=== PATIENT | female | born 1965 | race Caucasian/White ===

== ENCOUNTER 2018-04-21 18:50 | Emergency (ER) | payer MEDICAID ==
[~2018-04-21] VITALS: Ht 152.4 cm; Wt 70.8 kg
[~2018-04-21 18:50] MED LIST: ACHD5005 PO; ALBU8.5H4 IH; AMIT10TA6 PO; ATEN25TA PO; CYCL10TA45 PO; HYDR1TAB PO; LISI40TA PO; OMEG-12 PO; PITA1TAB2 PO
--- OUTSIDE RECORDS SUMMARY | 2018-04-21 19:01 | XMS REPORT | Clinical Summary ---
Author Author Admin, WESTLEYE Organization [facility] Address Unknown Phone Unavailable Allergies, Adverse Reactions, Alerts Allergy Name Reaction Description Start Date Severity Status Provider SULFA Critical Active Daniela Elder MORPHINE Critical Active Daniela Elder DARVOCET Critical Active Daniela Elder CYMBALTA Critical Active Daniela Elder CELEBREX Critical Active Daniela Elder ADHESIVE TAPE Critical Active Daniela Elder PREDNISONE Critical Active Daniela Elder Conditions or Problems Problem Name Problem Code Onset Date Status Entry Date Provider Comment Standard Description Annotate Incontinence, mixed, urge/stress 788.33 Active Jovana Cr MD Mixed incontinence (female) (male) HERNIA, VENTRAL 553.20 Active Jovana Cr MD Unspecified ventral hernia without mention of obstruction or gangrene Medication List Medication Instructions Start Date Stop Date Generic Name NDC Status Provider Patient Instruction IPRATROPIUM-ALBUTEROL 0.5-2.5 (3) MG/3ML INHALATION SOLUTION 1 neb daily 2016 IPRATROPIUM-ALBUTEROL 08904755691 Active Daniela Elder Active CLONIDINE HCL 0.1 MG ORAL TABLET 1 tab by mouth prn CLONIDINE HCL 57313628085 Active Daniela Elder Active OMEPRAZOLE 20 MG ORAL CAPSULE DELAYED RELEASE 1 tablet by mouth daily OMEPRAZOLE 30909118683 Active Daniela Elder Active FISH OIL 1000 MG ORAL CAPSULE DELAYED RELEASE 1 pill by mouth twice daily for cholesterol OMEGA-3 FATTY ACIDS 95784242443 Active Daniela Elder Active BISACODYL EC 5 MG ORAL TABLET DELAYED RELEASE 1 tab by mouth daily BISACODYL 16203166836 Active Daniela Elder Active NYSTATIN 298797 UNIT/GM EXTERNAL CREAM apply to rash TID PRN NYSTATIN 97305387480 Active Daniela Elder Active NDREVPSQ-GTJYCKQLI-AS 3.5-29996-9 OPHTHALMIC SUSPENSION 1-2 drops to affected eye every 3 hours while awake x 7 days [id number]-[id number]-BZ 31835335447 Active Daniela Elder Active PROAIR HFA 108 (90 Base) MCG/ACT INHALATION AEROSOL SOLUTION 2 puffs four times a day as needed ALBUTEROL SULFATE 17687898518 Active Daniela Elder Active ATENOLOL 25 MG ORAL TABLET 1 tablet by mouth daily ATENOLOL 88716005555 Active Daniela Elder Active HYDROCORTISONE 2.5 % EXTERNAL CREAM Apply three times a day to affected area HYDROCORTISONE 23172049351 Active Daniela Elder Active ZOLPIDEM TARTRATE 10 MG ORAL TABLET 1 tablet by mouth at bedtime as needed for sleep ZOLPIDEM TARTRATE 54052313801 Active Daniela Elder Active DIAZEPAM 5 MG ORAL TABLET 1 tablet by mouth three times daily as needed 11/03 DIAZEPAM 57009027588 Active Daniela Elder Active LISINOPRIL 40 MG ORAL TABLET 1 po qd LISINOPRIL 50679592555 Active Daniela Elder Active LIVALO 4 MG ORAL TABLET 1 tab by mouth daily PITAVASTATIN CALCIUM 00498322812 Active Daniela Elder Active HYDROCODONE-ACETAMINOPHEN 10-325 MG ORAL TABLET 1 tablet by mouth every 6 hours as needed HYDROCODONE-ACETAMINOPHEN 81164786614 Active Daniela Elder Active AMLODIPINE BESYLATE 5 MG ORAL TABLET 1 tablet by mouth daily AMLODIPINE BESYLATE 04190051128 Active Daniela Elder Active Advance Directives Directive Description Start Date PERMISSION TO SHARE Vital Signs Date Name Value Unit Range Description blood pressure, diastolic 82 mm[Hg] BP garcía blood pressure, systolic 124 mm[Hg] BP sys pulse rate E&M 78 /min Heart rate temperature E&M 98.1 [degF] Body temperature weight E&M 160 [lb_av] Weight Measured blood pressure, diastolic 76 mm[Hg] BP garcía blood pressure, systolic 132 mm[Hg] BP sys height E&M 60 [in_us] Bdy height pulse rate E&M 70 /min Heart rate temperature E&M 98.1 [degF] Body temperature weight E&M 160 [lb_av] Weight Measured Diagnostic Results Date Name Value Unit Range Description Office Visit: Incontinence per [facility] - Chemistry RBC, urine, dipstick negative Office Visit: Incontinence per [facility] - Urinalysis ketones, urine, by test strip negative bilirubin, urine negative glucose, urine, semiquantitative negative pH, urine, semiquantitative 6 specific gravity, urine 1.010 urinalysis, routine Clean Catch urine color yellow appearance, urine clear leukocyte esterase, urine, by dipstick negative nitrite, urine, semiquantitative negative urobilinogen, urine, semiquantitative (dipstick) negative protein, urine, semiquantitative (dipstick) negative Encounters Code Encounter Date Provider Facility CPT-27569 Level 3 Est. 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
--- OUTSIDE RECORDS SUMMARY | 2018-04-21 19:01 | XMS REPORT | Clinical Summary ---
Author Author Admin, QIE Organization [facility] Address Unknown Phone Unavailable Allergies, Adverse [...] Generic Name NDC Status Provider Patient Instruction KEFLEX 500 MG ORAL CAPSULE 1 tab twice daily CEPHALEXIN 93845450265 No Longer Active Roula Lassiter Active [id number]-ETDRIIGGK-GM 3.5-07822-4 OPHTHALMIC SUSPENSION 1-2 drops to affected ears every 3 hours while awake x 7 days [id number]-[id number]-ED 67034931397 Active Yvan Mendiola MD Active BISACODYL EC 5 MG ORAL TABLET DELAYED RELEASE 1 tab by mouth daily BISACODYL 51971991597 No Longer Active Yvan Mendiola MD Active IPRATROPIUM-ALBUTEROL 0.5-2.5 (3) MG/3ML INHALATION SOLUTION 1 neb daily 2016 IPRATROPIUM-ALBUTEROL 66458937122 Active Daniela Richardson Active CLONIDINE HCL 0.1 MG ORAL TABLET 1 tab by mouth prn CLONIDINE HCL 41263836846 Active Daniela Elder Active OMEPRAZOLE 20 MG ORAL CAPSULE DELAYED RELEASE 1 tablet by mouth daily OMEPRAZOLE 89223742415 Active Daniela Elder Active FISH OIL 1000 MG ORAL CAPSULE DELAYED RELEASE 1 pill by mouth twice daily for cholesterol OMEGA-3 FATTY ACIDS 96248137677 Active Daniela Elder Active NYSTATIN 735162 UNIT/GM EXTERNAL CREAM apply to rash TID PRN NYSTATIN 51019820053 Active Daniela Elder Active PROAIR HFA 108 (90 Base) MCG/ACT INHALATION AEROSOL SOLUTION 2 puffs four times a day as needed ALBUTEROL SULFATE 46157319496 Active Daniela Elder Active ATENOLOL 25 MG ORAL TABLET 1 tablet by mouth daily ATENOLOL 66889709057 Active Daniela Elder Active HYDROCORTISONE 2.5 % EXTERNAL CREAM Apply three times a day to affected area HYDROCORTISONE 95865934279 Active Daniela Elder Active ZOLPIDEM TARTRATE 10 MG ORAL TABLET 1 tablet by mouth at bedtime as needed for sleep ZOLPIDEM TARTRATE 54911102955 Active Daniela Elder Active DIAZEPAM 5 MG ORAL TABLET 1 tablet by mouth three times daily as needed 11/03 DIAZEPAM 24787523130 Active Daniela Elder Active LISINOPRIL 40 MG ORAL TABLET 1 po qd LISINOPRIL 28297494518 Active Daniela Elder Active LIVALO 4 MG ORAL TABLET 1 tab by mouth daily PITAVASTATIN CALCIUM 23982359053 Active Daniela Elder Active HYDROCODONE-ACETAMINOPHEN 10-325 MG ORAL TABLET 1 tablet by mouth every 6 hours as needed HYDROCODONE-ACETAMINOPHEN 87194857689 Active Daniela Elder Active AMLODIPINE BESYLATE 5 MG ORAL TABLET 1 tablet by mouth daily AMLODIPINE BESYLATE 65287845908 Active Daniela Elder Active BISACODYL EC 5 MG ORAL TABLET DELAYED RELEASE 1 tab by mouth daily BISACODYL EC 5 MG ORAL TABLET DELAYED RELEASE BISACODYL Inactive KEFLEX 500 MG ORAL CAPSULE 1 tab twice daily KEFLEX 500 MG ORAL CAPSULE 214016 CEPHALEXIN Inactive Advance Directives Directive Description Start Date PERMISSION TO SHARE Vital Signs Date Name Value Unit Range Description blood pressure, diastolic 64 mm[Hg] BP gacría blood pressure, systolic 132 mm[Hg] BP sys pulse rate E&M 65 /min Heart rate temperature E&M 98 [degF] Body temperature weight E&M 165 [lb_av] Weight Measured blood pressure, diastolic 58 mm[Hg] BP garcía blood pressure, systolic 133 mm[Hg] BP sys pulse rate E&M 61 /min Heart rate temperature E&M 97. [degF] Body temperature weight E&M 163 [lb_av] Weight Measured blood pressure, diastolic 82 mm[Hg] BP garcía [...] (dipstick) negative protein, urine, semiquantitative (dipstick) negative Office Visit: Post-op sling/cystocele - Chemistry RBC, urine, dipstick 1+ protein, total urine random negative mg/dL Office Visit: Post-op sling/cystocele - Urinalysis pH, urine, semiquantitative 5 specific gravity, urine 1.005 urinalysis, routine Clean Catch ketones, urine, by test strip negative bilirubin, urine negative glucose, urine, semiquantitative negative urine color yellow appearance, urine cloudy leukocyte esterase, urine, by dipstick 1+ nitrite, urine, semiquantitative negative urobilinogen, urine, semiquantitative (dipstick) negative protein, urine, semiquantitative (dipstick) negative Encounters Code Encounter Date Provider Facility CPT-02175 Level 3 New Patient 16:37:52 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 Patient 13:08:22 COUNSELING SERVICES MANAGER Jovana Cr MD [facility] CPT-06855 Level 4 New Patient 15:01:20 CDT Jovana Cr MD [facility] Procedures Code Procedure Name Date Entry Date Standard Description CPT-31170 Postop F/U Visit 13:15:27 COUNSELING SERVICES MANAGER
--- OUTSIDE RECORDS SUMMARY | 2018-04-21 19:01 | XMS REPORT | Clinical Summary ---
Author Author Admin, ZEYAD Organization [facility] Address Unknown Phone Unavailable Allergies, Adverse Reactions, [...] Jovana Cr MD Mixed incontinence (female) (male) Medication List Medication Instructions Start Date Stop Date Generic Name NDC Status Provider Patient Instruction IPRATROPIUM-ALBUTEROL 0.5-2.5 (3) MG/3ML SOLN 1 neb daily IPRATROPIUM-ALBUTEROL 88156221116 Active Daniela Elder Active CLONIDINE HCL 0.1 MG TAB 1 tab by mouth prn CLONIDINE HCL 03194680835 Active Daniela Elder Active OMEPRAZOLE 20 MG CPDR 1 tablet by mouth daily OMEPRAZOLE 18310729424 Active Daniela Elder Active FISH OIL 1000 MG CPDR 1 pill by mouth twice daily for cholesterol OMEGA-3 FATTY ACIDS 46607645114 Active Daniela Elder Active BISACODYL EC 5 MG ORAL TBEC 1 tab by mouth daily BISACODYL 53257175324 Active Daniela Elder Active NYSTATIN 042327 UNIT/GM CREA apply to rash TID PRN NYSTATIN 44884053222 Active Daniela Elder Active BUKUXZRL-EMIUCMBQQ-YF 3.5-97411-0 OPHTH SUSP 1-2 drops to affected eye every 3 hours while awake x 7 days DBRSHHNP-HBSGYIUEP-SH 91798846872 Active Daniela Elder Active PROAIR HFA 108 (90 BASE) MCG/ACT AERS 2 puffs four times a day as needed 2016 ALBUTEROL SULFATE 93434291433 Active Daniela Elder Active ATENOLOL 25 MG TABS 1 tablet by mouth daily ATENOLOL 09460366114 Active Daniela Elder Active HYDROCORTISONE 2.5 % EXT CREA Apply three times a day to affected area 11/03 HYDROCORTISONE 63349289706 Active Daniela Elder Active ZOLPIDEM TARTRATE 10 MG TABS 1 tablet by mouth at bedtime as needed for sleep ZOLPIDEM TARTRATE 65981684645 Active Daniela Elder Active DIAZEPAM 5 MG TAB 1 tablet by mouth three times daily as needed DIAZEPAM 09493679599 Active Daniela Elder Active LISINOPRIL 40 MG TABS 1 po qd LISINOPRIL 30131915968 Active Daniela [facility] Active LIVALO 4 MG ORAL TABS 1 tab by mouth daily PITAVASTATIN CALCIUM 40864559770 Active Daniela [facility] Active HYDROCODONE-ACETAMINOPHEN 10-325 MG TABS 1 tablet by mouth every 6 hours as needed HYDROCODONE-ACETAMINOPHEN 22086558180 Active Daniela [facility] Active AMLODIPINE BESYLATE 5 MG TABS 1 tablet by mouth daily AMLODIPINE BESYLATE 53380465224 Active Daniela Richardson Active Vital Signs Date Name Value Unit Range Description blood pressure, diastolic 76 mm[Hg] BP garcía blood pressure, systolic 132 mm[Hg] BP sys height E&M 60 [in_us] Bdy height pulse rate E&M 70 /min Heart rate temperature E&M 98.1 [degF] Body temperature weight E&M 160 [lb_av] Weight Measured Diagnostic Results Date Name Value Unit Range Description Office Visit: Incontinence per [facility] - Chemistry RBC, urine, dipstick negative Office Visit: [facility] - Urinalysis ketones, urine, by test strip negative bilirubin, urine negative glucose, urine, semiquantitative negative pH, urine, semiquantitative 6 specific gravity, urine 1.010 urinalysis, routine Clean Catch urine color yellow appearance, urine clear leukocyte esterase, urine, by dipstick negative nitrite, urine, semiquantitative negative urobilinogen, urine, semiquantitative (dipstick) negative protein, urine, semiquantitative (dipstick) negative Encounters Code Encounter Date Provider Facility CPT-07109 Level 4 New Patient 15:01:20 CDT Jovana Cr MD [facility]
--- OUTSIDE RECORDS SUMMARY | 2018-04-21 19:01 | XMS REPORT | Clinical Summary ---
Author Author Admin, ZEYAD Organization [facility] Address Unknown Phone Unavailable Allergies, Adverse Reactions, Alerts Allergy Name Reaction Description Start Date Severity Status Provider SULFA Critical Active Danilea Elder MORPHINE Critical Active Daniela Elder DARVOCET [...] (3) MG/3ML SOLN 1 neb daily IPRATROPIUM-ALBUTEROL 49905228739 Active Daniela Elder Active CLONIDINE HCL 0.1 MG TAB 1 tab by mouth prn CLONIDINE HCL 10442179921 Active Daniela Elder Active OMEPRAZOLE 20 MG CPDR 1 tablet by mouth daily OMEPRAZOLE 15350339625 Active Daniela Elder Active FISH OIL 1000 MG CPDR 1 pill by mouth twice daily for cholesterol OMEGA-3 FATTY ACIDS 87999764062 Active Daniela Elder Active BISACODYL EC 5 MG ORAL TBEC 1 tab by mouth daily BISACODYL 18051809737 Active Daniela Elder Active NYSTATIN 582079 UNIT/GM CREA apply to rash TID PRN NYSTATIN 10635579321 Active Daniela Elder Active TVZUOPPX-SQESEIXRR-QU 3.5-92294-8 OPHTH SUSP 1-2 drops to affected eye every 3 hours while awake x 7 days PVYLEBON-QZPFQXQDT-ZO 30930715099 Active Daniela Elder Active PROAIR HFA 108 (90 BASE) MCG/ACT AERS 2 puffs four times a day as needed 2016 ALBUTEROL SULFATE 07342364607 Active Daniela Elder Active ATENOLOL 25 MG TABS 1 tablet by mouth daily ATENOLOL 93043668570 Active Daniela Elder Active HYDROCORTISONE 2.5 % EXT CREA Apply three times a day to affected area 11/03 HYDROCORTISONE 26700771030 Active Daniela Elder Active ZOLPIDEM TARTRATE 10 MG TABS 1 tablet by mouth at bedtime as needed for sleep ZOLPIDEM TARTRATE 25973522010 Active Daniela Elder Active DIAZEPAM 5 MG TAB 1 tablet by mouth three times daily as needed DIAZEPAM 30285384346 Active Daniela Elder Active LISINOPRIL 40 MG TABS 1 po qd LISINOPRIL 18287244957 Active Daniela Elder Active LIVALO 4 MG ORAL TABS 1 tab by mouth daily PITAVASTATIN CALCIUM 83621418979 Active Daniela Elder Active HYDROCODONE-ACETAMINOPHEN 10-325 MG TABS 1 tablet by mouth every 6 hours as needed HYDROCODONE-ACETAMINOPHEN 79509838795 Active Daniela Elder Active AMLODIPINE BESYLATE 5 MG TABS 1 tablet by mouth daily AMLODIPINE BESYLATE 14554350890 Active Daniela Elder Active Advance Directives Directive [...] negative Encounters Code Encounter Date Provider Facility CPT-79947 Level 4 New Patient 15:01:20 CDT Jovana Cr MD [facility]
--- OUTSIDE RECORDS SUMMARY | 2018-04-21 19:01 | XMS REPORT | Clinical Summary ---
Author Author Admin, ZEYAD Organization [facility] Address Unknown Phone Unavailable Allergies, Adverse Reactions, [...] (3) MG/3ML SOLN 1 neb daily IPRATROPIUM-ALBUTEROL 53452453698 Active Daniela Elder Active CLONIDINE HCL 0.1 MG TAB 1 tab by mouth prn CLONIDINE HCL 81639807129 Active Daniela Elder Active OMEPRAZOLE 20 MG CPDR 1 tablet by mouth daily OMEPRAZOLE 72730553921 Active Daniela Elder Active FISH OIL 1000 MG CPDR 1 pill by mouth twice daily for cholesterol OMEGA-3 FATTY ACIDS 68222250518 Active Daniela Elder Active BISACODYL EC 5 MG ORAL TBEC 1 tab by mouth daily BISACODYL 53540341989 Active Daniela Elder Active NYSTATIN 371846 UNIT/GM CREA apply to rash TID PRN NYSTATIN 03556074268 Active Daniela Elder Active NQPPTYTB-ICWMFVYCH-GP 3.5-87176-3 OPHTH SUSP 1-2 drops to affected eye every 3 hours while awake x 7 days ZMCZLCDX-RCRTFXGDN-BQ 96544110728 Active Daniela Elder Active PROAIR HFA 108 (90 BASE) MCG/ACT AERS 2 puffs four times a day as needed 2016 ALBUTEROL SULFATE 34953295624 Active Daniela Elder Active ATENOLOL 25 MG TABS 1 tablet by mouth daily ATENOLOL 38798868364 Active Daniela Elder Active HYDROCORTISONE 2.5 % EXT CREA Apply three times a day to affected area 11/03 HYDROCORTISONE 18983720377 Active Daniela Elder Active ZOLPIDEM TARTRATE 10 MG TABS 1 tablet by mouth at bedtime as needed for sleep ZOLPIDEM TARTRATE 99892908848 Active Daniela Elder Active DIAZEPAM 5 MG TAB 1 tablet by mouth three times daily as needed DIAZEPAM 11736072564 Active Daniela Elder Active LISINOPRIL 40 MG TABS 1 po qd LISINOPRIL 35863117989 Active Daniela [facility] Active LIVALO 4 MG ORAL TABS 1 tab by mouth daily PITAVASTATIN CALCIUM 24801149986 Active Daniela [facility] Active HYDROCODONE-ACETAMINOPHEN 10-325 MG TABS 1 tablet by mouth every 6 hours as needed HYDROCODONE-ACETAMINOPHEN 54372538153 Active Daniela [facility] Active AMLODIPINE BESYLATE 5 MG TABS 1 tablet by mouth daily AMLODIPINE BESYLATE 18842968124 Active Daniela Richardson Active Vital Signs Date Name Value Unit Range Description blood pressure, diastolic 76 mm[Hg] BP garcía blood pressure, systolic 132 mm[Hg] BP sys height E&M 60 [in_us] Bdy height pulse rate E&M 70 /min Heart rate temperature E&M 98.1 [degF] Body temperature weight E&M 160 [lb_av] Weight Measured Diagnostic Results Date Name Value Unit Range Description Office Visit: [facility] - Chemistry RBC, urine, dipstick negative [facility] ketones, urine, by test strip negative bilirubin, urine negative glucose, urine, semiquantitative negative pH, urine, semiquantitative 6 specific gravity, urine 1.010 urinalysis, routine Clean Catch urine color yellow appearance, urine clear leukocyte esterase, urine, by dipstick negative nitrite, urine, semiquantitative negative urobilinogen, urine, semiquantitative (dipstick) negative protein, urine, semiquantitative (dipstick) negative Encounters Code Encounter Date Provider Facility CPT-20222 Level 4 New Patient 15:01:20 CDT Jovana Cr MD [facility]
--- OUTSIDE RECORDS SUMMARY | 2018-04-21 19:02 | XMS REPORT | Clinical Summary ---
Author Author Admin, QIE Organization [facility] Address Unknown Phone Unavailable Allergies, Adverse Reactions, [...] Generic Name NDC Status Provider Patient Instruction LRTZOLUM-UMWAXMLZF-ZO 3.5-90016-2 OPHTHALMIC SUSPENSION 1-2 drops to affected ears every 3 hours while awake x 7 days BMGDEVMJ-JGXJJPBUV-IZ 14308430500 Active Yvan Mendiola MD Active BISACODYL EC 5 MG ORAL TABLET DELAYED RELEASE 1 tab by mouth daily BISACODYL 34764456548 No Longer Active Yvan Mendiola MD Active IPRATROPIUM-ALBUTEROL 0.5-2.5 (3) MG/3ML INHALATION SOLUTION 1 neb daily 2016 IPRATROPIUM-ALBUTEROL 17853940798 [facility] CLONIDINE HCL 0.1 MG ORAL TABLET 1 tab by mouth prn CLONIDINE HCL 34030466409 [facility] OMEPRAZOLE 20 MG ORAL CAPSULE DELAYED RELEASE 1 tablet by mouth daily OMEPRAZOLE 23868165270 Active Daniela Elder Active FISH OIL 1000 MG ORAL CAPSULE DELAYED RELEASE 1 pill by mouth twice daily for cholesterol OMEGA-3 FATTY ACIDS 88819100136 Active Daniela Elder Active NYSTATIN 091859 UNIT/GM EXTERNAL CREAM apply to rash TID PRN NYSTATIN 85731800954 Active Daniela Elder Active PROAIR HFA 108 (90 Base) MCG/ACT INHALATION AEROSOL SOLUTION 2 puffs four times a day as needed ALBUTEROL SULFATE 01506289257 Active Daniela Elder Active ATENOLOL 25 MG ORAL TABLET 1 tablet by mouth daily ATENOLOL 69911776947 Active Daniela Elder Active HYDROCORTISONE 2.5 % EXTERNAL CREAM Apply three times a day to affected area HYDROCORTISONE 75368850803 Active Daniela Elder Active ZOLPIDEM TARTRATE 10 MG ORAL TABLET 1 tablet by mouth at bedtime as needed for sleep ZOLPIDEM TARTRATE 87959186655 Active Daniela Elder Active DIAZEPAM 5 MG ORAL TABLET 1 tablet by mouth three times daily as needed 11/03 DIAZEPAM 26860465731 Active Daniela Elder Active LISINOPRIL 40 MG ORAL TABLET 1 po qd LISINOPRIL 32331478412 Active Daniela Elder Active LIVALO 4 MG ORAL TABLET 1 tab by mouth daily PITAVASTATIN CALCIUM 66740585181 Active Daniela Elder Active HYDROCODONE-ACETAMINOPHEN 10-325 MG ORAL TABLET 1 tablet by mouth every 6 hours as needed HYDROCODONE-ACETAMINOPHEN 89745834343 Active Daniela Elder Active AMLODIPINE BESYLATE 5 MG ORAL TABLET 1 tablet by mouth daily AMLODIPINE BESYLATE 23511188286 Active Daniela Elder Active BISACODYL EC 5 MG ORAL TABLET DELAYED RELEASE 1 tab by mouth daily BISACODYL EC 5 MG ORAL TABLET DELAYED RELEASE BISACODYL Inactive Advance Directives Directive Description Start Date PERMISSION TO SHARE Vital Signs Date Name Value Unit Range Description blood pressure, diastolic 58 mm[Hg] BP garcía [...] negative Encounters Code Encounter Date Provider Facility CPT-56915 Level 3 New Patient 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
--- OUTSIDE RECORDS SUMMARY | 2018-04-21 19:02 | XMS REPORT | Clinical Summary ---
Author Author Admin, QIE Organization [facility] Address Unknown Phone Unavailable [...] Generic Name NDC Status Provider Patient Instruction LZZQNGGS-KEUTGBZVT-IJ 3.5-82775-2 OPHTHALMIC SUSPENSION 1-2 drops to affected ears every 3 hours while awake x 7 days INRPVVJR-LUAOHBLAT-BI 11384618498 Active Yvan Mendiola MD Active BISACODYL EC 5 MG ORAL TABLET DELAYED RELEASE 1 tab by mouth daily BISACODYL 74868387271 No Longer Active Yvan Mendiola MD Active IPRATROPIUM-ALBUTEROL 0.5-2.5 (3) MG/3ML INHALATION SOLUTION 1 neb daily 2016 IPRATROPIUM-ALBUTEROL 42789560800 [facility] CLONIDINE HCL 0.1 MG ORAL TABLET 1 tab by mouth prn CLONIDINE HCL 82179717901 [facility] OMEPRAZOLE 20 MG ORAL CAPSULE DELAYED RELEASE 1 tablet by mouth daily OMEPRAZOLE 36310798994 Active Daniela Elder Active FISH OIL 1000 MG ORAL CAPSULE DELAYED RELEASE 1 pill by mouth twice daily for cholesterol OMEGA-3 FATTY ACIDS 63019631830 Active Daniela Elder Active NYSTATIN 047825 UNIT/GM EXTERNAL CREAM apply to rash TID PRN NYSTATIN 00121423195 Active Daniela Elder Active PROAIR HFA 108 (90 Base) MCG/ACT INHALATION AEROSOL SOLUTION 2 puffs four times a day as needed ALBUTEROL SULFATE 35410603777 Active Daniela Elder Active ATENOLOL 25 MG ORAL TABLET 1 tablet by mouth daily ATENOLOL 61173939205 Active Daniela Elder Active HYDROCORTISONE 2.5 % EXTERNAL CREAM Apply three times a day to affected area HYDROCORTISONE 68947931718 Active Daniela Elder Active ZOLPIDEM TARTRATE 10 MG ORAL TABLET 1 tablet by mouth at bedtime as needed for sleep ZOLPIDEM TARTRATE 65784123868 Active Daniela Elder Active DIAZEPAM 5 MG ORAL TABLET 1 tablet by mouth three times daily as needed 11/03 DIAZEPAM 01675177187 Active Daniela Elder Active LISINOPRIL 40 MG ORAL TABLET 1 po qd LISINOPRIL 53909167234 Active Daniela Elder Active LIVALO 4 MG ORAL TABLET 1 tab by mouth daily PITAVASTATIN CALCIUM 51997360193 Active Daniela Elder Active HYDROCODONE-ACETAMINOPHEN 10-325 MG ORAL TABLET 1 tablet by mouth every 6 hours as needed HYDROCODONE-ACETAMINOPHEN 39196189608 Active Daniela Elder Active AMLODIPINE BESYLATE 5 MG ORAL TABLET 1 tablet by mouth daily AMLODIPINE BESYLATE 54638023083 Active Daniela Elder Active BISACODYL EC 5 [...] negative Encounters Code Encounter Date Provider Facility CPT-65474 Level 3 New Patient 16:37:52 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
--- OUTSIDE RECORDS SUMMARY | 2018-04-21 19:02 | XMS REPORT | Clinical Summary ---
Author Author Admin, QIE Organization [facility] Address Unknown Phone Unavailable Allergies, Adverse [...] ORAL CAPSULE 1 tab twice daily CEPHALEXIN 03320266899 No Longer Active Roula Lassiter Active SQQHIBJK-AVELOPLTL-SR 3.5-86720-5 OPHTHALMIC SUSPENSION 1-2 drops to affected ears every 3 hours while awake x 7 days ONPGZLMZ-MDBTPTCZZ-EH 02970625620 Active Yvan Mendiola MD Active BISACODYL EC 5 MG ORAL TABLET DELAYED RELEASE 1 tab by mouth daily BISACODYL 12613083674 No Longer Active Yvan Mendiola MD Active IPRATROPIUM-ALBUTEROL 0.5-2.5 (3) MG/3ML INHALATION SOLUTION 1 neb daily 2016 IPRATROPIUM-ALBUTEROL 13696560806 Active Daniela Richardson Active CLONIDINE HCL 0.1 MG ORAL TABLET 1 tab by mouth prn CLONIDINE HCL 92261573794 Active Daniela Elder Active OMEPRAZOLE 20 MG ORAL CAPSULE DELAYED RELEASE 1 tablet by mouth daily OMEPRAZOLE 28867247269 Active Daniela Elder Active FISH OIL 1000 MG ORAL CAPSULE DELAYED RELEASE 1 pill by mouth twice daily for cholesterol OMEGA-3 FATTY ACIDS 28223030962 Active Daniela Elder Active NYSTATIN 329619 UNIT/GM EXTERNAL CREAM apply to rash TID PRN NYSTATIN 73755793339 Active Daniela Elder Active PROAIR HFA 108 (90 Base) MCG/ACT INHALATION AEROSOL SOLUTION 2 puffs four times a day as needed ALBUTEROL SULFATE 09990995645 Active Daniela Elder Active ATENOLOL 25 MG ORAL TABLET 1 tablet by mouth daily ATENOLOL 97765774306 Active Daniela Elder Active HYDROCORTISONE 2.5 % EXTERNAL CREAM Apply three times a day to affected area HYDROCORTISONE 05479605611 Active Daniela Elder Active ZOLPIDEM TARTRATE 10 MG ORAL TABLET 1 tablet by mouth at bedtime as needed for sleep ZOLPIDEM TARTRATE 31663994617 Active Daniela Elder Active DIAZEPAM 5 MG ORAL TABLET 1 tablet by mouth three times daily as needed 11/03 DIAZEPAM 24869456974 Active Daniela Elder Active LISINOPRIL 40 MG ORAL TABLET 1 po qd LISINOPRIL 28414362394 Active Daniela Elder Active LIVALO 4 MG ORAL TABLET 1 tab by mouth daily PITAVASTATIN CALCIUM 63964826657 Active Daniela Elder Active HYDROCODONE-ACETAMINOPHEN 10-325 MG ORAL TABLET 1 tablet by mouth every 6 hours as needed HYDROCODONE-ACETAMINOPHEN 84797294659 Active Daniela Elder Active AMLODIPINE BESYLATE 5 MG ORAL TABLET 1 tablet by mouth daily AMLODIPINE BESYLATE 32984501958 Active Daniela Elder Active BISACODYL EC 5 MG ORAL TABLET DELAYED RELEASE 1 tab by mouth daily BISACODYL EC 5 MG ORAL TABLET DELAYED RELEASE BISACODYL Inactive KEFLEX 500 MG ORAL CAPSULE 1 tab twice daily KEFLEX 500 MG ORAL CAPSULE 364933 CEPHALEXIN Inactive Advance Directives Directive Description Start [...] negative Encounters Code Encounter Date Provider Facility CPT-48484 Level 3 New Patient 16:37:52 STUDENT SUPPORT COUNSELOR Yvan Mendiola MD [facility] CPT-33771 Level 3 Est. Patient 13:08:22 STUDENT SUPPORT COUNSELOR Jovana Cr MD [facility] CPT-60126 Level 4 New Patient 15:01:20 CDT Jovana Cr MD [facility] Procedures Code Procedure Name Date Entry Date Standard Description CPT-68165 Postop F/U Visit 13:15:27 STUDENT SUPPORT COUNSELOR
--- OUTSIDE RECORDS SUMMARY | 2018-04-21 19:02 | XMS REPORT | Clinical Summary ---
Author Author Admin, WESTLEYE Organization [facility] Address Unknown Phone Unavailable Allergies, Adverse [...] INHALATION SOLUTION 1 neb daily 2016 IPRATROPIUM-ALBUTEROL 48652986503 Active Daniela Elder Active CLONIDINE HCL 0.1 MG ORAL TABLET 1 tab by mouth prn CLONIDINE HCL 04082399784 Active Daniela Elder Active OMEPRAZOLE 20 MG ORAL CAPSULE DELAYED RELEASE 1 tablet by mouth daily OMEPRAZOLE 96301403431 Active Daniela Elder Active FISH OIL 1000 MG ORAL CAPSULE DELAYED RELEASE 1 pill by mouth twice daily for cholesterol OMEGA-3 FATTY ACIDS 28880987008 Active Daniela Elder Active BISACODYL EC 5 MG ORAL TABLET DELAYED RELEASE 1 tab by mouth daily BISACODYL 28989555892 Active Daniela Elder Active NYSTATIN 378417 UNIT/GM EXTERNAL CREAM apply to rash TID PRN NYSTATIN 11869571681 Active Daniela Elder Active RBHLCGGX-DJKBDHKAU-DQ 3.5-45918-7 OPHTHALMIC SUSPENSION 1-2 drops to affected eye every 3 hours while awake x 7 days OGVZLZKZ-PXJAPPRPR-BC 04090268549 Active Daniela Elder Active PROAIR HFA 108 (90 Base) MCG/ACT INHALATION AEROSOL SOLUTION 2 puffs four times a day as needed ALBUTEROL SULFATE 23670063472 Active Daniela Elder Active ATENOLOL 25 MG ORAL TABLET 1 tablet by mouth daily ATENOLOL 78863317183 Active Daniela Elder Active HYDROCORTISONE 2.5 % EXTERNAL CREAM Apply three times a day to affected area HYDROCORTISONE 45408646837 Active Daniela Elder Active ZOLPIDEM TARTRATE 10 MG ORAL TABLET 1 tablet by mouth at bedtime as needed for sleep ZOLPIDEM TARTRATE 19720841064 Active Daniela Elder Active DIAZEPAM 5 MG ORAL TABLET 1 tablet by mouth three times daily as needed 11/03 DIAZEPAM 48662001652 Active Daniela Elder Active LISINOPRIL 40 MG ORAL TABLET 1 po qd LISINOPRIL 94079088748 Active Daniela Elder Active LIVALO 4 MG ORAL TABLET 1 tab by mouth daily PITAVASTATIN CALCIUM 26766969763 Active Daniela Elder Active HYDROCODONE-ACETAMINOPHEN 10-325 MG ORAL TABLET 1 tablet by mouth every 6 hours as needed HYDROCODONE-ACETAMINOPHEN 65081573632 Active Daniela Elder Active AMLODIPINE BESYLATE 5 MG ORAL TABLET 1 tablet by mouth daily AMLODIPINE BESYLATE 77993798439 Active Daniela Elder Active Advance Directives Directive [...] negative Encounters Code Encounter Date Provider Facility CPT-61559 Level 3 Est. Patient 13:08:22 PARK AIDE Jovana Cr MD [facility] CPT-38675 Level 4 New Patient 15:01:20 CDT Jovana Cr MD [facility]
--- OUTSIDE RECORDS SUMMARY | 2018-04-21 19:03 | XMS REPORT | Clinical Summary ---
Author Author Admin, ZEYAD Organization [facility] Address Unknown Phone Unavailable Allergies, [...] (3) MG/3ML SOLN 1 neb daily IPRATROPIUM-ALBUTEROL 21652042776 Active Daniela Elder Active CLONIDINE HCL 0.1 MG TAB 1 tab by mouth prn CLONIDINE HCL 55185761204 Active Daniela Elder Active OMEPRAZOLE 20 MG CPDR 1 tablet by mouth daily OMEPRAZOLE 60266972781 Active Daniela Elder Active FISH OIL 1000 MG CPDR 1 pill by mouth twice daily for cholesterol OMEGA-3 FATTY ACIDS 61812638409 Active Daniela Elder Active BISACODYL EC 5 MG ORAL TBEC 1 tab by mouth daily BISACODYL 96640687926 Active Daniela Elder Active NYSTATIN 751585 UNIT/GM CREA apply to rash TID PRN NYSTATIN 01643508464 Active Daniela Elder Active VUSDZBNJ-DALOUZEJM-DD 3.5-11016-3 OPHTH SUSP 1-2 drops to affected eye every 3 hours while awake x 7 days NCCWFTUJ-ILESFEAHQ-NO 99777019770 Active Daniela Elder Active PROAIR HFA 108 (90 BASE) MCG/ACT AERS 2 puffs four times a day as needed 2016 ALBUTEROL SULFATE 95444210179 Active Daniela Elder Active ATENOLOL 25 MG TABS 1 tablet by mouth daily ATENOLOL 15354501389 Active Daniela Elder Active HYDROCORTISONE 2.5 % EXT CREA Apply three times a day to affected area 11/03 HYDROCORTISONE 63158252977 Active Daniela Elder Active ZOLPIDEM TARTRATE 10 MG TABS 1 tablet by mouth at bedtime as needed for sleep ZOLPIDEM TARTRATE 61225083696 Active Daniela Elder Active DIAZEPAM 5 MG TAB 1 tablet by mouth three times daily as needed DIAZEPAM 69040351263 Active Daniela Elder Active LISINOPRIL 40 MG TABS 1 po qd LISINOPRIL 92882110815 Active Daniela Elder Active LIVALO 4 MG ORAL TABS 1 tab by mouth daily PITAVASTATIN CALCIUM 20747929643 Active Daniela Elder Active HYDROCODONE-ACETAMINOPHEN 10-325 MG TABS 1 tablet by mouth every 6 hours as needed HYDROCODONE-ACETAMINOPHEN 23674397443 Active Daniela Elder Active AMLODIPINE BESYLATE 5 MG TABS 1 tablet by mouth daily AMLODIPINE BESYLATE 58831261796 Active Daniela Elder Active Advance Directives Directive [...] negative Encounters Code Encounter Date Provider Facility CPT-99172 Level 4 New Patient 15:01:20 CDT Jovana Cr MD [facility]
--- OUTSIDE RECORDS SUMMARY | 2018-04-21 19:03 | XMS REPORT | Clinical Summary ---
Author Author Admin, QIE Organization [facility] Address Unknown Phone Unavailable Allergies, Adverse [...] Generic Name NDC Status Provider Patient Instruction [id number]-NELCPQCIJ-WK 3.5-54756-8 OPHTHALMIC SUSPENSION 1-2 drops to affected ears every 3 hours while awake x 7 days ONNYHFML-NMKLAPBJK-ZZ 46276345632 Active Yvan Mendiola MD Active BISACODYL EC 5 MG ORAL TABLET DELAYED RELEASE 1 tab by mouth daily BISACODYL 11271998152 No Longer Active Yvan Mendiola MD Active IPRATROPIUM-ALBUTEROL 0.5-2.5 (3) MG/3ML INHALATION SOLUTION 1 neb daily 2016 IPRATROPIUM-ALBUTEROL 83026749345 [facility] CLONIDINE HCL 0.1 MG ORAL TABLET 1 tab by mouth prn CLONIDINE HCL 65854000889 [facility] Active OMEPRAZOLE 20 MG ORAL CAPSULE DELAYED RELEASE 1 tablet by mouth daily OMEPRAZOLE 29689008620 Active Daniela Elder Active FISH OIL 1000 MG ORAL CAPSULE DELAYED RELEASE 1 pill by mouth twice daily for cholesterol OMEGA-3 FATTY ACIDS 34825299345 Active Daniela Elder Active NYSTATIN 283090 UNIT/GM EXTERNAL CREAM apply to rash TID PRN NYSTATIN 83925967878 Active Daniela Elder Active PROAIR HFA 108 (90 Base) MCG/ACT INHALATION AEROSOL SOLUTION 2 puffs four times a day as needed ALBUTEROL SULFATE 78953185524 Active Daniela Elder Active ATENOLOL 25 MG ORAL TABLET 1 tablet by mouth daily ATENOLOL 60539355306 Active Daniela Elder Active HYDROCORTISONE 2.5 % EXTERNAL CREAM Apply three times a day to affected area HYDROCORTISONE 43242417744 Active Daniela Elder Active ZOLPIDEM TARTRATE 10 MG ORAL TABLET 1 tablet by mouth at bedtime as needed for sleep ZOLPIDEM TARTRATE 66362829931 Active Daniela Elder Active DIAZEPAM 5 MG ORAL TABLET 1 tablet by mouth three times daily as needed 11/03 DIAZEPAM 96232534164 Active Daniela Elder Active LISINOPRIL 40 MG ORAL TABLET 1 po qd LISINOPRIL 47649858748 Active Daniela Elder Active LIVALO 4 MG ORAL TABLET 1 tab by mouth daily PITAVASTATIN CALCIUM 40717606671 Active Daniela Elder Active HYDROCODONE-ACETAMINOPHEN 10-325 MG ORAL TABLET 1 tablet by mouth every 6 hours as needed HYDROCODONE-ACETAMINOPHEN 59341677679 Active Daniela Elder Active AMLODIPINE BESYLATE 5 MG ORAL TABLET 1 tablet by mouth daily AMLODIPINE BESYLATE 40911477164 Active Daniela Elder Active BISACODYL EC 5 [...] negative Encounters Code Encounter Date Provider Facility CPT-78221 Level 3 New Patient 16:37:52 CHARGE ACCOUNT IDENTIFICATION CLERK Yvan Mendiola MD [facility] CPT-28755 Level 3 Est. Patient 13:08:22 CHARGE ACCOUNT IDENTIFICATION CLERK Jovana Cr MD [facility] CPT-40125 Level 4 New Patient 15:01:20 MAGGIE Cr MD [facility]
--- OUTSIDE RECORDS SUMMARY | 2018-04-21 19:03 | XMS REPORT | Clinical Summary ---
Author Author Admin, ZEYAD Organization [facility] Address Unknown Phone Unavailable Allergies, Adverse Reactions, Alerts Allergy Name Reaction Description Start Date Severity Status Provider SULFA Critical Active Daniela Elder MORPHINE Critical Active Daniela Elder DARVOCET Critical Active Daniela Elder CYMBALTA Critical Active Daniela Elder CELEBREX Critical Active Daniela Elder ADHESIVE TAPE Critical Active Daniela Elder PREDNISONE Critical Active Danilea Elder Conditions or Problems Problem Name Problem Code Onset Date Status Entry Date Provider Comment Standard Description Annotate Problems Unknown Active Medication List Medication Instructions Start Date Stop Date Generic Name NDC Status Provider Patient Instruction IPRATROPIUM-ALBUTEROL 0.5-2.5 (3) MG/3ML SOLN 1 neb daily IPRATROPIUM-ALBUTEROL 33218599964 Active Daniela Elder Active CLONIDINE HCL 0.1 MG TAB 1 tab by mouth prn CLONIDINE HCL 96057059182 Active Daniela Elder Active OMEPRAZOLE 20 MG CPDR 1 tablet by mouth daily OMEPRAZOLE 79157632983 Active Daniela Elder Active FISH OIL 1000 MG CPDR 1 pill by mouth twice daily for cholesterol OMEGA-3 FATTY ACIDS 87790030367 Active Daniela Elder Active BISACODYL EC 5 MG ORAL TBEC 1 tab by mouth daily BISACODYL 13315890383 Active Daniela Elder Active NYSTATIN 718277 UNIT/GM CREA apply to rash TID PRN NYSTATIN 04670575954 Active Daniela Elder Active IXEGUAEC-CCVALJEGL-VL 3.5-28872-6 OPHTH SUSP 1-2 drops to affected eye every 3 hours while awake x 7 days SOJQPMXX-GLLFCBJAX-NR 98576214423 Active Daniela Elder Active PROAIR HFA 108 (90 BASE) MCG/ACT AERS 2 puffs four times a day as needed 2016 ALBUTEROL SULFATE 62736158926 Active Daniela Elder Active ATENOLOL 25 MG TABS 1 tablet by mouth daily ATENOLOL 12018099012 Active Daniela Elder Active HYDROCORTISONE 2.5 % EXT CREA Apply three times a day to affected area 11/03 HYDROCORTISONE 36868294180 Active Daniela [facility] Active ZOLPIDEM TARTRATE 10 MG TABS 1 tablet by mouth at bedtime as needed for sleep ZOLPIDEM TARTRATE 10462525148 Active Daniela [facility] Active DIAZEPAM 5 MG TAB 1 tablet by mouth three times daily as needed DIAZEPAM 86930850774 Active Daniela [facility] Active LISINOPRIL 40 MG TABS 1 po qd LISINOPRIL 19395291076 Active Daniela [facility] Active LIVALO 4 MG ORAL TABS 1 tab by mouth daily PITAVASTATIN CALCIUM 92072953858 Active Daniela [facility] Active HYDROCODONE-ACETAMINOPHEN 10-325 MG TABS 1 tablet by mouth every 6 hours as needed HYDROCODONE-ACETAMINOPHEN 17071085900 Active Daniela [facility] Active AMLODIPINE BESYLATE 5 MG TABS 1 tablet by mouth daily AMLODIPINE BESYLATE 86500985744 Active Daniela [facility] Active
--- OUTSIDE RECORDS SUMMARY | 2018-04-21 19:03 | XMS REPORT | Clinical Summary ---
Author Author Admin, WESTLEYE Organization [facility] Address Unknown Phone Unavailable Allergies, Adverse [...] INHALATION SOLUTION 1 neb daily 2016 IPRATROPIUM-ALBUTEROL 41118568161 Active Daniela Elder Active CLONIDINE HCL 0.1 MG ORAL TABLET 1 tab by mouth prn CLONIDINE HCL 35714961487 Active Daniela Elder Active OMEPRAZOLE 20 MG ORAL CAPSULE DELAYED RELEASE 1 tablet by mouth daily OMEPRAZOLE 52327104997 Active Daniela Elder Active FISH OIL 1000 MG ORAL CAPSULE DELAYED RELEASE 1 pill by mouth twice daily for cholesterol OMEGA-3 FATTY ACIDS 68932531673 Active Daniela Elder Active BISACODYL EC 5 MG ORAL TABLET DELAYED RELEASE 1 tab by mouth daily BISACODYL 24721236563 Active Daniela Elder Active NYSTATIN 490689 UNIT/GM EXTERNAL CREAM apply to rash TID PRN NYSTATIN 95370024871 Active Daniela Elder Active LTQHRUAH-ATIBAHWPM-YD 3.5-12664-5 OPHTHALMIC SUSPENSION 1-2 drops to affected eye every 3 hours while awake x 7 days KRQZACYD-SDFPVDXNE-ZP 08577966394 Active Daniela Elder Active PROAIR HFA 108 (90 Base) MCG/ACT INHALATION AEROSOL SOLUTION 2 puffs four times a day as needed ALBUTEROL SULFATE 73655609293 Active Daniela Elder Active ATENOLOL 25 MG ORAL TABLET 1 tablet by mouth daily ATENOLOL 23829341819 Active Daniela Elder Active HYDROCORTISONE 2.5 % EXTERNAL CREAM Apply three times a day to affected area HYDROCORTISONE 65519938605 Active Daniela Elder Active ZOLPIDEM TARTRATE 10 MG ORAL TABLET 1 tablet by mouth at bedtime as needed for sleep ZOLPIDEM TARTRATE 94099503999 Active Daniela Elder Active DIAZEPAM 5 MG ORAL TABLET 1 tablet by mouth three times daily as needed 11/03 DIAZEPAM 45268783882 Active Daniela Elder Active LISINOPRIL 40 MG ORAL TABLET 1 po qd LISINOPRIL 92248092707 Active Daniela Elder Active LIVALO 4 MG ORAL TABLET 1 tab by mouth daily PITAVASTATIN CALCIUM 04664917305 Active Daniela Elder Active HYDROCODONE-ACETAMINOPHEN 10-325 MG ORAL TABLET 1 tablet by mouth every 6 hours as needed HYDROCODONE-ACETAMINOPHEN 57878789443 Active Daniela Elder Active AMLODIPINE BESYLATE 5 MG ORAL TABLET 1 tablet by mouth daily AMLODIPINE BESYLATE 57541544370 Active Daniela Elder Active Advance Directives Directive [...] negative Encounters Code Encounter Date Provider Facility CPT-99961 Level 3 Est. Patient 13:08:22 MANAGER CLINICAL APPLICATIONS Jovana Cr MD [facility] CPT-38753 Level 4 New Patient 15:01:20 CDT Jovana Cr MD [facility]
--- OUTSIDE RECORDS SUMMARY | 2018-04-21 19:04 | XMS REPORT ---
Author Author SERGIO CUEVA Organization [employer] Address Unknown Phone Unavailable Care Team Providers Care Chef Head Name Role Phone SERGIO CUEVA CP Unavailable Allergies, Adverse Reactions, Alerts Substance Reaction Event Type Sulfamethoxazole Info Not Available Drug Allergy Problems Problem Type Condition Code Onset Dates Condition Status Assessment Dental caries K02.9 Active Assessment Dental examination Z01.20 Active Medications Medication Code System Code Instructions Start Date End Date Status Dosage Fish Oil [facility] [address]-32 not defined Trazodone HCl [facility] [address]-70 not defined Ambien [facility] [address]-40 not defined Hydrocodone-Acetaminophen [facility] [address]-42 not defined Procedures Procedure Coding System Code Date INTRAORL-PERIAPICAL 1 FILM 90364 CPT-4 D0220 Jan 17, 2015 INTRAORL-PERIAPICAL EA ADD FILM CPT-4 D0230 Jan 17, 2015 LTD ORAL EVALUATION - PROBLEM FOCUS CPT-4 D0140 Jan 17, 2015 EXTRAC ERUPTED TOOTH/EXPOSED ROOT CPT-4 D7140 Jan 17, 2015 BITEWING - SINGLE FILM CPT-4 D0270 Jan 17, 2015 EXTRAC ERUPTED TOOTH/EXPOSED ROOT CPT-4 D7140 Jan 17, 2015 Vital Signs Date/Time: Jan 17, 2015 Blood Pressure Diastolic 92 mmHg Blood Pressure Systolic 124 mmHg Results No Known Results Summary Purpose [employer] Submission
--- OUTSIDE RECORDS SUMMARY | 2018-04-21 19:04 | XMS REPORT ---
Author Author BLANE MUÑOZ [facility] Address Unknown Care Team Providers Care Return To Vendor Name Role Phone BLANE MUÑOZ Unavailable PROBLEMS Unknown Problems ALLERGIES Substance Reaction Event Type Date Status Sulfamethoxazole Unknown Drug Allergy Dec, Active SOCIAL HISTORY No smoking Hx information available PLAN OF CARE Activity Details Follow Up prn Reason:hygiene VITAL SIGNS Blood pressure systolic 117 mmHg 2016-01-29 Blood pressure diastolic 80 mmHg 2016-01-29 MEDICATIONS Medication Instructions Dosage Frequency Start Date End Date Duration Status Fish Oil Active Ambien Active Lisinopril Active Livalo Active Trazodone HCl Active Hydrocodone-Acetaminophen Active RESULTS No Results PROCEDURES Procedure Date Ordered Related Diagnosis Body Site EXTRAC ERUPTED TOOTH/EXPOSED ROOT Jan 29, 2016 EXTRAC ERUPTED TOOTH/EXPOSED ROOT Jan 29, 2016 IMMUNIZATIONS No Known Immunizations
--- OUTSIDE RECORDS SUMMARY | 2018-04-21 19:04 | XMS REPORT | Clinical Summary ---
Author Author Admin, ZEYAD Organization [facility] Address Unknown Phone Unavailable Allergies, [...] (3) MG/3ML SOLN 1 neb daily IPRATROPIUM-ALBUTEROL 04216076730 Active Daniela Elder Active CLONIDINE HCL 0.1 MG TAB 1 tab by mouth prn CLONIDINE HCL 84672338411 Active Daniela Elder Active OMEPRAZOLE 20 MG CPDR 1 tablet by mouth daily OMEPRAZOLE 92185218320 Active Daniela Elder Active FISH OIL 1000 MG CPDR 1 pill by mouth twice daily for cholesterol OMEGA-3 FATTY ACIDS 72230816685 Active Daniela Elder Active BISACODYL EC 5 MG ORAL TBEC 1 tab by mouth daily BISACODYL 72250381545 Active Daniela Elder Active NYSTATIN 880285 UNIT/GM CREA apply to rash TID PRN NYSTATIN 07213945627 Active Daniela Elder Active TTKZQDUV-YMVAVYLVE-FR 3.5-48513-6 OPHTH SUSP 1-2 drops to affected eye every 3 hours while awake x 7 days TVHXIESK-RJSKDDBSV-RC 27054184897 Active Daniela Elder Active PROAIR HFA 108 (90 BASE) MCG/ACT AERS 2 puffs four times a day as needed 2016 ALBUTEROL SULFATE 82297763883 Active Daniela Elder Active ATENOLOL 25 MG TABS 1 tablet by mouth daily ATENOLOL 11173730490 Active Daniela Elder Active HYDROCORTISONE 2.5 % EXT CREA Apply three times a day to affected area 11/03 HYDROCORTISONE 66070238175 Active Daniela Elder Active ZOLPIDEM TARTRATE 10 MG TABS 1 tablet by mouth at bedtime as needed for sleep ZOLPIDEM TARTRATE 13975231526 Active Daniela Elder Active DIAZEPAM 5 MG TAB 1 tablet by mouth three times daily as needed DIAZEPAM 38266231292 Active Daniela Elder Active LISINOPRIL 40 MG TABS 1 po qd LISINOPRIL 55542356516 Active Daniela Elder Active LIVALO 4 MG ORAL TABS 1 tab by mouth daily PITAVASTATIN CALCIUM 13045205336 Active Daniela Elder Active HYDROCODONE-ACETAMINOPHEN 10-325 MG TABS 1 tablet by mouth every 6 hours as needed HYDROCODONE-ACETAMINOPHEN 57654679821 Active Daniela Elder Active AMLODIPINE BESYLATE 5 MG TABS 1 tablet by mouth daily AMLODIPINE BESYLATE 91682754180 Active Daniela Elder Active Advance Directives Directive [...] negative Encounters Code Encounter Date Provider Facility CPT-33010 Level 4 New Patient 15:01:20 CDT Jovana Cr MD [facility]
--- OUTSIDE RECORDS SUMMARY | 2018-04-21 19:04 | XMS REPORT ---
Author Author BLANE MUÑOZ [facility] Address Unknown Care Team Providers Care Motor Vehicles Inspector Name Role Phone WANDA BLANE Unavailable PROBLEMS Type Condition ICD9-CM Code GVA09-VM Code Onset Dates Condition Status SNOMED Code Assessment Dental examination Z01.20 Oct, Active 696298528 ALLERGIES Substance Reaction Event Type Date Status Sulfamethoxazole Unknown Drug Allergy Oct, Active SOCIAL HISTORY No smoking Hx information available PLAN OF CARE VITAL SIGNS Blood pressure systolic 140 mmHg 2015-11-07 Blood pressure diastolic 103 mmHg 2015-11-07 MEDICATIONS Medication Instructions Dosage Frequency Start Date End Date Duration Status Trazodone HCl Active Ambien Active Fish Oil Active Livalo Active Amoxicillin 500 MG Orally 3 times a day 1 capsule 8h Oct, Oct, 7 days Active Hydrocodone-Acetaminophen Active Lisinopril Active RESULTS No Results PROCEDURES Procedure Date Ordered Related Diagnosis Body Site LTD ORAL EVALUATION - PROBLEM FOCUS Nov 07, 2015 INTRAORL-PERIAPICAL 1 FILM 70641 Nov 07, 2015 INTRAORL-PERIAPICAL EA ADD FILM Nov 07, 2015 IMMUNIZATIONS No Known Immunizations
--- OUTSIDE RECORDS SUMMARY | 2018-04-21 19:04 | XMS REPORT | Continuity of Care Document ---
Author Author [facility] Organization [facility] Address Unknown Phone Unavailable Allergies Active Description Code Type Severity Reaction Onset Reported/Identified Relationship to Patient Clinical Status Yes estrogen 119 Drug Severe 588333756 Yes morphine Drug Moderate 5349457064~[id number] Yes morphine Drug Severe 7700114129~[id number] Yes NSAIDs 385 Drug Moderate 41701638 Yes steroids Drug Moderate Cause Tumors to Grow Yes sulfa drugs 16 Drug Severe 119961774 Medications There is no data. Problems Date Dx Coded Attending Type Code Diagnosis Diagnosed By 02/05/2017 Jovana Dallas MD K43.9 HERNIA, VENTRAL 04/07/2017 ANASTASIA DALLAS MD N39.46 Mixed incontinence Procedures Code [place] [address] CULTURE AEROBIC IDENTIFY ANASTASIA DALLAS MD 04/07/2017 67258 URINE CULTURE/COLONY COUNT ANASTASIA DALLAS MD 04/07/2017 28762 MICROBE SUSCEPTIBLE WINNIE ANASTASIA DALLAS MD 04/07/2017 Results There is no data. Encounters ACCT No. Visit Date/Time Discharge Status Pt. Type Provider Facility Loc./Unit Complaint [id number] 04/07/2017 17:28:00 04/07/2017 17:28:00 DIS Outpatient ANASTASIA DALLAS MD [facility] LAB [id number] 04/19/2018 08:00:00 ACT Outpatient AVINASH PÉREZ [facility] [id number] 11/21/2012 10:18:00 11/21/2012 23:59:59 CLS Outpatient [id number] 05/13/2017 02:20:42 ACT Document Registration [id number] 03/26/2017 15:05:11 03/31/2017 11:05:00 DIS Inpatient CHANTEL MELCHOR [facility] JIMMY MS RAL, ventral hernia, TOT, cystocele [id number] 03/24/2017 06:36:23 03/26/2017 15:04:00 DIS V CHANTEL MELCHOR [facility] JIMMY MS RAL ventral hernia ; TOT; cystocele [id number] 04/28/2017 15:17:01 ACT Unknown Jovana Dallas MD
--- NOTE | 2018-04-21 19:30 | ED Abdominal Pain ---
General Stated Complaint: CONSTIPATED,RECTAL BLEEDING Source of Information: Patient Exam Limitations: No Limitations History of Present Illness Date Seen by Provider: Apr 21, 2018 Time Seen by Provider: 19:29 Initial Comments To ER with a three-day history of constipation. She's never had troubles with constipation before. She does have a history of diverticulosis. She's had some rectal bleeding earlier this evening after she inserted a Dulcolax suppository which did not provide her any relief. She also took a fleets enema which did not result in a bowel movement. She's had nausea. No fevers or chills. She has suprapubic abdominal pain and rectal pain. Timing/Duration: 2-3 Days Severity/Quality: Moderate Location: Suprapubic Radiation: No Radiation Activities at Onset: None Associated Symptoms: No Fever/Chills; Nausea/Vomiting (nausea without vomiting) Allergies and Home Medications Allergies Coded Allergies: Ciprofloxacin (Unverified Allergy, Mild, throat swells, 06/03/08) Uncoded Allergies: [id number] (DARVOCET-N 100) (Allergy, Mild, 06/03/08) Home Medications Albuterol Sulfate 8.5 Gm Hfa.aer.ad, 8.5 GM IH PRN, (Reported) Amitriptyline Hcl 10 Mg Tablet, 1 EACH PO DAILY, (Reported) Atenolol 25 Mg Tablet, 1 EACH PO DAILY, (Reported) Hydrocodone Bit/Acetaminophen 1 Each Tablet, 1 EACH PO Q6H PRN, (Reported) Lisinopril 40 Mg Tablet, 40 MG PO DAILY, (Reported) [place]-3/Dha/Epa/Fish Oil 1 Each Capsule.dr, 1 EACH PO QID, (Reported) Pitavastatin Calcium 1 Mg Tablet, 1 MG PO 4 PILLS QID, (Reported) Patient Home Medication List Home Medication List Reviewed: Yes Review of Systems Review of Systems Constitutional: see HPI EENTM: No Symptoms Reported Respiratory: No Symptoms Reported Cardiovascular: No Symptoms Reported Gastrointestinal: See HPI, Abdominal Pain, Constipated Genitourinary: No Symptoms Reported Musculoskeletal: no symptoms reported Skin: no symptoms reported Psychiatric/Neurological: No Symptoms Reported Endocrine: No Symptoms Reported Hematologic/Lymphatic: No Symptoms Reported Past Xgotcjz-Qondxo-Ecqtyq Hx Patient Social History Recent Foreign Travel: No Contact w/Someone Who Travel: No Immunizations Up To Date Date of Pneumonia Vaccine: Nov 29, 2010 Date of Influenza Vaccine: Nov 30, 2011 Physical Exam Vital Signs Vital Signs - First Documented 04/21/18 19:15 Temp 97.0 Pulse 81 Resp 20 B/P (MAP) 141/84 (103) Pulse Ox 98 Capillary Refill : Height/Weight/BMI Height: '" Weight: lbs. oz. 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 There are perianal skin tags but no thrombosed hemorrhoids. No obvious blood.) Extremities: normal range of motion, non-tender Neurologic/Psychiatric: alert, normal mood/affect, oriented x 3 Skin: normal color, warm/dry Progress/Results/Core Measures Results/Orders Lab Results Laboratory Tests Test 04/21/18 19:30 04/21/18 21:10 Range/Units White Blood Count 10.8 4.3-11.0 10^3/uL Red Blood Count 4.89 4.35-5.85 10^6/uL Hemoglobin 16.1 H 11.5-16.0 G/DL Hematocrit 46 35-52 % Mean Corpuscular Volume 94 80-99 FL Mean Corpuscular Hemoglobin 33 25-34 PG Mean Corpuscular Hemoglobin Concent 35 32-36 G/DL Red Cell Distribution Width 12.5 10.0-14.5 % Platelet Count 282 130-400 10^3/uL Mean Platelet Volume 8.9 7.4-10.4 FL Neutrophils (%) (Auto) 73 42-75 % Lymphocytes (%) (Auto) 20 12-44 % Monocytes (%) (Auto) 6 0-12 % Eosinophils (%) (Auto) 1 0-10 % Basophils (%) (Auto) 0 0-10 % Neutrophils # (Auto) 7.9 H 1.8-7.8 X 10^3 Lymphocytes # (Auto) 2.2 1.0-4.0 X 10^3 Monocytes # (Auto) 0.6 0.0-1.0 X 10^3 Eosinophils # (Auto) 0.1 0.0-0.3 10^3/uL Basophils # (Auto) 0.0 0.0-0.1 10^3/uL Sodium Level 139 135-145 MMOL/L Potassium Level 4.0 3.6-5.0 MMOL/L Chloride Level 103 98-107 MMOL/L Carbon Dioxide Level 25 21-32 MMOL/L Anion Gap 11 5-14 MMOL/L Blood Urea Nitrogen 9 7-18 MG/DL Creatinine 0.78 0.60-1.30 MG/DL Estimat Glomerular Filtration Rate > 60 BUN/Creatinine Ratio 12 Glucose Level 98 70-105 MG/DL Calcium Level 10.0 8.5-10.1 MG/DL Corrected Calcium 8.5-10.1 MG/DL Total Bilirubin 0.5 0.1-1.0 MG/DL Aspartate Amino Transf (AST/SGOT) 19 5-34 U/L Alanine Aminotransferase (ALT/SGPT) 16 0-55 U/L Alkaline Phosphatase 84 40-136 U/L Total Protein 7.2 6.4-8.2 GM/DL Albumin 4.7 H 3.2-4.5 GM/DL Urine Color YELLOW Urine Clarity CLEAR Urine pH 7 5-9 Urine Specific [place] 1.005 L 1.016-1.022 Urine Protein NEGATIVE NEGATIVE Urine Glucose (UA) NEGATIVE NEGATIVE Urine Ketones NEGATIVE NEGATIVE Urine Nitrite NEGATIVE NEGATIVE Urine Bilirubin NEGATIVE NEGATIVE Urine Urobilinogen NORMAL NORMAL MG/DL Urine Leukocyte Esterase NEGATIVE NEGATIVE Urine RBC (Auto) NEGATIVE NEGATIVE Urine RBC NONE /HPF Urine WBC NONE /HPF Urine Squamous Epithelial Cells RARE /HPF Urine Crystals NONE /LPF Urine Bacteria NEGATIVE /HPF Urine Casts NONE /LPF Urine Mucus NEGATIVE /LPF Urine Culture Indicated NO My Orders Orders - VIVIANE CAICEDO APRN Cbc With Automated Diff (04/21/18 19:28) Comprehensive Metabolic Panel (04/21/18 19:28) Ua Culture If Indicated (04/21/18 19:28) Iv [place]-Insert (Order) (04/21/18 19:28) Ct Abdomen/Pelvis W (04/21/18 19:28) Iohexol Injection (Omnipaque 350 Mg/Ml 1 (04/21/18 20:00) Contrast Received (Contrast Received) (04/21/18 20:00) Sodium Chloride Flush (Catheter Flush Sy (04/21/18 20:00) Ns (Ivpb) (Sodium Chloride 0.9% Ivpb Bag (04/21/18 20:00) Ketorolac Injection (Toradol Injection) (04/21/18 21:15) Ondansetron Injection (Zofran Injectio (04/21/18 21:15) Medications Given in ED Current Medications Medications Dose Ordered Sig/Latha Route Start Time Stop Time Status Last Admin Dose Admin Iohexol 100 ml ONCE ONCE IV 04/21/18 20:00 04/21/18 20:01 DC 04/21/18 20:12 100 ML Ketorolac Tromethamine 30 mg ONCE ONCE IVP 04/21/18 21:15 04/21/18 21:16 DC 04/21/18 21:17 30 MG Ondansetron HCl 8 mg ONCE ONCE IVP 04/21/18 21:15 04/21/18 21:16 DC 04/21/18 21:17 8 MG Sodium Chloride 10 ml NEEDED PRN IV 04/21/18 20:00 04/21/18 20:12 10 ML Sodium Chloride 100 ml ONCE ONCE IV 04/21/18 20:00 04/21/18 20:01 DC 04/21/18 20:12 80 ML Vital Signs/I&O 04/21/18 19:15 Temp 97.0 Pulse 81 Resp 20 B/P (MAP) 141/84 (103) Pulse Ox 98 Diagnostic Imaging Diagonstic Imaging: CT Comments NAME: CECILIA METZGER [facility] REC#: [id number] PT STATUS: REG ER : 1965 PHYSICIAN: VIVIANE CAICEDO PHARMACEUTICAL OPERATOR ADMIT DATE: 04/21/18/ER Draft Date of Exam:04/21/18 CT ABDOMEN/PELVIS W PROCEDURE: CT abdomen and pelvis with contrast. TECHNIQUE: Multiple contiguous axial images were obtained through the abdomen and pelvis after administration of intravenous contrast. INDICATION: Constipation and history of basal cell carcinoma. COMPARISON: Prior examination from 11/21/2012. FINDINGS: The heart size is normal. The lung bases are clear. The liver is normal in size and without focal lesions. Gallbladder is surgically absent. There is no biliary ductal dilatation. Spleen is normal. The pancreas and adrenal glands are unremarkable. Kidneys are normal in appearance. There is mild after calcification of the aorta which is nonaneurysmal. There are postsurgical changes of an anterior abdominal wall hernia repair. There is some induration within the intra-abdominal fat, presumably postsurgical. There is however no abnormal fluid collection appreciated to suggest abscess. Bowel gas pattern is otherwise nonspecific. There is no free air. There is no ascites. There is a small Watts's hernia on the right containing only omental fat. The osseous structures are unremarkable. IMPRESSION: 1. Presumably interval postsurgical changes of an anterior abdominal wall hernia repair with some induration within the anterior peritoneal fat presumably postsurgical. Additionally there's been interval development of a small Watts's hernia on the right containing omental fat. There is also persistent umbilical hernia containing a small amount of fat. 2. No other acute abnormality in the abdomen or pelvis. Dictated on workstation # [id number] Dict: 04/21/182035 Trans: 04/21/182109 [facility] [id number] Interpreted by: CRISTA DAY MD Electronically signed by: Departure Impression Primary Impression: Constipation Qualified Codes: K59.00 - Constipation, unspecified Disposition: HOME, SELF-CARE Condition: Stable Departure-Patient Inst. Decision time for Depature: 21:26 Referrals: AVINASH PÉREZ MD (PCP/Family) Primary Care Physician Patient Instructions: Constipation in Adults Add. Discharge Instructions: 1. Purchase a bottle or packet of MiraLAX at [facility]. Dissolve 1 packet or lid full of MiraLAX powder in 8 ounce glass of water. Drink one of these every 10- 15 minutes until you have a bowel movement to a maximum of 10 glasses. VIVIANE CAICEDO APRN Apr 21, 2018 19:30
[2018-04-21 19:38] LABS: BASOPHILS % (AUTO) 0 % (0-10); EOSINOPHILS # (AUTO) 0.1 10^3/uL (0.0-0.3); EOSINOPHILS % (AUTO) 1 % (0-10); HEMATOCRIT 46 % (35-52); HEMOGLOBIN 16.1 G/DL (11.5-16.0); LYMPHOCYTES # (AUTO) 2.2 X 10^3 (1.0-4.0); LYMPHOCYTES % (AUTO) 20 % (12-44); MEAN CORPUSCULAR HEMOGLOBIN 33 PG (25-34); MEAN CORPUSCULAR HGB CONC 35 G/DL (32-36); MEAN CORPUSCULAR VOLUME 94 FL (80-99); MEAN PLATELET VOLUME 8.9 FL (7.4-10.4); MONOCYTES # (AUTO) 0.6 X 10^3 (0.0-1.0); MONOCYTES % (AUTO) 6 % (0-12); NEUTROPHILS # (AUTO) 7.9 X 10^3 (1.8-7.8); NEUTROPHILS % (AUTO) 73 % (42-75); PLATELET COUNT 282 10^3/uL (130-400); RED CELL DISTRIBUTION WIDTH 12.5 % (10.0-14.5); WHITE BLOOD COUNT 10.8 10^3/uL (4.3-11.0)
[2018-04-21 19:55] LABS: ALANINE AMINOTRANSFERASE 16 U/L (0-55); ALBUMIN 4.7 GM/DL (3.2-4.5); ALKALINE PHOSPHATASE 84 U/L (40-136); BILIRUBIN,TOTAL 0.5 MG/DL (0.1-1.0); BUN/CREATININE RATIO 12; CARBON DIOXIDE 25 MMOL/L (21-32); CHLORIDE 103 MMOL/L (98-107); CREATININE SERUM 0.78 MG/DL (0.60-1.30); GFR ESTIMATED > 60; GLUCOSE 98 MG/DL (70-105); SODIUM 139 MMOL/L (135-145); TOTAL PROTEIN 7.2 GM/DL (6.4-8.2)
[2018-04-21] MEDS ORDERED: NS 100 ML (IVPB) BAG IV ONE (20:00)
[2018-04-21] MEDS ORDERED: IOHEXOL 350 MG/ML 100 ML (OMNIPAQUE 350) VIAL IV ONE (20:00)
[2018-04-21] MEDS ORDERED: RECEIVED CONTRAST (Hold Metformin) IV SCH (20:00)
[2018-04-21] MEDS ORDERED: CATHETER FLUSH 10 ML SYR IV PRN (20:00)
--- NOTE | 2018-04-21 21:10 | Diagnostic Imaging Report ---
PROCEDURE: CT abdomen and pelvis with contrast. TECHNIQUE: Multiple contiguous axial images were obtained through the abdomen and pelvis after administration of intravenous contrast. INDICATION: Constipation and history of basal cell carcinoma. COMPARISON: Prior examination from 11/21/2012. FINDINGS: The heart size is normal. The lung bases are clear. The liver is normal in size and without focal lesions. Gallbladder is surgically absent. There is no biliary ductal dilatation. Spleen is normal. The pancreas and adrenal glands are unremarkable. Kidneys are normal in appearance. There is mild after calcification of the aorta which is nonaneurysmal. There are postsurgical changes of an anterior abdominal wall hernia repair. There is some induration within the intra-abdominal fat, presumably postsurgical. There is however no abnormal fluid collection appreciated to suggest abscess. Bowel gas pattern is otherwise nonspecific. There is no free air. There is no ascites. There is a small Watts's hernia on the right containing only omental fat. The osseous structures are unremarkable. IMPRESSION: 1. Presumably interval postsurgical changes of an anterior abdominal wall hernia repair with some induration within the anterior peritoneal fat presumably postsurgical. Additionally there's been interval development of a small Watts's hernia on the right containing omental fat. There is also persistent umbilical hernia containing a small amount of fat. 2. No other acute abnormality in the abdomen or pelvis. Dictated by: Dictated on workstation # [id number]
[2018-04-21] MEDS ORDERED: KETOROLAC 30 MG/ML VIAL IVP ONE (21:15)
[2018-04-21] MEDS ORDERED: ONDANSETRON 4 MG/2 ML (SDV) Z0FRAN IVP ONE (21:15)
[2018-04-21 21:16] LABS: BILIRUBIN,URINE NEGATIVE (NEGATIVE); CLARITY,URINE CLEAR; COLOR,URINE YELLOW; GLUCOSE, URINE (UA) NEGATIVE (NEGATIVE); KETONES,URINE NEGATIVE (NEGATIVE); LEUKOCYTE ESTERASE ,URINE NEGATIVE (NEGATIVE); NITRITE,URINE NEGATIVE (NEGATIVE); PH,URINE 7 (5-9); PROTEIN,URINE NEGATIVE (NEGATIVE); UROBILINOGEN,URINE NORMAL (NORMAL)
[2018-04-21 21:22] LABS: BACTERIA,URINE NEGATIVE /HPF; SQUAMOUS EPITHELIAL CELL,UR RARE /HPF
[2018-04-21 22:09] VITALS: BP 136/78
== END 2018-04-21 22:09 | disposition home or self-care (01) ==
LOC: EDUNIT# 18:50 → ER 18:51
DX: K59.00 Constipation, unspecified (principal); Z88.1 Allergy status to other antibiotic agents; Z87.19 Personal history of other diseases of the digestive system; Z79.51 Long term (current) use of inhaled steroids
CPT/HCPCS: 36415; 74177; 80053; 81000; 85025; 96374; 96375

== ENCOUNTER → 2019-08-17 | Outpatient (CLI) | payer MEDICAID ==
--- NOTE | 2019-08-17 16:59 | Diagnostic Imaging Report ---
INDICATION: Left rib pain. EXAMINATION: PA chest and four views of the left ribs are obtained. FINDINGS: Lungs are clear. There are no effusions or pneumothoraces. There are no displaced rib fractures. IMPRESSION: Negative chest and left ribs. Dictated by: Dictated on workstation # [id number]
== END ==
LOC: RAD FS 15:30
PROVIDERS: ATTEND Family Medicine
DX: R07.81 Pleurodynia (principal)
CPT/HCPCS: 71100

== ENCOUNTER → 2019-11-29 | Outpatient (CLI) | payer MEDICAID ==
--- NOTE | 2019-11-29 09:51 | Diagnostic Imaging Report ---
EXAMINATION: CT Abdomen Pelvis without contrast. TECHNIQUE: Multiple contiguous axial images were obtained through the abdomen and pelvis without the use of intravenous contrast. All CT scans use one or more of the following dose optimizing techniques: automated exposure control, MA and/or KvP adjustment based on a patient size and exam type, or iterative reconstruction. HISTORY: Chronic kidney disease, right-sided back pain COMPARISON: 04/21/2018 FINDINGS: Limited views of the lower thorax show coronary artery calcifications. The liver is normal without focal lesion. There is no biliary ductal dilation. Gallbladder is surgically absent. Pancreas is normal. Spleen is normal. Adrenal glands are normal. The kidneys are normal. There is no hydronephrosis. Urinary bladder is normal. There is a right lower quadrant spigelian hernia containing fat. Scarring and calcifications deep to the anterior abdominal wall may be related to prior hernia repair. Visualized bowel is normal in caliber without obstruction or inflammation. No free fluid or air. No abdominal or pelvic lymphadenopathy. Aorta is normal in caliber without aneurysm. There are vague areas of lucency throughout the lumbar and sacral spine. IMPRESSION: 1. Vague lucency throughout the lumbar and sacral spine as well as the pelvis. Findings concerning for marrow replacing lesions. Lumbar and pelvic MRI with and without contrast is recommended for further evaluation. 2. Right lower quadrant spigelian hernia containing fat. Dictated by: Dictated on workstation # [id number]
== END ==
LOC: RAD 08:54
PROVIDERS: ATTEND Family Medicine
DX: K43.9 Ventral hernia without obstruction or gangrene (principal); N18.4 Chronic kidney disease, stage 4 (severe)
CPT/HCPCS: 74176

== ENCOUNTER → 2019-12-06 | Outpatient (CLI) | payer MEDICAID ==
[~2019-12-06] MED LIST changes: +ALBU18HF2 INH; +AMLO5TAB9 PO; +DIAZ5TAB49 PO; +HYDR-3820 PO; +IPRA3AMP31 NEB; +OMEG-105 PO; +PITA2TAB2 PO; +ZOLP10TA PO
[2019-12-06 14:13] LABS: ALBUMIN 3.8 GM/DL (3.2-4.5); POTASSIUM 3.6 MMOL/L (3.6-5.0)
[2019-12-06 14:15] LABS: TOTAL PROTEIN 6.7 GM/DL (6.4-8.2)
[2019-12-06 14:17] LABS: BILIRUBIN,TOTAL 0.3 MG/DL (0.1-1.0)
[2019-12-06 14:19] LABS: CREATININE SERUM 2.94 MG/DL (0.60-1.30)
[2019-12-06 14:39] LABS: CALCIUM 13.4 MG/DL (8.5-10.1)
--- NOTE | 2019-12-06 15:17 | Diagnostic Imaging Report ---
INDICATION: Multiple osseous lytic foci were present on a previous CT. EXAMINATION: Contrast MRI of the thoracic spine was obtained. FINDINGS: The thoracic spinal marrow signal intensity is heterogeneous but diffusely hypointense on all pulse sequences, suggestive of marrow infiltration. A process such as metastatic disease or myeloma could not be excluded. No pathological fracture is found. The spinal cord, itself, has an unremarkable volume morphology and signal intensity. There is no paravertebral mass, hemorrhage or fluid collection. No acute intrathecal or epidural abnormality. No high-grade thoracic canal stenosis. No cord compression. IMPRESSION: 1. Abnormal heterogeneous hypointense marrow suggestive of its diffuse infiltration as well as heterogeneity corresponding to lytic foci present on previous CT. Metastatic disease or myeloma could not be excluded. 2. No pathological fracture. No cord compression. No high-grade canal stenosis. Dictated by: Dictated on workstation # [id number]
--- NOTE | 2019-12-06 15:44 | Diagnostic Imaging Report ---
PROCEDURE: MRI lumbar spine. TECHNIQUE: Multiplanar, multisequence MRI of the lumbar spine was performed without contrast. INDICATION: Abnormal lytic lesions in the axial and appendicular skeleton were seen on recent CT abdomen and pelvis reflecting a new finding when compared with CT of April 2018. FINDINGS: The marrow signal intensity is diffusely heterogeneous and largely hypointense suggestive of marrow infiltration and replacement with innumerable discrete geographic lesions. The findings are suspicious for metastatic disease or process such as myeloma, correlate clinically. There is however no pathological fracture. The vertebral statures are normal. No paraspinal mass or fluid collection. No intrathecal abnormality. There is normal dispersal of the nerves of the cauda equina. No acute epidural lesion. The lumbar spinal canal, the neural foramina, and the lateral recesses are widely patent throughout. The ligamentous structures are unremarkable. Very slight degenerative changes to the [id number]-zb-pibon lumbar discs present without focal herniation. IMPRESSION: 1. Diffusely heterogeneous infiltrate of the lumbosacral marrow without pathological fracture. Metastatic disease or process such as myeloma cannot be excluded. 2. No significant stenosis. Mild degenerative changes noted. Dictated by: Dictated on workstation # [id number]
== END ==
LOC: RAD 14:00
PROVIDERS: ATTEND Family Medicine
DX: M47.816 Spondylosis without myelopathy or radiculopathy, lumbar region (principal); N18.4 Chronic kidney disease, stage 4 (severe); R68.89 Other general symptoms and signs
CPT/HCPCS: 36415; 72146; 72148; 80053

== ENCOUNTER 2019-12-07 10:53 | Inpatient (IN) | payer MEDICAID ==
[~2019-12-07] VITALS: Ht 149.9 cm; Wt 81.0 kg
[~2019-12-07 10:53] MED LIST changes: -ALBU18HF2 INH; -AMLO5TAB9 PO; -DIAZ5TAB49 PO; -HYDR-3820 PO; -IPRA3AMP31 NEB; -OMEG-105 PO; -PITA2TAB2 PO; -ZOLP10TA PO
--- NOTE | 2019-12-07 11:18 | ED General ---
General Stated Complaint: ABNORMAL LABS Source of Information: Patient Exam Limitations: No Limitations History of Present Illness Date Seen by Provider: Dec 07, 2019 Time Seen by Provider: 11:14 Initial Comments to ER by private vehicle from home after being advised by [facility] to come to ER for abnormal labs. She had an MRI of the thoracolumbar spine yesterday. Precontrast kidney function labs were obtained BUN of 30 creatinine of 2.9 with calcium corrected at 13.6. No history of this. Thoracolumbar spine MRI shows abnormal heterogenous hypointense marrow suggestive of metastatic disease or myeloma. She has no appetite and hasn't had any appetite for many years she states. She drinks a lot of water however. She has had back pain her whole life but for the past 1-2 weeks has been very painful. Pain does not radiate down either leg, no loss of sensation of genitals. She has not had any weight loss. Timing/Duration: 1-2 Days Severity: Moderate Associated Systoms: Weakness Allergies and Home Medications Allergies Coded Allergies: Ciprofloxacin (Unverified Allergy, Mild, throat swells, 06/03/08) Uncoded Allergies: [id number] (DARVOCET-N 100) (Allergy, Mild, 06/03/08) Home Medications Albuterol Sulfate 8.5 Gm Hfa.aer.ad, 8.5 GM IH PRN, (Reported) Amitriptyline Hcl 10 Mg Tablet, 1 EACH PO DAILY, (Reported) Atenolol 25 Mg Tablet, 1 EACH PO DAILY, (Reported) Hydrocodone Bit/Acetaminophen 1 Each Tablet, 1 EACH PO Q6H PRN, (Reported) Lisinopril 40 Mg Tablet, 40 MG PO DAILY, (Reported) [place]-3/Dha/Epa/Fish Oil 1 Each Capsule.dr, 1 EACH PO QID, (Reported) Pitavastatin Calcium 1 Mg Tablet, 1 MG PO 4 PILLS QID, (Reported) Patient Home Medication List Home Medication List Reviewed: Yes Review of Systems Review of Systems Constitutional: see HPI; No chills, No fever EENTM: see HPI Respiratory: no symptoms reported Cardiovascular: no symptoms reported Genitourinary: no symptoms reported Musculoskeletal: see HPI, back pain Skin: no symptoms reported Psychiatric/Neurological: No Symptoms Reported Hematologic/Lymphatic: No Symptoms Reported Immunological/Allergic: no symptoms reported Past Wbyuafe-Jszdbj-Eysbxw Hx Patient Social History Type Used: Cigarettes 2nd Hand Smoke Exposure: Yes Recent Hopitalizations: No Immunizations Up To Date Date of Pneumonia Vaccine: Nov 29, 2010 Date of Influenza Vaccine: Nov 30, 2011 Seasonal Allergies Seasonal Allergies: No Past Medical History Surgeries: Yes Respiratory: Yes Asthma, COPD Cardiac: Yes Angina, Hypertension Neurological: No Gastroesophageal Reflux, Diverticulosis, Polyps, Hiatal Hernia Musculoskeletal: Yes Chronic Back Pain Endocrine: No HEENT: No Cancer: No Psychosocial: Yes Anxiety, Depression Integumentary: No Blood Disorders: No Physical Exam Vital Signs Capillary Refill : Height, Weight, BMI Height: 5'0" Weight: 156lbs. 0oz. 70.550611pg; BMI Method:Stated General Appearance: No Apparent Distress, WD/WN, Other (appears older than stated age) Eyes: Bilateral Eye Normal Inspection, Bilateral Eye PERRL, Bilateral Eye EOMI Neck: Full Range of Motion, Normal Inspection Respiratory: Lungs Clear, Normal Breath Sounds, No Accessory Muscle Use, No Respiratory Distress Gastrointestinal: Normal Bowel Sounds, Non Tender, Soft Back: Normal Inspection, Vertebral Tenderness Extremity: Normal Capillary Refill, Normal Inspection Neurologic/Psychiatric: Alert, Oriented x3 Skin: Normal Color, Warm/Dry Progress/Results/Core Measures Suspected Sepsis SIRS Temperature: Pulse: Respiratory Rate: Blood Pressure / Mean: Results/Orders My Orders Orders - VIVIANE CAICEDO APRN Cbc With Automated Diff (12/07/19 10:59) Comprehensive Metabolic Panel (12/07/19 10:59) Ua Culture If Indicated (12/07/19 10:59) Para Thryoid Hormone Intact (12/07/19 10:59) Ed Iv/Invasive Line Start (12/07/19 11:18) Ns Iv 1000 Ml (Sodium Chloride 0.9%) (12/07/19 11:30) Vital Signs/I&O Capillary Refill : Departure Communication (Admissions) Time/Spoke to Admitting Phy: 11:[address] Alicea, will admit and consult Dr. House. I then spoke with Dr. House, he recommends a 2 L normal saline bolus, after that goes in we can do a one-time dose of pamidronate, continue 0.9% ns at 250/hr, serum protein electrophoresis should be obtained as well as light chain ratio quantitative immunoglobulins, skeletal survey plain films and then he'll arrange for a marrow biopsy Impression Primary Impression: Acute kidney injury Additional Impression: Hypercalcemia of malignancy Disposition: ADMITTED INPATIENT Condition: Stable Admissions Decision to Admit Reason: Admit from ER (General) Decision to Admit/Date: Dec 07, 2019 Time/Decision to Admit Time: 11:18 Departure-Patient Inst. Referrals: AVINASH PÉREZ MD (PCP/Family) Primary Care Physician VIVIANE CAICEDO APRN Dec 07, 2019 11:18
[2019-12-07] MEDS: NS IV 1000 ML 1,000 ML IV SCH ×5 (11:52→20:28)
[2019-12-07 12:06] LABS: BASOPHILS % (AUTO) 0 % (0-10); EOSINOPHILS # (AUTO) 0.2 10^3/uL (0.0-0.3); EOSINOPHILS % (AUTO) 2 % (0-10); HEMATOCRIT 30 % (35-52); HEMOGLOBIN 9.5 g/dL (11.5-16.0); LYMPHOCYTES # (AUTO) 2.6 10^3/uL (1.0-4.0); LYMPHOCYTES % (AUTO) 28 % (12-44); MEAN CORPUSCULAR HEMOGLOBIN 30 pg (25-34); MEAN CORPUSCULAR HGB CONC 31 g/dL (32-36); MEAN CORPUSCULAR VOLUME 95 fL (80-99); MEAN PLATELET VOLUME 9.2 fL (9.0-12.2); MONOCYTES # (AUTO) 0.7 10^3/uL (0.0-1.0); MONOCYTES % (AUTO) 8 % (0-12); NEUTROPHILS # (AUTO) 5.4 10^3/uL (1.8-7.8); NEUTROPHILS % (AUTO) 60 % (42-75); PLATELET COUNT 356 10^3/uL (130-400); WHITE BLOOD COUNT 9.1 10^3/uL (4.3-11.0)
[2019-12-07 12:19] LABS: ALBUMIN 4.1 GM/DL (3.2-4.5); POTASSIUM 3.4 MMOL/L (3.6-5.0)
[2019-12-07 12:21] LABS: TOTAL PROTEIN 7.3 GM/DL (6.4-8.2)
[2019-12-07 12:23] LABS: BILIRUBIN,TOTAL 0.2 MG/DL (0.1-1.0)
[2019-12-07 12:25] LABS: CREATININE SERUM 3.04 MG/DL (0.60-1.30)
[2019-12-07 13:22] VITALS: BP 148/81
--- NOTE | 2019-12-07 13:30 | NUR ---
Cecile Lemus admitted to room 410-1, with an admitting diagnosis of acute kidney injury, hypercalcemia , on 12/07/19 from [place] via ED, accompanied by staff.CECILE LEMUS introduced to surroundings, call light, bed controls, phone, TV, temperature control, lights, meal times, smoking policy, visitor policy, side rail policy, bathrooms and showers.
[2019-12-07] MEDS ORDERED: CATHETER FLUSH 10 ML SYR IV PRN (13:45)
[2019-12-07] MEDS: oxyCODONE/APAP 5/325MG (PERCOCET 5) TABLET PO PRN ×3 (13:48→21:33)
--- NOTE | 2019-12-07 13:50 | Diagnostic Imaging Report ---
INDICATION: Myeloma. TIME OF EXAM: 12:52 p.m. FINDINGS: Skeletal survey was performed. Lateral view of the skull demonstrates innumerable rounded lucencies throughout the calvarium. There are degenerative changes in the cervical, thoracic, and lumbar spine but no definite osteolytic lesions are seen. There appear to be multiple lucencies in the proximal left humerus. Similar findings are identified in the proximal and mid shaft of the right humerus. Radius and ulna are intact. Evaluation of the bony pelvis demonstrates multiple lucent lesions involving the femora bilaterally. Many of these produce endosteal scalloping at the level of the mid shafts. There are multiple small lucencies involving the ischia bilaterally. Tibia and fibula are unremarkable bilaterally. No pathologic fractures are seen. IMPRESSION: Numerous lytic lesions are identified, described above, consistent with multiple myeloma or metastatic disease. Dictated by: Dictated on workstation # [id number]
[2019-12-07] MEDS ORDERED: PAMIDRONATE IV ONE ×2 (14:00)
[2019-12-07] MEDS ORDERED: NS IV ONE ×2 (14:00)
--- NOTE | 2019-12-07 14:14 | History & Physical-Hospitalist ---
KING SOLANO,MED STUDENT 12/07/19 1413: History of Present Illness HPI/Chief Complaint Patient is a 54[address] Kam presenting to [facility] ED by private vehicle after being told by [facility] to go to ED for abnormal labs. She has had arthritis and chronic back pain for many years, but states that 4 months ago she was lifting a heavy object and felt a "severe pain in her tailbone". She used a heating pad which helped some, but the pain progressed until 2 weeks ago when it became too painful for her to walk. She denies radiation of pain, and denies focal weakness or loss of sensation. She had an MRI of the thoracolumbar spine yesterday, which showed heterogenous, hypointense marrow suggestive of metastatic disease. Labs showed a BUN of 30, creatinine of 2.9, and corrected calcium of 13.6. Source: patient Exam Limitations: no limitations Date Seen 12/07/19 Time Seen by a Provider: 12:15 Attending Physician Ivelisse Lea Pankaj K MD Referring Physician Date of Admission Dec 07, 2019 at 11:57 Home Medications & Allergies Home Medications Reviewed patient Home Medication Reconciliation performed by pharmacy medication reconciliations test engineering technician and/or nursing. Patients Allergies have been reviewed. Allergies Allergies Coded Allergies ciprofloxacin (Unverified Allergy, Mild, throat swells, 06/03/08) Sulfa (Sulfonamide Antibiotics) (Verified Allergy, Unknown, 12/07/19) morphine (Verified Allergy, Unknown, 12/07/19) Uncoded Allergies [id number] (DARVOCET-N 100) ( Allergy, Mild, 06/03/08) Past Iyqhyca-Aknwyr-Twgxmt Hx Patient Social History Marrital Status: Alcohol Use: Denies Use Recreational Drug Use: No Smoking Status: Current Everyday Smoker (1/2 PPD) Type Used: Cigarettes 2nd Hand Smoke Exposure: Yes Recent Foreign Travel: No Contact w/other who traveled: No Recent Hopitalizations: No Recent Infectious Disease Expo: No Immunizations Up To Date Date of Pneumonia Vaccine: Nov 29, 2010 Date of Influenza Vaccine: Nov 30, 2011 Seasonal Allergies Seasonal Allergies: No Past Medical History Surgeries: Gallbladder, Hysterectomy Respiratory: COPD Cardiac: Angina, Hypertension Gastrointestinal: Gastroesophageal Reflux, Diverticulosis, Polyps, Hiatal Hernia Musculoskeletal: Arthritis, Chronic Back Pain Cancer: Cervical Psychosocial: Anxiety, Depression History of Blood Disorders: No Review of Systems Constitutional: No chills, No dizziness, No fever, No weight loss EENTM: dental problems (Missing teeth); No hearing loss, No vision loss, No throat pain Respiratory: cough, short of breath Cardiovascular: No chest pain; palpitations Gastrointestinal: No abdominal pain; constipation; No diarrhea, No hematemesis, No melena, No nausea, No vomiting Genitourinary: No dysuria, No frequency Musculoskeletal: see HPI, back pain, joint pain Skin: No lesions, No lumps Psychiatric/Neurological: Anxiety; Denies Headache, Denies Numbness, Denies Tingling Physical Exam Physical Exam Vital Signs Vital Signs - First Documented 12/07/19 11:05 Temp 37.1 Pulse 80 Resp 22 B/P (MAP) 136/52 (80) Pulse Ox 96 O2 Delivery Room Air Capillary Refill : Less Than 3 Seconds Height, Weight, BMI Height: 5'0" Weight: 156lbs. 0oz. 70.443835lk; 30.84 BMI Method:Stated General Appearance: No Apparent Distress, WD/WN Eyes: Bilateral Eye PERRL, Bilateral Eye EOMI HEENT: PERRL/EOMI, Pharynx Normal; No Pharyngeal Erythema, No Tonsillar Exudate Neck: Non Tender, Supple Respiratory: Lungs Clear, Normal Breath Sounds, No Accessory Muscle Use, No Respiratory Distress Cardiovascular: Regular Rate, Rhythm, No Edema, No Murmur, Normal Peripheral Pulses Gastrointestinal: Normal Bowel Sounds, Non Tender, Soft Extremity: Non Tender, No Calf Tenderness, No Pedal Edema Neurologic/Psychiatric: Alert, Oriented x3, Depressed Affect Skin: Normal Color, Warm/Dry Results Results/Procedures Labs Laboratory Tests 12/07/19 11:45 Patient resulted labs reviewed. 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 Packer, 2L NS bolus given in ED and 1 dose of pamidronate Serum protein electrophoresis pending Serum light chain ratio and quantitative Ig's pending Plain film skeletal survey completed Dr. Packer scheduling bone marrow biopsy Admit as inpatient Clinical Quality Measures DVT/VTE Risk/Contraindication: Risk Factor Score Per Nursin RFS Level Per Nursing on Admit: 4+=Very High IVELISSE LEA DO 12/07/19 2303: Past Hhgfvav-Zxtvta-Bupwve Hx Past Med/Social Hx: Reviewed Nursing Past Med/Soc Hx, Reviewed and Corrections made Patient Social History Marrital Status: Employed/Student: unemployed Smoking Status: Current Everyday Smoker (1/2 PPD) Review of Systems Constitutional: see HPI Respiratory: cough, short of breath Musculoskeletal: back pain, joint pain Physical Exam Physical Exam General Appearance: No Apparent Distress, WD/WN, Chronically ill Respiratory: Lungs Clear Assessment/Plan Admission Diagnosis Assessment: Hypercalcemia Back pain Abnormal MRI Smoker Plan: Dr Packer consultation Pain control Admission Status: Inpatient Order (span 2 midnights) Reason for Inpatient Admission: severe hypercalcemia Diagnosis/Problems Diagnosis/Problems (1) Acute kidney injury Status: Acute (2) Hypercalcemia of malignancy Status: Acute Supervisory-Addendum Brief Verification & Attestation Participated in pt care: history, MDM, physical Personally performed: exam, history, MDM, supervision of care Care discussed with: Medical Student Procedures: n/a Results interpretation: Verified all documentation Verification and Attestation of Medical Student E/M Service A medical student performed and documented this service in my presence. I reviewed and verified all information documented by the medical student and made modifications to such information, when appropriate. I personally performed the physical exam and medical decision making. Ivelisse Lea, Dec 07, 2019,23:02 KING SOLANO,MED STUDENT Dec 07, 2019 14:13 IVELISSE LEA DO Dec 07, 2019 23:03
[2019-12-07 16:00] VITALS: BP 113/70
[2019-12-07] MEDS: polyethylene glycoL POWDER 17 GM (MIRALAX) PACK PO SCH (20:28)
[2019-12-07] MEDS: DOCUSATE SODIUM 100 MG (COLACE) CAP PO SCH (20:28)
[2019-12-07 20:42] VITALS: BP 151/62
[2019-12-07 23:50] VITALS: BP 153/81
--- NOTE | 2019-12-07 23:55 | CONSULTATION REPORT ---
DATE OF SERVICE: 12/07/2019 The patient is admitted to room 410. PRIMARY PHYSICIAN: Juan José Kam MD PHYSICIAN REQUESTING CONSULTATION: Ivelisse Alicea D.O. IMPRESSION: 1. A 54-year-old female admitted to the hospital with worsening back pain of several months' duration. 2. Admission lab work showing hypercalcemia, renal failure and anemia. 3. MRI of the thoracolumbar spine showing numerous infiltrative lesions suggestive of myeloma versus other metastatic disease. RECOMMENDATIONS: 1. Obtain a skeletal survey today. 2. Obtain a serum protein electrophoresis, quantitative immunoglobulins and serum light chain ratio. 3. We will review a peripheral smear when available. 4. Consider bone marrow aspiration and biopsy. 5. Consider chest x-ray or CT chest to rule out pulmonary lesions. 6. Treat hypercalcemia with aggressive hydration as well as pamidronate. 7. Monitor lab work serially. 8. I will follow the patient with you. BRIEF HISTORY: The patient is a 54-year-old female with worsening back pain since the last few months. She denied any new lumps or masses. No fevers or night sweats. No significant weight loss. She came to the emergency room as she was not feeling well with worsening low back pain and on evaluation, was found to have hypercalcemia. Further workup including MRI of the thoracolumbar spine showed diffuse lesions in the bone, raising the possibility of myeloma versus metastatic disease. Hence, an oncology consultation was requested for further evaluation and management. PAST MEDICAL HISTORY: Significant for osteoarthritis. No other major medical problems. She gives history of COPD, hypertension, hiatal hernia with gastroesophageal reflux disease, anxiety and depression. PAST SURGICAL HISTORY: JENIFER-BSO, cholecystectomy, hernia repair with mesh placement and bladder sling placement. SOCIAL HISTORY: The patient is and lives in [place], [place]. She has four children, three sons and a daughter. A daughter and a son live in [place] and the other two sons live in [place]. She has extensive history of tobacco use and is currently smoking less than half pack a day. She started smoking when she was 10 or 11 years old and over the last 40+ years, has a 59-ypui-lmsn history. She denied any significant alcohol or other recreational drug use. 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 FAMILY HISTORY: Only significant for her father with an unknown malignancy. No other family history of malignancies. PHYSICAL EXAMINATION: GENERAL: Today showed an elderly female, looking older than stated age, awake and answering questions appropriately, in mild discomfort due to the back pain. VITAL SIGNS: Temperature was 36.2 degrees centigrade, pulse rate of 76, respirations 18, blood pressure 148/81, pulse oximetry showing 98% saturation on room air. HEENT: Normocephalic, extraocular muscles intact, conjunctivae slightly pale. Oral mucosa dry with few [place] teeth and dental caries. NECK: Supple, with no JVD. No cervical, supraclavicular or axillary lymphadenopathy palpable. CHEST: Symmetrical. LUNGS: With diminished breath sounds bilaterally with scattered rhonchi. No wheezes or rales heard. CARDIOVASCULAR: Regular in rate and rhythm with a grade II early systolic murmur. ABDOMEN: Soft, nontender with no hepatosplenomegaly or other masses palpable. EXTREMITIES: Showed no edema. NEUROLOGIC: Grossly intact with no focal motor deficits noted. LABORATORY DATA: CBC done today showed WBC 9.1, hemoglobin 9.5, MCV 95, platelet count 356,000 with neutrophil count 5.4 and lymphocyte count 2.6. Chemistry panel showed normal electrolytes except potassium level of 3.4. BUN was 31 and creatinine 3.04 with GFR 16 mL per minute. Measured calcium was 14.0 with an albumin level of 4.1 and corrected calcium of 13.9. Liver function studies were within normal limits. Bone survey done today showed numerous lytic lesions are identified throughout the calvarium as well as proximal left humerus, mid shaft of right humerus, bony pelvis and bilateral femurs. Many of these produce endosteal scalloping. No pathologic fractures are seen. Thank you for allowing me to participate in this patient's care. I will follow the patient with you and make appropriate recommendations. Job ID: [id number] DocumentID: [id number] Dictated Date: 12/07/2019 17:34:44 Picking Tech Date: 12/07/2019 23:55:14 Dictated By: LAISHA LOTT MD
[2019-12-08] VITALS (14 sets, daily range): BP systolic 91–167; BP diastolic 61–88
--- NOTE | 2019-12-08 00:14 | NUR ---
PT REQUESTING BREATHING TREATMENTS BE STARTED, PT STATES THAT SHE TAKES ALBUTEROL NEBULIZED TREATMENTS QID PRN. PT HAS BILATERAL WHEEZING & SLIGHTLY COARSE THROUGHOUT. THIS RN CONTACTED DR. LEA-ORDERS RECEIVED THIS NOTIFIED RT LEAD OF NEW ORDERS & PT REQUEST TO START THESE TREATMENTS
[2019-12-08] MEDS: NS IV 1000 ML 1,000 ML IV SCH ×6 (00:37→21:25)
[2019-12-08] MEDS: RT-ALBUTEROL SULF 2.5 MG/3 ML PRE-MIX VIAL INH PRN (00:44)
[2019-12-08] MEDS: oxyCODONE/APAP 5/325MG (PERCOCET 5) TABLET PO PRN ×3 (02:05→17:15)
[2019-12-08 06:30] LABS: ABSOLUTE RETIC # 44 10e9/uL (24-90); BASOPHILS % (AUTO) 0 % (0-10); EOSINOPHILS # (AUTO) 0.1 10^3/uL (0.0-0.3); EOSINOPHILS % (AUTO) 2 % (0-10); HEMATOCRIT 23 % (35-52); HEMOGLOBIN 7.1 g/dL (11.5-16.0); LYMPHOCYTES % (AUTO) 22 % (12-44); MEAN CORPUSCULAR HGB CONC 31 g/dL (32-36); MEAN CORPUSCULAR VOLUME 97 fL (80-99); MEAN PLATELET VOLUME 9.6 fL (9.0-12.2); MONOCYTES # (AUTO) 0.3 10^3/uL (0.0-1.0); MONOCYTES % (AUTO) 8 % (0-12); NEUTROPHILS # (AUTO) 2.8 10^3/uL (1.8-7.8); NEUTROPHILS % (AUTO) 66 % (42-75); PLATELET COUNT 230 10^3/uL (130-400); RETICULOCYTE % 1.89 % (0.50-2.40); WHITE BLOOD COUNT 4.3 10^3/uL (4.3-11.0)
[2019-12-08 06:43] LABS: INR 1.1 (0.8-1.4); MEAN CORPUSCULAR HEMOGLOBIN 30 pg (25-34); PROTHROMBIN TIME PATIENT 14.5 SEC (12.2-14.7)
[2019-12-08 06:46] LABS: CALCIUM 10.4 MG/DL (8.5-10.1)
[2019-12-08 06:47] LABS: TOTAL PROTEIN 5.1 GM/DL (6.4-8.2)
[2019-12-08 06:49] LABS: BILIRUBIN,TOTAL 0.2 MG/DL (0.1-1.0)
[2019-12-08 06:51] LABS: CREATININE SERUM 2.36 MG/DL (0.60-1.30)
[2019-12-08 07:22] LABS: BAND NEUTROPHILS 0 %; BASOPHILS % (MANUAL) 1 %; EOSINOPHILS % (MANUAL) 3 %; LYMPHOCYTES % (MANUAL) 25 %; MONOCYTES % (MANUAL) 9 %; NEUTROPHILS % (MANUAL) 62 %; RBC MORPH NORMAL
[2019-12-08] MEDS ORDERED: NS IV 1000 ML 1,000 ML IV STA (08:21)
[2019-12-08] MEDS ORDERED: fentaNYL INJECTION 100 MCG/2 ML AMP IVP ONE (08:30)
[2019-12-08] MEDS ORDERED: MIDAZOLAM 2 MG/2 ML (VERSED) VIAL IVP ONE (08:30)
[2019-12-08] MEDS ORDERED: LIDOCAINE 1% INJ 20 ML 20 ML VIAL INJ ONE (08:30)
[2019-12-08] MEDS: DOCUSATE SODIUM 100 MG (COLACE) CAP PO SCH ×2 (09:00→20:54)
[2019-12-08] MEDS ORDERED: DIAZ5TAB49 PO (09:49)
[2019-12-08] MEDS ORDERED: LISI40TA PO (09:49)
[2019-12-08] MEDS ORDERED: AMLO5TAB9 PO (09:49)
[2019-12-08] MEDS ORDERED: PITA2TAB2 PO (09:49)
[2019-12-08] MEDS ORDERED: IPRA3AMP31 NEB (09:49)
[2019-12-08] MEDS ORDERED: ALBU18HF2 INH (09:49)
[2019-12-08] MEDS ORDERED: OMEG-105 PO (09:49)
[2019-12-08] MEDS ORDERED: HYDR-3820 PO (09:49)
[2019-12-08] MEDS ORDERED: ATEN25TA PO (09:49)
[2019-12-08] MEDS ORDERED: ZOLP10TA PO (09:49)
--- NOTE | 2019-12-08 09:51 | NUR ---
SPOKE WITH THE PT (I CALLED HER ROOM PHONE) AND WENT THRU THE EXT MED HISTORY TO COMPLETE THE MED REC PT GAVE ME INFORMATION ABOUT HER MEDICATIONS TO THE BEST OF HER ABILITY -SHE COULD NOT REMEMBER ALL THE MED NAMES BUT I USED THE EXT MED HISTORY TO PROMPT HER. OTC MEDS: NONE
--- NOTE | 2019-12-08 10:41 | NUR ---
Pt anxious about bone marrow biopsy. Nursing staff providing supportive contacts. will follow
--- NOTE | 2019-12-08 11:22 | Progress Note ---
Standard Progress Note Progress Notes/Assess & Plan Date Seen by a Provider: Dec 08, 2019 Time Seen by a Provider: 11:18 Progress/Assessment & Plan 54-year-old female admitted with worsening back pain and hypercalcemia with acute renal failure. Currently being treated with aggressive hydration as well as pamidronate with improvement in calcium level. Skeletal survey and MRI off lumbar spine showing multiple lytic lesions. Serum protein electrophoresis pending. Lambda light chain markedly elevated indicating possible plasma cell neoplasm. We'll obtain urine immunoelectrophoresis. Patient completed a bone marrow aspiration and biopsy and will await results. Continue hydration and monitor urine output accurately. Continue to monitor labs serially. Hemoglobin decreased to 7.1 most likely due to hemodilution. If it drops further or patient becomes symptomatic, transfuse with 1 unit irradiated packed red blood cells. Dr. Garcia covering for me. LAISHA LOTT Dec 08, 2019 11:22
[2019-12-08] MEDS ORDERED: LIDOCAINE 1% INJ 20 ML 20 ML VIAL ONE (11:51)
[2019-12-08] MEDS ORDERED: fentaNYL INJECTION 100 MCG/2 ML AMP ONE (11:51)
[2019-12-08] MEDS ORDERED: MIDAZOLAM 2 MG/2 ML (VERSED) VIAL ONE (11:51)
--- NOTE | 2019-12-08 12:09 | NUR ---
Pt is listed as [employer] and states she is affiliated. We did not have time to pursue what that might mean. She was leaving for a test.
--- NOTE | 2019-12-08 12:09 | Progress Note - Hospitalist ---
KING SOLANO,MED STUDENT 12/08/19 1209: Subjective HPI/CC On Admission Date Seen by Provider: Dec 08, 2019 Time Seen by Provider: 08:30 Subjective/Events-last exam Lower back pain worse today No BM today, says its been 5 days since last bm Creatinine improved to 2.36 IV NS running at 250/hr Calcium 10.4 Lambda LC significantly elevated Bone marrow biopsy done today Objective Exam Vital Signs Vital Signs Date Time Temp Pulse Resp B/P (MAP) Pulse Ox O2 Delivery O2 Flow Rate FiO2 12/08/19 08:00 37.5 73 18 153/81 (105) 97 Room Air Capillary Refill : Less Than 3 Seconds General Appearance: Chronically ill HEENT: PERRL/EOMI, Pharynx Normal Neck: Non Tender, Supple Respiratory: Lungs Clear, No Accessory Muscle Use, No Respiratory Distress Cardiovascular: Regular Rate, Rhythm, No Edema, No Murmur, Normal Peripheral Pulses Gastrointestinal: Normal Bowel Sounds, Non Tender, Soft Extremity: Non Tender, No Calf Tenderness, No Pedal Edema Neurologic/Psychiatric: Alert, Oriented x3 Skin: Normal Color, Warm/Dry Results/Procedures Lab Laboratory Tests 12/08/19 05:32 Patient resulted labs reviewed. Assessment/Plan Assessment and Plan Assess & Plan/Chief Complaint Assessment: Hypercalcemia of malignancy Lytic bone lesions consistent with MM or metastatic disease KALEY Anemia HTN Arthritis HLD Plan: Oncology consulted Per Dr. Packer, 2L NS bolus given in ED and 1 dose of pamidronate Serum protein electrophoresis pending Serum light chain ratio and quantitative Ig's pending Plain film skeletal survey completed Dr. Packer scheduling bone marrow biopsy Admit as inpatient 12/07: Continue IV fluids Add Senna and lactulose Add oxycodone 15mg Q12HR Per Dr. Packer, will obtain urine immunoelectrophoresis Continue to monitor Hgb Clinical Quality Measures DVT/VTE Risk/Contraindication: Risk Factor Score Per Nursin RFS Level Per Nursing on Admit: 4+=Very High IVELISSE LEA DO 12/08/192107: Subjective Review of Systems General: Fatigue, Malaise Musculoskeletal: back pain Objective Exam General Appearance: No Apparent Distress, WD/WN, Chronically ill Respiratory: Chest Non Tender, Lungs Clear, Normal Breath Sounds, No Accessory Muscle Use, No Respiratory Distress Cardiovascular: Regular Rate, Rhythm, No Edema, No Gallop, No JVD, No Murmur, Normal Peripheral Pulses Assessment/Plan Assessment and Plan Assess & Plan/Chief Complaint Bone marrow biopsy Pain control Diagnosis/Problems Diagnosis/Problems (1) Hypercalcemia of malignancy Status: Acute (2) Acute kidney injury Status: Acute Supervisory-Addendum Brief Verification & Attestation Participated in pt care: history, MDM, physical Personally performed: exam, history, MDM, supervision of care Care discussed with: Medical Student Procedures: n/a Results interpretation: Verified all documentation Verification and Attestation of Medical Student E/M Service A medical student performed and documented this service in my presence. I reviewed and verified all information documented by the medical student and made modifications to such information, when appropriate. I personally performed the physical exam and medical decision making. Ivelisse Lea, Dec 08, 2019,21:08 KING SOLANO,MED STUDENT Dec 08, 2019 12:09 IVELISSE LEA DO Dec 08, 2019 21:08
--- NOTE | 2019-12-08 12:43 | Pre-Op Note & Conscious Sedat ---
Pre-Operative Progress Note H&P Reviewed The H&P was reviewed, patient examined and no changes noted. Date H&P Reviewed: Dec 08, 2019 Time H&P Reviewed: 12:00 Pre-Op Diagnosis: Hypercalcemia Conscious Sedation Pre-Proced Time 12:00 ASA Score 2 For ASA 3 and 4: Consider anesthesia and medical clearance. Also, for patients with a history of failed moderate sedation consider anesthesia. Airway Lungs Heart ASA score ASA 1: a normal healthy patient ASA 2: a patient with a mild systemic disease (mid diabetes, controlled hypertension, obesity ASA 3: a patient with a severe systemic disease that limits activity (angina, COPD, prior Myocardial infarction) ASA 4: a patient with an incapacitating disease that is a constant threat to life (CHF, renal failure) ASA 5: a moribund patient not expected to survive 24 hrs. (ruptured aneurysm) ASA 6: a declared brain- patient whose organs are being harvested. For emergent operations, add the letter E after the classification Mallampati Classification Grade 2 Sedation Plan Analgesia, Amnesia, Plan communicated to team members, Discussed options with patient/fam, Discussed risks with patient/fam The patient is an appropriate candidate to undergo the planned procedure, sedation, and anesthesia. The patient immediately re-assessed prior to indication. ELVIE POSADAS MD Dec 08, 2019 12:43
--- NOTE | 2019-12-08 12:50 | Diagnostic Imaging Report ---
INDICATION: Hypercalcemia and lytic bone lesions. Patient presents for CT-guided bone marrow biopsy. DETAILS OF PROCEDURE: Patient was brought to the CT suite, placed on table in prone position. Axial imaging through the pelvis was performed to evaluate appropriate entry site. Low back was prepped and draped in usual sterile fashion. A small amount of 1% lidocaine was utilized for local anesthesia. The procedure was performed utilizing conscious sedation with radiology nursing in constant patient monitoring. Patient was given a total of 100 mcg of fentanyl intravenously and 1.5 mg of Versed intravenously. Total procedure time is 9 minutes. Bone marrow biopsy needle was advanced and placed with its tip along the posterior cortex of the right iliac bone. The needle was advanced through the cortex utilizing a bone marrow drill. Two bone marrow aspirates were then obtained. Next, the drill was reapplied to the needle and a core biopsy of the marrow was obtained. Needle was withdrawn and hemostasis was obtained using manual compression. Patient tolerated the procedure well and left department in stable condition. IMPRESSION: Successful CT-guided bone marrow aspiration and core biopsy, utilizing conscious sedation. Dictated by: Dictated on workstation # [id number]
--- NOTE | 2019-12-08 12:56 | NUR ---
PT BACK TO ROOM FROM RADIOLOGY, REPORTS PAIN IS OKAY BUT WOULD LIKE SOMETHING TO DRINK. PT TO BE ON BED REST WITH PRESSURE TO SIGHT FOR TWO HOURS. PT AND AIDE EDUCATED ON THIS. BONE MARROW BIOPSY SIGHT, DRY AND INTACT. NEEDS MET AT THIS TIME
[2019-12-08] MEDS: oxyCODONE ER 15 MG (oxyCONTIN CR) TAB PO SCH ×2 (13:31→20:53)
--- NOTE | 2019-12-08 14:31 | NUR ---
pt was in no respiratory distress. pt denied short of breath. no needs at this time Addendum: 12/08/19 at 1432 by GARRY FLOWER RT Amended: Links added.
--- NOTE | 2019-12-08 15:06 | NUR ---
Pt appeared to be resting comfortably so didn't awaken but will follow for continued care needs.
[2019-12-08] MEDS: SENNA W/DOCUSATE (SENOKOT S) TABLET PO SCH ×2 (15:28→20:53)
[2019-12-08] MEDS: LACTULOSE SYRUP 10GM/15ML (ENULOSE) 30ML UDC PO SCH ×2 (15:28→20:54)
[2019-12-08 16:50] LABS: BILIRUBIN,URINE NEGATIVE (NEGATIVE); CLARITY,URINE CLEAR; COLOR,URINE YELLOW; GLUCOSE, URINE (UA) NEGATIVE (NEGATIVE); KETONES,URINE NEGATIVE (NEGATIVE); LEUKOCYTE ESTERASE ,URINE NEGATIVE (NEGATIVE); NITRITE,URINE NEGATIVE (NEGATIVE); PROTEIN,URINE 1+ (NEGATIVE)
[2019-12-08 16:56] LABS: BACTERIA,URINE NEGATIVE /HPF; RBC,URINE RARE /HPF; SQUAMOUS EPITHELIAL CELL,UR RARE /HPF
[2019-12-08] MEDS: polyethylene glycoL POWDER 17 GM (MIRALAX) PACK PO SCH (20:56)
[2019-12-09] VITALS (7 sets, daily range): BP systolic 127–148; BP diastolic 59–81
[2019-12-09] MEDS: NS IV 1000 ML 1,000 ML IV SCH ×5 (01:30→22:25)
--- NOTE | 2019-12-09 02:15 | NUR ---
PT CALLED THIS RN INTO ROOM AND STATED THAT SHE WAS HAVING CHEST PAIN. PT ASSESSED. HR REGULAR. B/P- 143/65, P- 72, 02- 97%. THIS RN NOTIFIED DR. LEA OF PT'S COMPLAINTS. DR. LEA STATED TO "MONITOR ONLY".
[2019-12-09] MEDS: oxyCODONE/APAP 5/325MG (PERCOCET 5) TABLET PO PRN ×4 (02:17→22:25)
[2019-12-09 06:10] LABS: BASOPHILS % (AUTO) 1 % (0-10); EOSINOPHILS # (AUTO) 0.1 10^3/uL (0.0-0.3); EOSINOPHILS % (AUTO) 2 % (0-10); HEMATOCRIT 24 % (35-52); HEMOGLOBIN 7.1 g/dL (11.5-16.0); LYMPHOCYTES # (AUTO) 1.3 10^3/uL (1.0-4.0); LYMPHOCYTES % (AUTO) 29 % (12-44); MEAN CORPUSCULAR HEMOGLOBIN 30 pg (25-34); MEAN CORPUSCULAR HGB CONC 30 g/dL (32-36); MEAN CORPUSCULAR VOLUME 99 fL (80-99); MEAN PLATELET VOLUME 9.4 fL (9.0-12.2); MONOCYTES # (AUTO) 0.5 10^3/uL (0.0-1.0); MONOCYTES % (AUTO) 10 % (0-12); NEUTROPHILS # (AUTO) 2.5 10^3/uL (1.8-7.8); NEUTROPHILS % (AUTO) 56 % (42-75); PLATELET COUNT 223 10^3/uL (130-400); WHITE BLOOD COUNT 4.4 10^3/uL (4.3-11.0)
[2019-12-09 06:22] LABS: CALCIUM 9.3 MG/DL (8.5-10.1)
[2019-12-09 06:23] LABS: TOTAL PROTEIN 5.2 GM/DL (6.4-8.2)
[2019-12-09 06:25] LABS: BILIRUBIN,TOTAL 0.2 MG/DL (0.1-1.0)
[2019-12-09 06:27] LABS: CREATININE SERUM 1.97 MG/DL (0.60-1.30)
[2019-12-09] MEDS: SENNA W/DOCUSATE (SENOKOT S) TABLET PO SCH ×2 (08:18→20:29)
[2019-12-09] MEDS: oxyCODONE ER 15 MG (oxyCONTIN CR) TAB PO SCH ×2 (08:18→20:32)
[2019-12-09] MEDS: DOCUSATE SODIUM 100 MG (COLACE) CAP PO SCH ×2 (08:19→20:30)
[2019-12-09] MEDS: LACTULOSE SYRUP 10GM/15ML (ENULOSE) 30ML UDC PO SCH ×2 (08:19→20:29)
[2019-12-09] MEDS: RT-ALBUTEROL SULF 2.5 MG/3 ML PRE-MIX VIAL INH PRN (08:24)
--- NOTE | 2019-12-09 11:41 | Progress Note - Hospitalist ---
Subjective HPI/CC On Admission Date Seen by Provider: Dec 09, 2019 Time Seen by Provider: 12:00 Subjective/Events-last exam Patient still having difficulty with pain Long acting Oxycontin started Wednesday No BM so will add suppository and fleets and SSE Dyspnea reported so will see if we can slow the IVF up since calcium is improved but will check with Dr Garcia Lasix 20mg IV given also Creat 1.97 noted Potassium 3.0 so will give 1 dose of 40meq IV dose over 4 hours Checking magnesium and giving 1 gram Review of Systems Musculoskeletal: back pain Objective Exam Vital Signs Vital Signs Date Time Temp Pulse Resp B/P (MAP) Pulse Ox O2 Delivery O2 Flow Rate FiO2 12/10/19 04:26 36.8 70 20 140/74 (96) 95 Room Air 12/08/19 12:30 2.00 Capillary Refill : Less Than 3 Seconds General Appearance: No Apparent Distress, WD/WN, Chronically ill Respiratory: Chest Non Tender, Lungs Clear, Normal Breath Sounds, No Accessory Muscle Use, No Respiratory Distress, Decreased Breath Sounds Cardiovascular: Regular Rate, Rhythm, No Edema, No Gallop, No JVD, No Murmur, Normal Peripheral Pulses Neurologic/Psychiatric: Alert, Oriented x3, No Motor/Sensory Deficits, Normal Mood/Affect Results/Procedures Lab Laboratory Tests 12/09/19 05:52 Patient resulted labs reviewed. Assessment/Plan Assessment and Plan Assess & Plan/Chief Complaint Assessment: Hypercalcemia ARF Hypokalemia MM? s/p bone marrow COPD Constipation Plan: Decrease IVF Lasix once Monitor creat Appreciate oncology assistance Diagnosis/Problems Diagnosis/Problems (1) Hypercalcemia of malignancy Status: Acute (2) Acute kidney injury Status: Acute Clinical Quality Measures DVT/VTE Risk/Contraindication: Risk Factor Score Per Nursin RFS Level Per Nursing on Admit: 4+=Very High NATI LEA DO Dec 09, 2019 11:40
[2019-12-09] MEDS ORDERED: MAGNESIUM 1 GM/100 ML IVPB 100 ML IV ONE (11:45)
[2019-12-09] MEDS ORDERED: BISACODYL 10 MG SUPP (DULCOLAX) PR NR (12:00)
[2019-12-09] MEDS ORDERED: FUROSEMIDE 40 MG/4 ML INJ (LASIX) IVP NR (12:00)
--- NOTE | 2019-12-09 12:19 | NUR ---
Dr Garcia orders to decrease fluids to 150mls/hr Dr Alicea orders for 20IV lasix now suppository now, Miralax BID, and change breathing treatment to TID ([facility] rt notified at this time of need to change order)
--- NOTE | 2019-12-09 13:00 | Progress Note ---
Progress Note Assessment/Plan Time Seen by Provider: 12:54 Events since last exam 54-year-old female admitted with worsening back pain and hypercalcemia with acute renal failure. Currently being treated with aggressive hydration as well as pamidronate with improvement in calcium level. Skeletal survey and MRI off l umbar spine showing multiple lytic lesions. Serum protein electrophoresis pending. Lambda light chain markedly elevated indicating possible plasma cell neoplasm. Urine immunoelectrophoresis pending. Patient completed a bone marrow aspiration and biopsy and will await results. Pt complaining SOB today and pain all over like "I was hit by a truck." She has IVF at 250ml/hr since admission. Labs are improved significantly. Assessment/Plan A/P: 1. One dose Lasix today 2. Reduce the IVF to 150ml/hr 3. I told the nurse to give her PRN hydrocodone every 4-6 hrs and then we will figure out the dose she used over 24 hrs then convert to long acting Oxycotin. She is now only on Oxycontin 15mg bid. 4. Daily CBC with auto diff and CMP. 5. Monitor I/O daily. Vitals Last set of Vitals Signs Vital Signs Date Time Temp Pulse Resp B/P (MAP) Pulse Ox O2 Delivery O2 Flow Rate FiO2 12/09/19 08:24 94 Room Air 12/09/19 08:00 36.8 75 18 145/81 (102) 12/08/19 12:30 2.00 I&O I&O Intake and Output 12/09/19 00:00 Intake Total 4300 ml Output Total 2000 ml Balance 2300 ml Intake Oral 1300 ml IV Total 3000 ml Output Urine Total 2000 ml # Voids 3 Labs Laboratory Tests 12/08/19 15:17: 12/09/19 05:50: Magnesium Level 1.6 12/09/19 05:52: White Blood Count 4.4, Red Blood Count 2.39L, Hemoglobin 7.1L, Hematocrit 24L, Mean Corpuscular Volume 99, Mean Corpuscular Hemoglobin 30, Mean Corpuscular Hemoglobin Concent 30L, Red Cell Distribution Width 12.3, Platelet Count 223, Mean Platelet Volume 9.4, Immature Granulocyte % (Auto) 2, Neutrophils (%) (Auto) 56, Lymphocytes (%) (Auto) 29, Monocytes (%) (Auto) 10, Eosinophils (%) (Auto) 2, Basophils (%) (Auto) 1, Neutrophils # (Auto) 2.5, Lymphocytes # (Auto) 1.3, Monocytes # (Auto) 0.5, Eosinophils # (Auto) 0.1, Basophils # (Auto) 0.0, Immature Granulocyte # (Auto) 0.1, Sodium Level 146H, Potassium Level 3.0L, Chloride Level 120H, Carbon Dioxide Level 15L, Anion Gap 11, Blood Urea Nitrogen 17, Creatinine 1.97H, Estimat Glomerular Filtration Rate 27, BUN/Creatinine Rati o 9, Glucose Level 71, Calcium Level 9.3, Corrected Calcium 10.1, Total Bilirubin 0.2, Aspartate Amino Transf (AST/SGOT) 21, Alanine Aminotransferase (ALT/SGPT) 16, Alkaline Phosphatase 96, Total Protein 5.2L, Albumin 3.0L Clinical Quality Measures DVT/VTE Risk/Contraindication: Risk Factor Score Per Nursin RFS Level Per Nursing on Admit: 4+=Very High LUIS NELSON MD Dec 09, 2019 13:00
[2019-12-09] MEDS: POTASSIUM CL 10MEQ/50ML IVPB 50 ML IV SCH ×4 (13:15→16:42)
[2019-12-09] MEDS: RT-ALBUTEROL SULF 2.5 MG/3 ML PRE-MIX VIAL INH SCH ×2 (14:28→19:16)
--- NOTE | 2019-12-09 16:28 | NUR ---
spoke to patient's brother Brent regarding medical plan for today. Brent thanked this RN for lab and medication information and stated he would like a doctor to call him tomorrow regarding biopsy results if available and future hospital stay plan of care.
[2019-12-09] MEDS: polyethylene glycoL POWDER 17 GM (MIRALAX) PACK PO SCH (20:29)
[2019-12-10] MEDS: oxyCODONE/APAP 5/325MG (PERCOCET 5) TABLET PO PRN ×4 (02:39→16:53)
[2019-12-10 04:26] VITALS: BP 140/74
[2019-12-10] MEDS: NS IV 1000 ML 1,000 ML IV SCH ×2 (05:08→10:54)
[2019-12-10 06:42] LABS: BASOPHILS % (AUTO) 0 % (0-10); EOSINOPHILS # (AUTO) 0.1 10^3/uL (0.0-0.3); EOSINOPHILS % (AUTO) 1 % (0-10); HEMATOCRIT 23 % (35-52); HEMOGLOBIN 7.2 g/dL (11.5-16.0); LYMPHOCYTES # (AUTO) 1.2 10^3/uL (1.0-4.0); LYMPHOCYTES % (AUTO) 23 % (12-44); MEAN CORPUSCULAR HEMOGLOBIN 30 pg (25-34); MEAN CORPUSCULAR HGB CONC 32 g/dL (32-36); MEAN CORPUSCULAR VOLUME 94 fL (80-99); MEAN PLATELET VOLUME 9.3 fL (9.0-12.2); MONOCYTES # (AUTO) 0.5 10^3/uL (0.0-1.0); MONOCYTES % (AUTO) 10 % (0-12); NEUTROPHILS # (AUTO) 3.2 10^3/uL (1.8-7.8); NEUTROPHILS % (AUTO) 64 % (42-75); PLATELET COUNT 217 10^3/uL (130-400)
--- NOTE | 2019-12-10 06:51 | Progress Note - Hospitalist ---
Subjective HPI/CC On Admission Date Seen by Provider: Dec 10, 2019 Time Seen by Provider: 11:30 Subjective/Events-last exam Decreasing NS to 60cc/hr Patient is less dyspneic Creat 1.85 BM++ after laxatives Potassium 3.2 so giving 40meq IV Calcium 9.0 Review of Systems General: Fatigue, Malaise Musculoskeletal: back pain Objective Exam Vital Signs Vital Signs Date Time Temp Pulse Resp B/P (MAP) Pulse Ox O2 Delivery O2 Flow Rate FiO2 12/10/19 19:42 97 Room Air 12/10/19 16:29 37.2 86 20 145/76 (99) 12/08/19 12:30 2.00 Capillary Refill : Less Than 3 Seconds General Appearance: No Apparent Distress, WD/WN, Chronically ill Respiratory: Chest Non Tender, Lungs Clear, Normal Breath Sounds, No Accessory Muscle Use, No Respiratory Distress Cardiovascular: Regular Rate, Rhythm, No Edema, No Gallop, No JVD, No Murmur, Normal Peripheral Pulses Back: Decreased Range of Motion Neurologic/Psychiatric: Alert, Oriented x3, No Motor/Sensory Deficits, Normal Mood/Affect Results/Procedures Lab Laboratory Tests 12/10/19 06:30 Patient resulted labs reviewed. Assessment/Plan Assessment and Plan Assess & Plan/Chief Complaint Assessment: Hypercalcemia ARF Hypokalemia MM? s/p bone marrow COPD Constipation Plan: Decrease IVF Lasix once Monitor creat Appreciate oncology assistance 12/10/19: Supportive care Decrease IVF Pain control BM regimen Diagnosis/Problems Diagnosis/Problems (1) Hypercalcemia of malignancy Status: Acute (2) Acute kidney injury Status: Acute Clinical Quality Measures DVT/VTE Risk/Contraindication: Risk Factor Score Per Nursin RFS Level Per Nursing on Admit: 4+=Very High NATI LEA DO Dec 10, 2019 06:51
[2019-12-10 06:54] LABS: POTASSIUM 3.2 MMOL/L (3.6-5.0)
[2019-12-10 06:55] LABS: CALCIUM 8.2 MG/DL (8.5-10.1)
[2019-12-10 06:56] LABS: TOTAL PROTEIN 5.2 GM/DL (6.4-8.2)
[2019-12-10 06:58] LABS: BILIRUBIN,TOTAL 0.2 MG/DL (0.1-1.0)
[2019-12-10 07:00] LABS: CREATININE SERUM 1.85 MG/DL (0.60-1.30)
[2019-12-10 08:00] VITALS: BP 146/67
[2019-12-10] MEDS: oxyCODONE ER 15 MG (oxyCONTIN CR) TAB PO SCH ×2 (08:36→20:08)
[2019-12-10] MEDS: SENNA W/DOCUSATE (SENOKOT S) TABLET PO SCH ×2 (08:37→19:39)
[2019-12-10] MEDS: DOCUSATE SODIUM 100 MG (COLACE) CAP PO SCH ×2 (08:37→19:38)
[2019-12-10] MEDS: LACTULOSE SYRUP 10GM/15ML (ENULOSE) 30ML UDC PO SCH ×2 (08:37→19:38)
[2019-12-10] MEDS: polyethylene glycoL POWDER 17 GM (MIRALAX) PACK PO SCH ×2 (08:37→19:39)
[2019-12-10] MEDS: RT-ALBUTEROL SULF 2.5 MG/3 ML PRE-MIX VIAL INH SCH ×3 (10:03→19:42)
[2019-12-10] MEDS: POTASSIUM CL 10MEQ/50ML IVPB 50 ML IV SCH ×3 (12:25→14:37)
--- NOTE | 2019-12-10 13:41 | Progress Note ---
Progress Note Assessment/Plan Time Seen by Provider: 13:39 Events since last exam Feeling better and sitting up in the chair eating lunch. Pain is better. Pt wants to go home. IVF reduced to 150ml/hr Labs are improving continually. Assessment/Plan A/P: 54-year-old female admitted with worsening back pain and hypercalcemia with acute renal failure. Currently being treated with aggressive hydration as well as pamidronate with improvement in calcium level. Skeletal survey and MRI off lumbar spine showing multiple lytic lesions. Serum protein electrophoresis pending. Lambda light chain markedly elevated indicating possible plasma cell neoplasm. Urine immunoelectrophoresis pending. Patient completed a bone marrow aspiration and biopsy and will await results. Plan: 1. Encourage patient to have a shower and then walk in the room today. 2. IVF to 150ml/hr 3. Daily CBC with auto diff and CMP. 4. Monitor I/O daily. Vitals Last set of Vitals Signs Vital Signs Date Time Temp Pulse Resp B/P (MAP) Pulse Ox O2 Delivery O2 Flow Rate FiO2 12/10/19 08:30 Room Air 12/10/19 08:00 37.0 77 20 146/67 (93) 97 12/08/19 12:30 2.00 I&O I&O Intake and Output 12/10/19 00:00 Intake Total 6670 ml Output Total 4225 ml Balance 2445 ml Intake Oral 2370 ml IV Total 4300 ml Output Urine Total 4225 ml # Voids 1 # Bowel Movements 3 Labs Laboratory Tests 12/10/19 06:30: White Blood Count 5.0, Red Blood Count 2.40L, Hemoglobin 7.2L, Hematocrit 23L, Mean Corpuscular Volume 94, Mean Corpuscular Hemoglobin 30, Mean Corpuscular Hemoglobin Concent 32, Red Cell Distribution Width 12.5, Platelet Count 217, Mean Platelet Volume 9.3, Immature Granulocyte % (Auto) 1, Neutrophils (%) (Auto) 64, Lymphocytes (%) (Auto) 23, Monocytes (%) (Auto) 10, Eosinophils (%) (Auto) 1, Basophils (%) (Auto) 0, Neutrophils # (Auto) 3.2, Lymphocytes # (Auto) 1.2, Monocytes # (Auto) 0.5, Eosinophils # (Auto) 0.1, Basophils # (Auto) 0.0, Immature Granulocyte # (Auto) 0.1, Sodium Level 142, Potassium Level 3.2L, Chloride Level 118H, Carbon Dioxide Level 15L, Anion Gap 9, Blood Urea Nitrogen 15, Creatinine 1.85H, Estimat Glomerular Filtration Rate 29, BUN/Creatinine Ratio 8, Glucose Level 77, Calcium Level 8.2L, Corrected Calcium 9.0, Total Bilirubin 0.2, Aspartate Amino Transf (AST/SGOT) 21, Alanine Aminotransferase (ALT/SGPT) 17, Alkaline Phosphatase 101, Total Protein 5.2L, Albumin 3.0L Clinical Quality Measures DVT/VTE Risk/Contraindication: Risk Factor Score Per Nursin RFS Level Per Nursing on Admit: 4+=Very High LUIS NELSON MD Dec 10, 2019 13:41
[2019-12-10 16:29] VITALS: BP 145/76
[2019-12-10 20:06] VITALS: BP 144/64
[2019-12-11 00:15] VITALS: BP 163/82
--- NOTE | 2019-12-11 00:15 | NUR ---
Patient stated she felt a "pop" in her right lung when walking back to bed from the bathroom which she said felt similar to when she had pleurisy. All vitals were within normal limits and patient denied pain. This RN contacted Dr Alicea, no new orders at this time.
[2019-12-11] MEDS: oxyCODONE/APAP 5/325MG (PERCOCET 5) TABLET PO PRN ×3 (03:07→20:08)
[2019-12-11] MEDS: NS IV 1000 ML 1,000 ML IV SCH ×2 (04:27→17:12)
[2019-12-11 05:24] LABS: BASOPHILS % (AUTO) 1 % (0-10); EOSINOPHILS # (AUTO) 0.1 10^3/uL (0.0-0.3); EOSINOPHILS % (AUTO) 1 % (0-10); HEMATOCRIT 22 % (35-52); LYMPHOCYTES # (AUTO) 1.3 10^3/uL (1.0-4.0); LYMPHOCYTES % (AUTO) 20 % (12-44); MEAN CORPUSCULAR HEMOGLOBIN 30 pg (25-34); MEAN CORPUSCULAR HGB CONC 33 g/dL (32-36); MEAN CORPUSCULAR VOLUME 93 fL (80-99); MEAN PLATELET VOLUME 9.4 fL (9.0-12.2); MONOCYTES # (AUTO) 0.6 10^3/uL (0.0-1.0); MONOCYTES % (AUTO) 10 % (0-12); NEUTROPHILS # (AUTO) 4.3 10^3/uL (1.8-7.8); NEUTROPHILS % (AUTO) 67 % (42-75); PLATELET COUNT 243 10^3/uL (130-400); WHITE BLOOD COUNT 6.5 10^3/uL (4.3-11.0)
[2019-12-11 05:46] LABS: POTASSIUM 3.4 MMOL/L (3.6-5.0)
[2019-12-11 05:48] LABS: TOTAL PROTEIN 5.3 GM/DL (6.4-8.2)
[2019-12-11 05:50] LABS: BILIRUBIN,TOTAL 0.4 MG/DL (0.1-1.0)
[2019-12-11 05:52] LABS: CREATININE SERUM 1.82 MG/DL (0.60-1.30)
[2019-12-11 08:00] VITALS: BP 144/85
[2019-12-11] MEDS ORDERED: KCL 20 MEQ TAB (K-DUR) PO NR (08:00)
[2019-12-11] MEDS: DOCUSATE SODIUM 100 MG (COLACE) CAP PO SCH ×2 (08:00→20:08)
[2019-12-11] MEDS: LACTULOSE SYRUP 10GM/15ML (ENULOSE) 30ML UDC PO SCH ×3 (08:00→20:10)
[2019-12-11] MEDS: SENNA W/DOCUSATE (SENOKOT S) TABLET PO SCH ×2 (08:00→20:10)
[2019-12-11] MEDS: polyethylene glycoL POWDER 17 GM (MIRALAX) PACK PO SCH ×2 (08:01→20:10)
[2019-12-11] MEDS: oxyCODONE ER 15 MG (oxyCONTIN CR) TAB PO SCH ×2 (08:10→20:08)
[2019-12-11] MEDS: RT-ALBUTEROL SULF 2.5 MG/3 ML PRE-MIX VIAL INH SCH ×2 (09:51→14:43)
--- NOTE | 2019-12-11 11:33 | Progress Note ---
Standard Progress Note Progress Notes/Assess & Plan Date Seen by a Provider: Dec 11, 2019 Time Seen by a Provider: 11:28 Progress/Assessment & Plan 54-year-old female admitted with worsening back pain and hypercalcemia with acute renal failure. S/P treatment with aggressive hydration as well as pamidronate with normalization of calcium level. Skeletal survey and MRI off lumbar spine showing multiple lytic lesions. Serum protein electrophoresis and bone marrow results pending. Lambda light chain markedly elevated indicating possible plasma cell neoplasm. Urine immunoelectrophoresis pending. Continue hydration and monitor urine output accurately. Continue to monitor labs serially. Hemoglobin decreased to 7.0 with significant fatigue and feeling cold. Activity limited because of pain and fatigue. May transfuse 1 unit PRBC for symptomatic anemia. Discussed her status with Dr. Escobar and patients brother. LAISHA LOTT Dec 11, 2019 11:33
--- NOTE | 2019-12-11 12:57 | Progress Note ---
JESSIEBRAULIORM, 12/11/19 1257: Subjective Subjective/Events-last exam Pt is still having significant back pain. Is unable to appropriately state why she is here, but does admit she had lab abnormalities at [facility] and was sent to [facility] for those. Has asked if her brother can be on the phone during most interactions with physicians. Bone marrow biopsy on 12/07, awaiting results. Objective Exam Last Set of Vital Signs Vital Signs Date Time Temp Pulse Resp B/P (MAP) Pulse Ox O2 Delivery O2 Flow Rate FiO2 12/11/19 09:52 95 Room Air 12/11/19 08:00 37.4 82 20 144/85 (104) 12/08/19 12:30 2.00 Capillary Refill : Less Than 3 Seconds I&O Intake and Output 12/11/19 00:00 Intake Total 3230 ml Output Total 1750 ml Balance 1480 ml Intake Oral 2030 ml IV Total 1200 ml Output Urine Total 1750 ml # Bowel Movements 3 General: Alert, Oriented X3 HEENT: PERRLA, EOMI Neck: No JVD Lungs: Clear to Auscultation, Normal Air Movement Heart: Regular Rate, No Murmurs Abdomen: Normal Bowel Sounds, No Tenderness Extremities: No Cyanosis, No Edema Skin: No Rashes Neuro: Normal Speech, Sensation Intact Psych/Mental Status: Mental Status NL, Mood NL Results/Procedures Lab Laboratory Tests 12/11/19 04:45: White Blood Count 6.5, Red Blood Count 2.31L, Hemoglobin 7.0L, Hematocrit 22L, Mean Corpuscular Volume 93, Mean Corpuscular Hemoglobin 30, Mean Corpuscular Hemoglobin Concent 33, Red Cell Distribution Width 12.3, Platelet Count 243, Mean Platelet Volume 9.4, Immature Granulocyte % (Auto) 1, Neutrophils (%) (Auto) 67, Lymphocytes (%) (Auto) 20, Monocytes (%) (Auto) 10, Eosinophils (%) (Auto) 1, Basophils (%) (Auto) 1, Neutrophils # (Auto) 4.3, Lymphocytes # (Auto) 1.3, Monocytes # (Auto) 0.6, Eosinophils # (Auto) 0.1, Basophils # (Auto) 0.0, Immature Granulocyte # (Auto) 0.1, Sodium Level 142, Potassium Level 3.4L, Chloride Level 118H, Carbon Dioxide Level 15L, Anion Gap 9, Blood Urea Nitrogen 15, Creatinine 1.82H, Estimat Glomerular Filtration Rate 29, BUN/Creatinine Ratio 8, Glucose Level 90, Calcium Level 8.0L, Corrected Calcium 8.8, Total Bilirubin 0.4, Aspartate Amino Transf (AST/SGOT) 21, Alanine Aminotransferase (ALT/SGPT) 14, Alkaline Phosphatase 101, Total Protein 5.3L, Albumin 3.0L Assessment/Plan Assessment/Plan Assessment & Plan 1. Hypercalcemia, likely secondary to malignancy * Ca 14 at [facility], down to 9 today * Bone marrow biopsy performed 12/07 * Elevated lambda chain with kappa/lambda ratio 0 * Likely myeloma, awaiting pathology confirmation * Increase fluid rate to 125cc/hr * Lasix to prevent further hypercalcemia 2. Back pain * Likely secondary to myeloma * Plan as above * Oxycodone q4h for pain 3. Anemia * Hg down to 7 this am * Likely due to myeloma * Will transfuse 1 unit pRBC 4. Acute kidney injury * Cr 2.36 on admission * Down to 1.82 * Likely prerenal * Continue gentle fluid resuscitation * Avoid nephrotoxic agents * Renally dose medications Clinical Quality Measures DVT/VTE Risk/Contraindication: Risk Factor Score Per Nursin RFS Level Per Nursing on Admit: 4+=Very High INEZ MOTT MD 12/11/19 1630: Supervisory-Addendum Brief Verification & Attestation Participated in pt care: history, MDM, physical Personally performed: exam, history, MDM, supervision of care Care discussed with: Medical Student Procedures: n/a I personally saw and examined this patient today and repeated the history and physical exam and directed plan of care. I agree with student documentation. Discussed her status with her brother via televideo during her visit today. RM COLE, Dec 11, 2019 12:57 INEZ MOTT MD Dec 11, 2019 16:30
--- NOTE | 2019-12-11 14:20 | NUR ---
"RD ASSESSMENT PMHx: COPD; HTN; GERD; diverticulosis; hiatal hernia; CA(cervical) PT INTERACTION: Pt was awake and pleasant during nutrition assessment. Pt states current appetite is okay. Note avg PO intake 33% x2d, per chart review. Pt states following a regular diet at home, and has no issues with chewing/swallowing food. Note pt has poor dentition, per visual assessment. Pt states no recent issues with nausea, vomiting, or diarrhea. Pt states some recent issues with constipation. Note last BM was 12/10, and pt currently on bowel regimen of colace BID; senna BID; and miralax BID, per chart review. Pt states no recent wt changes. Note unable to determine recent wt hx, per chart review. ABNORMAL NUTRITION-RELATED LAB VALUES LOW: K 3.4; Ca 8.0; Pro 5.3; alb 3.0 HIGH: Cl 118; cr 1.82 Est. kcal needs: 1225 kcal | 15 kcal/kg Est. Pro needs: 82 g Pro | 1.0 g Pro/kg PES STATEMENT: Inadequate oral intake (NI-2.1) related to loss of appetite | constipation as evidenced by pt interview | avg PO intake 33% x2d INTERVENTION: Continue with current diet order of Regular diet. Add Ensure Enlive (vary) to meals TID, for increased kcal intake. Provides 350 kcal and 13 g Pro per serving. Will continue to follow and reassess as pt needs, intake, and status change. Yudy Rodriguez, MS RD LD"
[2019-12-11 16:00] VITALS: BP 142/78
--- NOTE | 2019-12-11 16:29 | NUR ---
Pt lives with her brother and [id number] in their home in [place], [place] They are willing to continue to be her caregivers and pt states since she is "low functioning" due to multiple head injuries.As a result, she depends on her brother for all decisions. She plans to return to their home and they will assist her in continued treatment plans. Pt 's brother states he assumes the role of her Guardian" but never formalized through the court system. Pt states she will sign Advance Directives giving her brother DPOA for Health care decisions. Will follow and assist with continued care plans.
[2019-12-11] MEDS ORDERED: NS IV 500 ML 500 ML IV SCH ×2 (16:30)
[2019-12-11] MEDS: FUROSEMIDE 40 MG (LASIX) TAB PO SCH (17:12)
[2019-12-11 21:22] VITALS: BP 150/84
[2019-12-11 21:37] VITALS: BP 144/80
[2019-12-12] VITALS: BP 149/79
[2019-12-12] MEDS: RT-ALBUTEROL SULF 2.5 MG/3 ML PRE-MIX VIAL INH SCH ×4 (00:06→18:50)
[2019-12-12] MEDS ORDERED: ONDANSETRON 4 MG/2 ML (SDV) Z0FRAN ONE (00:06)
[2019-12-12 00:21] VITALS: BP 149/79
[2019-12-12] MEDS: ONDANSETRON 4 MG/2 ML (SDV) Z0FRAN IVP PRN (00:28)
[2019-12-12] MEDS: oxyCODONE/APAP 5/325MG (PERCOCET 5) TABLET PO PRN ×2 (01:52→06:09)
[2019-12-12] MEDS: NS IV 1000 ML 1,000 ML IV SCH ×2 (01:53→06:09)
[2019-12-12 06:05] LABS: BASOPHILS % (AUTO) 0 % (0-10); EOSINOPHILS # (AUTO) 0.1 10^3/uL (0.0-0.3); EOSINOPHILS % (AUTO) 2 % (0-10); HEMATOCRIT 24 % (35-52); HEMOGLOBIN 7.9 g/dL (11.5-16.0); LYMPHOCYTES # (AUTO) 1.4 10^3/uL (1.0-4.0); LYMPHOCYTES % (AUTO) 23 % (12-44); MEAN CORPUSCULAR HEMOGLOBIN 30 pg (25-34); MEAN CORPUSCULAR HGB CONC 32 g/dL (32-36); MEAN CORPUSCULAR VOLUME 92 fL (80-99); MEAN PLATELET VOLUME 9.2 fL (9.0-12.2); MONOCYTES # (AUTO) 0.6 10^3/uL (0.0-1.0); MONOCYTES % (AUTO) 9 % (0-12); NEUTROPHILS # (AUTO) 3.8 10^3/uL (1.8-7.8); NEUTROPHILS % (AUTO) 62 % (42-75); PLATELET COUNT 251 10^3/uL (130-400); WHITE BLOOD COUNT 6.2 10^3/uL (4.3-11.0)
[2019-12-12 06:17] LABS: POTASSIUM 3.5 MMOL/L (3.6-5.0)
[2019-12-12 06:18] LABS: CALCIUM 7.7 MG/DL (8.5-10.1)
[2019-12-12 06:22] LABS: CREATININE SERUM 1.61 MG/DL (0.60-1.30)
[2019-12-12] MEDS ORDERED: KCL 20 MEQ TAB (K-DUR) PO NR (07:00)
--- NOTE | 2019-12-12 07:49 | Progress Note ---
HERBERTVillaRM RAMSEY, 12/12/19 0749: Subjective Subjective/Events-last exam Pt is having severe back pain that she rates 8/10. It is keeping her up at night and she is unable to sleep. She also admits to anxiety that is keeping her awake as well. She asked about results from pathology, told patient they had not returned yet. Objective Exam Last Set of Vital Signs Vital Signs Date Time Temp Pulse Resp B/P (MAP) Pulse Ox O2 Delivery O2 Flow Rate FiO2 12/12/19 07:21 98 Room Air 12/12/19 00:21 37.0 79 24 149/79 12/08/19 12:30 2.00 Capillary Refill : Less Than 3 Seconds I&O Intake and Output 12/12/19 00:00 Intake Total 2110 ml Output Total 2300 ml Balance -190 ml Intake Oral 2110 ml Output Urine Total 2300 ml # Bowel Movements 3 General: Alert, Cooperative HEENT: PERRLA, EOMI Neck: No JVD Lungs: Normal Air Movement, Other (scattered crackles throughout) Heart: Regular Rate, No Murmurs Abdomen: Normal Bowel Sounds, Soft Extremities: No Cyanosis, No Edema Skin: No Rashes Neuro: Normal Speech, Normal Tone Psych/Mental Status: Mood NL, Other (hx of brain injury) Results/Procedures Lab Laboratory Tests 12/12/19 05:45: White Blood Count 6.2, Red Blood Count 2.65L, Hemoglobin 7.9L, Hematocrit 24L, Mean Corpuscular Volume 92, Mean Corpuscular Hemoglobin 30, Mean Corpuscular Hemoglobin Concent 32, Red Cell Distribution Width 12.9, Platelet Count 251, Mean Platelet Volume 9.2, Immature Granulocyte % (Auto) 3, Neutrophils (%) (Auto) 62, Lymphocytes (%) (Auto) 23, Monocytes (%) (Auto) 9, Eosinophils (%) (Auto) 2, Basophils (%) (Auto) 0, Neutrophils # (Auto) 3.8, Lymphocytes # (Auto) 1.4, Monocytes # (Auto) 0.6, Eosinophils # (Auto) 0.1, Basophils # (Auto) 0.0, Immature Granulocyte # (Auto) 0.2H, Sodium Level 143, Potassium Level 3.5L, Chloride Level 118H, Carbon Dioxide Level 17L, Anion Gap 8, Blood Urea Nitrogen 14, Creatinine 1.61H, Estimat Glomerular Filtration Rate 33, BUN/Creatinine Ratio 9, Glucose Level 78, Calcium Level 7.7L Assessment/Plan Assessment/Plan Assessment & Plan 1. Hypercalcemia, likely secondary to malignancy * Ca 14 at O[facility], down to 7.7 today 12/11 * Bone marrow biopsy performed 12/07 * Elevated lambda chain with kappa/lambda ratio 0 * Likely myeloma, awaiting pathology confirmation * IgG, IgA, IgM all decreased, immunofixation pending * Monitor calcium closely * Stop lasix and IV fluids, repeat BMP 12/12 * Add Ensure TID for calorie supplementation 2. Back pain * Likely secondary to myeloma * Plan as above * Increased oxycodone to 7.5/325 q4h for pain * Continue oxycodone 15mg BID 3. Anemia * Hg up to 7.9 this am * Likely due to myeloma * 1 unit transfused last night, pt experienced nausea but resolved with zofran 4. Acute kidney injury * Cr 2.36 on admission * Down to 1.61 12/11 * Likely due to lasix * Continue gentle fluid resuscitation * Avoid nephrotoxic agents * Renally dose medications 5. Anxiety * Pt reports anxiety at home * Having difficulties sleeping * Started melatonin for sleep * Added vistaril TID for anxiety Clinical Quality Measures DVT/VTE Risk/Contraindication: Risk Factor Score Per Nursin RFS Level Per Nursing on Admit: 4+=Very High INEZ MOTT MD 12/12/19 1239: Supervisory-Addendum Brief Verification & Attestation Participated in pt care: history, MDM, physical Personally performed: exam, history, MDM, supervision of care Care discussed with: Medical Student Procedures: n/a I personally saw and examined this patient today and repeated the history and physical exam and my findings are the same as those documented by the medical student. I directed the plan of care and agree with the plan as documented by medical student. RM COLE, Dec 12, 2019 07:49 INEZ MOTT MD Dec 12, 2019 12:39
[2019-12-12] MEDS: FUROSEMIDE 40 MG (LASIX) TAB PO SCH (08:34)
[2019-12-12] MEDS: DOCUSATE SODIUM 100 MG (COLACE) CAP PO SCH ×2 (08:36→21:58)
[2019-12-12] MEDS: polyethylene glycoL POWDER 17 GM (MIRALAX) PACK PO SCH ×2 (08:36→21:58)
[2019-12-12] MEDS: LACTULOSE SYRUP 10GM/15ML (ENULOSE) 30ML UDC PO SCH ×2 (08:36→21:58)
[2019-12-12] MEDS: SENNA W/DOCUSATE (SENOKOT S) TABLET PO SCH ×2 (08:36→22:05)
[2019-12-12] MEDS: oxyCODONE ER 15 MG (oxyCONTIN CR) TAB PO SCH ×2 (08:42→21:59)
[2019-12-12 08:43] VITALS: BP 154/80
--- NOTE | 2019-12-12 09:27 | Physical Therapy Evaluation ---
PT Evaluation-General Medical Diagnosis Admission Date Dec 07, 2019 at 11:57 Medical Diagnosis: KALEY/hyperglycemia Onset Date: Dec 07, 2019 Therapy Diagnosis Therapy Diagnosis: debility Height/Weight Height (Feet): 5 Height (Inches): 0 Weight (Pounds): 156 Weight (Ounces): 0 Precautions Precautions/Isolations: Fall Prevention, Standard Precautions Referral Physician: Shawn Reason for Referral: Evaluation/Treatment Medical History Pertinent Medical History: COPD, HTN, Smoking Additional Medical History cervical cancer Current History ER secondary to abnormal labs and MRI Reviewed History: Yes Social History Home: Single Level Current Living Status: Other Family Entry Into Home: Stairs With Railing PT Steps Into Home: 5 (but building a ramp) Prior Prior Level of Function SCALE: Activities may be completed with or without assistive devices. 6-Djiiegatdo-ajzaxie completes the activity by him/herself with no assistance from a helper. 5-Set-up or Clean-up Assistance-helper sets up or cleans up; patient completes activity. [place] assists only prior to or following the activity. 4-Supervision or Touching Assistance-helper provides verbal cues and/or touching/steadying and/or contact guard assistance as patient completes a ctivity. Assistance may be provided throughout the activity or intermittently. 3-Partial/Moderate Assistance-helper does LESS THAN HALF the effort. [place] lifts, holds or supports trunk or limbs, but provides less than half the effort. 2-Substantial/Maximal Assistance-helper does MORE THAN HALF the effort. [place] lifts or holds trunk or limbs and provides more than half the effort. 4-Ogqhlrweu-oygjib does ALL the effort. Patient does none of the effort to complete the activity. Or, the assistance of 2 or more helpers is required for the patient to complete the activity. If activity was not attempted, code reason: 7-Patient Refused. 9-Not Applicable-not attempted and the patient did not perform the activity before the current illness, exacerbation or injury. 10-Not Attempted due to Environmental Limitations-(lack of equipment, weather restraints, etc.). 88-Not Attempted due to Medical Conditions or Safety Concerns. Bed Mobility: 6 Transfers (B,C,W/C): 6 Gait: 6 Stairs: 5 Indoor Mobility (Ambulation): Independent Stairs: Needed Some Help Prior Devices Use: Walker PT Evaluation-Current Subjective Patient agrees to PT. She reports she just wants to go home. Pain Numeric Pain Scale: 5-Moderate Pain Location: Lower Location Body Site: Back Pain Description: Ache, Pressure Objective Patient Orientation: Normal For Age Attachments: Simental Catheter, IV ROM/Strength ROM Lower Extremities bilateral LE WFL Strength Lower Extremities 4-/5 grossly bilateral LE Integumentary/Posture Integumentary refer to nursing notes Bowel Incontinence: No Bladder Incontinence: Simental Cath Posture WFL Neuromuscular (Tone, Coordination, Reflexes) grossly intact Sensory Vision: Wears Glasses Hearing: Functional Transfers Roll Left to Right (QC): 6 Lying to Sitting/Side of Bed(Q: 6 Sit to Stand (QC): 5 Chair/Eja-lo-Wwvte Xfer(QC): 5 Toilet Transfer (QC): 5 toileted self (BM) and washed hands after Gait Does the Patient Walk?: Yes Mode of Locomotion: Walk Anticipated Mode of Locomotion: Walk Walk 10 feet (QC): 5 Walk 50 ft with 2 Turns(QC): 5 Walk 150 ft (QC): 5 Distance: 30' x 2/150' x 1 Gait Assistive Device: FWW Comments/Gait Description slow, steady gait sequence Stairs declined to attempt Balance Sitting Static: Normal Sitting Dynamic: Normal Standing Static: Good Standing Dynamic: Good Assessment/Needs 54 y.o. female, will be seen short term by skilled PT to address functional strength and mobility to ensure safe return to home with family. Rehab Potential: Fair PT Penitentiary Goals Mechanical Supervisor Goals PT Penitentiary Goals Time Frame: Dec 23, 2019 Roll Left & Right (QC): 6 Sit to Lying (QC): 6 Lying-Sitting on Side/Bed(QC): 6 Sit to Stand (QC): 6 Chair/Smz-mn-Uoqsp Xfer(QC): 6 Toilet Transfer (QC): 6 Does the Patient Walk: Yes Walk 10 feet (QC): 6 Walk 50ft with 2 Turns (QC): 6 Walk 150 ft (QC): 6 PT Plan Problem List Problem List: Activity Tolerance Treatment/Plan Treatment Plan: Continue Plan of Care Treatment Plan: Education, Functional Activity Alanna, Functional Strength, Gait, Safety, Therapeutic Exercise, Transfers Treatment Duration: Dec 23, 2019 Frequency: 6 times per week Estimated Hrs Per Day: .25 hour per day Patient and/or Family Agrees t: Yes Discharge Recommendations Therapy Discharge Recommendati: Home & Family Time/GCodes Time In: 820 Time Out: 849 Total Billed Treatment Time: 29 Total Billed Treatment 1 visit EVModC 14 min FA 15 min RUI FRANCO PT Dec 12, 2019 09:27
[2019-12-12] MEDS ORDERED: hydrOXYzine (ATARAX) 10 MG TAB PO PRN (10:15)
[2019-12-12 11:54] LABS: IMMUNOFIX PATH REPORT NUMBER Complete (Complete)
--- NOTE | 2019-12-12 12:19 | Progress Note ---
Standard Progress Note Progress Notes/Assess & Plan Date Seen by a Provider: Dec 12, 2019 Time Seen by a Provider: 12:12 Progress/Assessment & Plan 54-year-old female admitted with worsening back pain and hypercalcemia with acute renal failure. S/P treatment with aggressive hydration as well as pamidronate with normalization of calcium level. Skeletal survey and MRI off lumbar spine showing multiple lytic lesions. Serum protein electrophoresis showing monoclonal gammopathy with lambda light chain and bone marrow aspiration and biopsy preliminary report showing sheets of plasma cells consistent with myeloma. Lambda light chain markedly elevated with a ratio of 0.00. Urine immunoelectrophoresis pending. Discussed findings with the patient and her brother Alfonso and answered their questions. She has lambda light chain multiple myeloma. Standard treatment would be induction chemotherapy followed by autologous stem cell transplant and maintenance therapy. They indicated that they would prefer to go to for the transplant part. I will contact the BMT services and discuss the case and decide on the induction regimen. Continue hydration and monitor urine output accurately. Renal function is still continuing to improve. Continue to monitor labs serially. Hemoglobin 7.9 after transfusion with 1 unit of packed red blood cells. Increase activity with physical therapy and occupational therapy as tolerated. Continue pain control as you're doing. Okay to discharge home if stable from medical standpoint. If patient is being discharged, schedule a follow-up appointment with me for next week at the cancer center. I'm on vacation until Wednesday and Dr. Garcia is covering. LAISHA LOTT Dec 12, 2019 12:19
[2019-12-12] MEDS: oxyCODONE/APAP 7.5-325 MG (PERCOCET 7.5) TABLET PO PRN ×3 (13:06→22:02)
--- NOTE | 2019-12-12 14:13 | NUR ---
PATIENT LEFT FOR LEXISCAN WITH SHEILA SPARKS AT 1145 AND RETURNED AT 1400 VIA NOY.
--- NOTE | 2019-12-12 14:31 | NUR ---
Pt shared aspects of her spiritual journey and recent diagnosis. Correspondence Section Supervisor offered payer.
[2019-12-12 16:00] VITALS: BP 137/79
--- NOTE | 2019-12-12 16:19 | NUR ---
Pt completed DPOA for Health Care decisions naming her brother Alfonso. Her afuzfc-wy-xha Paty and her sister Bárbara who lives in [facility] she named as alternates.
[2019-12-12] MEDS: FAMOTIDINE 20 MG (PEPCID) TABLET PO PRN ×2 (17:03→22:02)
[2019-12-12] MEDS ORDERED: MELATONIN 3 MG TABLET PO SCH (21:00)
[2019-12-13] VITALS: BP 126/69
[2019-12-13] MEDS: ONDANSETRON 4 MG/2 ML (SDV) Z0FRAN IVP PRN (01:34)
[2019-12-13] MEDS: oxyCODONE/APAP 7.5-325 MG (PERCOCET 7.5) TABLET PO PRN ×2 (06:20→11:51)
[2019-12-13 06:53] LABS: POTASSIUM 3.4 MMOL/L (3.6-5.0)
[2019-12-13 06:54] LABS: CALCIUM 7.5 MG/DL (8.5-10.1)
[2019-12-13 06:59] LABS: CREATININE SERUM 1.48 MG/DL (0.60-1.30)
[2019-12-13 07:05] LABS: HEMOGLOBIN 8.6 g/dL (11.5-16.0); MEAN PLATELET VOLUME 9.3 fL (9.0-12.2); WHITE BLOOD COUNT 5.4 10^3/uL (4.3-11.0)
[2019-12-13] MEDS ORDERED: KCL 20 MEQ TAB (K-DUR) PO NR (07:30)
[2019-12-13] MEDS: RT-ALBUTEROL SULF 2.5 MG/3 ML PRE-MIX VIAL INH SCH ×2 (07:52→14:47)
[2019-12-13 08:04] VITALS: BP 141/64
[2019-12-13] MEDS: oxyCODONE ER 15 MG (oxyCONTIN CR) TAB PO SCH (08:50)
[2019-12-13] MEDS: DOCUSATE SODIUM 100 MG (COLACE) CAP PO SCH (08:51)
[2019-12-13] MEDS: SENNA W/DOCUSATE (SENOKOT S) TABLET PO SCH (09:00)
[2019-12-13] MEDS: LACTULOSE SYRUP 10GM/15ML (ENULOSE) 30ML UDC PO SCH (09:00)
[2019-12-13] MEDS: polyethylene glycoL POWDER 17 GM (MIRALAX) PACK PO SCH (09:00)
--- NOTE | 2019-12-13 09:54 | Physical Therapy Daily Note ---
PT Daily Note-Current Subjective Pt sitting up in bed upon arrival. Pt agrees to PT. Pain Location: Upper Location Body Site: Back Pain Description: Ache Comment: Pt reported but not rated. Mental Status Patient Orientation: Person, Place, Situation Transfers SCALE: Activities may be completed with or without assistive devices. 7-Gxbdtapyef-ypcrdcx completes the activity by him/herself with no assistance from a helper. 5-Set-up or Clean-up Assistance-helper sets up or cleans up; patient completes activity. Rector assists only prior to or following the activity. 4-Supervision or Touching Assistance-helper provides verbal cues and/or touching/steadying and/or contact guard assistance as patient completes activity. Assistance may be provided throughout the activity or intermittently. 3-Partial/Moderate Assistance-helper does LESS THAN HALF the effort. Rector lifts, holds or supports trunk or limbs, but provides less than half the effort. 2-Substantial/Maximal Assistance-helper does MORE THAN HALF the effort. Rector lifts or holds trunk or limbs and provides more than half the effort. 9-Axoehyoay-gcpbam does ALL the effort. Patient does none of the effort to complete the activity. Or, the assistance of 2 or more helpers is required for the patient to complete the activity. If activity was not attempted, code reason: 7-Patient Refused. 9-Not Applicable-not attempted and the patient did not perform the activity before the current illness, exacerbation or injury. 10-Not Attempted due to Environmental Limitations-(lack of equipment, weather restraints, etc.). 88-Not Attempted due to Medical Conditions or Safety Concerns. Exercises Supine Ex: Ankle pumps, Quad Set, Glut sets, Heel Slides, Straight leg raise, Hip abd/add Supine Reps: 15 Treatments Pt runs through Supine Ex with family watching on phone. Pt given written HEP for Supine & Seated Ex. Pt resting at end of tx. All needs met, call light in hand. Assessment Current Status: Fair Progress Pt fatigues and needs occasional RB. Pt excited to reportly have DC today. PT [facility] Goals Inlayer Goals PT Inlayer Goals Time Frame: Dec 23, 2019 Roll Left & Right (QC): 6 Sit to Lying (QC): 6 Lying-Sitting on Side/Bed(QC): 6 Sit to Stand (QC): 6 Chair/Aoj-hr-Lbwmu Xfer(QC): 6 Toilet Transfer (QC): 6 Car Transfer (QC): 6 Does the Patient Walk: Yes Walk 10 feet (QC): 6 Walk 50ft with 2 Turns (QC): 6 Walk 150 ft (QC): 6 Walking 10ft on Uneven Surface: 6 1 Step (curb) (QC): 6 4 Steps (QC): 6 12 Steps (QC): 6 Picking up an Object (QC): 6 Wheel 50 feet with 2 turns (QC: 6 Wheel 150 feet: 6 PT Plan Problem List Problem List: Activity Tolerance, Functional Strength Treatment/Plan Treatment Plan: Continue Plan of Care Treatment Plan: Education, Functional Activity Alanna, Functional Strength, Gait, Safety, Therapeutic Exercise, Transfers Treatment Duration: Dec 23, 2019 Frequency: 6 times per week Estimated Hrs Per Day: .25 hour per day Patient and/or Family Agrees t: Yes Safety Risks/Education Patient Education: Issued Written HEP, Correct Positioning, Safety Issues Teaching Recipient: Patient Teaching Methods: Discussion Response to Teaching: Verbalize Understanding Time/GCodes Time In: 847 Time Out: 912 Total Billed Treatment Time: 25 Total Billed Treatment 1, EX x2 (25m) RICHI FRANK PERSONAL LINES AGENT Dec 13, 2019 09:54
[2019-12-13] MEDS ORDERED: HYDR-3584 PO (10:05)
[2019-12-13] MEDS ORDERED: OXYC1TAB16 PO ×2 (10:05→10:45)
[2019-12-13] MEDS ORDERED: OXYC15TA73 PO ×2 (10:05→10:45)
[2019-12-13] MEDS ORDERED: MELA3TAB39 PO (10:05)
--- NOTE | 2019-12-13 10:07 | Discharge Summary ---
Discharge [facility] Discharge Medications New, Converted or Re-Newed RX: RX on Chart New Medications: Hydroxyzine HCl (Hydroxyzine HCl) 10 Mg Tablet 10 MG PO TID PRN for anxiety, insomnia, #30 TAB 0 Refills Melatonin (Melatonin) 3 Mg Tablet 3 MG PO HS, #30 TAB 0 Refills Oxycodone HCl (Oxycontin) 15 Mg Tab.er.12h 15 MG PO Q12HR for 14 Days, #28 TAB 0 Refills Oxycodone HCl/Acetaminophen (Percocet 7.5-325 mg Tablet) 1 Each Tablet 1 EACH PO Q4H PRN for PAIN-MODERATE (5-7), #20 TAB 0 Refills Continued Medications: Albuterol Sulfate (Ventolin Hfa) 18 Gm Hfa.aer.ad 2 PUFF INH Q6H PRN for SHORTNESS OF BREATH, EA Amlodipine Besylate (Amlodipine Besylate) 5 Mg Tablet 5 MG PO DAILY, TAB Atenolol (Atenolol) 25 Mg Tablet 25 MG PO BID, TAB Diazepam (Diazepam) 5 Mg Tablet 5 MG PO QID PRN for ANXIETY, TAB Ipratropium/Albuterol Sulfate (Iprat-Albut 0.5-3(2.5) mg/3 ml) 3 Ml Ampul.neb 3 ML NEB Q6H PRN for SHORTNESS OF BREATH, EA Lisinopril (Lisinopril) 40 Mg Tablet 40 MG PO HS, TAB [place]-3 Acid Ethyl Esters ([place]-3 Acid Ethyl Esters) 1 Gm Capsule 4 GM PO DAILY, CAP TAKES 4 (1GM) CAPS Pitavastatin Calcium (Livalo) 2 Mg Tablet 2 MG PO 1200, TAB Discontinued Medications: Hydrocodone/Acetaminophen (Hydrocodone-Acetamin 10-325 mg) 1 Each Tablet 1-2 EACH PO Q4 -6H PRN for PAIN-MODERATE (5-7), TAB Zolpidem Tartrate (Ambien) 10 Mg Tablet 10 MG PO HS, TAB Patient Instructions Goal/Follow Up Appt: Follow up with Dr. Kam on 12/13 at 215 pm. Follow up with Dr. Packer as directed. [facility] to [facility] For: Difficulty breathing, inability to keep down medications Activity & Diet Discharge Diet: Regular Diet Activity as Tolerated: Yes INEZ MOTT MD Dec 13, 2019 10:06
[2019-12-13] MEDS ORDERED: OXYC-464 PO (10:52)
--- NOTE | 2019-12-13 11:35 | Discharge Summary ---
RM COLE, 12/13/19 1135: Discharge Summary Hospital Course Hospital Course Date of Admission: Dec 07, 2019 at 11:57 Admission Diagnosis : Hypercalcemia of malignancy Back pain KALEY Anemia Anxiety HTN Arthritis HLD Family Physician/Provider: Avinash Pérez MD Date of Discharge: 12/13/19 Discharge Diagnosis: Hypercalcemia of malignancy- Hypercalcemia noted at OLF of 14. Back xray revealed lytic lesions. Elevated lambda protein on labs with kappa/lambda ratio of 0. Bone marrow biopsy performed while inpatient and revealed multiple myeloma. Dr. Packer was consulted and plans to follow during treatment. Back pain- Lytic lesions found on back xray. These are related to her multiple myeloma diagnosis. Started on oral pain medications and discharged with prescriptions to cover until follow-up appointment with Dr. Pérez. KALEY- Cr 2.36 on admission, trending down to 1.48 on discharge. Likely due to lasix. Resuscitated with fluids. Anemia- Secondary to myeloma diagnosis likely. Rebounded with 1 unit trans fusion. Anxiety- Having increased anxiety during stay. Added vistaril TID for anxiety and melatonin to help with sleep. Sent home prescriptions with patient. Stop zolpidem. Hospital Course: Labs and Pending Lab Test: Laboratory Tests 12/13/19 06:30: White Blood Count 5.4, Red Blood Count 2.85L, Hemoglobin 8.6L, Hematocrit 27L, Mean Corpuscular Volume 93, Mean Corpuscular Hemoglobin 30, Mean Corpuscular Hemoglobin Concent 32, Red Cell Distribution Width 13.4, Platelet Count 253, Mean Platelet Volume 9.3, Sodium Level 143, Potassium Level 3.4L, Chloride Level 117H, Carbon Dioxide Level 16L, Anion Gap 10, Blood Urea Nitrogen 13, Creatinine 1.48H, Estimat Glomerular Filtration Rate 37, BUN/Creatinine Ratio 9, Glucose Level 74, Calcium Level 7.5L Home Meds Active Oxycodon-Acetaminophen 7.5-325 (Oxycodone HCl/Acetaminophen) 1 Each Tablet 1 Each PO Q6H PRN MDD 4 7 Days Oxycontin (Oxycodone HCl) 15 Mg Tab.er.12h 15 Mg PO BID 7 Days Melatonin 3 Mg Tablet 3 Mg PO HS Hydroxyzine HCl 10 Mg Tablet 10 Mg PO TID PRN Reported Iprat-Albut 0.5-3(2.5) mg/3 ml (Ipratropium/Albuterol Sulfate) 3 Ml Ampul.neb 3 Ml NEB Q6H PRN Ventolin Hfa (Albuterol Sulfate) 18 Gm Hfa.aer.ad 2 Puff INH Q6H PRN Livalo (Pitavastatin Calcium) 2 Mg Tablet 2 Mg PO 1200 [place]-3 Acid Ethyl Esters 1 Gm Capsule 4 Gm PO DAILY TAKES 4 (1GM) CAPS Amlodipine Besylate 5 Mg Tablet 5 Mg PO DAILY Atenolol 25 Mg Tablet 25 Mg PO BID Diazepam 5 Mg Tablet 5 Mg PO QID PRN Lisinopril 40 Mg Tablet 40 Mg PO HS Discharge Diet: Regular Diet Activity as Tolerated: Yes Consulations Consultations Dr. Packer, oncology Discharge Physical Examination Allergies: Coded Allergies: ciprofloxacin (Unverified Allergy, Mild, throat swells, 06/03/08) Sulfa (Sulfonamide Antibiotics) (Verified Allergy, Unknown, 12/07/19) morphine (Verified Allergy, Unknown, 12/07/19) Uncoded Allergies: [id number] (DARVOCET-N 100) (Allergy, Mild, 06/03/08) General Appearance: No Apparent Distress, Mild Distress HEENT: PERRL/EOMI; No Pale Conjunctivae (L), No Pale Conjunctivae (R) Respiratory: Lungs Clear, Normal Breath Sounds, No Accessory Muscle Use, No Respiratory Distress Cardiovascular: Regular Rate, Rhythm, No Murmur Gastrointestinal: Normal Bowel Sounds, Non Tender, Soft Extremity: Normal Capillary Refill, No Pedal Edema Skin: Normal Color, Warm/Dry Neurologic/Psychiatric: Alert, Oriented x3 Copy Copies To 1: AVINASH PÉREZ MD Discharge Summary Date of Admission Dec 07, 2019 at 11:57 Date of Discharge Discharge Date: Dec 13, 2019 Admission Diagnosis Assessment: Hypercalcemia Back pain Abnormal MRI Smoker Plan: Dr Packer consultation Pain control Discharge Diagnosis (1) Hypercalcemia of malignancy Status: Acute (2) Acute kidney injury Status: Acute Clinical Quality Measures DVT/VTE Risk/Contraindication: Risk Factor Score Per Nursin RFS Level Per Nursing on Admit: 4+=Very High INEZ MOTT MD 12/13/19 1643: Discharge Summary Hospital Course Assessment/Pt DC Instructions Follow up with Dr. Pérez tomorrow. Discharge Physical Examination Allergies: Coded Allergies: ciprofloxacin (Unverified Allergy, Mild, throat swells, 06/03/08) Sulfa (Sulfonamide Antibiotics) (Verified Allergy, Unknown, 12/07/19) morphine (Verified Allergy, Unknown, 12/07/19) Uncoded Allergies: [id number] (DARVOCET-N 100) (Allergy, Mild, 06/03/08) Copy Copies To 1: AVINASH PÉREZ MD Supervisory-Addendum Brief Verification & Attestation Participated in pt care: history, MDM, physical Personally performed: exam, history, MDM Care discussed with: Medical Student Procedures: n/a I personally saw and examined this patient today and repeated my own history and exam which match that documented by the medical student, I directed the plan of care and agree with documentation. RM COLE, Dec 13, 2019 11:35 INEZ MOTT MD Dec 13, 2019 16:43
--- NOTE | 2019-12-13 12:41 | NUR ---
Pt given information fo her [facility] at the [facility] on WednesdayDec 18 at 3:15.
--- NOTE | 2019-12-13 13:38 | NUR ---
"RD ASSESSMENT PMHx: COPD; HTN; GERD; diverticulosis; hiatal hernia; CA(cervical) PT INTERACTION: Pt was awake and pleasant during nutrition follow-up. Pt states she has been eating okay since last assessment. Note avg PO intake 36% x4d, per chart review. Pt states some issues with nausea since last assessment. Note last BM was 12/11, and pt currently on bowel regimen of colace BID; senna BID; and miralax BID, per chart review. ABNORMAL NUTRITION-RELATED LAB VALUES LOW: K 3.4; Ca 7.5 HIGH: Cl 117; cr 1.48 Est. kcal needs: 1225 kcal | 15 kcal/kg Est. Pro needs: 81 g Pro | 1.0 g Pro/kg PES STATEMENT: Inadequate oral intake (NI-2.1) related to loss of appetite | nausea as evidenced by pt interview | avg PO intake 36% x4d INTERVENTION: Continue with current diet order of Regular diet. Continue with current supplementation order of Ensure Enlive with meals TID, for increased kcal intake. Provides 350 kcal and 13 g Pro per serving. Will continue to follow and reassess as pt needs, intake, and status change. Yudy Rodriguez, MS RD LD"
[2019-12-13 15:35] VITALS: BP 141/64
== END 2019-12-13 15:35 | disposition home or self-care (01) | DRG 641 ==
LOC: EDUNIT# 10:53 → ER 10:54 → 4TH 11:57
PROVIDERS: ADMIT Internal Medicine; ATTEND Family Medicine
PROC: 07DR3ZX Extraction of Iliac Bone Marrow, Percutaneous Approach, Diagnostic (ICD-10-PCS; principal; 2019-12-08)
DX: E83.52 Hypercalcemia (principal); N17.9 Acute kidney failure, unspecified; C90.00 Multiple myeloma not having achieved remission; C79.51 Secondary malignant neoplasm of bone; J44.9 Chronic obstructive pulmonary disease, unspecified; D64.9 Anemia, unspecified; I10 Essential (primary) hypertension; I20.9 Angina pectoris, unspecified; M19.91 Primary osteoarthritis, unspecified site; F17.210 Nicotine dependence, cigarettes, uncomplicated; E78.5 Hyperlipidemia, unspecified; E87.6 Hypokalemia; K21.9 Gastro-esophageal reflux disease without esophagitis; K44.9 Diaphragmatic hernia without obstruction or gangrene; K59.00 Constipation, unspecified; F41.9 Anxiety disorder, unspecified; F32.9 Major depressive disorder, single episode, unspecified; K57.90 Diverticulosis of intestine, part unspecified, without perforation or abscess without bleeding; R63.0 Anorexia; Z85.41 Personal history of malignant neoplasm of cervix uteri
CPT/HCPCS: 36415; 38222; 72146; 72148; 76937; 77012; 77075; 80048; 80053; 81000; 82784; 83735; 83883; 83970; 84155; 84165; 85007; 85025; 85027; 85045; 85610; 86334; 86335; 86850; 86900; 86901; 86920; 88184; 88185; 88237; 88264; 88305; 88311; 88313; 88377; 94640; 94760; 96360; 99156

== ENCOUNTER 2020-02-26 10:56 | Outpatient (RCR) | payer MEDICAID ==
[2019-12-19 15:48] LABS: BASOPHILS % (AUTO) 1 % (0-10); EOSINOPHILS # (AUTO) 0.2 10^3/uL (0.0-0.3); EOSINOPHILS % (AUTO) 3 % (0-10); HEMATOCRIT 25 % (35-52); HEMOGLOBIN 8.2 g/dL (11.5-16.0); LYMPHOCYTES # (AUTO) 2.1 10^3/uL (1.0-4.0); LYMPHOCYTES % (AUTO) 26 % (12-44); MEAN CORPUSCULAR HEMOGLOBIN 30 pg (25-34); MEAN CORPUSCULAR HGB CONC 33 g/dL (32-36); MEAN CORPUSCULAR VOLUME 92 fL (80-99); MEAN PLATELET VOLUME 9.4 fL (9.0-12.2); MONOCYTES # (AUTO) 0.7 10^3/uL (0.0-1.0); MONOCYTES % (AUTO) 9 % (0-12); NEUTROPHILS # (AUTO) 4.3 10^3/uL (1.8-7.8); NEUTROPHILS % (AUTO) 56 % (42-75); PLATELET COUNT 326 10^3/uL (130-400); WHITE BLOOD COUNT 7.8 10^3/uL (4.3-11.0)
[2019-12-19 15:57] LABS: ALBUMIN 3.3 GM/DL (3.2-4.5); BILIRUBIN,TOTAL 0.3 MG/DL (0.1-1.0); CALCIUM 7.3 MG/DL (8.5-10.1); CREATININE SERUM 1.37 MG/DL (0.60-1.30); POTASSIUM 3.2 MMOL/L (3.6-5.0); TOTAL PROTEIN 5.8 GM/DL (6.4-8.2)
[2020-01-02 13:40] LABS: BASOPHILS % (AUTO) 0 % (0-10); EOSINOPHILS # (AUTO) 0.1 10^3/uL (0.0-0.3); EOSINOPHILS % (AUTO) 2 % (0-10); HEMATOCRIT 28 % (35-52); HEMOGLOBIN 8.9 g/dL (11.5-16.0); LYMPHOCYTES # (AUTO) 1.4 10^3/uL (1.0-4.0); LYMPHOCYTES % (AUTO) 17 % (12-44); MEAN CORPUSCULAR HEMOGLOBIN 30 pg (25-34); MEAN CORPUSCULAR HGB CONC 31 g/dL (32-36); MEAN CORPUSCULAR VOLUME 94 fL (80-99); MEAN PLATELET VOLUME 9.5 fL (9.0-12.2); MONOCYTES # (AUTO) 0.3 10^3/uL (0.0-1.0); MONOCYTES % (AUTO) 3 % (0-12); NEUTROPHILS # (AUTO) 6.3 10^3/uL (1.8-7.8); NEUTROPHILS % (AUTO) 74 % (42-75); PLATELET COUNT 369 10^3/uL (130-400); WHITE BLOOD COUNT 8.5 10^3/uL (4.3-11.0)
[2020-01-02 14:06] LABS: ALBUMIN 3.9 GM/DL (3.2-4.5); BILIRUBIN,TOTAL 0.2 MG/DL (0.1-1.0); CALCIUM 8.9 MG/DL (8.5-10.1); CREATININE SERUM 1.95 MG/DL (0.60-1.30); POTASSIUM 4.5 MMOL/L (3.6-5.0); TOTAL PROTEIN 6.9 GM/DL (6.4-8.2)
[2020-01-09 13:24] LABS: BASOPHILS % (AUTO) 0 % (0-10); EOSINOPHILS # (AUTO) 0.1 10^3/uL (0.0-0.3); EOSINOPHILS % (AUTO) 2 % (0-10); HEMATOCRIT 28 % (35-52); HEMOGLOBIN 8.5 g/dL (11.5-16.0); LYMPHOCYTES # (AUTO) 0.7 10^3/uL (1.0-4.0); LYMPHOCYTES % (AUTO) 13 % (12-44); MEAN CORPUSCULAR HEMOGLOBIN 30 pg (25-34); MEAN CORPUSCULAR HGB CONC 31 g/dL (32-36); MEAN CORPUSCULAR VOLUME 97 fL (80-99); MEAN PLATELET VOLUME 11.2 fL (9.0-12.2); MONOCYTES # (AUTO) 0.3 10^3/uL (0.0-1.0); MONOCYTES % (AUTO) 5 % (0-12); NEUTROPHILS # (AUTO) 4.4 10^3/uL (1.8-7.8); NEUTROPHILS % (AUTO) 79 % (42-75); PLATELET COUNT 268 10^3/uL (130-400); WHITE BLOOD COUNT 5.6 10^3/uL (4.3-11.0)
[2020-01-09 13:42] LABS: CALCIUM 8.1 MG/DL (8.5-10.1); CREATININE SERUM 1.83 MG/DL (0.60-1.30); POTASSIUM 4.6 MMOL/L (3.6-5.0)
[2020-01-16 12:07] LABS: BASOPHILS % (AUTO) 1 % (0-10); EOSINOPHILS # (AUTO) 0.7 10^3/uL (0.0-0.3); EOSINOPHILS % (AUTO) 9 % (0-10); HEMATOCRIT 30 % (35-52); LYMPHOCYTES # (AUTO) 1.3 10^3/uL (1.0-4.0); LYMPHOCYTES % (AUTO) 17 % (12-44); MEAN CORPUSCULAR HEMOGLOBIN 30 pg (25-34); MEAN CORPUSCULAR HGB CONC 30 g/dL (32-36); MEAN CORPUSCULAR VOLUME 99 fL (80-99); MEAN PLATELET VOLUME 13.2 fL (9.0-12.2); MONOCYTES # (AUTO) 0.8 10^3/uL (0.0-1.0); MONOCYTES % (AUTO) 10 % (0-12); NEUTROPHILS # (AUTO) 4.7 10^3/uL (1.8-7.8); NEUTROPHILS % (AUTO) 61 % (42-75); PLATELET COUNT 175 10^3/uL (130-400); WHITE BLOOD COUNT 7.8 10^3/uL (4.3-11.0)
[2020-01-16 13:18] LABS: CALCIUM 7.9 MG/DL (8.5-10.1); CREATININE SERUM 1.84 MG/DL (0.60-1.30); POTASSIUM 5.2 MMOL/L (3.6-5.0)
[2020-01-23 15:50] LABS: POTASSIUM 4.1 MMOL/L (3.6-5.0)
[2020-01-23 15:51] LABS: CALCIUM 7.4 MG/DL (8.5-10.1)
[2020-01-23 15:53] LABS: BASOPHILS # (AUTO) 0.1 10^3/uL (0.0-0.1); BASOPHILS % (AUTO) 2 % (0-10); EOSINOPHILS # (AUTO) 0.2 10^3/uL (0.0-0.3); EOSINOPHILS % (AUTO) 4 % (0-10); HEMATOCRIT 25 % (35-52); HEMOGLOBIN 7.6 g/dL (11.5-16.0); LYMPHOCYTES # (AUTO) 1.2 10^3/uL (1.0-4.0); LYMPHOCYTES % (AUTO) 30 % (12-44); MEAN CORPUSCULAR HEMOGLOBIN 30 pg (25-34); MEAN CORPUSCULAR HGB CONC 30 g/dL (32-36); MEAN CORPUSCULAR VOLUME 98 fL (80-99); MEAN PLATELET VOLUME 10.2 fL (9.0-12.2); MONOCYTES # (AUTO) 0.6 10^3/uL (0.0-1.0); MONOCYTES % (AUTO) 15 % (0-12); NEUTROPHILS % (AUTO) 49 % (42-75); PLATELET COUNT 376 10^3/uL (130-400); WHITE BLOOD COUNT 4.1 10^3/uL (4.3-11.0)
[2020-01-23 15:55] LABS: CREATININE SERUM 2.54 MG/DL (0.60-1.30)
[2020-01-29 11:27] LABS: BASOPHILS # (AUTO) 0.2 10^3/uL (0.0-0.1); BASOPHILS % (AUTO) 5 % (0-10); EOSINOPHILS # (AUTO) 0.1 10^3/uL (0.0-0.3); EOSINOPHILS % (AUTO) 2 % (0-10); HEMATOCRIT 30 % (35-52); LYMPHOCYTES # (AUTO) 1.4 10^3/uL (1.0-4.0); LYMPHOCYTES % (AUTO) 28 % (12-44); MEAN CORPUSCULAR HEMOGLOBIN 30 pg (25-34); MEAN CORPUSCULAR HGB CONC 30 g/dL (32-36); MEAN CORPUSCULAR VOLUME 100 fL (80-99); MEAN PLATELET VOLUME 9.4 fL (9.0-12.2); MONOCYTES # (AUTO) 0.5 10^3/uL (0.0-1.0); MONOCYTES % (AUTO) 10 % (0-12); NEUTROPHILS # (AUTO) 2.8 10^3/uL (1.8-7.8); NEUTROPHILS % (AUTO) 55 % (42-75); PLATELET COUNT 440 10^3/uL (130-400)
[2020-01-29 11:51] LABS: ALBUMIN 3.9 GM/DL (3.2-4.5); BILIRUBIN,TOTAL 0.2 MG/DL (0.1-1.0); CALCIUM 8.6 MG/DL (8.5-10.1); CREATININE SERUM 1.84 MG/DL (0.60-1.30); POTASSIUM 6.1 MMOL/L (3.6-5.0); TOTAL PROTEIN 7.4 GM/DL (6.4-8.2)
[2020-02-05 13:18] LABS: BASOPHILS # (AUTO) 0.1 10^3/uL (0.0-0.1); BASOPHILS % (AUTO) 2 % (0-10); EOSINOPHILS # (AUTO) 0.2 10^3/uL (0.0-0.3); EOSINOPHILS % (AUTO) 4 % (0-10); HEMATOCRIT 26 % (35-52); LYMPHOCYTES # (AUTO) 0.8 10^3/uL (1.0-4.0); LYMPHOCYTES % (AUTO) 13 % (12-44); MEAN CORPUSCULAR HEMOGLOBIN 30 pg (25-34); MEAN CORPUSCULAR HGB CONC 30 g/dL (32-36); MEAN CORPUSCULAR VOLUME 100 fL (80-99); MEAN PLATELET VOLUME 11.7 fL (9.0-12.2); MONOCYTES # (AUTO) 0.2 10^3/uL (0.0-1.0); MONOCYTES % (AUTO) 3 % (0-12); NEUTROPHILS # (AUTO) 4.5 10^3/uL (1.8-7.8); NEUTROPHILS % (AUTO) 73 % (42-75); PLATELET COUNT 156 10^3/uL (130-400); WHITE BLOOD COUNT 6.1 10^3/uL (4.3-11.0)
[2020-02-05 13:37] LABS: CALCIUM 8.2 MG/DL (8.5-10.1); CREATININE SERUM 2.05 MG/DL (0.60-1.30); POTASSIUM 4.3 MMOL/L (3.6-5.0)
[2020-02-12 14:04] LABS: MEAN CORPUSCULAR VOLUME 102 fL (80-99); PLATELET COUNT 54 10^3/uL (130-400)
[2020-02-12 14:06] LABS: BASOPHILS % (AUTO) 1 % (0-10); EOSINOPHILS # (AUTO) 0.3 10^3/uL (0.0-0.3); EOSINOPHILS % (AUTO) 7 % (0-10); HEMATOCRIT 26 % (35-52); HEMOGLOBIN 7.8 g/dL (11.5-16.0); LYMPHOCYTES # (AUTO) 0.9 10^3/uL (1.0-4.0); LYMPHOCYTES % (AUTO) 20 % (12-44); MEAN CORPUSCULAR HEMOGLOBIN 30 pg (25-34); MEAN CORPUSCULAR HGB CONC 30 g/dL (32-36); MONOCYTES # (AUTO) 0.3 10^3/uL (0.0-1.0); MONOCYTES % (AUTO) 8 % (0-12); NEUTROPHILS # (AUTO) 2.8 10^3/uL (1.8-7.8); NEUTROPHILS % (AUTO) 63 % (42-75); WHITE BLOOD COUNT 4.4 10^3/uL (4.3-11.0)
[2020-02-12 14:17] LABS: CALCIUM 6.8 MG/DL (8.5-10.1); CREATININE SERUM 2.26 MG/DL (0.60-1.30); POTASSIUM 4.6 MMOL/L (3.6-5.0)
[2020-02-19 10:47] LABS: BASOPHILS % (AUTO) 1 % (0-10); EOSINOPHILS # (AUTO) 0.7 10^3/uL (0.0-0.3); EOSINOPHILS % (AUTO) 20 % (0-10); HEMATOCRIT 26 % (35-52); HEMOGLOBIN 7.6 g/dL (11.5-16.0); LYMPHOCYTES % (AUTO) 28 % (12-44); MEAN CORPUSCULAR HEMOGLOBIN 31 pg (25-34); MEAN CORPUSCULAR HGB CONC 30 g/dL (32-36); MEAN CORPUSCULAR VOLUME 104 fL (80-99); MEAN PLATELET VOLUME 10.8 fL (9.0-12.2); MONOCYTES # (AUTO) 0.4 10^3/uL (0.0-1.0); MONOCYTES % (AUTO) 10 % (0-12); NEUTROPHILS # (AUTO) 1.4 10^3/uL (1.8-7.8); NEUTROPHILS % (AUTO) 41 % (42-75); PLATELET COUNT 157 10^3/uL (130-400); WHITE BLOOD COUNT 3.4 10^3/uL (4.3-11.0)
[2020-02-19 11:05] LABS: ALBUMIN 3.5 GM/DL (3.2-4.5); BILIRUBIN,TOTAL 0.3 MG/DL (0.1-1.0); CALCIUM 6.8 MG/DL (8.5-10.1); CREATININE SERUM 3.87 MG/DL (0.60-1.30); POTASSIUM 4.7 MMOL/L (3.6-5.0); TOTAL PROTEIN 5.7 GM/DL (6.4-8.2)
--- NOTE | 2020-02-20 10:48 | Anesthesia-Procedure Note ---
Procedures/Interventions Procedure Start/Stop/Diagnosis Date of Procedure: Feb 20, 2020 Start Time: 10:10 Stop Time: 10:20 Central Line/IV Access IV : Location: Right Site: Wrist (INNER) IV Catheter Type: Peripheral IV IV Catheter Gauge: 22 Progress Attempts x 2. Success right inner Forearm MICHAELA YANG CRNA Feb 20, 2020 10:48
[2020-02-20 12:36] LABS: BASOPHILS % (AUTO) 0 % (0-10); EOSINOPHILS # (AUTO) 0.1 10^3/uL (0.0-0.3); EOSINOPHILS % (AUTO) 2 % (0-10); HEMATOCRIT 21 % (35-52); LYMPHOCYTES # (AUTO) 0.7 10^3/uL (1.0-4.0); LYMPHOCYTES % (AUTO) 29 % (12-44); MEAN CORPUSCULAR HEMOGLOBIN 30 pg (25-34); MEAN CORPUSCULAR HGB CONC 31 g/dL (32-36); MEAN CORPUSCULAR VOLUME 100 fL (80-99); MEAN PLATELET VOLUME 9.9 fL (9.0-12.2); MONOCYTES # (AUTO) 0.3 10^3/uL (0.0-1.0); MONOCYTES % (AUTO) 12 % (0-12); NEUTROPHILS # (AUTO) 1.4 10^3/uL (1.8-7.8); NEUTROPHILS % (AUTO) 57 % (42-75); PLATELET COUNT 169 10^3/uL (130-400); WHITE BLOOD COUNT 2.5 10^3/uL (4.3-11.0)
[2020-02-20 12:40] LABS: HEMOGLOBIN 6.5 g/dL (11.5-16.0)
[2020-02-20 12:52] LABS: ALBUMIN 3.3 GM/DL (3.2-4.5); BILIRUBIN,TOTAL 0.2 MG/DL (0.1-1.0); CALCIUM 6.1 MG/DL (8.5-10.1); CREATININE SERUM 2.68 MG/DL (0.60-1.30); TOTAL PROTEIN 5.4 GM/DL (6.4-8.2)
[2020-02-21 12:03] LABS: CREATININE SERUM 2.12 MG/DL (0.60-1.30); POTASSIUM 3.7 MMOL/L (3.6-5.0)
[~2020-02-26] VITALS: Ht 149.9 cm; Wt 68.0 kg
[~2020-02-26 10:56] MED LIST changes: +ALBU18HF2 INH; +ALPRAZolam 0.5 MG (XANAX) TAB PO ONE; +AMLO-250 PO; +BORTEZOMIB 3.5 MG VELCADE SC SCH; +DIAZ5TAB49 PO; +HYDR-3584 PO; +HYDR-3820 PO; +IPRA3AMP31 NEB; +MELA3TAB39 PO; +NS IV 1000 ML (CANCER CTR) 1,000 ML ONE; +NS IV 500 ML (CANCER CENTER) 500 ML IV SCH; +OMEG-105 PO; +ONDANSETRON 8 MG, DEXAMETHASONE 4 MG/NS 50 ML IVPB (Cancer Ctr) IV ONE; +OXYC-464 PO; +OXYC15TA73 PO; +OXYC1TAB16 PO; +PITA2TAB2 PO; +ZOLEDRONIC ACID (CANCER CTR) 3 MG in NS (IVPB) CANCER CENTER 100 ML IV SCH; +ZOLP10TA PO
[2020-02-26 11:57] LABS: BASOPHILS % (AUTO) 2 % (0-10); EOSINOPHILS # (AUTO) 0.1 10^3/uL (0.0-0.3); EOSINOPHILS % (AUTO) 3 % (0-10); HEMATOCRIT 28 % (35-52); HEMOGLOBIN 8.5 g/dL (11.5-16.0); LYMPHOCYTES # (AUTO) 1.1 10^3/uL (1.0-4.0); LYMPHOCYTES % (AUTO) 43 % (12-44); MEAN CORPUSCULAR HEMOGLOBIN 31 pg (25-34); MEAN CORPUSCULAR HGB CONC 31 g/dL (32-36); MEAN CORPUSCULAR VOLUME 100 fL (80-99); MEAN PLATELET VOLUME 9.6 fL (9.0-12.2); MONOCYTES # (AUTO) 0.4 10^3/uL (0.0-1.0); MONOCYTES % (AUTO) 15 % (0-12); NEUTROPHILS % (AUTO) 38 % (42-75); PLATELET COUNT 200 10^3/uL (130-400); WHITE BLOOD COUNT 2.6 10^3/uL (4.3-11.0)
[2020-02-26 12:18] LABS: CALCIUM 8.5 MG/DL (8.5-10.1); CREATININE SERUM 1.64 MG/DL (0.60-1.30); POTASSIUM 4.4 MMOL/L (3.6-5.0)
== END 2020-03-04 09:25 | disposition home or self-care (01) ==
LOC: ONC 10:56
PROVIDERS: ATTEND Internal Medicine Hematology & Oncology
DX: C90.00 Multiple myeloma not having achieved remission (principal)
CPT/HCPCS: 36415; 36430; 80048; 80053; 82232; 83883; 84155; 84165; 85025; 86850; 86900; 86901; 86920; 96360; 96361; 96365; 96374; 96375; 96401; 99213

== ENCOUNTER 2020-03-14 05:30 | Outpatient (RCR) | payer MEDICAID ==
[~2020-03-14] VITALS: Ht 152.4 cm; Wt 65.0 kg
[~2020-03-14 05:30] MED LIST changes: -ALPRAZolam 0.5 MG (XANAX) TAB PO ONE; -BORTEZOMIB 3.5 MG VELCADE SC SCH; +LENA15CA PO; +LISI40TA9 PO; +MV-M1TAB57 PO; -NS IV 1000 ML (CANCER CTR) 1,000 ML ONE; -NS IV 500 ML (CANCER CENTER) 500 ML IV SCH; -OMEG-105 PO; +OMEG-218 PO; -ONDANSETRON 8 MG, DEXAMETHASONE 4 MG/NS 50 ML IVPB (Cancer Ctr) IV ONE; +ONDN4T PO; -ZOLEDRONIC ACID (CANCER CTR) 3 MG in NS (IVPB) CANCER CENTER 100 ML IV SCH
[2020-04-19] MEDS ORDERED: ESOM40CA52 PO (13:00)
[2020-04-19] MEDS ORDERED: HYDR-700 PO (13:00)
[2020-04-19] MEDS ORDERED: OXYC-556 PO (13:00)
[2020-04-19] MEDS ORDERED: ONDA8TAB15 PO (13:00)
[2020-04-19] MEDS ORDERED: DEXA4TAB PO (13:00)
[2020-05-01] MEDS ORDERED: SENN-109 PO (10:27)
[2020-05-13] MEDS ORDERED: MULT-1136 PO (08:14)
== END 2020-06-11 | disposition home or self-care (01) ==
LOC: PREOP 05:30
PROVIDERS: ATTEND Surgery
DX: Z01.812 Encounter for preprocedural laboratory examination (principal); I87.2 Venous insufficiency (chronic) (peripheral); Z20.822 Contact with and (suspected) exposure to COVID-19; Z01.818 Encounter for other preprocedural examination
CPT/HCPCS: 87635

== ENCOUNTER 2020-03-15 07:11 | Day surgery (SDC) | payer MEDICAID ==
[2020-03-15] VITALS (8 sets, daily range): BP systolic 82–121; BP diastolic 39–71
[~2020-03-15] VITALS: Ht 152 cm; Wt 65.0 kg
[~2020-03-15 07:11] MED LIST changes: -LISI40TA9 PO; +OMEG-105 PO; -OMEG-218 PO
[2020-03-15] MEDS ORDERED: HEParin (CENTRAL IV FLUSH) 500 UNIT/5 ML SYR ONE (07:14)
[2020-03-15] MEDS ORDERED: LIDOCAINE/EPI 1%-1:100,000 (XYLOCAINE) 50 ML ONE (07:14)
[2020-03-15] MEDS ORDERED: 0.9% SODIUM CHLORIDE PF INJ 20 ML VIAL ONE (07:14)
[2020-03-15] MEDS ORDERED: ceFAZolin 2 GM IV Premixed 50 ML IV ONE (07:30)
[2020-03-15] MEDS ORDERED: LACTATED RINGERS 1,000 ML IV PRN (07:45)
[2020-03-15] MEDS ORDERED: MIDAZOLAM 2 MG/2 ML (VERSED) VIAL ONE (07:46)
[2020-03-15] MEDS ORDERED: PROPOFOL INJECTION 50 ML IV ONE (07:46)
[2020-03-15] MEDS ORDERED: fentaNYL INJECTION 100 MCG/2 ML AMP ONE (07:46)
--- NOTE | 2020-03-15 09:11 | Progress Note-Pre Operative ---
Pre-Operative Progress Note H&P Reviewed The H&P was reviewed, patient examined and no changes noted. Time Seen by Provider: 09:04 Date H&P Reviewed: Mar 15, 2020 Time H&P Reviewed: 09:05 Pre-Operative Diagnosis: Venous Insufficiency, Multiple Myeloma BRIDGER KEE DO Mar 15, 2020 09:11
--- NOTE | 2020-03-15 09:49 | Progress Note-Post Operative ---
Post-Operative Progess Note Surgeon (s)/Machine Coil Assembler (s) Surgeon BRIDGER KEE DO Machine Coil Assembler: ANABELLE Nance Pre-Operative Diagnosis Venous Insufficiency, Multiple Myeloma Post-Operative Diagnosis same Procedure & Operative Findings Date of Procedure 03/15/20 Procedure Performed/Findings PROCEDURE: [Right] subclavian vein port placement using ultrasound guidance. COMPLICATIONS: None. INDICATIONS: The patient is a 54 year old female [with Venous insufficiency and multiple myeloma]. Patient understands the risks and benefits of port placement and wished to proceed with the procedure. Consent was signed on the chart. PROCEDURE: The patient was taken to the operating suite, was prepped and draped in the sterile fashion. A surgical pause was performed. Local anesthetic was infiltrated on right anterior chest wall towards the clavicle and on chest wall for pocket creation. Using negative inspiration an 18 gauge finder needle was advanced and the right subclavian vein was accessed. Dark nonpulsatile blood was withdrawn. The wire was inserted and then secured. Fluoroscopy assured proper placement. The needle was removed. A [#11] blade scalpel was used to make a stab incision along the guidewire and then over the [right] chest. Cautery was used to dissect down to the pectoral fascia. A pocket was created with blunt dissection. Then catheter was then tunneled from the stab incision to the pocket created. The dilator sheath was then advanced over the wire under fluoroscopy and the dilator and wire were removed. The [place] catheter was inserted through the sheath and the sheath was then removed. The [place] wire was removed. Fluoroscopy was used to cut to length and this was then attached to the port which was then placed within the pocket. The port was then accessed without difficulty. It was then flushed with saline and then heparin. The subcutaneous tissues were then reapproximated using 3-0 Vicryl. Next the skin was closed with 4-0 undyed monocryl, 3 interrupted sutures. The areas were then washed and dried. Skin Affix was placed over incision. The patient tolerated the procedure well without complication and was \ taken to recovery room in stable condition. Anesthesia Type IV sedation by TRAIN CONTROL ELECTRONIC TECHNICIAN Estimated Blood Loss Estimated blood loss (mL): scant Specimens/Packing Specimens Removed none BRIDGER KEE DO Mar 15, 2020 09:49
--- NOTE | 2020-03-15 09:51 | Discharge Inst-Surgical ---
Discharge Inst-Surgical Depart Medication/Instructions New, Converted or Re-Newed RX: Other (use home meds) Patient Instructions Follow up Appt: Make appointment for 1 week. [phone] Instructions: No strenuous activity. May shower in 24 hours, no tub bath or soaking. Use incentive spirometer at home as directed. No Smoking Skin/Wound Care: May remove bandages in am. You need to leave the Dermabond on incision it will fall off on it's own. Symptoms to Report: Appetite Changes, Extremity Discoloration, Numbness/Tingling, Swelling Increased, Bleeding Excessive, Eyesight Changes, Pain Increased, Urine Color Lesa nge, Constipation(Persistent), Fever over 101 degree F, Pain/Pressure in chest, Urinating Difficulty, Cough Up/Vomit Blood, Heart Beat Irreg/Pounding, Pain/Pressure in jaw, Cramps in feet or legs, Lightheadedness, Pain/Pressure in shoulder, Diarrhea(Persistent), Memory Changes Suddenly, Questions/Concerns, Weight gain consecutive days, Dizziness/Fainting, Nausea/Vomiting, Shortness of Breath, Weight gain over 2 pounds If questions or concerns contact your physician Or seek help at emergency department. Activity Activity as Tolerated: Yes Activity Instructions: Avoid Stress to Incision Driving Instructions: No Driving/Refer to Dr. Moreno Discharge Diet: No Restrictions Diet After 24 Hours: Clear Liquid if Nauseous If Any Problems/Questions/Issu: Contact Your Physician, Go to Emergency Room Skin/Wound Care Infection Signs and Symptoms: Increased Redness, Foul Odor of Wound, Increased Drainage, Skin Itchy or Has a Rash, Increased Swelling, Temperature Above 101 F Bathing Instructions: Shower Stitches/Chase/Dermabond Dis: Dermabond Ice Pack: Ice On and Off Site BRIDGER KEE DO Mar 15, 2020 09:51
--- NOTE | 2020-03-15 09:53 | Anesthesia-General Post-Op ---
MAC Patient Condition Mental Status/LOC: Same as Preop Cardiovascular: Satisfactory Nausea/Vomiting: Absent Respiratory: Satisfactory Pain: Controlled Complications: Absent Post Op Complications Complications None Follow Up Care/Instructions Patient Instructions None needed. Anesthesiology Discharge Order Discharge Order Patient is doing well, no complaints, stable vital signs, no apparent adverse anesthesia problems. No complications reported per nursing. PEDRO GREY CRNA Mar 15, 2020 09:53
--- NOTE | 2020-03-15 10:14 | Diagnostic Imaging Report ---
Fluoroscopy up to 1 hour. Indication: Port-A-Cath insertion Fluoroscopic assistance was provided for Dr. Rajan during his Port-A-Cath insertion. 4.4 seconds of fluoroscopy time was utilized. Single spot film of the thorax reveals that there is a Port-A-Cath in place with the tip of the catheter overlying the midportion of the superior cava. Impression: Fluoroscopic assistance was provided for Dr. Rajan. Dictated by: Dictated on workstation # [id number]
== END 2020-03-15 11:15 ==
LOC: SDC 07:11
PROVIDERS: ATTEND Surgery
DX: C90.00 Multiple myeloma not having achieved remission (principal); I87.2 Venous insufficiency (chronic) (peripheral); F32.9 Major depressive disorder, single episode, unspecified; F41.9 Anxiety disorder, unspecified; J43.9 Emphysema, unspecified; K21.9 Gastro-esophageal reflux disease without esophagitis; M19.90 Unspecified osteoarthritis, unspecified site; I12.9 Hypertensive chronic kidney disease with stage 1 through stage 4 chronic kidney disease, or unspecified chronic kidney disease; N18.4 Chronic kidney disease, stage 4 (severe); E78.00 Pure hypercholesterolemia, unspecified; Z79.899 Other long term (current) drug therapy; Z79.51 Long term (current) use of inhaled steroids; Z88.2 Allergy status to sulfonamides; Z88.1 Allergy status to other antibiotic agents; Z88.5 Allergy status to narcotic agent; Z88.8 Allergy status to other drugs, medicaments and biological substances; Z92.21 Personal history of antineoplastic chemotherapy; Z90.711 Acquired absence of uterus with remaining cervical stump
CPT/HCPCS: 76000; 87081

== ENCOUNTER 2020-04-18 11:44 | Inpatient (IN) | payer MEDICAID ==
[~2020-04-18] VITALS: Ht 157.4 cm; Wt 68.4 kg
[~2020-04-18 11:44] MED LIST changes: +LISI40TA9 PO; -OMEG-105 PO; +OMEG-218 PO
--- NOTE | 2020-04-18 12:29 | ED Abdominal Pain ---
General Stated Complaint: ABD PAIN, RECTAL BLEEDING,HX MULTIPLE MYELOMA Source of Information: Patient Exam Limitations: No Limitations History of Present Illness Date Seen by Provider: Apr 18, 2020 Time Seen by Provider: 12:45 Initial Comments To ER with abdominal pain rectal bleeding nausea vomiting since yesterday. History of multiple myeloma for which she is undergoing treatment with Dr. House with VRD regimen Timing/Duration: 1-2 Days Severity/Quality: Moderate Location: Generalized Abdomen Radiation: No Radiation Activities at Onset: None Associated Symptoms: Nausea/Vomiting Allergies and Home Medications Allergies Coded Allergies: ciprofloxacin (Verified Allergy, Mild, throat swells, 03/15/20) Sulfa (Sulfonamide Antibiotics) (Verified Allergy, Unknown, 03/15/20) acetaminophen (Verified Allergy, Unknown, 03/15/20) morphine (Verified Allergy, Unknown, 03/15/20) propoxyphene (Verified Allergy, Unknown, 03/15/20) Home Medications Albuterol Sulfate 18 Gm Hfa.aer.ad, 2 PUFF INH Q6H PRN for SHORTNESS OF BREATH, (Reported) Amlodipine Besylate 5 Mg Tablet, 5 MG PO DAILY, (Reported) Atenolol 25 Mg Tablet, 50 MG PO HS, (Reported) Diazepam 5 Mg Tablet, 5 MG PO QID PRN for ANXIETY, (Reported) Ipratropium/Albuterol Sulfate 3 Ml Ampul.neb, 3 ML NEB Q6H PRN for SHORTNESS OF BREATH, (Reported) Lenalidomide 15 Mg Capsule, 15 MG PO DAILY, (Reported) Lisinopril 40 Mg Tablet, 40 MG PO HS, (Reported) Mv-Mn/Folic Acid/Calcium/Vit K 1 Each Tablet, 1 EACH PO DAILY, (Reported) Pace-3 Acid Ethyl Esters 1 Gm Capsule, 4 GM PO DAILY, (Reported) TAKES 4 (1GM) CAPS Ondansetron HCl 4 Mg Tab, 4 MG PO Q4H PRN for NAUSEA/VOMITING, (Reported) Oxycodone HCl/Acetaminophen 1 Each Tablet, 1 TAB PO Q6H PRN for PAIN-MODERATE, (Reported) Pitavastatin Calcium 2 Mg Tablet, 2 MG PO 1200, (Reported) Patient Home Medication List Home Medication List Reviewed: Yes Review of Systems Review of Systems Constitutional: see HPI EENTM: No Symptoms Reported Respiratory: No Symptoms Reported Cardiovascular: No Symptoms Reported Gastrointestinal: See HPI, Abdominal Pain, Nausea, Vomiting Genitourinary: No Symptoms Reported Musculoskeletal: no symptoms reported Skin: no symptoms reported Psychiatric/Neurological: No Symptoms Reported Endocrine: No Symptoms Reported Hematologic/Lymphatic: No Symptoms Reported Past Sqooccy-Xmvqtn-Vzphrp Hx Patient Social History Type Used: Cigarettes Former Smoker, Quit: Nov 30, 2019 2nd Hand Smoke Exposure: Yes Recent Hopitalizations: No Immunizations Up To Date Date of Pneumonia Vaccine: Nov 29, 2010 Date of Influenza Vaccine: Nov 30, 2011 Seasonal Allergies Seasonal Allergies: No Past Medical History Surgeries: Yes (bladder mesh/sling, tumor removed from inner ears, ) Gallbladder, Hysterectomy Respiratory: Yes Asthma, COPD, Emphysema Currently Using CPAP: No Currently Using BIPAP: No Cardiac: Yes Angina, Hypertension Neurological: No Genitourinary: No Gastrointestinal: Yes Gastroesophageal Reflux, Diverticulosis, Polyps, Hiatal Hernia Musculoskeletal: Yes Arthritis, Chronic Back Pain Endocrine: No HEENT: No Cancer: Yes (multiple myeloma) Cervical What Type of Treatment Did You: Surgical Intervention Psychosocial: Yes Anxiety, Depression Integumentary: No Blood Disorders: No Physical Exam Vital Signs Vital Signs - First Documented 04/18/20 12:07 Temp 36.3 Pulse 44 Resp 18 B/P (MAP) 112/22 (52) Pulse Ox 94 O2 Delivery Room Air Capillary Refill : Height/Weight/BMI Height: 5'0" Weight: 156lbs. 0oz. 70.441362as; 28.13 BMI Method:Stated General Appearance: WD/WN, no apparent distress Neck: non-tender, full range of motion Respiratory: no respiratory distress, no accessory muscle use Cardiovascular: bradycardia Gastrointestinal: normal bowel sounds, soft, abnormal bowel sounds (Hypoactive), tenderness Extremities: normal range of motion, non-tender Neurologic/Psychiatric: alert, normal mood/affect, oriented x 3 Skin: normal color, warm/dry Focused Exam Lactate Level 04/18/20 13:30: Lactic Acid Level 0.64 Lactic Acid Level Laboratory Tests Test 04/18/20 13:30 Lactic Acid Level 0.64 MMOL/L (0.50-2.00) Progress/Results/Core Measures Results/Orders Lab Results Laboratory Tests Test 04/18/20 12:55 04/18/20 13:30 Range/Units White Blood Count 12.5 H 4.3-11.0 10^3/uL Red Blood Count 3.30 L 3.80-5.11 10^6/uL Hemoglobin 10.8 L 11.5-16.0 g/dL Hematocrit 34 L 35-52 % Mean Corpuscular Volume 103 H 80-99 fL Mean Corpuscular Hemoglobin 33 25-34 pg Mean Corpuscular Hemoglobin Concent 32 32-36 g/dL Red Cell Distribution Width 13.5 10.0-14.5 % Platelet Count 127 L 130-400 10^3/uL Mean Platelet Volume 12.5 H 9.0-12.2 fL Immature Granulocyte % (Auto) 1 % Neutrophils (%) (Auto) 85 H 42-75 % Lymphocytes (%) (Auto) 9 L 12-44 % Monocytes (%) (Auto) 3 0-12 % Eosinophils (%) (Auto) 1 0-10 % Basophils (%) (Auto) 0 0-10 % Neutrophils # (Auto) 10.7 H 1.8-7.8 10^3/uL Lymphocytes # (Auto) 1.2 1.0-4.0 10^3/uL Monocytes # (Auto) 0.4 0.0-1.0 10^3/uL Eosinophils # (Auto) 0.2 0.0-0.3 10^3/uL Basophils # (Auto) 0.0 0.0-0.1 10^3/uL Immature Granulocyte # (Auto) 0.1 0.0-0.1 10^3/uL Prothrombin Time 15.3 H 12.2-14.7 SEC INR Comment 1.2 0.8-1.4 Activated Partial Thromboplast Time 32 24-35 SEC Sodium Level 137 135-145 MMOL/L Potassium Level 4.5 3.6-5.0 MMOL/L Chloride Level 112 H 98-107 MMOL/L Carbon Dioxide Level 13 L 21-32 MMOL/L Anion Gap 12 5-14 MMOL/L Blood Urea Nitrogen 35 H 7-18 MG/DL Creatinine 2.16 H 0.60-1.30 MG/DL Estimat Glomerular Filtration Rate 24 BUN/Creatinine Ratio 16 Glucose Level 138 H 70-105 MG/DL Uric Acid 4.2 2.6-7.2 MG/DL Calcium Level 7.8 L 8.5-10.1 MG/DL Corrected Calcium 8.2 L 8.5-10.1 MG/DL Phosphorus Level 3.8 2.3-4.7 MG/DL Magnesium Level 3.4 H 1.6-2.4 MG/DL Total Bilirubin 0.7 0.1-1.0 MG/DL Aspartate Amino Transf (AST/SGOT) 33 5-34 U/L Alanine Aminotransferase (ALT/SGPT) 35 0-55 U/L Alkaline Phosphatase 320 H 40-136 U/L Myoglobin 101.3 H 10.0-92.0 NG/ML Troponin I < 0.028 <0.028 NG/ML Total Protein 6.1 L 6.4-8.2 GM/DL Albumin 3.5 3.2-4.5 GM/DL Lactic Acid Level 0.64 0.50-2.00 MMOL/L My Orders Orders - VIVIANE CAICEDO APRN Cbc With Automated Diff (04/18/20 12:17) Comprehensive Metabolic Panel (04/18/20 12:17) Lactic Acid Analyzer (04/18/20 12:17) Ns Iv 1000 Ml (Sodium Chloride 0.9%) (04/18/20 12:30) Ondansetron Injection (Zofran Injectio (04/18/20 12:30) Continuous Ekg Monitoring (04/18/20 12:17) Ekg Tracing (04/18/20 12:17) Troponin I (04/18/20 12:17) Magnesium (04/18/20 12:17) Chest 1 View, Ap/Pa Only (04/18/20 12:17) Myoglobin Serum (04/18/20 12:17) Protime With Inr (04/18/20 12:17) Partial Thromboplastin Time (04/18/20 12:17) O2 (04/18/20 12:17) Lipid Panel (04/19/20 06:00) Ed Iv/Invasive Line Start (04/18/20 12:17) Ct Abdomen/Pelvis Wo (04/18/20 12:28) Phosphorus (04/18/20 12:29) Uric Acid (04/18/20 12:29) Fentanyl Injection (Sublimaze Injection (04/18/20 12:45) Ua Culture If Indicated (04/18/20 12:34) Promethazine Injection (Phenergan Injec (04/18/20 12:50) Lactated Ringers (Lr 1000 Ml Iv Solution (04/18/20 13:45) Medications Given in ED Current Medications Medications Dose Ordered Sig/Latha Route Start Time Stop Time Status Last Admin Dose Admin Fentanyl Citrate 50 mcg ONCE ONCE IVP 04/18/20 12:45 04/18/20 12:46 DC 04/18/20 12:58 50 MCG Ondansetron HCl 4 mg ONCE ONCE IVP 04/18/20 12:30 04/18/20 12:31 DC 04/18/20 12:36 4 MG Promethazine HCl 25 mg STK-MED ONCE .ROUTE 04/18/20 12:50 04/18/20 12:56 DC 04/18/20 12:59 12.5 MG Vital Signs/I&O 04/18/20 12:07 Temp 36.3 Pulse 44 Resp 18 B/P (MAP) 112/22 (52) Pulse Ox 94 O2 Delivery Room Air Diagnostic Imaging Diagonstic Imaging: CT Comments NAME: CECILIA METZGER [facility] REC#: [id number] PT STATUS: REG ER : 1965 PHYSICIAN: VIVIANE CAICEDO APRN ADMIT DATE: 04/18/20/ER Draft Date of Exam:04/18/20 CT ABDOMEN/PELVIS WO PROCEDURE: CT abdomen and pelvis without contrast. TECHNIQUE: Multiple contiguous axial images were obtained through the abdomen and pelvis without the use of intravenous contrast. Auto Exposure Controls were utilized during the CT exam to meet ALARA standards for radiation dose reduction. INDICATION: Bloody stools and abdominal pain. Correlation is made with prior CT from 11/29/2019. The lung bases are clear. No discrete liver mass is detected. Gallbladder is surgically absent. There is no biliary ductal dilatation. Pancreas and spleen are unremarkable. No adrenal mass is detected. Kidneys are unremarkable. Aorta and iliac vessels are heavily calcified but nonaneurysmal. There is a large amount of stool throughout the colon suggestive of constipation. Small bowel loops are of normal caliber. There is no obstruction. No free fluid or fluid collection is seen. Bladder is decompressed. Uterus appears to be surgically absent. Areas of lucency throughout the osseous structures appear similar to prior CT. IMPRESSION: 1. Constipation. 2. No acute feature in the abdomen or pelvis is identified. 3. Osteolytic lesions throughout the lower thoracic spine and lumbar spine as well as bony pelvis. Dictated on workstation # [id number] Dict: 04/18/20 1334 Trans: 04/18/20 1340 [facility] [id number] Interpreted by: ELVIE POSADAS MD Electronically signed by: Departure Communication (Admissions) 6855-heart rate is up to 57 blood pressure up to 122 systolic. This was after administration of 1 L of IV fluids. Suspect that her abdominal pain is secondary to an ileus from the hypermagnesemia and that the initial bradycardia that she had was also secondary to the hypomagnesemia. We will give her a second liter IV fluid bolus here in the emergency room and continue normal saline at 150 mL/h upstairs, consult surgery for the abdominal pain and history of bloody stools. Will obtain a fecal occult blood. Consult to Dr. House. Mid to Dr. Retana. Impression Primary Impression: Acute kidney injury Additional Impressions: Hypermagnesemia Abdominal pain Disposition: ADMITTED INPATIENT Condition: Stable Admissions Decision to Admit Reason: Admit from ER (General) Decision to Admit/Date: Apr 18, 2020 Time/Decision to Admit Time: 13:59 Departure-Patient Inst. Referrals: AVINASH PÉREZ MD (PCP/Family) Primary Care Physician VIVIANE CAICEDO APRN Apr 18, 2020 12:29
[2020-04-18] MEDS ORDERED: ONDANSETRON 4 MG/2 ML (SDV) Z0FRAN IVP ONE (12:30)
[2020-04-18] MEDS ORDERED: NS IV 1000 ML 1,000 ML IV SCH ×2 (12:30→14:15)
[2020-04-18] MEDS ORDERED: fentaNYL INJECTION 100 MCG/2 ML AMP IVP ONE (12:45)
[2020-04-18] MEDS ORDERED: PROMETHAZINE INJ 25 MG/ML (PHENERGAN) AMP ONE (12:50)
[2020-04-18 13:02] LABS: BASOPHILS % (AUTO) 0 % (0-10); EOSINOPHILS # (AUTO) 0.2 10^3/uL (0.0-0.3); EOSINOPHILS % (AUTO) 1 % (0-10); HEMATOCRIT 34 % (35-52); HEMOGLOBIN 10.8 g/dL (11.5-16.0); LYMPHOCYTES # (AUTO) 1.2 10^3/uL (1.0-4.0); LYMPHOCYTES % (AUTO) 9 % (12-44); MEAN CORPUSCULAR HEMOGLOBIN 33 pg (25-34); MEAN CORPUSCULAR HGB CONC 32 g/dL (32-36); MEAN CORPUSCULAR VOLUME 103 fL (80-99); MEAN PLATELET VOLUME 12.5 fL (9.0-12.2); MONOCYTES # (AUTO) 0.4 10^3/uL (0.0-1.0); MONOCYTES % (AUTO) 3 % (0-12); NEUTROPHILS # (AUTO) 10.7 10^3/uL (1.8-7.8); NEUTROPHILS % (AUTO) 85 % (42-75); PLATELET COUNT 127 10^3/uL (130-400); WHITE BLOOD COUNT 12.5 10^3/uL (4.3-11.0)
[2020-04-18 13:13] LABS: ALBUMIN 3.5 GM/DL (3.2-4.5); CHLORIDE 112 MMOL/L (98-107); INR 1.2 (0.8-1.4); POTASSIUM 4.5 MMOL/L (3.6-5.0); PROTHROMBIN TIME PATIENT 15.3 SEC (12.2-14.7); SODIUM 137 MMOL/L (135-145)
[2020-04-18 13:14] LABS: CALCIUM 7.8 MG/DL (8.5-10.1)
[2020-04-18 13:16] LABS: GLUCOSE 138 MG/DL (70-105); TOTAL PROTEIN 6.1 GM/DL (6.4-8.2)
[2020-04-18 13:17] LABS: BILIRUBIN,TOTAL 0.7 MG/DL (0.1-1.0); CARBON DIOXIDE 13 MMOL/L (21-32)
[2020-04-18 13:19] LABS: ALKALINE PHOSPHATASE 320 U/L (40-136); CREATININE SERUM 2.16 MG/DL (0.60-1.30); GFR ESTIMATED 24; PHOSPHORUS 3.8 MG/DL (2.3-4.7)
[2020-04-18 13:20] LABS: BUN/CREATININE RATIO 16; MAGNESIUM 3.4 MG/DL (1.6-2.4)
--- NOTE | 2020-04-18 13:20 | Diagnostic Imaging Report ---
INDICATION: Chest pain Single AP view of the chest is obtained. Heart size and pulmonary vascularity are at the upper limits of normal. This may in part be due to suboptimal inspiration. No pneumothorax is seen. Monitoring leads overlie the chest. There is right anterior chest wall port with catheter tip reaching the upper superior vena cava. There is questionable faint density lateral to the left hilum. This could be artifactual related to overlapping osseous structures and monitoring leads. There is no pneumothorax or significant pleural fluid. IMPRESSION: No definite acute abnormalities identified. Followup PA and lateral views of the chest with improved inspiration would be useful. Dictated by: Dictated on workstation # [id number]
[2020-04-18 13:22] LABS: ALANINE AMINOTRANSFERASE 35 U/L (0-55); URIC ACID 4.2 MG/DL (2.6-7.2)
--- NOTE | 2020-04-18 13:40 | Diagnostic Imaging Report ---
PROCEDURE: CT abdomen and pelvis without contrast. TECHNIQUE: Multiple contiguous axial images were obtained through the abdomen and pelvis without the use of intravenous contrast. Auto Exposure Controls were utilized during the CT exam to meet ALARA standards for radiation dose reduction. INDICATION: Bloody stools and abdominal pain. Correlation is made with prior CT from 11/29/2019. The lung bases are clear. No discrete liver mass is detected. Gallbladder is surgically absent. There is no biliary ductal dilatation. Pancreas and spleen are unremarkable. No adrenal mass is detected. Kidneys are unremarkable. Aorta and iliac vessels are heavily calcified but nonaneurysmal. There is a large amount of stool throughout the colon suggestive of constipation. Small bowel loops are of normal caliber. There is no obstruction. No free fluid or fluid collection is seen. Bladder is decompressed. Uterus appears to be surgically absent. Areas of lucency throughout the osseous structures appear similar to prior CT. IMPRESSION: 1. Constipation. 2. No acute feature in the abdomen or pelvis is identified. 3. Osteolytic lesions throughout the lower thoracic spine and lumbar spine as well as bony pelvis. Dictated by: Dictated on workstation # [id number]
[2020-04-18] MEDS ORDERED: LACTATED RINGERS 1,000 ML IV SCH (13:45)
[2020-04-18] MEDS: NS IV 1000 ML 1,000 ML IV SCH ×2 (15:52→22:23)
[2020-04-18 15:59] VITALS: BP 129/61
[2020-04-18] MEDS: fentaNYL INJECTION 100 MCG/2 ML AMP IVP PRN ×3 (15:59→20:50)
--- NOTE | 2020-04-18 17:36 | CONSULTATION REPORT ---
DATE OF SERVICE: 04/18/2020 ATTENDING PRIMARY CARE PHYSICIAN: Juan José Kam MD ADMITTING PHYSICIAN: Dr. Retana. HISTORY OF PRESENT ILLNESS: The patient is a 54-year-old male who presented to the Emergency Department with crampy abdominal pain as well as an episode of nausea and vomiting yesterday. He does have a history of multiple myeloma and has been treated by oncology with a VRD regimen. Laboratory work was done, which showed only a mild leukocytosis of 12.5 and low magnesium at 3.4. A CT scan was performed, which did not show any abnormalities. PAST MEDICAL HISTORY: Multiple myeloma, COPD, gastroesophageal reflux disease, history of diverticulosis, anxiety, depression, hypertension. PAST SURGICAL HISTORY: Hysterectomy, bladder sling placement, cholecystectomy. ALLERGIES: CIPROFLOXACIN, SULFA, ACETAMINOPHEN, MORPHINE, PROPOXYPHENE. MEDICATIONS: Albuterol 2 puffs q.6 hours p.r.n., amlodipine 5 mg daily, atenolol 25 mg daily, diazepam 5 mg q.i.d. p.r.n., ipratropium/albuterol nebulizer q.6 hours p.r.n., lenalidomide 15 mg daily, lisinopril 40 mg daily, oxycodone p.r.n., pitavastatin calcium 2 grams daily, Zofran p.r.n. SOCIAL HISTORY: Previous smoker, quit November 2019, 40-pack years. Negative alcohol. FAMILY HISTORY: Noncontributory. VITAL SIGNS: Temperature 37.3, blood pressure 129/61, pulse 58, respirations 18, pulse ox 94% on room air. REVIEW OF SYSTEMS: Well-nourished female, currently in no acute distress. She is not experiencing any shortness of breath or difficulty breathing. No chest pain, palpitations, diaphoresis. Intermittent episodes of nausea and vomiting with the episode of vomiting yesterday. No hematemesis, no coffee ground emesis. She states that she did notice rectal bleeding in the past. No fever, chills, no recent inadvertent weight loss. All other review of systems negative. PHYSICAL EXAMINATION: CHEST: Distant breath sounds and wheezes bilaterally. HEART: Regular, no murmurs. EXTREMITIES: No lower extremity edema, negative Homans sign. HEENT: No scleral icterus. NECK: No cervical lymphadenopathy. ABDOMEN: Soft, nondistended. There is mild discomfort, which is diffuse. There are no peritoneal signs. No hernias. SKIN: Warm and dry. LABORATORY DATA: WBC 12.5, hemoglobin 10.8, hematocrit 34, platelets 127. BUN 35, creatinine 2.16. ASSESSMENT AND PLAN: A 54-year-old female with abdominal pain and history of rectal bleeding. She also does report episodes of nausea and vomiting. She has been treated for multiple myeloma, was found to be hypomagnesemia. Due to her electrolyte abnormalities, she will recommend correction of this for she most has some level of ileus and once that she feels better and does have a resolution of nausea and vomiting, we will start a clear liquid diet and advance as tolerated. We will also ascertain our previous record. Ascertaining previous records, it looks like she did have a colonoscopy performed in 2007 where a mild sigmoid inflammation was identified as well as a rectal polyp, which was benign. She also had an EGD performed, which showed gastritis as well as a reflux esophagitis. If she does have further issues with rectal bleeding or becomes symptomatic, we will then proceed with a colonoscopy as well as possible EGD. Job ID: [id number] DocumentID: [id number] Dictated Date: 04/18/2020 17:09:27 Client Delivery Specialist Date: 04/18/2020 17:36:14 Dictated By: FLASH MOORE MD
[2020-04-18] MEDS ORDERED: ONDANSETRON 4 MG/2 ML (SDV) Z0FRAN ONE (18:21)
[2020-04-18] MEDS: ONDANSETRON 4 MG/2 ML (SDV) Z0FRAN IVP PRN (18:31)
[2020-04-18 19:23] VITALS: BP 121/58
[2020-04-18] MEDS: polyethylene glycoL POWDER 17 GM (MIRALAX) PACK PO SCH (20:36)
[2020-04-18] MEDS: PROMETHAZINE INJ 25 MG/ML (PHENERGAN) AMP IVP PRN (20:50)
[2020-04-19] VITALS (7 sets, daily range): BP systolic 122–137; BP diastolic 56–70
[2020-04-19] MEDS: ONDANSETRON 4 MG/2 ML (SDV) Z0FRAN IVP PRN ×4 (00:14→23:33)
[2020-04-19] MEDS: fentaNYL INJECTION 100 MCG/2 ML AMP IVP PRN ×8 (00:14→23:33)
[2020-04-19] MEDS: NS IV 1000 ML 1,000 ML IV SCH ×3 (05:02→17:30)
[2020-04-19] MEDS: PROMETHAZINE INJ 25 MG/ML (PHENERGAN) AMP IVP PRN ×3 (05:02→20:55)
[2020-04-19 05:19] LABS: BASOPHILS % (AUTO) 0 % (0-10); MONOCYTES # (AUTO) 0.6 10^3/uL (0.0-1.0); PLATELET COUNT 102 10^3/uL (130-400)
[2020-04-19 05:21] LABS: EOSINOPHILS % (AUTO) 1 % (0-10); HEMATOCRIT 28 % (35-52); HEMOGLOBIN 9.3 g/dL (11.5-16.0); LYMPHOCYTES # (AUTO) 0.5 10^3/uL (1.0-4.0); LYMPHOCYTES % (AUTO) 10 % (12-44); MEAN CORPUSCULAR HEMOGLOBIN 33 pg (25-34); MEAN CORPUSCULAR HGB CONC 33 g/dL (32-36); MEAN CORPUSCULAR VOLUME 100 fL (80-99); MEAN PLATELET VOLUME 12.2 fL (9.0-12.2); MONOCYTES % (AUTO) 10 % (0-12); NEUTROPHILS # (AUTO) 4.4 10^3/uL (1.8-7.8); NEUTROPHILS % (AUTO) 78 % (42-75); WHITE BLOOD COUNT 5.7 10^3/uL (4.3-11.0)
[2020-04-19 05:30] LABS: POTASSIUM 3.9 MMOL/L (3.6-5.0)
[2020-04-19 05:31] LABS: ALBUMIN 3.2 GM/DL (3.2-4.5)
[2020-04-19 05:32] LABS: CALCIUM 6.7 MG/DL (8.5-10.1)
[2020-04-19 05:33] LABS: TOTAL PROTEIN 5.6 GM/DL (6.4-8.2)
[2020-04-19 05:35] LABS: BILIRUBIN,TOTAL 0.4 MG/DL (0.1-1.0)
[2020-04-19 05:37] LABS: CREATININE SERUM 1.49 MG/DL (0.60-1.30)
[2020-04-19] MEDS: polyethylene glycoL POWDER 17 GM (MIRALAX) PACK PO SCH ×2 (08:50→22:09)
--- NOTE | 2020-04-19 11:52 | Progress Note ---
Subjective Date Seen by a Provider: Apr 19, 2020 Time Seen by a Provider: 10:00 Subjective/Events-last exam doing better today. tolerating diet and having loose stools. labs stable. Focused Exam Lactate Level 04/18/20 13:30: Lactic Acid Level 0.64 Objective Exam Vital Signs Date Time Temp Pulse Resp B/P (MAP) Pulse Ox O2 Delivery O2 Flow Rate FiO2 04/19/20 08:00 37.1 65 18 133/61 (85) 95 Room Air 04/19/20 08:00 Room Air 04/19/20 07:00 59 04/19/20 04:13 38.0 64 20 122/57 (78) 97 Room Air 04/19/20 01:00 62 04/19/20 00:06 38.0 55 22 126/56 (79) 97 Room Air 04/18/20 20:50 Room Air 04/18/20 19:23 36.8 56 18 121/58 (79) 95 Room Air 04/18/20 17:48 Room Air 04/18/20 15:59 37.3 58 18 129/61 (83) 94 Room Air 04/18/20 14:53 36.3 60 18 142/69 (52) 98 Room Air 04/18/20 12:07 36.3 44 18 112/22 (52) 94 Room Air I & O 04/19/20 07:00 Intake Total 4070 ml Output Total 925 ml Balance 3145 ml Capillary Refill : Less Than 3 Seconds General Appearance: No Apparent Distress HEENT: PERRL/EOMI Neck: Full Range of Motion Respiratory: Chest Non Tender, Decreased Breath Sounds Cardiovascular: Regular Rate, Rhythm Gastrointestinal: normal bowel sounds, non tender, soft Extremity: Normal Capillary Refill Neurologic/Psychiatric: Alert, Oriented x3 Skin: Normal Color Lymphatic: No Adenopathy Results Lab Laboratory Tests 04/18/20 12:55: White Blood Count 12.5H, Red Blood Count 3.30L, Hemoglobin 10.8L, Hematocrit 34L , Mean Corpuscular Volume 103H, Mean Corpuscular Hemoglobin 33, Mean Corpuscular Hemoglobin Concent 32, Red Cell Distribution Width 13.5, Platelet Count 127L, Mean Platelet Volume 12.5H, Immature Granulocyte % (Auto) 1, Neutrophils (%) (Auto) 85H, Lymphocytes (%) (Auto) 9L, Monocytes (%) (Auto) 3, Eosinophils (%) (Auto) 1, Basophils (%) (Auto) 0, Neutrophils # (Auto) 10.7H, Lymphocytes # (Auto) 1.2, Monocytes # (Auto) 0.4, Eosinophils # (Auto) 0.2, Basophils # (Auto) 0.0, Immature Granulocyte # (Auto) 0.1, Prothrombin Time 15.3H, INR Comment 1.2, Activated Partial Thromboplast Time 32, Sodium Level 137, Potassium Level 4.5, Chloride Level 112H, Carbon Dioxide Level 13L, Anion Gap 12, Blood Urea Nitrogen 35H, Creatinine 2.16H, Estimat Glomerular Filtration Rate 24, BUN/Creatinine Ratio 16, Glucose Level 138H, Uric Acid 4.2, Calcium Level 7.8L, Corrected Calcium 8.2L, Phosphorus Level 3.8, Magnesium Level 3.4H, Total Bilirubin 0.7, Aspartate Amino Transf (AST/SGOT) 33, Alanine Aminotransferase (ALT/SGPT) 35, Alkaline Phosphatase 320H, Myoglobin 101.3H, Troponin I < 0.028, Total Protein 6.1L, Albumin 3.5 04/18/20 13:30: Lactic Acid Level 0.64 04/18/20 16:01: Stool Occult Blood Immunoassay POSITIVEH 04/19/20 05:05: White Blood Count 5.7, Red Blood Count 2.84L, Hemoglobin 9.3L, Hematocrit 28L, Mean Corpuscular Volume 100H, Mean Corpuscular Hemoglobin 33, Mean Corpuscular Hemoglobin Concent 33, Red Cell Distribution Width 13.6, Platelet Count 102L, Mean Platelet Volume 12.2, Immature Granulocyte % (Auto) 1, Neutrophils (%) (Auto) 78H, Lymphocytes (%) (Auto) 10L, Monocytes (%) (Auto) 10, Eosinophils (%) (Auto) 1, Basophils (%) (Auto) 0, Neutrophils # (Auto) 4.4, Lymphocytes # (Auto) 0.5L, Monocytes # (Auto) 0.6, Eosinophils # (Auto) 0.0, Basophils # (Auto) 0.0, Immature Granulocyte # (Auto) 0.1, Sodium Level 136, Potassium Level 3.9, Chloride Level 111H, Carbon Dioxide Level 14L, Anion Gap 11, Blood Urea Nitrogen 31H, Creatinine 1.49H, Estimat Glomerular Filtration Rate 37, BUN/Creatinine Ratio 21, Glucose Level 126H, Calcium Level 6.7L, Corrected Calcium 7.3L, Magnesium Level 3.0H, Total Bilirubin 0.4, Aspartate Amino Transf (AST/SGOT) 20, Alanine Aminotransferase (ALT/SGPT) 27, Alkaline Phosphatase 227H, Total Protein 5.6L, Albumin 3.2, Triglycerides Level 82, Cholesterol Level 114, LDL Cholesterol Direct 56, VLDL Cholesterol 16, HDL Cholesterol 29L Microbiology 04/18/20 C. difficile GDH Antigen & Toxins - Final, Complete Assessment/Plan Assessment/Plan Assess & Plan/Chief Complaint previous ileus with KALEY and hypomag. diet as tolerated. ambulate. FLASH MOORE MD Apr 19, 2020 11:52
--- NOTE | 2020-04-19 12:25 | History & Physical ---
HPI History of Present Illness: 54 yo F with Multiple Myeloma that presents to ER with worsening abdominal pain and rectal bleeding. Patient states that the pain started yesterday prior to arrival. She just had chemotherapy earlier this week. States that the dosing was changed but she is not sure what to. It is the same chemo she has had previously and she has had 3-4 doses previously and did not have any serious adverse effects previously. She has only had a couple episodes or rectal bleeding. Denies any fever or chills. Source: patient Exam Limitations: no limitations Date seen by provider: Apr 19, 2020 Time Seen by Provider: 10:45 Attending Physician Nora Berry MD PCP Juan José Kam MD Consult Date of Admission Apr 18, 2020 at 13:53 Home Medications Home Medications Reviewed patient Home Medication Reconciliation performed by pharmacy medication reconciliations surveillance camera technician and/or nursing. Patients Allergies have been reviewed. Allergies Coded Allergies: ciprofloxacin (Verified Allergy, Mild, throat swells, 03/15/20) Sulfa (Sulfonamide Antibiotics) (Verified Allergy, Unknown, 03/15/20) acetaminophen (Verified Allergy, Unknown, 03/15/20) morphine (Verified Allergy, Unknown, 03/15/20) propoxyphene (Verified Allergy, Unknown, 03/15/20) MGV-Mmqgjc-Cyrwpy Hx Patient Social History 2nd Hand Smoke Exposure: Yes Recent Hopitalizations: No Alcohol Use?: No Have you traveled recently?: No Immunizations Up To Date Date of Pneumonia Vaccine: Nov 29, 2010 Date of Influenza Vaccine: Nov 30, 2011 Past Medical History Multiple Myeloma CKD Family Medical History Significant Family History: No Pertinent Family Hx Review of Systems ([facility]) Constitutional: No chills, No fever; malaise, weakness EENTM: no symptoms reported; No mouth pain, No nose congestion, No nose pain Respiratory: no symptoms reported; No cough, No dyspnea on exertion, No short of breath Cardiovascular: no symptoms reported; No chest pain, No edema, No palpitations Gastrointestinal: abdominal pain, loss of appetite, melena, nausea Genitourinary: no symptoms reported; No dysuria, No frequency, No hematuria : No Musculoskeletal: back pain, joint pain Skin: no symptoms reported; No lesions, No rash Psychiatric/Neurological: Anxiety, Weakness Reviewed Test Results Reviewed Test Results Lab Laboratory Tests Test 04/18/20 12:55 04/18/20 13:30 04/18/20 16:01 04/19/20 05:05 Range/Units White Blood Count 12.5 H 5.7 4.3-11.0 10^3/uL Red Blood Count 3.30 L 2.84 L 3.80-5.11 10^6/uL Hemoglobin 10.8 L 9.3 L 11.5-16.0 g/dL Hematocrit 34 L 28 L 35-52 % Mean Corpuscular Volume 103 H 100 H 80-99 fL Mean Corpuscular Hemoglobin 33 33 25-34 pg Mean Corpuscular Hemoglobin Concent 32 33 32-36 g/dL Red Cell Distribution Width 13.5 13.6 10.0-14.5 % Platelet Count 127 L 102 L 130-400 10^3/uL Mean Platelet Volume 12.5 H 12.2 9.0-12.2 fL Immature Granulocyte % (Auto) 1 1 % Neutrophils (%) (Auto) 85 H 78 H 42-75 % Lymphocytes (%) (Auto) 9 L 10 L 12-44 % Monocytes (%) (Auto) 3 10 0-12 % Eosinophils (%) (Auto) 1 1 0-10 % Basophils (%) (Auto) 0 0 0-10 % Neutrophils # (Auto) 10.7 H 4.4 1.8-7.8 10^3/uL Lymphocytes # (Auto) 1.2 0.5 L 1.0-4.0 10^3/uL Monocytes # (Auto) 0.4 0.6 0.0-1.0 10^3/uL Eosinophils # (Auto) 0.2 0.0 0.0-0.3 10^3/uL Basophils # (Auto) 0.0 0.0 0.0-0.1 10^3/uL Immature Granulocyte # (Auto) 0.1 0.1 0.0-0.1 10^3/uL Prothrombin Time 15.3 H 12.2-14.7 SEC INR Comment 1.2 0.8-1.4 Activated Partial Thromboplast Time 32 24-35 SEC Sodium Level 137 136 135-145 MMOL/L Potassium Level 4.5 3.9 3.6-5.0 MMOL/L Chloride Level 112 H 111 H 98-107 MMOL/L Carbon Dioxide Level 13 L 14 L 21-32 MMOL/L Anion Gap 12 11 5-14 MMOL/L Blood Urea Nitrogen 35 H 31 H 7-18 MG/DL Creatinine 2.16 H 1.49 H 0.60-1.30 MG/DL Estimat Glomerular Filtration Rate 24 37 BUN/Creatinine Ratio 16 21 Glucose Level 138 H 126 H 70-105 MG/DL Uric Acid 4.2 2.6-7.2 MG/DL Calcium Level 7.8 L 6.7 L 8.5-10.1 MG/DL Corrected Calcium 8.2 L 7.3 L 8.5-10.1 MG/DL Phosphorus Level 3.8 2.3-4.7 MG/DL Magnesium Level 3.4 H 3.0 H 1.6-2.4 MG/DL Total Bilirubin 0.7 0.4 0.1-1.0 MG/DL Aspartate Amino Transf (AST/SGOT) 33 20 5-34 U/L Alanine Aminotransferase (ALT/SGPT) 35 27 0-55 U/L Alkaline Phosphatase 320 H 227 H 40-136 U/L Myoglobin 101.3 H 10.0-92.0 NG/ML Troponin I < 0.028 <0.028 NG/ML Total Protein 6.1 L 5.6 L 6.4-8.2 GM/DL Albumin 3.5 3.2 3.2-4.5 GM/DL Lactic Acid Level 0.64 0.50-2.00 MMOL/L Stool Occult Blood Immunoassay POSITIVE H NEGATIVE Triglycerides Level 82 <150 MG/DL Cholesterol Level 114 < 200 MG/DL LDL Cholesterol Direct 56 1-129 MG/DL VLDL Cholesterol 16 5-40 MG/DL HDL Cholesterol 29 L 40-60 MG/DL Physical Exam-([facility]) Physical Exam Vital Signs VS - Last 72 Hours, by Label 04/18/20 04/18/20 04/18/20 04/18/20 12:07 14:53 15:59 17:48 Temp 36.3 36.3 37.3 Pulse 44 60 58 Resp 18 18 18 B/P (MAP) 112/22 (52) 142/69 (52) 129/61 (83) Pulse Ox 94 98 94 O2 Delivery Room Air Room Air Room Air Room Air 04/18/20 04/18/20 04/19/20 04/19/20 19:23 20:50 00:06 01:00 Temp 36.8 38.0 Pulse 56 55 62 Resp 18 22 B/P (MAP) 121/58 (79) 126/56 (79) Pulse Ox 95 97 O2 Delivery Room Air Room Air Room Air 04/19/20 04/19/20 04/19/20 04/19/20 04:13 07:00 08:00 08:00 Temp 38.0 37.1 Pulse 64 59 65 Resp 20 18 B/P (MAP) 122/57 (78) 133/61 (85) Pulse Ox 97 95 O2 Delivery Room Air Room Air Room Air 04/19/20 04/19/20 12:00 12:43 Temp 37.8 Pulse 63 72 Resp 18 B/P (MAP) 137/63 (87) Pulse Ox 96 O2 Delivery Room Air Capillary Refill : Less Than 3 Seconds General Appearance: WD/WN HEENT: PERRL/EOMI Neck: non-tender, full range of motion, supple Respiratory: chest non-tender, lungs clear, normal breath sounds, no respiratory distress, no accessory muscle use Cardiovascular: normal peripheral pulses, regular rate, rhythm, no edema, no murmur Gastrointestinal: soft, tenderness (LLQ, no rebound or gaurding) Back: no CVA tenderness, no vertebral tenderness Extremities: normal range of motion, non-tender, normal inspection, no pedal edema, no calf tenderness, normal capillary refill Neurologic/Psychiatric: gasket maker II-XII nml as tested, no motor/sensory deficits, alert, normal mood/affect, oriented x 3 Skin: normal color, warm/dry Lymphatic: no adenopathy Assessment/Plan Assessment/Plan Admission Status: Inpatient Order (span 2 midnights) Reason for Inpatient Admission: Patient requiring IV pain medications and referral (1) Abdominal pain Status: Acute Assessment & Plan: - Dr Bai consulted, appreciate recommendations Qualifiers: Qualified Codes: R10.84 - Generalized abdominal pain (2) Acute kidney injury Status: Acute Assessment & Plan: - Improving with IVFs, continue to monitor (3) Rectal bleeding Status: Acute (4) Hypermagnesemia Status: Acute (5) Multiple myeloma Assessment & Plan: - Following with Dr Packer, received chemo this week (6) Macrocytic anemia (7) DVT prophylaxis Assessment & Plan: - SCDs given rectal bleeding NORA BERRY MD Apr 19, 2020 12:25
[2020-04-19] MEDS ORDERED: ONDA8TAB15 PO (13:00)
[2020-04-19] MEDS ORDERED: ESOM40CA52 PO (13:00)
[2020-04-19] MEDS ORDERED: DEXA4TAB PO (13:00)
[2020-04-19] MEDS ORDERED: OXYC-556 PO (13:00)
[2020-04-19] MEDS ORDERED: HYDR-700 PO (13:00)
--- NOTE | 2020-04-19 13:35 | CONSULTATION REPORT ---
DATE OF SERVICE: 04/19/2020 The patient is admitted to room 406. IMPRESSION: 1. A 54-year-old female admitted with abdominal pain and hematochezia. 2. Multiple myeloma, lambda light chain type, diagnosed in 11/2019. 3. Status post chemotherapy with VRD regimen x2 cycles and VRD Lite regimen x1. She has just started the 4th course of chemotherapy with VRD Lite regimen. 4. Chronic kidney disease, stage III to IV. 5. Previous history of hypercalcemia at the time of presentation. RECOMMENDATIONS: 1. Agree with surgical evaluation regarding the abdominal pain and hematochezia. 2. We will hold chemotherapy during her hospitalization. 3. Once she is stable from medical standpoint and has recovered from her presenting symptoms, may discharge home. 4. After the current cycle of chemotherapy, she is scheduled for an evaluation at [facility] for possible autologous bone marrow transplantation. She was felt a borderline candidate initially on presentation, but has had a good response to treatment so far with normalization of her protein studies. 5. We will follow the patient with you. BRIEF HISTORY: The patient is a 54-year-old female who was diagnosed with lambda light chain multiple myeloma in 11/2019 when she was admitted to the hospital with back pain and found to have hypercalcemia and renal dysfunction. She was treated for the hypercalcemia and workup initiated, which confirmed the diagnosis of multiple myeloma. She was started on chemotherapy with VRD regimen and completed 2 cycles, but developed thrombocytopenia and the side effects and the treatment was changed to VRD Lite for cycle 3. She is currently on cycle 4 using the same regimen. The patient presented to the emergency room with complaints of abdominal pain and blood in stools and was admitted to the hospital for further evaluation. She indicated that she was having constipation at home prior to coming to the emergency room. Stools are working now, but still not normal. Medical oncology consultation was obtained for concurrent care. PAST MEDICAL HISTORY: Significant for lambda light chain multiple myeloma diagnosed in 11/2019 as mentioned above. She has history of COPD, hypertension, hiatal hernia with gastroesophageal reflux, anxiety and depression. Also has osteoarthritis involving major joints. PAST SURGICAL HISTORY: Include JENIFER-BSO, cholecystectomy, hernia repair with mesh placement and bladder sling surgery. SOCIAL HISTORY: The patient is and lives in [place], [place]. She has four children, three sons and a daughter. A son and a daughter lives in [place], [place] and the other two sons live in [place]. She has approximately 50-[id number]-[id number] history of tobacco use and was smoking less than half a pack recently. No significant alcohol or recreational drug use. 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 FAMILY HISTORY: Only significant for her father who had an unknown malignancy. No other malignancies or major medical problems in the family that the patient knows of. PHYSICAL EXAMINATION: GENERAL: Today showed middle-aged female, looking older than stated age, awake and oriented, mild discomfort due to abdominal pain. VITAL SIGNS: Temperature was 37.1 degrees centigrade, pulse rate of 65, respirations 18, blood pressure 133/61 with oxygen saturation of 95% on room air. HEENT: Normocephalic, extraocular muscles intact, conjunctivae pink, oral mucosa moist with poor dental hygiene. NECK: Supple, with no JVD. No cervical, supraclavicular or axillary lymphadenopathy palpable. CHEST: Symmetrical. LUNGS: Fairly clear with diminished breath sounds bilaterally. No wheezes or rales heard. CARDIOVASCULAR: Regular in rate and rhythm. No murmurs or gallops heard. ABDOMEN: Slightly obese, soft with mild diffuse tenderness without guarding or rebound. No hepatosplenomegaly or other masses palpable. EXTREMITIES: Showed no edema. NEUROLOGIC: Grossly intact without focal motor deficits. LABORATORY DATA: CBC done today showed WBC 5.7, hemoglobin 9.3, platelet count 102,000 with neutrophil count 4.4 and lymphocyte count 0.5. Chemistry panel showed relatively normal electrolytes except CO2 level of 14. BUN was 31 and creatinine 1.49 with GFR of 37 mL per minute. Nonfasting glucose was 126. Corrected calcium was 7.3. Magnesium was 3.0. Liver function studies were normal except alkaline phosphatase level of 227. Stool occult blood done yesterday was positive. Last protein studies had shown normalization of lambda light chain at 12.42 when compared to baseline of 8704.66 from 01/02/2020. Stools for C. difficile toxin was negative. Stool cultures are pending. Thank you for allowing me to participate in this patient's care. I will follow the patient with you and make appropriate recommendations. Job ID: [id number] DocumentID: [id number] Dictated Date: 04/19/2020 10:31:03 Berry Grower Date: 04/19/2020 13:34:27 Dictated By: LAISHA LOTT MD MTDD
[2020-04-20] MEDS: fentaNYL INJECTION 100 MCG/2 ML AMP IVP PRN ×8 (02:19→21:56)
[2020-04-20 04:32] VITALS: BP 127/65
[2020-04-20] MEDS: PROMETHAZINE INJ 25 MG/ML (PHENERGAN) AMP IVP PRN ×2 (04:57→14:03)
[2020-04-20 06:37] LABS: BASOPHILS % (AUTO) 0 % (0-10); EOSINOPHILS # (AUTO) 0.1 10^3/uL (0.0-0.3); EOSINOPHILS % (AUTO) 3 % (0-10); HEMATOCRIT 25 % (35-52); HEMOGLOBIN 8.3 g/dL (11.5-16.0); LYMPHOCYTES # (AUTO) 0.4 10^3/uL (1.0-4.0); LYMPHOCYTES % (AUTO) 13 % (12-44); MEAN CORPUSCULAR HEMOGLOBIN 32 pg (25-34); MEAN CORPUSCULAR HGB CONC 33 g/dL (32-36); MEAN CORPUSCULAR VOLUME 98 fL (80-99); MEAN PLATELET VOLUME 11.4 fL (9.0-12.2); MONOCYTES # (AUTO) 0.5 10^3/uL (0.0-1.0); MONOCYTES % (AUTO) 16 % (0-12); NEUTROPHILS % (AUTO) 63 % (42-75); PLATELET COUNT 96 10^3/uL (130-400); WHITE BLOOD COUNT 3.2 10^3/uL (4.3-11.0)
[2020-04-20] MEDS: NS IV 1000 ML 1,000 ML IV SCH (06:41)
[2020-04-20 06:49] LABS: CALCIUM 6.4 MG/DL (8.5-10.1)
[2020-04-20 06:53] LABS: CREATININE SERUM 1.08 MG/DL (0.60-1.30)
[2020-04-20] MEDS: polyethylene glycoL POWDER 17 GM (MIRALAX) PACK PO SCH ×2 (08:52→21:55)
[2020-04-20] MEDS: ONDANSETRON 4 MG/2 ML (SDV) Z0FRAN IVP PRN ×2 (08:53→16:17)
[2020-04-20] MEDS ORDERED: POTASSIUM CHLORIDE INJ 20 MEQ in NS IV 1000 ML 1,000 ML IV SCH (11:45)
[2020-04-20 12:00] VITALS: BP 126/60
[2020-04-20] MEDS ORDERED: PIPERACILLIN/TAZOBACTAM (BULK) 4.5 GM in NS (IVPB) 100 ML IV NR (12:00)
[2020-04-20] MEDS: oxyCODONE/APAP 10/325MG (PERCOCET 10) TABLET PO SCH ×3 (12:19→23:26)
[2020-04-20] MEDS: NS W/KCL 20 MEQ/L 1,000 ML IV SCH ×2 (12:26→23:27)
--- NOTE | 2020-04-20 13:44 | Progress Note - Hospitalist ---
Subjective HPI/CC On Admission Date Seen by Provider: Apr 20, 2020 Time Seen by Provider: 08:30 Subjective/Events-last exam Patient reports she still having significant bilateral lower quadrant crampy abdominal pain. She had a small loose stool today without blood. She has felt feverish but no fevers or hypothermia have been recorded per the nurse. She denies rigors.She is used to scheduled narcotic therapy 10 mg of oxycodone every 6 and is currently only getting as needed medication here. Focused Exam Lactate Level 04/18/20 13:30: Lactic Acid Level 0.64 Objective Exam Vital Signs Vital Signs Date Time Temp Pulse Resp B/P (MAP) Pulse Ox O2 Delivery O2 Flow Rate FiO2 04/20/20 13:00 62 04/20/20 12:00 37.6 16 126/60 (82) 95 Room Air Capillary Refill : Less Than 3 Seconds General Appearance: Moderate Distress Respiratory: Chest Non Tender, Lungs Clear, Normal Breath Sounds, No Accessory Muscle Use, No Respiratory Distress Cardiovascular: Regular Rate, Rhythm, No Edema, No Gallop, No JVD, No Murmur, Normal Peripheral Pulses Gastrointestinal: Other (Bowel sounds positive abdomen soft bilateral lower quadrant abdominal pain with some guarding no rebound no mass or organomegaly noted.) Results/Procedures Lab Laboratory Tests 04/20/20 06:24 Patient resulted labs reviewed. Assessment/Plan Assessment and Plan Assess & Plan/Chief Complaint (1) Abdominal pain In an individual who is immune compromised secondary to wides pread myeloma requiring ongoing chemotherapy. Considering this she may not have all the usual infectious symptoms and is at increased risk for infection including enteric infection. As there is a history of reported Cipro allergy will initiate Zosyn after discussion with Dr. BAI and continue to monitor. Patient reports no blood in the 1 small liquid stool that she had this morning. Her hemoglobin is decreasing down to 8 but she is hemodynamically stable continue to monitor defer at this point transfusion to Dr. Gannon did discuss that if her counts continue to go down that she may require blood transfusion for which she is not adverse to.As the patient is used his scheduled narcotic t herapy will resume at her usual home dose oxycodone 10 mg every 6 and monitor. Status: Acute Assessment & Plan: - Dr Bai consulted, appreciate recommendations Qualifiers: Qualified Codes: R10.84 - Generalized abdominal pain (2) Acute kidney injury Status: Acute Assessment & Plan: - Improving with IVFs, continue to monitor (3) Rectal bleeding Status: Acute (4) Hypermagnesemia Status: Acute (5) Multiple myeloma Assessment & Plan: - Following with Dr Packer, received chemo this week (6) Macrocytic anemia (7) DVT prophylaxis Assessment & Plan: - SCDs given rectal bleeding WESLTEY WONG MD Apr 20, 2020 13:44
[2020-04-20 15:56] VITALS: BP 118/56
[2020-04-20] MEDS: PIPERACILLIN/TAZOBACTAM (BULK) 4.5 GM in NS (IVPB) 100 ML IV SCH (18:21)
[2020-04-20 19:29] VITALS: BP 121/64
[2020-04-21] VITALS: BP 123/59
[2020-04-21] MEDS: PIPERACILLIN/TAZOBACTAM (BULK) 4.5 GM in NS (IVPB) 100 ML IV SCH ×3 (02:14→17:05)
[2020-04-21] MEDS: fentaNYL INJECTION 100 MCG/2 ML AMP IVP PRN ×3 (02:14→20:05)
[2020-04-21 03:48] VITALS: BP 110/54
[2020-04-21] MEDS: oxyCODONE/APAP 10/325MG (PERCOCET 10) TABLET PO SCH ×4 (05:13→23:16)
[2020-04-21 07:55] VITALS: BP 124/58
[2020-04-21] MEDS: polyethylene glycoL POWDER 17 GM (MIRALAX) PACK PO SCH ×2 (07:59→20:05)
[2020-04-21] MEDS: NS W/KCL 20 MEQ/L 1,000 ML IV SCH ×2 (07:59→17:03)
[2020-04-21 09:02] LABS: BASOPHILS % (AUTO) 0 % (0-10); EOSINOPHILS # (AUTO) 0.3 10^3/uL (0.0-0.3); EOSINOPHILS % (AUTO) 7 % (0-10); HEMATOCRIT 27 % (35-52); LYMPHOCYTES # (AUTO) 0.8 10^3/uL (1.0-4.0); LYMPHOCYTES % (AUTO) 17 % (12-44); MEAN CORPUSCULAR HEMOGLOBIN 33 pg (25-34); MEAN CORPUSCULAR HGB CONC 33 g/dL (32-36); MEAN CORPUSCULAR VOLUME 99 fL (80-99); MONOCYTES # (AUTO) 0.6 10^3/uL (0.0-1.0); MONOCYTES % (AUTO) 13 % (0-12); NEUTROPHILS # (AUTO) 2.8 10^3/uL (1.8-7.8); NEUTROPHILS % (AUTO) 62 % (42-75); PLATELET COUNT 131 10^3/uL (130-400); WHITE BLOOD COUNT 4.6 10^3/uL (4.3-11.0)
[2020-04-21 09:13] LABS: ANISOCYTOSIS SLIGHT; BAND NEUTROPHILS 7 %; BASOPHILS % (MANUAL) 2 %; EOSINOPHILS % (MANUAL) 4 %; LYMPHOCYTES % (MANUAL) 18 %; MONOCYTES % (MANUAL) 9 %; NEUTROPHILS % (MANUAL) 60 %; POIKILOCYTOSIS SLIGHT; POTASSIUM 3.4 MMOL/L (3.6-5.0)
[2020-04-21 09:14] LABS: CALCIUM 6.7 MG/DL (8.5-10.1)
[2020-04-21 09:18] LABS: CREATININE SERUM 1.04 MG/DL (0.60-1.30)
[2020-04-21] MEDS: ONDANSETRON 4 MG/2 ML (SDV) Z0FRAN IVP PRN ×2 (09:56→17:08)
[2020-04-21 11:40] VITALS: BP 133/60
[2020-04-21] MEDS: PROMETHAZINE INJ 25 MG/ML (PHENERGAN) AMP IVP PRN (12:00)
--- NOTE | 2020-04-21 12:22 | Progress Note - Hospitalist ---
Subjective HPI/CC On Admission Date Seen by Provider: Apr 21, 2020 Time Seen by Provider: 10:30 Subjective/Events-last exam Patient denies night sweats chills or fever but is still having bilateral lower crampy abdominal pain. She only had one small nonbloody stool that was not hard. She reports that she had some small-volume emesis after oatmeal with nausea but the nurse reports she could find no evidence for emesis. Patient appears to be significantly depressed. Focused Exam Lactate Level 04/18/20 13:30: Lactic Acid Level 0.64 Objective Exam Vital Signs Vital Signs Date Time Temp Pulse Resp B/P (MAP) Pulse Ox O2 Delivery O2 Flow Rate FiO2 04/21/20 11:40 37.0 78 22 133/60 (84) 97 Room Air Capillary Refill : Less Than 3 Seconds General Appearance: Mild Distress Respiratory: Chest Non Tender, Lungs Clear, Normal Breath Sounds, No Accessory Muscle Use, No Respiratory Distress Cardiovascular: Regular Rate, Rhythm, No Edema, No Gallop, No JVD, No Murmur, Normal Peripheral Pulses Gastrointestinal: Soft, Other (Mild distention in the abdomen however is soft there is abdominal pain in both lower quadrants with guarding bowel sounds are present but hypoactive.) Results/Procedures Lab Laboratory Tests 04/21/20 08:50 Patient resulted labs reviewed. Assessment/Plan Assessment and Plan Assess & Plan/Chief Complaint (1) Abdominal pain In an individual who is immune compromised secondary to widespread myeloma requiring ongoing chemotherapy. She is starting day 2 of Zosyn for the possibility of an infectious enteritis is the root of her abdominal pain. She does not feel that her pain is any better today but her vital signs are stable she is not tachycardic with heart rate in the 60 range is not febrile and all parameters of her pancytopenia are improving with no further rectal bleeding or significant diarrhea discussed that this was reassuring and hopefully antibiotics will start to help lessening her abdominal pain in the meantime continue scheduled oxycodone and defer other GI assessment to Dr. MOORE. Status: Acute Assessment & Plan: - Dr Moore consulted, appreciate recommendations Qualifiers: Qualified Codes: R10.84 - Generalized abdominal pain (2) Acute kidney injury Status: Acute Assessment & Plan: - Improving with IVFs, continue to monitor (3) Rectal bleeding Status: Acute (4) Hypermagnesemia Status: Acute (5) Multiple myeloma Assessment & Plan: - Following with Dr Packer, received chemo this week (6) Macrocytic anemia (7) DVT prophylaxis Assessment & Plan: - SCDs given rectal bleeding WESTLEY WONG MD Apr 21, 2020 12:22
[2020-04-21 16:00] VITALS: BP 128/60
[2020-04-21 19:57] VITALS: BP 130/61
[2020-04-21] MEDS: METOCLOPRAMIDE INJ 10 MG/2 ML (REGLAN) IVP SCH (20:05)
--- NOTE | 2020-04-21 20:07 | Diagnostic Imaging Report ---
INDICATION: Abdominal pain. COMPARISON: None. EXAMINATION: KUB and upright views of the abdomen. FINDINGS: There is some mildly distended small bowel loops in the central abdomen. There is no free air. Cholecystectomy clips are present. IMPRESSION: Suspect small bowel obstruction without free air. Dictated by: Dictated on workstation # [id number]
[2020-04-22] VITALS: BP 135/63
[2020-04-22] MEDS: ONDANSETRON 4 MG/2 ML (SDV) Z0FRAN IVP PRN ×4 (00:16→21:20)
[2020-04-22] MEDS: NS W/KCL 20 MEQ/L 1,000 ML IV SCH ×3 (00:42→23:16)
[2020-04-22] MEDS: PIPERACILLIN/TAZOBACTAM (BULK) 4.5 GM in NS (IVPB) 100 ML IV SCH ×3 (02:49→18:46)
[2020-04-22 03:49] VITALS: BP 141/65
[2020-04-22] MEDS: oxyCODONE/APAP 10/325MG (PERCOCET 10) TABLET PO SCH ×4 (05:46→23:16)
[2020-04-22] MEDS: fentaNYL INJECTION 100 MCG/2 ML AMP IVP PRN ×2 (06:42→23:16)
[2020-04-22 08:08] VITALS: BP 166/78
[2020-04-22] MEDS: polyethylene glycoL POWDER 17 GM (MIRALAX) PACK PO SCH ×2 (09:03→20:01)
[2020-04-22] MEDS: METOCLOPRAMIDE INJ 10 MG/2 ML (REGLAN) IVP SCH ×4 (09:04→20:01)
[2020-04-22] MEDS: PROMETHAZINE INJ 25 MG/ML (PHENERGAN) AMP IVP PRN ×2 (09:10→16:54)
[2020-04-22 10:59] LABS: HEMOGLOBIN 7.4 g/dL (11.5-16.0); MEAN PLATELET VOLUME 10.6 fL (9.0-12.2); WHITE BLOOD COUNT 2.3 10^3/uL (4.3-11.0)
[2020-04-22 11:17] LABS: ALANINE AMINOTRANSFERASE 9 U/L (0-55); ALBUMIN 2.7 GM/DL (3.2-4.5); ALKALINE PHOSPHATASE 88 U/L (40-136); BILIRUBIN,TOTAL 0.3 MG/DL (0.1-1.0); BUN/CREATININE RATIO 11; CALCIUM 6.7 MG/DL (8.5-10.1); CARBON DIOXIDE 17 MMOL/L (21-32); CHLORIDE 115 MMOL/L (98-107); CREATININE SERUM 0.88 MG/DL (0.60-1.30); GFR ESTIMATED > 60; GLUCOSE 88 MG/DL (70-105); MAGNESIUM 1.5 MG/DL (1.6-2.4); POTASSIUM 2.7 MMOL/L (3.6-5.0); SODIUM 140 MMOL/L (135-145); TOTAL PROTEIN 4.7 GM/DL (6.4-8.2)
--- NOTE | 2020-04-22 11:30 | Progress Note - Hospitalist ---
ALYSSA MOORE,[facility] 04/22/20 1130: Subjective HPI/CC On Admission Date Seen by Provider: Apr 22, 2020 Time Seen by Provider: 09:45 Subjective/Events-last exam Ms. Lemus continues to have significant nausea despite reglan, phenergan, & zofran. She is drinking water but vomits up whatever she eats. She has had a few non-solid BMs & continues to pass gas. She has significant abdominal pain that "feels like gas." Objective Exam Vital Signs Vital Signs Date Time Temp Pulse Resp B/P (MAP) Pulse Ox O2 Delivery O2 Flow Rate FiO2 04/22/20 08:08 37.3 67 20 166/78 (107) 98 Room Air Capillary Refill : Less Than 3 Seconds General Appearance: Mild Distress Respiratory: Chest Non Tender, Lungs Clear, Normal Breath Sounds Cardiovascular: Regular Rate, Rhythm, No Edema Gastrointestinal: Normal Bowel Sounds, Tenderness Extremity: Normal Capillary Refill, Normal Inspection, No Pedal Edema Results/Procedures Lab Laboratory Tests 04/22/20 10:51 Patient resulted labs reviewed. Imaging: Reviewed Imaging Report Radiology NAME: CECILIA LEMUS [facility] REC#: [id number] PT STATUS: ADM IN : 1965 PHYSICIAN: FLASH BAI MD ADMIT DATE: 04/18/20 Signed Date of Exam:04/21/20 ABDOMEN, FLAT & UPRIGHT/DECUB INDICATION: Abdominal pain. COMPARISON: None. EXAMINATION: KUB and upright views of the abdomen. FINDINGS: There is some mildly distended small bowel loops in the central abdomen. There is no free air. Cholecystectomy clips are present. IMPRESSION: Suspect small bowel obstruction without free air. Dictated by: Dictated on workstation # [id number] Dict: 04/21/202002 Trans: 04/21/202025 [facility] [id number] Interpreted by: JOSE ELIAS BRITO Electronically signed by: JOSE ELIAS BRITO 04/21/202025 Assessment/Plan Assessment and Plan Assess & Plan/Chief Complaint 1. Rectal Bleed + abdominal pain -General surgery consulted -Radiology suspects SBO w/o free air -Given zosyn d/t immunosuppressive therapy for MM 2. Nausea -Zofran, phenergan, reglan -Will place NG tube 3. KALEY -IVF, resolved 4. Multiple Myeloma -undergoing chemotherapy IVELISSE LEA DO 04/23/20 0535: Subjective Subjective/Events-last exam Pt still with nausea and vomiting IV medication antimetics are given May need and NG tube Dr. Bai has been consulted Had some blood BM before Gets chemotherapy on a regular basis for multiple myeloma Zosyn maintained Pt may have a partial bowel obstruction will await surgery evaluation Review of Systems Gastrointestinal: Nausea, Abdominal Pain Objective Exam General Appearance: No Apparent Distress, WD/WN, Chronically ill Respiratory: Chest Non Tender, Lungs Clear, Normal Breath Sounds, No Accessory Muscle Use, No Respiratory Distress Cardiovascular: Regular Rate, Rhythm, No Edema, No Gallop, No JVD, No Murmur, Normal Peripheral Pulses Neurologic/Psychiatric: Alert, Oriented x3, No Motor/Sensory Deficits, Normal Mood/Affect Assessment/Plan Assessment and Plan Assess & Plan/Chief Complaint Assessment: Partial SBO versus ileus MM KALEY Plan: Supportive care Supervisory-Addendum Brief Verification & Attestation Participated in pt care: history, MDM, physical Personally performed: exam, history, MDM, supervision of care Care discussed with: Medical Student Procedures: n/a Results interpretation: Verified all documentation Verification and Attestation of Medical Student E/M Service A medical student performed and documented this service in my presence. I reviewed and verified all information documented by the medical student and made modifications to such information, when appropriate. I personally performed the physical exam and medical decision making. Ivelisse Lea, Apr 23, 2020,05:33 ALYSSA MOORE,MED STUDEN Apr 22, 2020 11:30 IVELISSE LEA DO Apr 23, 2020 05:35
[2020-04-22 12:00] VITALS: BP 161/77
[2020-04-22] MEDS ORDERED: MAGNESIUM 1 GM/100 ML IVPB 100 ML IV ONE (13:45)
[2020-04-22] MEDS: POTASSIUM CL 10MEQ/50ML IVPB 50 ML IV SCH ×7 (13:54→22:56)
[2020-04-22 16:00] VITALS: BP 142/71
--- NOTE | 2020-04-22 17:44 | Progress Note ---
Subjective Date Seen by a Provider: Apr 22, 2020 Time Seen by a Provider: 17:30 Subjective/Events-last exam less nausea this afternoon and having loose BM's. possible narcotic bowel and slow transit time. Objective Exam Vital Signs Date Time Temp Pulse Resp B/P (MAP) Pulse Ox O2 Delivery O2 Flow Rate FiO2 04/22/20 16:00 37.2 63 18 142/71 (94) 96 Room Air 04/22/20 12:23 77 04/22/20 12:00 37.0 68 18 161/77 (105) 96 Room Air 04/22/20 08:08 37.3 67 20 166/78 (107) 98 Room Air 04/22/20 08:00 Room Air 04/22/20 06:33 77 04/22/20 03:49 37.2 57 18 141/65 (90) 95 Room Air 04/22/20 01:00 63 04/22/20 00:44 37.3 04/22/20 00:00 38.1 70 16 135/63 (87) 97 Room Air 04/21/20 20:05 Room Air 04/21/20 19:57 37.4 66 18 130/61 (84) 96 Room Air 04/21/20 19:00 66 I & O 04/22/20 07:00 Intake Total 1320 ml Output Total 1975 ml Balance -655 ml Capillary Refill : Less Than 3 Seconds General Appearance: No Apparent Distress HEENT: PERRL/EOMI Neck: Full Range of Motion Respiratory: Decreased Breath Sounds Cardiovascular: Regular Rate, Rhythm Gastrointestinal: soft, distended Extremity: Normal Capillary Refill Neurologic/Psychiatric: Alert Skin: Normal Color Lymphatic: No Adenopathy Results Lab Laboratory Tests 04/22/20 10:51: White Blood Count 2.3L, Red Blood Count 2.27L, Hemoglobin 7.4L, Hematocrit 22L, Mean Corpuscular Volume 97, Mean Corpuscular Hemoglobin 33, Mean Corpuscular Hemoglobin Concent 34, Red Cell Distribution Width 13.6, Platelet Count 108L, Mean Platelet Volume 10.6, Sodium Level 140, Potassium Level 2.7L, Chloride Level 115H, Carbon Dioxide Level 17L, Anion Gap 8, Blood Urea Nitrogen 10, Creatinine 0.88, Estimat Glomerular Filtration Rate > 60, BUN/Creatinine Ratio 11, Glucose Level 88, Calcium Level 6.7L, Corrected Calcium 7.7L, Magnesium Level 1.5L, Total Bilirubin 0.3, Aspartate Amino Transf (AST/SGOT) 10, Alanine Aminotransferase (ALT/SGPT) 9, Alkaline Phosphatase 88, Total Protein 4.7L, Albumin 2.7L Microbiology 04/18/20 C. difficile GDH Antigen & Toxins - Final, Complete Assessment/Plan Assessment/Plan Assess & Plan/Chief Complaint previous ileus with KALEY and hypomag. 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 stay on clear liquids for now. no NGT at this time but would place if worse. ambulate. FLASH MOORE MD Apr 22, 2020 17:44
[2020-04-22 19:50] VITALS: BP 122/74
[2020-04-23] VITALS (7 sets, daily range): BP systolic 125–145; BP diastolic 58–91
[2020-04-23] MEDS ORDERED: LOPERAMIDE 2 MG (IMODIUM) TABLET ONE (00:14)
[2020-04-23] MEDS ORDERED: LOPERAMIDE 2 MG (IMODIUM) TABLET PO PRN (00:15)
[2020-04-23] MEDS: POTASSIUM CL 10MEQ/50ML IVPB 50 ML IV SCH (00:48)
[2020-04-23] MEDS: PIPERACILLIN/TAZOBACTAM (BULK) 4.5 GM in NS (IVPB) 100 ML IV SCH ×3 (02:10→17:00)
[2020-04-23] MEDS: oxyCODONE/APAP 10/325MG (PERCOCET 10) TABLET PO SCH ×4 (05:58→23:07)
[2020-04-23] MEDS: ONDANSETRON 4 MG/2 ML (SDV) Z0FRAN IVP PRN ×3 (05:58→20:21)
[2020-04-23] MEDS: polyethylene glycoL POWDER 17 GM (MIRALAX) PACK PO SCH ×2 (08:04→20:03)
[2020-04-23] MEDS: PROMETHAZINE INJ 25 MG/ML (PHENERGAN) AMP IVP PRN ×2 (08:17→16:26)
[2020-04-23] MEDS: METOCLOPRAMIDE INJ 10 MG/2 ML (REGLAN) IVP SCH ×4 (08:17→20:23)
[2020-04-23] MEDS ORDERED: CYANOCOBALAMIN INJ 1000 MCG/ML IM ONE (10:15)
[2020-04-23] MEDS: IRON SUCROSE 200 MG/10 ML (VENOFER) VIAL IV SCH (10:23)
[2020-04-23 11:05] LABS: BASOPHILS % (AUTO) 1 % (0-10); EOSINOPHILS # (AUTO) 0.1 10^3/uL (0.0-0.3); EOSINOPHILS % (AUTO) 5 % (0-10); HEMATOCRIT 27 % (35-52); HEMOGLOBIN 9.2 g/dL (11.5-16.0); LYMPHOCYTES # (AUTO) 0.7 10^3/uL (1.0-4.0); LYMPHOCYTES % (AUTO) 28 % (12-44); MEAN CORPUSCULAR HEMOGLOBIN 33 pg (25-34); MEAN CORPUSCULAR HGB CONC 34 g/dL (32-36); MEAN CORPUSCULAR VOLUME 96 fL (80-99); MONOCYTES # (AUTO) 0.4 10^3/uL (0.0-1.0); MONOCYTES % (AUTO) 18 % (0-12); NEUTROPHILS # (AUTO) 1.1 10^3/uL (1.8-7.8); NEUTROPHILS % (AUTO) 45 % (42-75); PLATELET COUNT 147 10^3/uL (130-400); WHITE BLOOD COUNT 2.3 10^3/uL (4.3-11.0)
[2020-04-23 11:25] LABS: ALANINE AMINOTRANSFERASE 11 U/L (0-55); ALKALINE PHOSPHATASE 88 U/L (40-136); BILIRUBIN,TOTAL 0.3 MG/DL (0.1-1.0); BUN/CREATININE RATIO 11; CALCIUM 7.1 MG/DL (8.5-10.1); CARBON DIOXIDE 13 MMOL/L (21-32); CHLORIDE 115 MMOL/L (98-107); CREATININE SERUM 0.85 MG/DL (0.60-1.30); GFR ESTIMATED > 60; GLUCOSE 85 MG/DL (70-105); POTASSIUM 3.4 MMOL/L (3.6-5.0); SODIUM 140 MMOL/L (135-145); TOTAL PROTEIN 5.3 GM/DL (6.4-8.2)
[2020-04-23] MEDS: NS W/KCL 20 MEQ/L 1,000 ML IV SCH ×2 (11:29→20:36)
--- NOTE | 2020-04-23 11:35 | Progress Note - Hospitalist ---
ALYSSA MOORE,[facility] 04/23/20 1135: Subjective HPI/CC On Admission Date Seen by Provider: Apr 23, 2020 Time Seen by Provider: 10:30 To ER with abdominal pain rectal bleeding nausea vomiting since yesterday. Hist ory of multiple myeloma for which she is undergoing treatment with Dr. House with VRD regimen Subjective/Events-last exam States that she feels slightly better today. Continues to report N/V/D without solid BM and continued abdominal pain, especially in the periumbilical area. Review of Systems General: No Chills HEENT: No Head Aches Pulmonary: No Dyspnea Cardiovascular: No: Chest Pain Gastrointestinal: Nausea, Vomiting, Abdominal Pain, Diarrhea Genitourinary: No Dysuria Objective Exam Vital Signs Vital Signs Date Time Temp Pulse Resp B/P (MAP) Pulse Ox O2 Delivery O2 Flow Rate FiO2 04/23/20 08:00 Room Air 04/23/20 08:00 37.1 92 16 136/74 (94) 97 Capillary Refill : Less Than 3 Seconds General Appearance: Mild Distress Respiratory: Chest Non Tender, Lungs Clear, Normal Breath Sounds Cardiovascular: Regular Rate, Rhythm, No Edema Gastrointestinal: Abnormal Bowel Sounds (Hypoactive), Tenderness Extremity: Normal Capillary Refill, No Pedal Edema Results/Procedures Lab Laboratory Tests 04/23/20 10:55 Patient resulted labs reviewed. Assessment/Plan Assessment and Plan Assess & Plan/Chief Complaint 1. Rectal Bleed + abdominal pain -General surgery consulted -Clear liquids as tolerated -Radiology suspects SBO w/o free air -Given zosyn d/t immunosuppressive therapy for MM 2. N/V/D -Zofran, phenergan, reglan -No NGT per Dr. Bai -Loperamide 3. KALEY -Resolved with IVF 4. Multiple Myeloma -undergoing chemotherapy -Fentanyl, Percocet 5. Anemia with Iron Deficiency -Monitor with CBC -VenIVELISSE Urban DO 04/24/20 0542: Subjective Subjective/Events-last exam Pt doing about the same Diarrhea continues IV Iron infusion along with B12 1000micrograms subQ Abdominal pain continues but lessened No solid BM yet May need TPN Review of Systems General: Fatigue Objective Exam General Appearance: No Apparent Distress, WD/WN, Chronically ill Respiratory: Chest Non Tender, Lungs Clear, No Accessory Muscle Use, No Respiratory Distress, Decreased Breath Sounds Cardiovascular: Regular Rate, Rhythm, No Edema, No Gallop, No JVD, No Murmur, Normal Peripheral Pulses Neurologic/Psychiatric: Alert, Oriented x3, No Motor/Sensory Deficits, Depressed Affect Assessment/Plan Assessment and Plan Assess & Plan/Chief Complaint Replace potassium Iron infusions Supervisory-Addendum Brief Verification & Attestation Participated in pt care: history, MDM, physical Personally performed: exam, history, MDM, supervision of care Care discussed with: Medical Student Procedures: n/a Results interpretation: Verified all documentation Verification and Attestation of Medical Student E/M Service A medical student performed and documented this service in my presence. I reviewed and verified all information documented by the medical student and made modifications to such information, when appropriate. I personally performed the physical exam and medical decision making. Ivelisse Lea, Apr 24, 2020,05:41 ALYSSA MOORE,MED STUDEN Apr 23, 2020 11:35 IVELISSE LEA DO Apr 24, 2020 05:42
--- NOTE | 2020-04-23 14:16 | Progress Note ---
Subjective Date Seen by a Provider: Apr 23, 2020 Time Seen by a Provider: 14:00 Subjective/Events-last exam doing ok but states many PO things make her nauseous. patient no obstructed and having multiple loose stools daily. abdomen soft. likely chemotherapy induced. TPN will be started. Objective Exam Vital Signs Date Time Temp Pulse Resp B/P (MAP) Pulse Ox O2 Delivery O2 Flow Rate FiO2 04/23/20 12:26 93 04/23/20 12:00 37.0 93 18 145/67 (93) 96 Room Air 04/23/20 08:00 Room Air 04/23/20 08:00 37.1 92 16 136/74 (94) 97 Room Air 04/23/20 06:58 85 04/23/20 04:03 36.6 90 16 141/63 (89) 95 Room Air 04/23/20 01:00 80 04/23/20 00:21 37.4 78 20 136/61 (86) 96 Room Air 04/22/20 19:59 Room Air 04/22/20 19:50 37.3 78 18 122/74 (90) 95 Room Air 04/22/20 19:00 74 04/22/20 16:00 37.2 63 18 142/71 (94) 96 Room Air I & O 04/23/20 07:00 Intake Total 2010 ml Output Total 3125 ml Balance -1115 ml Capillary Refill : Less Than 3 Seconds General Appearance: No Apparent Distress HEENT: PERRL/EOMI Neck: Full Range of Motion Respiratory: Chest Non Tender, Normal Breath Sounds Cardiovascular: Regular Rate, Rhythm Gastrointestinal: normal bowel sounds, non tender, soft Extremity: Normal Capillary Refill Neurologic/Psychiatric: Alert, Oriented x3 Skin: Normal Color Lymphatic: No Adenopathy Results Lab Laboratory Tests 04/23/20 10:55: White Blood Count 2.3L, Red Blood Count 2.79L, Hemoglobin 9.2#L, Hematocrit 27L, Mean Corpuscular Volume 96, Mean Corpuscular Hemoglobin 33, Mean Corpuscular Hemoglobin Concent 34, Red Cell Distribution Width 13.6, Platelet Count 147, Mean Platelet Volume 10.0, Immature Granulocyte % (Auto) 2, Neutrophils (%) (Auto) 45, Lymphocytes (%) (Auto) 28, Monocytes (%) (Auto) 18H, Eosinophils (%) (Auto) 5, Basophils (%) (Auto) 1, Neutrophils # (Auto) 1.1L, Lymphocytes # (Auto) 0.7L, Monocytes # (Auto) 0.4, Eosinophils # (Auto) 0.1, Basophils # (Auto) 0.0, Immature Granulocyte # (Auto) 0.1, Sodium Level 140, Potassium Level 3.4L, Chloride Level 115H, Carbon Dioxide Level 13L, Anion Gap 12, Blood Urea Nitrogen 9, Creatinine 0.85, Estimat Glomerular Filtration Rate > 60, BUN/Creatinine Ratio 11, Glucose Level 85, Calcium Level 7.1L, Corrected Calcium 7.9L, Total Bilirubin 0.3, Aspartate Amino Transf (AST/SGOT) 22, Alanine Aminotransferase (ALT/SGPT) 11, Alkaline Phosphatase 88, Total Protein 5.3L, Albumin 3.0L Microbiology 04/18/20 C. difficile [facility] Antigen & Toxins - Final, Complete Assessment/Plan Assessment/Plan Assess & Plan/Chief Complaint previous ileus with KALEY and hypomag. 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 patient not obstructed and having many loose stools daily. has nausea with many things. feel this in part due to chemo. starting TPN FLASH MOORE MD Apr 23, 2020 14:16
[2020-04-23] MEDS: PANTOPRAZOLE 40 MG (PROTONIX) VIAL IV SCH (20:18)
[2020-04-23] MEDS: fentaNYL INJECTION 100 MCG/2 ML AMP IVP PRN (20:21)
[2020-04-23] MEDS: LORazepam 0.5 MG (ATIVAN) TABLET PO PRN (20:30)
[2020-04-23] MEDS ORDERED: RT-ALBUTEROL SULF 2.5 MG/3 ML PRE-MIX VIAL INH PRN (20:45)
[2020-04-23] MEDS ORDERED: RT-ALBUTEROL/IPRATROPIUM 3 ML (DUONEB) VIAL IH PRN (20:45)
[2020-04-23] MEDS ORDERED: hydrOXYzine (VISTARIL/ATARAX) 25 MG capsule/tablet PO PRN (22:00)
[2020-04-23] MEDS: amLODIPine 5 MG (NORVASC) TAB PO SCH (23:07)
[2020-04-23] MEDS: ATENOLOL 50 MG (TENORMIN) TAB PO SCH (23:07)
[2020-04-24] MEDS: fentaNYL INJECTION 100 MCG/2 ML AMP IVP PRN ×4 (01:07→21:05)
[2020-04-24] MEDS: PROMETHAZINE INJ 25 MG/ML (PHENERGAN) AMP IVP PRN ×3 (01:07→21:18)
[2020-04-24] MEDS: PIPERACILLIN/TAZOBACTAM (BULK) 4.5 GM in NS (IVPB) 100 ML IV SCH ×3 (01:31→17:13)
[2020-04-24 03:54] VITALS: BP 92/50
[2020-04-24] MEDS: oxyCODONE/APAP 10/325MG (PERCOCET 10) TABLET PO SCH ×4 (05:33→23:13)
[2020-04-24] MEDS: ONDANSETRON 4 MG/2 ML (SDV) Z0FRAN IVP PRN ×2 (05:33→16:21)
[2020-04-24 05:43] LABS: BASOPHILS % (AUTO) 1 % (0-10); EOSINOPHILS # (AUTO) 0.2 10^3/uL (0.0-0.3); EOSINOPHILS % (AUTO) 8 % (0-10); HEMATOCRIT 24 % (35-52); HEMOGLOBIN 8.2 g/dL (11.5-16.0); LYMPHOCYTES # (AUTO) 0.7 10^3/uL (1.0-4.0); LYMPHOCYTES % (AUTO) 32 % (12-44); MEAN CORPUSCULAR HEMOGLOBIN 33 pg (25-34); MEAN CORPUSCULAR HGB CONC 34 g/dL (32-36); MEAN CORPUSCULAR VOLUME 96 fL (80-99); MEAN PLATELET VOLUME 10.3 fL (9.0-12.2); MONOCYTES # (AUTO) 0.5 10^3/uL (0.0-1.0); MONOCYTES % (AUTO) 22 % (0-12); NEUTROPHILS # (AUTO) 0.8 10^3/uL (1.8-7.8); NEUTROPHILS % (AUTO) 36 % (42-75); PLATELET COUNT 169 10^3/uL (130-400); WHITE BLOOD COUNT 2.2 10^3/uL (4.3-11.0)
[2020-04-24 05:57] LABS: ALBUMIN 2.8 GM/DL (3.2-4.5); CHLORIDE 116 MMOL/L (98-107); POTASSIUM 3.2 MMOL/L (3.6-5.0); SODIUM 140 MMOL/L (135-145)
[2020-04-24 05:58] LABS: CALCIUM 6.6 MG/DL (8.5-10.1)
[2020-04-24 05:59] LABS: GLUCOSE 77 MG/DL (70-105)
[2020-04-24 06:00] LABS: TOTAL PROTEIN 4.9 GM/DL (6.4-8.2)
[2020-04-24 06:01] LABS: BILIRUBIN,TOTAL 0.3 MG/DL (0.1-1.0); CARBON DIOXIDE 16 MMOL/L (21-32)
[2020-04-24 06:03] LABS: ALKALINE PHOSPHATASE 70 U/L (40-136); CREATININE SERUM 0.79 MG/DL (0.60-1.30); GFR ESTIMATED > 60
[2020-04-24 06:04] LABS: BUN/CREATININE RATIO 10
[2020-04-24 06:06] LABS: ALANINE AMINOTRANSFERASE 10 U/L (0-55)
[2020-04-24] MEDS: NS W/KCL 20 MEQ/L 1,000 ML IV SCH ×2 (06:42→11:47)
[2020-04-24 08:00] VITALS: BP 109/55
[2020-04-24] MEDS ORDERED: NON-FORMULARY MEDICATION 1 EA EA (Esomeprazole Magnesium 40 MG) PO SCH (09:00)
[2020-04-24] MEDS: polyethylene glycoL POWDER 17 GM (MIRALAX) PACK PO SCH ×2 (09:22→19:30)
[2020-04-24] MEDS: METOCLOPRAMIDE INJ 10 MG/2 ML (REGLAN) IVP SCH ×4 (09:22→20:58)
[2020-04-24] MEDS: PANTOPRAZOLE 40 MG (PROTONIX) VIAL IV SCH ×2 (09:22→21:09)
[2020-04-24] MEDS ORDERED: TPN IV SCH (10:30)
[2020-04-24 11:11] LABS: MAGNESIUM 1.4 MG/DL (1.6-2.4); PHOSPHORUS 1.6 MG/DL (2.3-4.7)
--- NOTE | 2020-04-24 11:44 | Progress Note - Hospitalist ---
ALYSSA MOORE,[facility] 04/24/20 1144: Subjective HPI/CC On Admission Date Seen by Provider: Apr 24, 2020 Time Seen by Provider: 09:40 To ER with abdominal pain rectal bleeding nausea vomiting since yesterday. Hist ory of multiple myeloma for which she is undergoing treatment with Dr. House with VRD regimen Subjective/Events-last exam Reports feeling slightly better this am despite continued N/V/D and abd pain. She endorses an episode of subjective fever overnight but denies feeling febrile currently. Review of Systems General: No Chills Pulmonary: No Dyspnea Cardiovascular: No: Chest Pain Gastrointestinal: Nausea, Vomiting, Abdominal Pain, Diarrhea Genitourinary: No Dysuria Objective Exam Vital Signs Vital Signs Date Time Temp Pulse Resp B/P (MAP) Pulse Ox O2 Delivery O2 Flow Rate FiO2 04/24/20 08:00 37.2 65 20 109/55 (73) 96 Room Air Capillary Refill : Less Than 3 Seconds General Appearance: No Apparent Distress Respiratory: Chest Non Tender, Lungs Clear, Normal Breath Sounds Cardiovascular: Regular Rate, Rhythm, No Edema Gastrointestinal: Abnormal Bowel Sounds (Hypoactive), Tenderness Rectal: Deferred Back: Normal Inspection Extremity: Normal Capillary Refill, No Pedal Edema Neurologic/Psychiatric: Alert Skin: Normal Color Results/Procedures Lab Laboratory Tests 04/24/20 05:20 Patient resulted labs reviewed. Assessment/Plan Assessment and Plan Assess & Plan/Chief Complaint 1. Rectal Bleed + abdominal pain -General surgery consulted -Clear liquids as tolerated, TPN to start tonight -Zosyn d/t immunosuppressive therapy for MM 2. N/V/D -Zofran, phenergan, reglan -No NGT per Dr. Bai -Loperamide 3. KALEY -Resolved with IVF 4. Multiple Myeloma -undergoing chemotherapy -Fentanyl, Percocet 5. Anemia with Iron Deficiency -Monitor with CBC -IVELISSE Gentile DO 04/25/20 0502: Subjective Subjective/Events-last exam Abdominal pain is still an issue Nausea and vomiting continue Very debilitated Will DC cath and DC telemetry Will assess pain medication Review of Systems General: Fatigue Gastrointestinal: Abdominal Pain Objective Exam General Appearance: No Apparent Distress, WD/WN, Chronically ill Respiratory: Lungs Clear Cardiovascular: Regular Rate, Rhythm Neurologic/Psychiatric: Alert, Oriented x3, No Motor/Sensory Deficits, Normal Mood/Affect Assessment/Plan Assessment and Plan Assess & Plan/Chief Complaint Monitor closely TPN DC catheter DC Tely Supervisory-Addendum Brief Verification & Attestation Participated in pt care: history, MDM, physical Personally performed: exam, history, MDM, supervision of care Care discussed with: Medical Student Procedures: n/a Results interpretation: Verified all documentation Verification and Attestation of Medical Student E/M Service A medical student performed and documented this service in my presence. I rev iewed and verified all information documented by the medical student and made modifications to such information, when appropriate. I personally performed the physical exam and medical decision making. Ivelisse Lea, Apr 25, 2020,05:01 ALYSSA MOORE,MED STUDEN Apr 24, 2020 11:44 IVELISSE LEA DO Apr 25, 2020 05:02
[2020-04-24 12:00] VITALS: BP 148/65
[2020-04-24] MEDS: POTASSIUM PHOSPHATE INJ 6.8 MM in NS (IVPB) 50 ML IV SCH ×4 (12:33→16:00)
[2020-04-24] MEDS: MAGNESIUM 1 GM/100 ML IVPB 100 ML IV SCH ×4 (12:33→16:00)
--- NOTE | 2020-04-24 13:07 | Physical Therapy Evaluation ---
PT Evaluation-General Medical Diagnosis Admission Date Apr 18, 2020 at 13:53 Medical Diagnosis: weakness Onset Date: Apr 18, 2020 Therapy Diagnosis Therapy Diagnosis: impaired mobility, strength, endurance Height/Weight Height (Feet): 5 Height (Inches): 0 Weight (Pounds): 156 Weight (Ounces): 0 Precautions Precautions/Isolations: Chemo Precautions, Standard Precautions Referral Physician: Ivelisse Alicea DO Reason for Referral: Evaluation/Treatment Medical History Pertinent Medical History: COPD, HTN, Smoking Additional Medical History multiple myeloma, CKD Reviewed History: Yes Social History Home: Single Level Prior Prior Level of Function SCALE: Activities may be completed with or without assistive devices. 3-Afgzrgiizm-ddqozvi completes the activity by him/herself with no assistance from a helper. 5-Set-up or Clean-up Assistance-helper sets up or cleans up; patient completes activity. [place] assists only prior to or following the activity. 4-Supervision or Touching Assistance-helper provides verbal cues and/or touching/steadying and/or contact guard assistance as patient completes activity. Assistance may be provided throughout the activity or intermittently. 3-Partial/Moderate Assistance-helper does LESS THAN HALF the effort. [place] lifts, holds or supports trunk or limbs, but provides less than half the effort. 2-Substantial/Maximal Assistance-helper does MORE THAN HALF the effort. [place] lifts or holds trunk or limbs and provides more than half the effort. 7-Uawriqafp-kmngpw does ALL the effort. Patient does none of the effort to compl ete the activity. Or, the assistance of 2 or more helpers is required for the patient to complete the activity. If activity was not attempted, code reason: 7-Patient Refused. 9-Not Applicable-not attempted and the patient did not perform the activity before the current illness, exacerbation or injury. 10-Not Attempted due to Environmental Limitations-(lack of equipment, weather restraints, etc.). 88-Not Attempted due to Medical Conditions or Safety Concerns. Bed Mobility: 6 Transfers (B,C,W/C): 6 Gait: 6 Indoor Mobility (Ambulation): Independent (6) Prior Devices Use: Walker PT Evaluation-Current Subjective Patient in bed pre tx, agrees to PT, has 9/10 pain in abdomen, nurse in room and is aware of pain. Pt/Family Goals to be independent at home Objective Patient Orientation: Person, Place, Situation Attachments: IV ROM/Strength ROM Lower Extremities WNL Strength Lower Extremities BLE 4/5 gross BLE Sensory Vision: Wears Glasses Hearing: Functional Sensation Right Lower Extremit: Intact Sensation Left Lower Extremity: Intact Transfers Roll Left to Right (QC): 6 Sit to Lying (QC): 6 Lying to Sitting/Side of Bed(Q: 6 Sit to Stand (QC): 4 Chair/Fhx-gw-Lyggm Xfer(QC): 4 Gait Does the Patient Walk?: Yes Mode of Locomotion: Walk Anticipated Mode of Locomotion: Walk Walk 10 feet (QC): 4 Walk 50 ft with 2 Turns(QC): 4 Walk 150 ft (QC): 4 Distance: 160' Gait Assistive Device: FWW Comments/Gait Description slow but steady ambulation Balance Sitting Static: Normal Sitting Dynamic: Normal Standing Static: Good Standing Dynamic: Good Treatment BLE exercises supine x20 (AP, HS) Assessment/Needs Patient has impaired mobility, strength, endurance. Patient in bed post tx with nurse call, phone, tray, all needs met. Rehab Potential: Fair PT Associate Manager Affiliate Marketing Goals Associate Manager Affiliate Marketing Goals PT Associate Manager Affiliate Marketing Goals Time Frame: May 01, 2020 Roll Left & Right (QC): 6 Sit to Lying (QC): 6 Lying-Sitting on Side/Bed(QC): 6 Sit to Stand (QC): 6 Chair/Ajo-il-Jmfkn Xfer(QC): 6 Walk 10 feet (QC): 6 Walk 50ft with 2 Turns (QC): 6 Walk 150 ft (QC): 6 PT Plan Problem List Problem List: Activity Tolerance, Functional Strength, Safety, Balance, Gait, Transfer, ROM Treatment/Plan Treatment Plan: Continue Plan of Care Treatment Plan: Education, Functional Activity Alanna, Functional Strength, Gait, Safety, Therapeutic Exercise, Transfers Treatment Duration: May 01, 2020 Frequency: 6 times per week Estimated Hrs Per Day: .25 hour per day Patient and/or Family Agrees t: Yes Safety Risks/Education Patient Education: Gait Training, Transfer Techniques, Correct Positioning, Safety Issues Teaching Recipient: Patient Teaching Methods: Demonstration, Discussion Response to Teaching: Reinforcement Needed Discharge Recommendations Plan Patient will perform bed mobility and transfer training, balance and endurance training, functional strengthening, stair training, gait training, and education, to improve functional mobility and independence at home. Therapy Discharge Recommendati: Home & Family Time/GCodes Time In: 1155 Time Out: 1210 Total Billed Treatment Time: 15 Total Billed Treatment 1 visit MIRNA 15' AMAURY OLIVEROS PT Apr 24, 2020 13:07
--- NOTE | 2020-04-24 13:52 | Occupational Therapy Eval ---
OT Evaluation-General/PLF Medical Diagnosis Admission Date Apr 18, 2020 at 13:53 Medical Diagnosis: weakness Onset Date: Apr 18, 2020 Therapy Diagnosis Therapy Diagnosis: weak Height/Weight Height (Feet): 5 Height (Inches): 0 Weight (Pounds): 156 Weight (Ounces): 0 Precautions Precautions/Isolations: Chemo Precautions, Standard Precautions Referral Physician: Ivelisse Alicea DO Referral Reason: Evaluation/Treatment Medical History Pertinent Medical History: COPD, HTN, Smoking Additional Medical History multiple myeloma, CKD Current History ED due to worsening abdominal pain and rectal bleeding, pt on chemotherapy Reviewed History: Yes Social History Home: Single Level Current Living Status: ADL-Prior Level of Function SCALE: Activities may be completed with or without assistive devices. 9-Zieuycrorm-vvnurzg completes the activity by him/herself with no assistance from a helper. 5-Set-up or Clean-up Assistance-helper sets up or cleans up; patient completes activity. [place] assists only prior to or following the activity. 4-Supervision or Touching Assistance-helper provides verbal cues and/or touching/steadying and/or contact guard assistance as patient completes activity. Assistance may be provided throughout the activity or intermittently. 3-Partial/Moderate Assistance-helper does LESS THAN HALF the effort. [place] lifts, holds or supports trunk or limbs, but provides less than half the effort. 2-Substantial/Maximal Assistance-helper does MORE THAN HALF the effort. [place] lifts or holds trunk or limbs and provides more than half the effort. 9-Lmlrttznh-vpoxgr does ALL the effort. Patient does none of the effort to complete the activity. Or, the assistance of 2 or more helpers is required for the patient to complete the activity. If activity was not attempted, code reason: 7-Patient Refused. 9-Not Applicable-not attempted and the patient did not perform the activity before the current illness, exacerbation or injury. 10-Not Attempted due to Environmental Limitations-(lack of equipment, weather restraints, etc.). 88-Not Attempted due to Medical Conditions or Safety Concerns. ADL PLOF Comments Pt lives with her brother and aunbdb-wh-xeo, states she is independent with ADLS and functional mobility. She owns a walker, but does not use it regularly. Self Care: Independent Functional Cognition: Independent DME/Equipment Comments walker OT Current Status Subjective Pt laying in bed, agreeable to OT evaluation and tx. Mental Status/Objective Patient Orientation: Person, Place, Time, Situation Attachments: IV Current Upper Extremity ROM WFL, BUE shoulder flexion to approx 150 degrees Upper Extremity Coordination WFL Upper Extremity Sensation WFL Upper Extremity Strength WFL, pt reports her strength is at PLOF ADL-Treatment Eating (QC): 6 (Pt indicates no difficulty with lunch) Oral Hygiene (QC): 7 (Pt declined at this time) Shower/Bathe Self (QC): 7 (Pt declined at this time) Toileting Hygiene (QC): 6 (IND with clothing management and hygiene) Other Treatments Pt laying in bed, agreeable to OT evaluation and tx. OT educated pt on purpose and benefit of OT, she verbalized understanding. Pt provided information about PLOF and home set up, and participated in UE screen. Pt feels as though she is at her PLOF, and does not require OT services at this time. Pt transferred EOB, then into bathroom using FWW independently, stood at sink to wash her hands, and returned to bed independently. Post tx, pt laying in bed, call light in reach and all needs met. Education OT Patient Education: Correct positioning, Progress toward Goal/Update tx plan, Purpose of tx/functional activities, Rehab process Teaching Recipient: Patient Teaching Methods: Discussion Response to Teaching: Verbalize Understanding OT Station Installer Goals Station Installer Goals 1=Demonstrate adherence to instructed precautions during ADL tasks. 2=Patient will verbalize/demonstrate understanding of assistive devices/modifications for ADL. 3=Patient will improve strength/tolerance for activity to enable patient to perform ADL's. OT Education/Plan Problem List/Assessment Assessment: No Skilled OT Needs ID'd No skilled OT services indicated at this time, as pt is at her PLOF, and independent with ADLS. Discharge Recommendations Plan/Recommendations: Discharge/Goals Met Treatment Plan/Plan of Care Patient would benefit from OT for education, treatment and training to promote independence in ADL's, mobility, safety and/or upper extremity function for ADL's. Plan of Care: ADL Retraining Treatment Duration: Apr 24, 2020 Frequency: 1 time per week (eval only) Rehab Potential: Fair Time/GCodes Start Time: 13:28 Stop Time: 13:39 Total Time Billed (hr/min): 11 Billed Treatment Time 1, EVL LISSA HUTCHINS OT Apr 24, 2020 13:52
[2020-04-24 16:14] VITALS: BP 112/61
[2020-04-24] MEDS ORDERED: SODIUM CHLORIDE IV SCH ×10 (17:00)
[2020-04-24] MEDS ORDERED: [UNRECOGNIZED DRUG - OTHER] IV SCH ×10 (17:00)
[2020-04-24] MEDS ORDERED: POTASSIUM ACETATE IV SCH ×10 (17:00)
[2020-04-24] MEDS: NS IV 1000 ML 1,000 ML IV SCH (17:13)
[2020-04-24 19:51] VITALS: BP 101/48
[2020-04-24] MEDS: amLODIPine 5 MG (NORVASC) TAB PO SCH (20:32)
[2020-04-24] MEDS: ATENOLOL 50 MG (TENORMIN) TAB PO SCH (20:33)
[2020-04-24] MEDS: LORazepam 0.5 MG (ATIVAN) TABLET PO PRN (21:04)
[2020-04-24 23:11] VITALS: BP 118/62
[2020-04-25] VITALS (11 sets, daily range): BP systolic 98–134; BP diastolic 50–66
[2020-04-25] MEDS: PIPERACILLIN/TAZOBACTAM (BULK) 4.5 GM in NS (IVPB) 100 ML IV SCH ×3 (02:44→17:33)
[2020-04-25] MEDS: fentaNYL INJECTION 100 MCG/2 ML AMP IVP PRN ×5 (02:58→21:35)
[2020-04-25] MEDS: ONDANSETRON 4 MG/2 ML (SDV) Z0FRAN IVP PRN ×3 (02:58→21:35)
[2020-04-25] MEDS: LORazepam 0.5 MG (ATIVAN) TABLET PO PRN ×2 (04:03→21:35)
[2020-04-25] MEDS: PROMETHAZINE INJ 25 MG/ML (PHENERGAN) AMP IVP PRN ×2 (05:25→13:42)
[2020-04-25] MEDS: oxyCODONE/APAP 10/325MG (PERCOCET 10) TABLET PO SCH ×4 (05:28→23:10)
[2020-04-25 05:58] LABS: BASOPHILS % (AUTO) 1 % (0-10); EOSINOPHILS # (AUTO) 0.2 10^3/uL (0.0-0.3); EOSINOPHILS % (AUTO) 11 % (0-10); HEMATOCRIT 22 % (35-52); HEMOGLOBIN 7.3 g/dL (11.5-16.0); LYMPHOCYTES # (AUTO) 0.7 10^3/uL (1.0-4.0); LYMPHOCYTES % (AUTO) 33 % (12-44); MEAN CORPUSCULAR HEMOGLOBIN 33 pg (25-34); MEAN CORPUSCULAR HGB CONC 34 g/dL (32-36); MEAN CORPUSCULAR VOLUME 96 fL (80-99); MEAN PLATELET VOLUME 10.6 fL (9.0-12.2); MONOCYTES # (AUTO) 0.4 10^3/uL (0.0-1.0); MONOCYTES % (AUTO) 19 % (0-12); NEUTROPHILS # (AUTO) 0.7 10^3/uL (1.8-7.8); NEUTROPHILS % (AUTO) 35 % (42-75); PLATELET COUNT 151 10^3/uL (130-400)
[2020-04-25 06:04] LABS: ALBUMIN 2.8 GM/DL (3.2-4.5); CHLORIDE 115 MMOL/L (98-107); POTASSIUM 3.2 MMOL/L (3.6-5.0); SODIUM 139 MMOL/L (135-145)
[2020-04-25 06:05] LABS: CALCIUM 6.6 MG/DL (8.5-10.1)
[2020-04-25 06:06] LABS: GLUCOSE 97 MG/DL (70-105)
[2020-04-25 06:07] LABS: TOTAL PROTEIN 4.8 GM/DL (6.4-8.2)
[2020-04-25 06:08] LABS: BILIRUBIN,TOTAL 0.2 MG/DL (0.1-1.0); CARBON DIOXIDE 16 MMOL/L (21-32)
[2020-04-25 06:10] LABS: ALKALINE PHOSPHATASE 58 U/L (40-136); CREATININE SERUM 0.81 MG/DL (0.60-1.30); GFR ESTIMATED > 60; PHOSPHORUS 2.3 MG/DL (2.3-4.7)
[2020-04-25 06:11] LABS: BUN/CREATININE RATIO 14
[2020-04-25 06:13] LABS: ALANINE AMINOTRANSFERASE 10 U/L (0-55); MAGNESIUM 2.1 MG/DL (1.6-2.4)
[2020-04-25] MEDS: METOCLOPRAMIDE INJ 10 MG/2 ML (REGLAN) IVP SCH ×4 (09:32→21:34)
[2020-04-25] MEDS: polyethylene glycoL POWDER 17 GM (MIRALAX) PACK PO SCH ×2 (09:32→20:12)
[2020-04-25] MEDS: IRON SUCROSE 200 MG/10 ML (VENOFER) VIAL IV SCH (09:32)
[2020-04-25] MEDS: PANTOPRAZOLE 40 MG (PROTONIX) VIAL IV SCH ×2 (09:33→21:32)
[2020-04-25] MEDS: POTASSIUM CL 10MEQ/50ML IVPB 50 ML IV SCH ×5 (09:33→11:40)
[2020-04-25] MEDS: NS IV 1000 ML 1,000 ML IV SCH (09:38)
[2020-04-25] MEDS ORDERED: FUROSEMIDE 40 MG/4 ML INJ (LASIX) IVP NR (10:45)
[2020-04-25] MEDS ORDERED: NS IV 500 ML 500 ML IV SCH (10:45)
--- NOTE | 2020-04-25 11:16 | Progress Note - Hospitalist ---
ALYSSA MOORE,[facility] 04/25/20 1116: Subjective HPI/CC On Admission Date Seen by Provider: Apr 25, 2020 Time Seen by Provider: 11:00 To ER with abdominal pain rectal bleeding nausea vomiting since yesterday. Hist ory of multiple myeloma for which she is undergoing treatment with Dr. House with VRD regimen Subjective/Events-last exam Feels significantly better this am with decreased N/V/D and increased appetite. Still c/o abdominal pain but that too has improved slightly. Denies fever/C P/SOB. Review of Systems General: No Chills; Fatigue Pulmonary: No Dyspnea Cardiovascular: No: Chest Pain Gastrointestinal: Nausea, Vomiting, Abdominal Pain, Diarrhea Genitourinary: No Dysuria Objective Exam Vital Signs Vital Signs Date Time Temp Pulse Resp B/P (MAP) Pulse Ox O2 Delivery O2 Flow Rate FiO2 04/25/20 08:00 95 Room Air 04/25/20 07:25 36.9 69 18 98/50 (66) Capillary Refill : Less Than 3 Seconds General Appearance: No Apparent Distress Respiratory: Chest Non Tender, Lungs Clear, Normal Breath Sounds Cardiovascular: Regular Rate, Rhythm, No Edema Gastrointestinal: Normal Bowel Sounds, Tenderness Rectal: Deferred Back: Normal Inspection Extremity: Normal Capillary Refill, No Pedal Edema Neurologic/Psychiatric: Alert Results/Procedures Lab Laboratory Tests 04/25/20 05:30 Patient resulted labs reviewed. Assessment/Plan Assessment and Plan Assess & Plan/Chief Complaint 1. Rectal Bleed + abdominal pain -General surgery following -Clear liquids as tolerated -TPN -Zosyn d/t immunosuppressive therapy for MM 2. N/V/D -Zofran, phenergan, reglan -No NGT per Dr. Bai -Loperamide 3. KALEY -Resolved with IVF 4. Multiple Myeloma -undergoing chemotherapy -Fentanyl, Percocet 5. Anemia with Iron Deficiency -Monitor with CBC -Venofer -Transfuse 2 units pRBCs today IVELISSE LEA DO 04/26/20 0511: Subjective Subjective/Events-last exam Patient hungry Diet advancement will need to come from surgery TPN maintained Labs stable Giving 2 units of blood No increased pain Review of Systems General: Fatigue Gastrointestinal: Nausea, Vomiting, Abdominal Pain, Diarrhea Objective Exam General Appearance: No Apparent Distress, WD/WN, Chronically ill Respiratory: Lungs Clear Cardiovascular: Regular Rate, Rhythm Neurologic/Psychiatric: Alert, Oriented x3, No Motor/Sensory Deficits, Normal Mood/Affect Assessment/Plan Assessment and Plan Assess & Plan/Chief Complaint Transfuse Pain control TPN Supportive care Supervisory-Addendum Brief Verification & Attestation Participated in pt care: history, MDM, physical Personally performed: exam, history, MDM, supervision of care Care discussed with: Medical Student Procedures: n/a Results interpretation: Verified all documentation Verification and Attestation of Medical Student E/M Service A medical student performed and documented this service in my presence. I reviewed and verified all information documented by the medical student and made modifications to such information, when appropriate. I personally performed the physical exam and medical decision making. Ivelisse Lea, Apr 26, 2020,05:10 ALYSSA MOORE,MED STUDEN Apr 25, 2020 11:16 IVELISSE LEA DO Apr 26, 2020 05:11
--- NOTE | 2020-04-25 12:02 | Physical Therapy Daily Note ---
PT Daily Note-Current Subjective Patient states, "I hope to go home tomorrow." Agrees to PT. Pain Numeric Pain Scale: 8 Location: Lower Location Body Site: Abdomen Comment: meds issued Mental Status Patient Orientation: Normal For Age Attachments: IV Transfers SCALE: Activities may be completed with or without assistive devices. 1-Xccpdultey-thycdxh completes the activity by him/herself with no assistance from a helper. 5-Set-up or Clean-up Assistance-helper sets up or cleans up; patient completes activity. [place] assists only prior to or following the activity. 4-Supervision or Touching Assistance-helper provides verbal cues and/or to uching/steadying and/or contact guard assistance as patient completes activity. Assistance may be provided throughout the activity or intermittently. 3-Partial/Moderate Assistance-helper does LESS THAN HALF the effort. [place] lifts, holds or supports trunk or limbs, but provides less than half the effort. 2-Substantial/Maximal Assistance-helper does MORE THAN HALF the effort. [place] lifts or holds trunk or limbs and provides more than half the effort. 0-Ntkrvddix-udjoge does ALL the effort. Patient does none of the effort to complete the activity. Or, the assistance of 2 or more helpers is required for the patient to complete the activity. If activity was not attempted, code reason: 7-Patient Refused. 9-Not Applicable-not attempted and the patient did not perform the activity before the current illness, exacerbation or injury. 10-Not Attempted due to Environmental Limitations-(lack of equipment, weather restraints, etc.). 88-Not Attempted due to Medical Conditions or Safety Concerns. Lying to Sitting/Side of Bed(Q: 6 Sit to Stand (QC): 6 Chair/Qfy-li-Hubco Xfer(QC): 6 Gait Training Does the Patient Walk?: Yes Distance: 400' Walk 10 feet (QC): 6 Walk 50 ft with 2 Turns(QC): 6 Walk 150 ft (QC): 6 Gait Assistive Device: FWW slow, steady Assessment Patient is up in recliner. Good progress with gross motor skills. PT [facility] Goals Public Health Analyst Goals PT Public Health Analyst Goals Time Frame: May 01, 2020 Roll Left & Right (QC): 6 Sit to Lying (QC): 6 Lying-Sitting on Side/Bed(QC): 6 Sit to Stand (QC): 6 Chair/Rhh-ba-Drqvf Xfer(QC): 6 Walk 10 feet (QC): 6 Walk 50ft with 2 Turns (QC): 6 Walk 150 ft (QC): 6 PT Plan Treatment/Plan Treatment Plan: Continue Plan of Care Treatment Plan: Education, Functional Activity Alanna, Functional Strength, Gait, Safety, Therapeutic Exercise, Transfers Treatment Duration: May 01, 2020 Frequency: 6 times per week Estimated Hrs Per Day: .25 hour per day Patient and/or Family Agrees t: Yes Time/GCodes Time In: 1143 Time Out: 1155 Total Billed Treatment Time: 12 Total Billed Treatment 1 visit FA 13 min RUI FRANCO PT Apr 25, 2020 12:02
[2020-04-25] MEDS: ACETAMINOPHEN 325 MG TABLET PO PRN (16:32)
[2020-04-25] MEDS ORDERED: SODIUM ACETATE IV SCH ×11 (17:00)
[2020-04-25] MEDS ORDERED: SODIUM CHLORIDE IV SCH ×11 (17:00)
[2020-04-25] MEDS ORDERED: [UNRECOGNIZED DRUG - OTHER] IV SCH ×11 (17:00)
[2020-04-25] MEDS: ATENOLOL 50 MG (TENORMIN) TAB PO SCH (20:19)
[2020-04-25] MEDS: amLODIPine 5 MG (NORVASC) TAB PO SCH (20:19)
[2020-04-26] VITALS (7 sets, daily range): BP systolic 115–169; BP diastolic 57–86
[2020-04-26] MEDS: fentaNYL INJECTION 100 MCG/2 ML AMP IVP PRN ×5 (00:10→20:23)
[2020-04-26] MEDS: PROMETHAZINE INJ 25 MG/ML (PHENERGAN) AMP IVP PRN ×2 (02:00→23:22)
[2020-04-26] MEDS: PIPERACILLIN/TAZOBACTAM (BULK) 4.5 GM in NS (IVPB) 100 ML IV SCH ×3 (02:07→17:22)
[2020-04-26] MEDS: NS IV 1000 ML 1,000 ML IV SCH (05:28)
[2020-04-26] MEDS: ONDANSETRON 4 MG/2 ML (SDV) Z0FRAN IVP PRN ×2 (05:28→15:43)
[2020-04-26] MEDS: oxyCODONE/APAP 10/325MG (PERCOCET 10) TABLET PO SCH ×4 (05:29→23:09)
[2020-04-26 05:32] LABS: ALBUMIN 2.9 GM/DL (3.2-4.5)
[2020-04-26 05:33] LABS: CHLORIDE 114 MMOL/L (98-107); POTASSIUM 3.6 MMOL/L (3.6-5.0); SODIUM 140 MMOL/L (135-145)
[2020-04-26 05:34] LABS: CALCIUM 7.2 MG/DL (8.5-10.1)
[2020-04-26 05:35] LABS: GLUCOSE 83 MG/DL (70-105)
[2020-04-26] MEDS: ACETAMINOPHEN 325 MG TABLET PO PRN ×2 (05:35→20:08)
[2020-04-26 05:36] LABS: CARBON DIOXIDE 18 MMOL/L (21-32)
[2020-04-26 05:37] LABS: BILIRUBIN,TOTAL 0.3 MG/DL (0.1-1.0)
[2020-04-26 05:38] LABS: PHOSPHORUS 2.1 MG/DL (2.3-4.7)
[2020-04-26 05:39] LABS: ALKALINE PHOSPHATASE 62 U/L (40-136); CREATININE SERUM 0.86 MG/DL (0.60-1.30)
[2020-04-26 05:40] LABS: BUN/CREATININE RATIO 15
[2020-04-26 05:42] LABS: ALANINE AMINOTRANSFERASE 10 U/L (0-55); MAGNESIUM 1.7 MG/DL (1.6-2.4)
[2020-04-26 05:45] LABS: GFR ESTIMATED > 60
[2020-04-26 07:17] LABS: HEMOGLOBIN 9.2 g/dL (11.5-16.0)
[2020-04-26] MEDS: SODIUM PHOSPHATE INJ 7.5 MM in NS (IVPB) 50 ML INJ SCH ×4 (09:03→11:27)
[2020-04-26] MEDS: PANTOPRAZOLE 40 MG (PROTONIX) VIAL IV SCH ×2 (09:03→20:07)
[2020-04-26] MEDS: METOCLOPRAMIDE INJ 10 MG/2 ML (REGLAN) IVP SCH ×4 (09:04→20:07)
[2020-04-26] MEDS: polyethylene glycoL POWDER 17 GM (MIRALAX) PACK PO SCH (09:04)
--- NOTE | 2020-04-26 11:19 | Physical Therapy Daily Note ---
PT Daily Note-Current Subjective Patient agrees to PT. No c/o. Mental Status Patient Orientation: Normal For Age Attachments: [place] Transfers SCALE: Activities may be completed with or without assistive devices. 3-Mvrsmqgymw-uqpldgy completes the activity by him/herself with no assistance from a helper. 5-Set-up or Clean-up Assistance-helper sets up or cleans up; patient completes activity. [place] assists only prior to or following the activity. 4-Supervision or Touching Assistance-helper provides verbal cues and/or touching/steadying and/or contact guard assistance as patient completes activity. Assistance may be provided throughout the activity or intermittently. 3-Partial/Moderate Assistance-helper does LESS THAN HALF the effort. [place] li fts, holds or supports trunk or limbs, but provides less than half the effort. 2-Substantial/Maximal Assistance-helper does MORE THAN HALF the effort. [place] lifts or holds trunk or limbs and provides more than half the effort. 9-Bimztluyh-imqnbr does ALL the effort. Patient does none of the effort to complete the activity. Or, the assistance of 2 or more helpers is required for the patient to complete the activity. If activity was not attempted, code reason: 7-Patient Refused. 9-Not Applicable-not attempted and the patient did not perform the activity before the current illness, exacerbation or injury. 10-Not Attempted due to Environmental Limitations-(lack of equipment, weather restraints, etc.). 88-Not Attempted due to Medical Conditions or Safety Concerns. Sit to Stand (QC): 4 Gait Training Does the Patient Walk?: Yes Distance: 300' Walk 10 feet (QC): 4 Walk 50 ft with 2 Turns(QC): 4 Walk 150 ft (QC): 4 Gait Assistive Device: FWW slightly unsteady due to c/o dizziness (SBA) Assessment Patient remains up in recliner. Patient tolerated treatment well. 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 Time Frame: May 01, 2020 Roll Left & Right (QC): 6 Sit to Lying (QC): 6 Lying-Sitting on Side/Bed(QC): 6 Sit to Stand (QC): 6 Chair/Iae-fq-Nuzdx Xfer(QC): 6 Walk 10 feet (QC): 6 Walk 50ft with 2 Turns (QC): 6 Walk 150 ft (QC): 6 PT Plan Treatment/Plan Treatment Plan: Continue Plan of Care Treatment Plan: Education, Functional Activity Alanna, Functional Strength, Gait, Safety, Therapeutic Exercise, Transfers Treatment Duration: May 01, 2020 Frequency: 6 times per week Estimated Hrs Per Day: .25 hour per day Patient and/or Family Agrees t: Yes Time/GCodes Time In: 1105 Time Out: 1114 Total Billed Treatment Time: 9 Total Billed Treatment 1 visit FA 9 min RUI FRANCO PT Apr 26, 2020 11:19
--- NOTE | 2020-04-26 11:36 | Progress Note - Hospitalist ---
TERESAALYSSA Lechuga,[facility] 04/26/20 1136: Subjective HPI/CC On Admission To ER with abdominal pain rectal bleeding nausea vomiting since yesterday. His tory of multiple myeloma for which she is undergoing treatment with Dr. House with VRD regimen Subjective/Events-last exam Endorses an episode of fever/chills/SOB overnight for which she received breathing treatment & tylenol. She feels better this morning with some abatement of her nausea & abdominal pain without vomiting. Still hungry. Denies CP. Review of Systems General: No Chills Pulmonary: No Dyspnea, No Cough Cardiovascular: No: Chest Pain Gastrointestinal: Nausea, Abdominal Pain, Diarrhea; No: Vomiting Objective Exam Vital Signs Vital Signs Date Time Temp Pulse Resp B/P (MAP) Pulse Ox O2 Delivery O2 Flow Rate FiO2 04/26/20 10:15 97 Room Air 04/26/20 08:11 36.9 75 18 138/84 (102) Capillary Refill : Less Than 3 Seconds General Appearance: No Apparent Distress Respiratory: Chest Non Tender, Lungs Clear, Wheezing (slight expiratory wheezes in the upper amaro bilaterally) Cardiovascular: Regular Rate, Rhythm, No Edema Gastrointestinal: Normal Bowel Sounds, Tenderness Rectal: Deferred Back: Normal Inspection Extremity: Normal Capillary Refill, No Calf Tenderness, No Pedal Edema Neurologic/Psychiatric: Alert Results/Procedures Lab Laboratory Tests 04/26/20 05:14 Patient resulted labs reviewed. Assessment/Plan Assessment and Plan Assess & Plan/Chief Complaint 1. Rectal Bleed + abdominal pain -General surgery following -Clear liquids, advance diet as tolerated -TPN -Zosyn d/t immunosuppressive therapy for MM -OOB with PT/OT 2. N/V/D -Zofran, phenergan, reglan PRN -Loperamide 3. KALEY -Resolved with IVF 4. Multiple Myeloma -undergoing chemotherapy -Fentanyl, Percocet 5. Anemia with Iron Deficiency -Monitor with CBC -Venofer -Transfused 2 units pRBCs IVELISSE LEA DO 04/27/20 0654: Subjective HPI/CC On Admission Date Seen by Provider: Apr 26, 2020 Time Seen by Provider: 10:00 Subjective/Events-last exam TPN maintained Improved status CLD Assessment/Plan Assessment and Plan Assess & Plan/Chief Complaint TPN Monitor labs Supervisory-Addendum Brief Verification & Attestation Participated in pt care: history, MDM, physical Personally performed: exam, history, MDM, supervision of care Care discussed with: Medical Student Procedures: n/a Results interpretation: Verified all documentation Verification and Attestation of Medical Student E/M Service A medical student performed and documented this service in my presence. I reviewed and verified all information documented by the medical student and made modifications to such information, when appropriate. I personally performed the physical exam and medical decision making. Ivelisse Lea, Apr 27, 2020,06:54 ALYSSA MOORE,MED STUDEN Apr 26, 2020 11:36 IVELISSE LEA DO Apr 27, 2020 06:54
[2020-04-26] MEDS: LORazepam 0.5 MG (ATIVAN) TABLET PO PRN (15:43)
[2020-04-26] MEDS ORDERED: SODIUM PHOSPHATE IV SCH ×10 (17:00)
[2020-04-26] MEDS ORDERED: SODIUM ACETATE IV SCH ×10 (17:00)
[2020-04-26] MEDS ORDERED: POTASSIUM ACETATE IV SCH ×10 (17:00)
[2020-04-26] MEDS ORDERED: [UNRECOGNIZED DRUG - OTHER] IV SCH ×10 (17:00)
--- NOTE | 2020-04-26 17:02 | Progress Note - Surgery ---
Subjective Time Seen by a Provider: 16:51 Subjective/Events-last exam Nurse asked me to reassess because of intractable N/V and inability to eat. Pt seen and examined, states she feels ok now; "just weak". States she is able to tolerate liquids, but the solids "as soon as they hit" she vomited back up. Review of Systems General: Fatigue, Malaise Pulmonary: No Dyspnea, No Cough Cardiovascular: No: Chest Pain, Palpitations Gastrointestinal: Nausea, Vomiting, Abdominal Pain Objective Exam Vital Signs Date Time Temp Pulse Resp B/P (MAP) Pulse Ox O2 Delivery O2 Flow Rate FiO2 04/26/20 15:42 37.7 97 18 148/82 (104) 97 Room Air 04/26/20 12:30 36.9 84 18 139/82 (101) 97 Room Air 04/26/20 10:15 97 Room Air 04/26/20 10:08 Room Air 04/26/20 08:11 36.9 75 18 138/84 (102) 97 Room Air 04/26/20 06:34 37.0 04/26/20 05:59 37.0 04/26/20 05:35 37.4 04/26/20 04:00 37.4 83 18 115/57 (76) 97 Room Air 04/26/20 00:17 37.0 78 20 121/57 97 Room Air 04/25/20 23:56 37.3 75 18 108/62 (77) 96 Room Air 04/25/20 22:20 37.0 72 22 108/52 97 Room Air 04/25/20 22:20 37.0 72 22 108/52 97 Room Air 04/25/20 22:02 37.1 77 114/56 Room Air 04/25/20 19:30 Room Air 04/25/20 19:18 Room Air 04/25/20 19:00 36.2 64 20 113/54 (73) 94 Room Air 04/25/20 17:27 36.4 77 107/56 Room Air 04/25/20 17:19 36.8 I & O 04/26/20 07:00 Intake Total 3040 ml Balance 3040 ml Capillary Refill : Less Than 3 Seconds General Appearance: No Apparent Distress, Chronically ill HEENT: PERRL/EOMI Respiratory: Chest Non Tender, Lungs Clear, Wheezing (slight expiratory wheezes in the upper amaro bilaterally) Cardiovascular: Regular Rate, Rhythm, No Edema, No Murmur Gastrointestinal: normal bowel sounds, non tender, soft Extremity: No Calf Tenderness, No Pedal Edema Neurologic/Psychiatric: Alert Skin: Normal Color Results Lab Laboratory Tests 04/25/20 18:02: Glucometer 141H 04/26/20 05:14: Hemoglobin 9.2#L, Hematocrit 28L, Sodium Level 140, Potassium Level 3.6, Chloride Level 114H, Carbon Dioxide Level 18L, Anion Gap 8, Blood Urea Nitrogen 13, Creatinine 0.86, Estimat Glomerular Filtration Rate > 60, BUN/Creatinine Ratio 15, Glucose Level 83, Calcium Level 7.2L, Corrected Calcium 8.1L, Phosphorus Level 2.1L, Magnesium Level 1.7, Total Bilirubin 0.3, Aspartate Amino Transf (AST/SGOT) 14, Alanine Aminotransferase (ALT/SGPT) 10, Alkaline Phosphatase 62, Total Protein 5.0L, Albumin 2.9L 04/26/20 05:20: Glucometer 83 04/26/20 12:55: Lab Scanned Report Transfusion Reaction Form Microbiology 04/18/20 C. difficile GDH Antigen & Toxins - Final, Complete Assessment/Plan Assessment/Plan Assessment/Plan Intractable Nausea and Vomiting Inability to eat Hx of ileus with KALEY and hypomagnesemia. 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 Patient not obstructed (reviewed CT) and she is having loose stools daily. Pt unable to take solid foods but states she can take liquids; doesn't seem to cause the nausea and vomiting as much. She feels this in part due to chemo and was started on TPN. PO intake is much better than parenteral nutrition; will start Ensure QID and reattempt soft/solid foods. BRIDGER KEE DO Apr 26, 2020 17:02
[2020-04-26] MEDS: ATENOLOL 50 MG (TENORMIN) TAB PO SCH (20:08)
[2020-04-26] MEDS: amLODIPine 5 MG (NORVASC) TAB PO SCH (20:08)
[2020-04-26] MEDS: DIAZEPAM 5 MG (VALIUM) TABLET PO PRN (21:49)
[2020-04-27] MEDS: NS IV 1000 ML 1,000 ML IV SCH (00:38)
[2020-04-27] MEDS: PIPERACILLIN/TAZOBACTAM (BULK) 4.5 GM in NS (IVPB) 100 ML IV SCH ×3 (01:56→17:29)
[2020-04-27 04:59] VITALS: BP 134/83
[2020-04-27] MEDS: oxyCODONE/APAP 10/325MG (PERCOCET 10) TABLET PO SCH ×4 (05:06→23:23)
[2020-04-27] MEDS: ONDANSETRON 4 MG/2 ML (SDV) Z0FRAN IVP PRN ×2 (05:35→21:21)
[2020-04-27 06:08] LABS: BASOPHILS % (AUTO) 1 % (0-10); EOSINOPHILS # (AUTO) 0.2 10^3/uL (0.0-0.3); EOSINOPHILS % (AUTO) 7 % (0-10); HEMATOCRIT 30 % (35-52); LYMPHOCYTES # (AUTO) 0.7 10^3/uL (1.0-4.0); LYMPHOCYTES % (AUTO) 29 % (12-44); MEAN CORPUSCULAR HEMOGLOBIN 32 pg (25-34); MEAN CORPUSCULAR HGB CONC 34 g/dL (32-36); MEAN CORPUSCULAR VOLUME 95 fL (80-99); MEAN PLATELET VOLUME 11.3 fL (9.0-12.2); MONOCYTES # (AUTO) 0.4 10^3/uL (0.0-1.0); MONOCYTES % (AUTO) 17 % (0-12); NEUTROPHILS # (AUTO) 1.1 10^3/uL (1.8-7.8); NEUTROPHILS % (AUTO) 45 % (42-75); PLATELET COUNT 163 10^3/uL (130-400); WHITE BLOOD COUNT 2.5 10^3/uL (4.3-11.0)
[2020-04-27 06:27] LABS: ALBUMIN 2.9 GM/DL (3.2-4.5)
[2020-04-27 06:28] LABS: CHLORIDE 114 MMOL/L (98-107); POTASSIUM 4.4 MMOL/L (3.6-5.0); SODIUM 140 MMOL/L (135-145)
[2020-04-27 06:29] LABS: CALCIUM 7.5 MG/DL (8.5-10.1)
[2020-04-27 06:30] LABS: GLUCOSE 83 MG/DL (70-105); TOTAL PROTEIN 5.1 GM/DL (6.4-8.2)
[2020-04-27 06:31] LABS: CARBON DIOXIDE 19 MMOL/L (21-32)
[2020-04-27 06:32] LABS: BILIRUBIN,TOTAL 0.3 MG/DL (0.1-1.0)
[2020-04-27 06:34] LABS: ALKALINE PHOSPHATASE 66 U/L (40-136); CREATININE SERUM 0.86 MG/DL (0.60-1.30); GFR ESTIMATED > 60
[2020-04-27 06:35] LABS: BUN/CREATININE RATIO 17
[2020-04-27 06:37] LABS: ALANINE AMINOTRANSFERASE 12 U/L (0-55)
--- NOTE | 2020-04-27 07:17 | Progress Note - Hospitalist ---
Subjective HPI/CC On Admission Date Seen by Provider: Apr 27, 2020 Time Seen by Provider: 11:15 To ER with abdominal pain rectal bleeding nausea vomiting since yesterday. History of multiple myeloma for which she is undergoing treatment with Dr. House with VRD regimen Subjective/Events-last exam Patient feels ok Ensure makes her nauseated Feels shortness of breath so will start Nebs that she uses prn at home Increase pain at times Review of Systems General: Fatigue Pulmonary: Dyspnea Gastrointestinal: Nausea, Abdominal Pain Objective Exam Vital Signs Vital Signs Date Time Temp Pulse Resp B/P (MAP) Pulse Ox O2 Delivery O2 Flow Rate FiO2 04/27/20 15:58 37.8 95 20 136/83 (100) 95 Room Air Capillary Refill : Less Than 3 Seconds General Appearance: No Apparent Distress, WD/WN, Chronically ill Respiratory: Lungs Clear, No Accessory Muscle Use, Crackles, Decreased Breath Sounds Cardiovascular: Regular Rate, Rhythm Neurologic/Psychiatric: Alert, Oriented x3, No Motor/Sensory Deficits, Normal Mood/Affect Results/Procedures Lab Laboratory Tests 04/27/20 05:45 Patient resulted labs reviewed. Assessment/Plan Assessment and Plan Assess & Plan/Chief Complaint Assessment: Partial SBO Abdominal pain MM COPD on TPN Plan: Monitor pain TPN NATI Medeiros DO Apr 27, 2020 07:17
[2020-04-27 07:37] LABS: PHOSPHORUS 2.9 MG/DL (2.3-4.7)
[2020-04-27 07:40] LABS: MAGNESIUM 1.7 MG/DL (1.6-2.4)
--- NOTE | 2020-04-27 07:57 | Progress Note - Surgery ---
JUAN ANTONIO BARTHOLOMEW MED STUDENT 04/27/20 0757: Subjective Date Seen by a Provider: Apr 27, 2020 Time Seen by a Provider: 07:51 Subjective/Events-last exam Pt awake and lying in bed upon entry. Pt c/o continued nausea w/o vomiting, LLQ abdominal pain 6-7/10 currently described as stabbing pain. Pt also notes feeling feverish and sweaty. Pt temp 99.6. Continued loose BM. No acute events over night. Review of Systems General: No Chills; Other (Sweaty/ feverish) HEENT: No Head Aches; Sore Throat Pulmonary: Dyspnea, Cough Cardiovascular: No: Chest Pain, Palpitations Gastrointestinal: Nausea, Abdominal Pain (LLQ); No: Vomiting Genitourinary: No Dysuria; Other (Difficulty initiating) Musculoskeletal: back pain (chronic); No: leg pain Neurological: Weakness, Numbness (Feet) Objective Exam Vital Signs Date Time Temp Pulse Resp B/P (MAP) Pulse Ox O2 Delivery O2 Flow Rate FiO2 04/27/20 04:59 37.2 89 20 134/83 (100) 93 Room Air 04/26/20 23:09 37.5 78 18 121/66 (84) 95 Room Air 04/26/20 20:38 36.7 04/26/20 20:20 Room Air 04/26/20 20:08 38.2 04/26/20 19:21 38.2 118 18 169/86 (113) 94 Room Air 04/26/20 18:17 Room Air 04/26/20 15:42 37.7 97 18 148/82 (104) 97 Room Air 04/26/20 12:30 36.9 84 18 139/82 (101) 97 Room Air 04/26/20 10:15 97 Room Air 04/26/20 10:08 Room Air 04/26/20 08:11 36.9 75 18 138/84 (102) 97 Room Air I & O 04/27/20 07:00 Intake Total 1350 ml Output Total 1400 ml Balance -50 ml Capillary Refill : Less Than 3 Seconds General Appearance: No Apparent Distress, Chronically ill HEENT: PERRL/EOMI, Moist Mucous Membranes Neck: Full Range of Motion, Normal Inspection; No Non Tender; Supple Respiratory: Chest Non Tender, Lungs Clear, No Accessory Muscle Use, No Respiratory Distress, Wheezing (slight expiratory wheezes in the upper/lower amaro bilaterally) Cardiovascular: Regular Rate, Rhythm, No Edema, No Murmur, Normal Peripheral Pulses Peripheral Pulses: 2+ Dorsalis Pedis (R), 2+ Left Dors-Pedis (L), 2+ Radial Pulses (R), 2+ Radial Pulses (L) Gastrointestinal: soft, abnormal bowel sounds (decrease), tenderness (general) Extremity: Non Tender, No Calf Tenderness, No Pedal Edema Neurologic/Psychiatric: Alert, Oriented x3, No Motor/Sensory Deficits, Normal Mood/Affect Skin: Normal Color, Warm/Dry, Tattoos/Piercings Lymphatic: No Adenopathy (cercical, supraclavicular, axillary), Other (cervical tenderness) Results Lab Laboratory Tests 04/26/20 12:55: Lab Scanned Report Transfusion Reaction Form 04/27/20 05:45: White Blood Count 2.5L, Red Blood Count 3.14L, Hemoglobin 10.0L, Hematocrit 30L, Mean Corpuscular Volume 95, Mean Corpuscular Hemoglobin 32, Mean Corpuscular Hemoglobin Concent 34, Red Cell Distribution Width 15.8H, Platelet Count 163, Mean Platelet Volume 11.3, Immature Granulocyte % (Auto) 1, Neutrophils (%) (Auto) 45, Lymphocytes (%) (Auto) 29, Monocytes (%) (Auto) 17H, Eosinophils (%) (Auto) 7, Basophils (%) (Auto) 1, Neutrophils # (Auto) 1.1L, Lymphocytes # (Auto) 0.7L, Monocytes # (Auto) 0.4, Eosinophils # (Auto) 0.2, Basophils # (Auto) 0.0, Immature Granulocyte # (Auto) 0.0, Sodium Level 140, Potassium Level 4.4, Chloride Level 114H, Carbon Dioxide Level 19L, Anion Gap 7, Blood Urea Nitrogen 15, Creatinine 0.86, Estimat Glomerular Filtration Rate > 60, BUN/Creatinine Ratio 17, Glucose Level 83, Calcium Level 7.5L, Corrected Calcium 8.4L, Phosphorus Level 2.9, Magnesium Level 1.7, Total Bilirubin 0.3, Aspartate Amino Transf (AST/SGOT) 18, Alanine Aminotransferase (ALT/SGPT) 12, Alkaline Phosphatase 66, Total Protein 5.1L, Albumin 2.9L Microbiology 2/18/21 C. difficile GDH Antigen & Toxins - Final, Complete Assessment/Plan Assessment/Plan Assessment/Plan Intractable Nausea and Vomiting- improving Inability to eat Hx of ileus with KALEY and hypomagnesemia. 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 Ensure QID and reattempt soft/solid foods. Encourage oral intake as tolerated. MARQUIS RAJAN DO 04/27/20 1559: Subjective Time Seen by a Provider: 10:20 Subjective/Events-last exam Pt seen and examined, states she didn't get any Ensure last night and none by the time I saw her. Thinks the nausea is slightly better. Review of Systems General: No Chills; Fatigue, Other (Sweaty/ feverish) HEENT: No Head Aches Pulmonary: Dyspnea, Cough Cardiovascular: No: Chest Pain, Palpitations Gastrointestinal: Nausea, Abdominal Pain (LLQ); No: Vomiting Genitourinary: No Dysuria; Other (Difficulty initiating) Musculoskeletal: back pain (chronic); No: leg pain Neurological: Weakness, Numbness (Feet) Objective Exam General Appearance: No Apparent Distress, Chronically ill HEENT: Moist Mucous Membranes Respiratory: Lungs Clear, No Accessory Muscle Use, No Respiratory Distress, Wheezing (slight expiratory wheezes in the upper/lower amaro bilaterally) Cardiovascular: Regular Rate, Rhythm, No Murmur Gastrointestinal: soft, abnormal bowel sounds (decrease), tenderness (general) Assessment/Plan Assessment/Plan Assessment/Plan Intractable Nausea and Vomiting- improving Inability to eat Hx of ileus with KALEY and hypomagnesemia. 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 Encourage her to drink Ensure QID and reattempt soft/solid foods. Encourage oral intake as tolerated. Supervisory-Addendum Brief Verification & Attestation Participated in pt care: history, MDM, physical Personally performed: exam, history, MDM Care discussed with: Medical Student Procedures: n/a Verification and Attestation of Medical Student E/M Service A medical student performed and documented this service. I then reviewed and verified all information documented by the medical student and made modifications to such information, when appropriate. I personally performed a physical exam, medical decision making and then discussed any differences between the notes and made revisions as necessary to create one note. Marquis Rajan , 04/27/20 , 15:59 JUAN ANTONIO BARTHOLOMEW MED STUDENT Apr 27, 2020 07:57 MARQUIS RAJAN DO Apr 27, 2020 15:59
[2020-04-27 08:00] VITALS: BP 138/89
[2020-04-27] MEDS: METOCLOPRAMIDE INJ 10 MG/2 ML (REGLAN) IVP SCH ×4 (08:11→21:21)
[2020-04-27] MEDS: PANTOPRAZOLE 40 MG (PROTONIX) VIAL IV SCH ×2 (08:11→21:22)
[2020-04-27] MEDS: IRON SUCROSE 200 MG/10 ML (VENOFER) VIAL IV SCH (08:12)
[2020-04-27] MEDS: fentaNYL INJECTION 100 MCG/2 ML AMP IVP PRN ×2 (08:43→15:53)
--- NOTE | 2020-04-27 08:53 | Diagnostic Imaging Report ---
INDICATION: Nausea, emesis and abdominal distention Supine and upright views of the abdomen are obtained with single view of the chest. Correlation is made with chest x-ray of 04/18/2020. There has been further increase in perihilar density in both lungs which may be due to edema and/or pneumonitis. The questionable density in the left mid lung on the previous chest x-ray appears to remain present although this is partially obscured. There has been development of mild left pleural effusion. Below the diaphragm, there is gaseous distention of small and large bowel. No definite pneumoperitoneum or pneumatosis is identified. There is no evidence of pathologic abdominal calcification. IMPRESSION: Increasing perihilar edema and/or pneumonitis in both lungs with associated left pleural fluid. Again, follow-up PA and lateral views of the chest would be useful to document resolution of these findings. Nonspecific bowel gas pattern below the diaphragm is likely related to ileus. Continued clinical correlation and radiographic follow-up would be useful. Dictated by: Dictated on workstation # [id number]
--- NOTE | 2020-04-27 08:54 | Physical Therapy Progress Note ---
Therapy Progress Note Patient is up independently in room. Patient declined PT due to fatigue and "dry mouth" due to NPO. Will attempt on Wednesday. 1 ref ([id number]) RUI FRANCO PT Apr 27, 2020 08:54
[2020-04-27 12:07] VITALS: BP 129/81
[2020-04-27] MEDS: RT-ALBUTEROL SULF 2.5 MG/3 ML PRE-MIX VIAL INH SCH ×2 (15:12→21:06)
[2020-04-27 15:58] VITALS: BP 136/83
[2020-04-27] MEDS: ACETAMINOPHEN 325 MG TABLET PO PRN (16:57)
[2020-04-27] MEDS ORDERED: SODIUM PHOSPHATE IV SCH ×10 (17:00)
[2020-04-27] MEDS ORDERED: POTASSIUM ACETATE IV SCH ×10 (17:00)
[2020-04-27] MEDS ORDERED: SODIUM ACETATE IV SCH ×10 (17:00)
[2020-04-27] MEDS ORDERED: [UNRECOGNIZED DRUG - OTHER] IV SCH ×10 (17:00)
[2020-04-27 20:00] VITALS: BP 139/72
[2020-04-27] MEDS: ATENOLOL 50 MG (TENORMIN) TAB PO SCH (21:22)
[2020-04-27] MEDS: DIAZEPAM 5 MG (VALIUM) TABLET PO PRN (21:22)
[2020-04-27] MEDS: amLODIPine 5 MG (NORVASC) TAB PO SCH (21:22)
[2020-04-27 23:21] VITALS: BP 129/68
[2020-04-28] MEDS: PIPERACILLIN/TAZOBACTAM (BULK) 4.5 GM in NS (IVPB) 100 ML IV SCH ×3 (02:19→17:50)
[2020-04-28] MEDS: NS IV 1000 ML 1,000 ML IV SCH ×2 (02:19→21:53)
[2020-04-28 04:59] VITALS: BP 128/62
[2020-04-28] MEDS: oxyCODONE/APAP 10/325MG (PERCOCET 10) TABLET PO SCH ×4 (05:03→23:08)
[2020-04-28] MEDS: ONDANSETRON 4 MG/2 ML (SDV) Z0FRAN IVP PRN ×2 (07:10→17:50)
[2020-04-28 07:15] LABS: BASOPHILS # (AUTO) 0.1 10^3/uL (0.0-0.1); BASOPHILS % (AUTO) 2 % (0-10); EOSINOPHILS # (AUTO) 0.2 10^3/uL (0.0-0.3); EOSINOPHILS % (AUTO) 6 % (0-10); HEMATOCRIT 31 % (35-52); HEMOGLOBIN 10.1 g/dL (11.5-16.0); LYMPHOCYTES # (AUTO) 0.8 10^3/uL (1.0-4.0); LYMPHOCYTES % (AUTO) 25 % (12-44); MEAN CORPUSCULAR HEMOGLOBIN 32 pg (25-34); MEAN CORPUSCULAR HGB CONC 33 g/dL (32-36); MEAN CORPUSCULAR VOLUME 97 fL (80-99); MEAN PLATELET VOLUME 11.5 fL (9.0-12.2); MONOCYTES # (AUTO) 0.5 10^3/uL (0.0-1.0); MONOCYTES % (AUTO) 15 % (0-12); NEUTROPHILS # (AUTO) 1.6 10^3/uL (1.8-7.8); NEUTROPHILS % (AUTO) 52 % (42-75); PLATELET COUNT 190 10^3/uL (130-400); WHITE BLOOD COUNT 3.1 10^3/uL (4.3-11.0)
[2020-04-28 07:26] LABS: ALBUMIN 2.8 GM/DL (3.2-4.5); POTASSIUM 4.3 MMOL/L (3.6-5.0)
[2020-04-28 07:28] LABS: CALCIUM 7.9 MG/DL (8.5-10.1)
[2020-04-28 07:29] LABS: TOTAL PROTEIN 5.2 GM/DL (6.4-8.2)
[2020-04-28 07:30] LABS: BILIRUBIN,TOTAL 0.3 MG/DL (0.1-1.0)
[2020-04-28 07:32] LABS: CREATININE SERUM 0.97 MG/DL (0.60-1.30)
[2020-04-28] MEDS: RT-ALBUTEROL SULF 2.5 MG/3 ML PRE-MIX VIAL INH SCH ×3 (07:52→20:20)
[2020-04-28 08:00] VITALS: BP 130/78
[2020-04-28] MEDS ORDERED: RT-ALBUTEROL SULF 2.5 MG/3 ML PRE-MIX VIAL INH PRN (08:15)
[2020-04-28] MEDS: PANTOPRAZOLE 40 MG (PROTONIX) VIAL IV SCH ×2 (08:47→20:00)
[2020-04-28] MEDS: METOCLOPRAMIDE INJ 10 MG/2 ML (REGLAN) IVP SCH ×4 (08:47→20:00)
--- NOTE | 2020-04-28 09:55 | Progress Note - Surgery ---
JUAN ANTONIO BARTHOLOMEW MED STUDENT 04/28/20 0955: Subjective Date Seen by a Provider: Apr 28, 2020 Time Seen by a Provider: 09:51 Subjective/Events-last exam Pt awake and in bed upon entry. Pt denies BM and flatus. Pt able to drink broth provided without vomiting and significant decrease in nausea. Pt notes decrease in LLQ pain. No acute events over night. Review of Systems General: Chills; No Night Sweats HEENT: Head Aches; No Dysphasia Pulmonary: Dyspnea, Cough Cardiovascular: No: Chest Pain, Palpitations Genitourinary: No Dysuria; Frequency Musculoskeletal: back pain (Mid thoracic left side); No: leg pain Neurological: No: Weakness, Numbness Objective Exam Vital Signs Date Time Temp Pulse Resp B/P (MAP) Pulse Ox O2 Delivery O2 Flow Rate FiO2 04/28/20 08:00 Room Air 04/28/20 08:00 36.2 69 20 130/78 (95) 94 Room Air 04/28/20 07:52 96 Room Air 04/28/20 04:59 36.7 70 18 128/62 (84) 92 Room Air 04/27/20 23:21 37.6 85 20 129/68 (88) 93 Room Air 04/27/20 21:20 Room Air 04/27/20 21:07 95 Room Air 04/27/20 20:00 37.6 89 18 139/72 (94) 92 Room Air 04/27/20 15:58 37.8 95 20 136/83 (100) 95 Room Air 04/27/20 15:12 95 Room Air 04/27/20 12:07 37.9 81 20 129/81 (97) 96 Room Air I & O 04/28/20 07:00 Intake Total 2255 ml Output Total 3250 ml Balance -995 ml Capillary Refill : Less Than 3 Seconds General Appearance: No Apparent Distress, WD/WN, Chronically ill HEENT: PERRL/EOMI, Moist Mucous Membranes Neck: Full Range of Motion, Normal Inspection; No Non Tender; Supple Respiratory: Lungs Clear, No Accessory Muscle Use, Crackles, Decreased Breath Sounds Cardiovascular: Regular Rate, Rhythm, No Murmur, Normal Peripheral Pulses Peripheral Pulses: 2+ Dorsalis Pedis (R), 2+ Left Dors-Pedis (L), 2+ Radial Pulses (R), 2+ Radial Pulses (L) Gastrointestinal: normal bowel sounds, soft, tenderness (general-decreased) Extremity: Non Tender, No Calf Tenderness, No Pedal Edema Neurologic/Psychiatric: Alert, Oriented x3, No Motor/Sensory Deficits, Normal Mood/Affect Skin: Normal Color, Warm/Dry, Tattoos/Piercings Lymphatic: No Adenopathy (cercical, supraclavicular, axillary), Other (cervical tenderness) Results Lab Laboratory Tests 04/27/20 10:55: Glucometer 102 04/28/20 05:08: Glucometer 124H 04/28/20 07:00: White Blood Count 3.1L, Red Blood Count 3.15L, Hemoglobin 10.1L, Hematocrit 31L, Mean Corpuscular Volume 97, Mean Corpuscular Hemoglobin 32, Mean Corpuscular Hemoglobin Concent 33, Red Cell Distribution Width 15.4H, Platelet Count 190, Mean Platelet Volume 11.5, Immature Granulocyte % (Auto) 0, Neutrophils (%) (Aut o) 52, Lymphocytes (%) (Auto) 25, Monocytes (%) (Auto) 15H, Eosinophils (%) (Auto) 6, Basophils (%) (Auto) 2, Neutrophils # (Auto) 1.6L, Lymphocytes # (Auto) 0.8L, Monocytes # (Auto) 0.5, Eosinophils # (Auto) 0.2, Basophils # (Auto) 0.1, Immature Granulocyte # (Auto) 0.0, Sodium Level 138, Potassium Level 4.3, Chloride Level 111H, Carbon Dioxide Level 20L, Anion Gap 7, Blood Urea Nitrogen 19H, Creatinine 0.97, Estimat Glomerular Filtration Rate 60, BUN/Creatinine Ratio 20, Glucose Level 116H, Calcium Level 7.9L, Corrected Calcium 8.9, Total Bilirubin 0.3, Aspartate Amino Transf (AST/SGOT) 12, Alanine Aminotransferase (ALT/SGPT) 12, Alkaline Phosphatase 71, Total Protein 5.2L, Albumin 2.8L Microbiology 04/18/20 C. difficile GDH Antigen & Toxins - Final, Complete Assessment/Plan Assessment/Plan Assessment/Plan Intractable Nausea and Vomiting- improved Inability to eat Hx of ileus with KALEY and hypomagnesemia. 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 Encourage her to drink Ensure QID and reattempt soft/solid foods. Encourage oral intake as tolerated. MARQUIS RAJAN DO 04/28/201956: Subjective Time Seen by a Provider: 10:41 Subjective/Events-last exam Pt seen and examined, states she is feeling better and eating more. Minimal to no nausea. Review of Systems General: Chills; No Night Sweats HEENT: Head Aches Pulmonary: Dyspnea, Cough Cardiovascular: No: Chest Pain, Palpitations Gastrointestinal: Nausea; No: Vomiting Genitourinary: No Dysuria; Frequency Objective Exam General Appearance: No Apparent Distress, Chronically ill HEENT: PERRL/EOMI, Moist Mucous Membranes Respiratory: No Accessory Muscle Use, Crackles, Decreased Breath Sounds Cardiovascular: Regular Rate, Rhythm, No Murmur Gastrointestinal: normal bowel sounds, soft, tenderness (general-decreased) Neurologic/Psychiatric: Alert Assessment/Plan Assessment/Plan Assessment/Plan Intractable Nausea and Vomiting- improved Inability to eat Hx of ileus with KALEY and hypomagnesemia. 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 Encourage her to drink Ensure QID and reattempt soft/solid foods. Encourage oral intake as tolerated. Pt has improved. Supervisory-Addendum Brief Verification & Attestation Participated in pt care: history, MDM, physical Personally performed: exam, history, MDM Care discussed with: Medical Student Procedures: n/a Verification and Attestation of Medical Student E/M Service A medical student performed and documented this service. I then reviewed and verified all information documented by the medical student and made modifications to such information, when appropriate. I personally performed a physical exam, medical decision making and then discussed any differences between the notes and made revisions as necessary to create one note. Marquis Rajan , 04/28/20 , 19:57 JUAN ANTONIO BARTHOLOMEW MED STUDENT Apr 28, 2020 09:55 MARQUIS RAJAN DO Apr 28, 2020 19:57
[2020-04-28 11:49] VITALS: BP 120/76
--- NOTE | 2020-04-28 12:28 | Progress Note - Hospitalist ---
Subjective HPI/CC On Admission Date Seen by Provider: Apr 28, 2020 Time Seen by Provider: 11:20 To ER with abdominal pain rectal bleeding nausea vomiting since yesterday. History of multiple myeloma for which she is undergoing treatment with Dr. House with VRD regimen Subjective/Events-last exam Patient feels better Dr Rajan has assessed her and it appears chemotherapy driven intestinal issues is the source TPN maintained Nebs TID Cramping at times Review of Systems Pulmonary: Dyspnea Gastrointestinal: Abdominal Pain Objective Exam Vital Signs Vital Signs Date Time Temp Pulse Resp B/P (MAP) Pulse Ox O2 Delivery O2 Flow Rate FiO2 04/28/20 15:05 90 Room Air 04/28/20 11:49 36.8 77 20 120/76 (91) Capillary Refill : Less Than 3 Seconds General Appearance: No Apparent Distress, WD/WN, Chronically ill Respiratory: Chest Non Tender, Lungs Clear, Normal Breath Sounds, No Accessory Muscle Use, No Respiratory Distress Cardiovascular: Regular Rate, Rhythm, No Edema, No Gallop, No JVD, No Murmur, Normal Peripheral Pulses Neurologic/Psychiatric: Alert, Oriented x3, No Motor/Sensory Deficits, Normal Mood/Affect Results/Procedures Lab Laboratory Tests 04/28/20 07:00 Patient resulted labs reviewed. Assessment/Plan Assessment and Plan Assess & Plan/Chief Complaint Assessment: Partial SBO Abdominal pain MM COPD on TPN Plan: Monitor pain TPN Nebs 04/28/20: Monitor O2 sat Nebs TID NATI LEA DO Apr 28, 2020 12:28
[2020-04-28] MEDS: DIAZEPAM 5 MG (VALIUM) TABLET PO PRN ×2 (13:07→20:59)
[2020-04-28 16:00] VITALS: BP 128/70
[2020-04-28] MEDS: POTASSIUM ACETATE IV SCH ×10 (17:17)
[2020-04-28] MEDS: [UNRECOGNIZED DRUG - OTHER] IV SCH ×10 (17:17)
[2020-04-28] MEDS: SODIUM ACETATE IV SCH ×10 (17:17)
[2020-04-28] MEDS: SODIUM PHOSPHATE IV SCH ×10 (17:17)
[2020-04-28 20:00] VITALS: BP 122/70
[2020-04-28] MEDS: fentaNYL INJECTION 100 MCG/2 ML AMP IVP PRN (20:00)
[2020-04-28] MEDS: ATENOLOL 50 MG (TENORMIN) TAB PO SCH (20:00)
[2020-04-28] MEDS: PROMETHAZINE INJ 25 MG/ML (PHENERGAN) AMP IVP PRN (20:00)
[2020-04-28] MEDS: ACETAMINOPHEN 325 MG TABLET PO PRN (20:00)
[2020-04-28] MEDS: amLODIPine 5 MG (NORVASC) TAB PO SCH (20:01)
[2020-04-28 23:07] VITALS: BP 102/54
[2020-04-29] MEDS: PIPERACILLIN/TAZOBACTAM (BULK) 4.5 GM in NS (IVPB) 100 ML IV SCH ×2 (02:02→09:09)
[2020-04-29 03:36] VITALS: BP 120/64
[2020-04-29] MEDS: oxyCODONE/APAP 10/325MG (PERCOCET 10) TABLET PO SCH ×4 (05:14→23:51)
[2020-04-29 05:46] LABS: BASOPHILS % (AUTO) 1 % (0-10); EOSINOPHILS # (AUTO) 0.2 10^3/uL (0.0-0.3); EOSINOPHILS % (AUTO) 7 % (0-10); HEMATOCRIT 29 % (35-52); HEMOGLOBIN 9.6 g/dL (11.5-16.0); LYMPHOCYTES # (AUTO) 0.8 10^3/uL (1.0-4.0); LYMPHOCYTES % (AUTO) 30 % (12-44); MEAN CORPUSCULAR HEMOGLOBIN 32 pg (25-34); MEAN CORPUSCULAR HGB CONC 33 g/dL (32-36); MEAN CORPUSCULAR VOLUME 97 fL (80-99); MEAN PLATELET VOLUME 11.5 fL (9.0-12.2); MONOCYTES # (AUTO) 0.4 10^3/uL (0.0-1.0); MONOCYTES % (AUTO) 15 % (0-12); NEUTROPHILS # (AUTO) 1.3 10^3/uL (1.8-7.8); NEUTROPHILS % (AUTO) 46 % (42-75); PLATELET COUNT 183 10^3/uL (130-400); WHITE BLOOD COUNT 2.7 10^3/uL (4.3-11.0)
[2020-04-29 05:54] LABS: ALBUMIN 2.8 GM/DL (3.2-4.5); POTASSIUM 4.3 MMOL/L (3.6-5.0)
[2020-04-29 05:55] LABS: CALCIUM 7.8 MG/DL (8.5-10.1)
[2020-04-29 05:58] LABS: BILIRUBIN,TOTAL 0.3 MG/DL (0.1-1.0)
[2020-04-29 06:00] LABS: CREATININE SERUM 1.02 MG/DL (0.60-1.30)
[2020-04-29] MEDS: RT-ALBUTEROL SULF 2.5 MG/3 ML PRE-MIX VIAL INH SCH ×3 (07:03→19:19)
[2020-04-29 08:33] LABS: PHOSPHORUS 3.9 MG/DL (2.3-4.7)
[2020-04-29 08:39] VITALS: BP 122/60
[2020-04-29] MEDS: METOCLOPRAMIDE INJ 10 MG/2 ML (REGLAN) IVP SCH ×4 (09:09→21:00)
[2020-04-29] MEDS: IRON SUCROSE 200 MG/10 ML (VENOFER) VIAL IV SCH (09:09)
[2020-04-29] MEDS: PROMETHAZINE INJ 25 MG/ML (PHENERGAN) AMP IVP PRN (09:09)
[2020-04-29] MEDS: PANTOPRAZOLE 40 MG (PROTONIX) VIAL IV SCH ×2 (09:09→21:00)
--- NOTE | 2020-04-29 11:21 | Physical Therapy Daily Note ---
PT Daily Note-Current Subjective Patient agrees to PT. Mental Status Patient Orientation: Normal For Age Attachments: Central Line Transfers SCALE: Activities may be completed with or without assistive devices. 5-Csyydagvcr-twvussz completes the activity by him/herself with no assistance from a helper. 5-Set-up or Clean-up Assistance-helper sets up or cleans up; patient completes activity. [place] assists only prior to or following the activity. 4-Supervision or Touching Assistance-helper provides verbal cues and/or touching/steadying and/or contact guard assistance as patient completes activity. Assistance may be provided throughout the activity or intermittently. 3-Partial/Moderate Assistance-helper does LESS THAN HALF the effort. [place] lifts, holds or supports trunk or limbs, but provides less than half the effort. 2-Substantial/Maximal Assistance-helper does MORE THAN HALF the effort. [place] lifts or holds trunk or limbs and provides more than half the effort. 1-Cwbtjqizi-fsgoni does ALL the effort. Patient does none of the effort to complete the activity. Or, the assistance of 2 or more helpers is required for the patient to complete the activity. If activity was not attempted, code reason: 7-Patient Refused. 9-Not Applicable-not attempted and the patient did not perform the activity before the current illness, exacerbation or injury. 10-Not Attempted due to Environmental Limitations-(lack of equipment, weather restraints, etc.). 88-Not Attempted due to Medical Conditions or Safety Concerns. Roll Left & Right (QC): 6 Sit to Lying (QC): 6 Lying to Sitting/Side of Bed(Q: 6 Sit to Stand (QC): 6 Chair/Jci-ak-Dnpfc Xfer(QC): 6 Toilet Transfer (QC): 6 Gait Training Does the Patient Walk?: Yes Distance: 225' Walk 10 feet (QC): 5 Walk 50 ft with 2 Turns(QC): 5 Walk 150 ft (QC): 5 Gait Assistive Device: FWW 2 episodes of slight LOB with self correct Assessment Patient is up independently in room without difficulty. Patient encouraged to ambulate PRN with nursing. Patient voices understanding. PT Mcfp Goals Mcfp Goals PT Mcfp Goals Time Frame: May 01, 2020 Roll Left & Right (QC): 6 Sit to Lying (QC): 6 Lying-Sitting on Side/Bed(QC): 6 Sit to Stand (QC): 6 Chair/Wrq-hy-Iyotx Xfer(QC): 6 Walk 10 feet (QC): 6 Walk 50ft with 2 Turns (QC): 6 Walk 150 ft (QC): 6 PT Plan Treatment/Plan Treatment Plan: Continue Plan of Care Treatment Plan: Education, Functional Activity Alanna, Functional Strength, Gait, Safety, Therapeutic Exercise, Transfers Treatment Duration: May 01, 2020 Frequency: 6 times per week Estimated Hrs Per Day: .25 hour per day Patient and/or Family Agrees t: Yes Time/GCodes Time In: 1031 Time Out: 1041 Total Billed Treatment Time: 10 Total Billed Treatment 1 visit FA 10 min RUI FRANCO PT Apr 29, 2020 11:21
[2020-04-29 12:18] VITALS: BP 128/73
--- NOTE | 2020-04-29 12:54 | Progress Note ---
Subjective Subjective/Events-last exam Wasn't able to eat breakfast due to pain and nausea. Had a bowel movement during the night. Is anxious to go home soon. Objective Exam Last Set of Vital Signs Vital Signs Date Time Temp Pulse Resp B/P (MAP) Pulse Ox O2 Delivery O2 Flow Rate FiO2 04/29/20 12:18 37.2 77 18 128/73 (91) 95 Room Air Capillary Refill : Less Than 3 Seconds I&O Intake and Output 04/29/20 00:00 Intake Total 2120 ml Output Total 4150 ml Balance -2030 ml Intake Oral 1120 ml IV Total 1000 ml Output Urine Total 4150 ml Results/Procedures Lab Laboratory Tests 04/29/20 05:28: White Blood Count 2.7L, Red Blood Count 3.03L, Hemoglobin 9.6L, Hematocrit 29L, Mean Corpuscular Volume 97, Mean Corpuscular Hemoglobin 32, Mean Corpuscular Hemoglobin Concent 33, Red Cell Distribution Width 15.1H, Platelet Count 183, Mean Platelet Volume 11.5, Immature Granulocyte % (Auto) 0, Neutrophils (%) (Auto) 46, Lymphocytes (%) (Auto) 30, Monocytes (%) (Auto) 15H, Eosinophils (%) (Auto) 7, Basophils (%) (Auto) 1, Neutrophils # (Auto) 1.3L, Lymphocytes # (Auto) 0.8L, Monocytes # (Auto) 0.4, Eosinophils # (Auto) 0.2, Basophils # (Auto) 0.0, Immature Granulocyte # (Auto) 0.0, Sodium Level 139, Potassium Level 4.3, Chloride Level 110H, Carbon Dioxide Level 21, Anion Gap 8, Blood Urea Nitrogen 20H, Creatinine 1.02, Estimat Glomerular Filtration Rate 57, BUN/Creatinine Ratio 20, Glucose Level 88, Calcium Level 7.8L, Corrected Calcium 8.8, Phosphorus Level 3.9, Magnesium Level 2.0, Total Bilirubin 0.3, Aspartate Amino Transf (AST/SGOT) 11, Alanine Aminotransferase (ALT/SGPT) 11, Alkaline Phosphatase 71, Total Protein 5.0L, Albumin 2.8L Microbiology 04/18/20 C. difficile GDH Antigen & Toxins - Final, Complete Assessment/Plan Assessment/Plan (1) Abdominal pain Status: Acute Assessment & Plan: - Dr Bai consulted, appreciate recommendations Qualifiers: Qualified Codes: R10.84 - Generalized abdominal pain (2) Ileus Status: Acute Assessment & Plan: Minimize opiates, encouraged activity (3) Acute kidney injury Status: Resolved Assessment & Plan: - Improving with IVFs, continue to monitor (4) Rectal bleeding Status: Acute Assessment & Plan: Dr. Bai consulted, appreciate recommendations. (5) Hypermagnesemia Status: Resolved (6) Multiple myeloma Status: Chronic Assessment & Plan: - Following with Dr Packer, holding chemo while inpatient Qualifiers: Qualified Codes: C90.00 - Multiple myeloma not having achieved remission (7) Macrocytic anemia (8) DVT prophylaxis Status: Acute Assessment & Plan: - SCDs given rectal bleeding INEZ OMTT MD Apr 29, 2020 12:54
[2020-04-29] MEDS: ONDANSETRON 4 MG/2 ML (SDV) Z0FRAN IVP PRN (13:05)
[2020-04-29] MEDS: oxyCODONE/APAP 10/325MG (PERCOCET 10) TABLET PO PRN (13:06)
[2020-04-29] MEDS: NS IV 1000 ML 1,000 ML IV SCH (13:08)
[2020-04-29 16:07] VITALS: BP 111/56
[2020-04-29] MEDS: SODIUM ACETATE IV SCH ×10 (17:11)
[2020-04-29] MEDS: POTASSIUM ACETATE IV SCH ×10 (17:11)
[2020-04-29] MEDS: SODIUM PHOSPHATE IV SCH ×10 (17:11)
[2020-04-29] MEDS: [UNRECOGNIZED DRUG - OTHER] IV SCH ×10 (17:11)
[2020-04-29 19:19] VITALS: BP 127/63
[2020-04-29] MEDS: ATENOLOL 50 MG (TENORMIN) TAB PO SCH (21:00)
[2020-04-29] MEDS: amLODIPine 5 MG (NORVASC) TAB PO SCH (21:00)
[2020-04-29] MEDS: DIAZEPAM 5 MG (VALIUM) TABLET PO PRN (21:00)
[2020-04-30] VITALS (7 sets, daily range): BP systolic 105–131; BP diastolic 56–76
[2020-04-30] MEDS: oxyCODONE/APAP 10/325MG (PERCOCET 10) TABLET PO PRN ×3 (01:24→21:19)
[2020-04-30 05:27] LABS: POTASSIUM 4.5 MMOL/L (3.6-5.0)
[2020-04-30 05:33] LABS: CREATININE SERUM 1.17 MG/DL (0.60-1.30)
[2020-04-30] MEDS: oxyCODONE/APAP 10/325MG (PERCOCET 10) TABLET PO SCH ×3 (05:46→17:55)
[2020-04-30] MEDS: RT-ALBUTEROL SULF 2.5 MG/3 ML PRE-MIX VIAL INH SCH ×3 (06:46→18:26)
[2020-04-30] MEDS: ACETAMINOPHEN 325 MG TABLET PO PRN (08:04)
[2020-04-30] MEDS: ONDANSETRON 4 MG/2 ML (SDV) Z0FRAN IVP PRN ×2 (08:04→17:56)
[2020-04-30] MEDS: METOCLOPRAMIDE INJ 10 MG/2 ML (REGLAN) IVP SCH ×4 (08:04→21:05)
[2020-04-30] MEDS: PANTOPRAZOLE 40 MG (PROTONIX) VIAL IV SCH ×2 (08:04→21:05)
--- NOTE | 2020-04-30 11:04 | Progress Note ---
Subjective Subjective/Events-last exam Afebrile, states she has back pain, abdominal pain is somewhat improved, but no further BM since 04/29 at 2 am. Tolerating liquids. Objective Exam Last Set of Vital Signs Vital Signs Date Time Temp Pulse Resp B/P (MAP) Pulse Ox O2 Delivery O2 Flow Rate FiO2 04/30/20 08:11 38.1 77 18 125/76 (92) 93 Room Air Capillary Refill : Less Than 3 Seconds I&O Intake and Output 04/30/20 00:00 Intake Total 4740 ml Output Total 4475 ml Balance 265 ml Intake Oral 4500 ml IV Total 240 ml Output Urine Total 4475 ml # Bowel Movements 5 General: Alert, No Acute Distress Lungs: Clear to Auscultation, Normal Air Movement Heart: Regular Rate, No Murmurs Abdomen: Normal Bowel Sounds, Soft, Other (diffuse mild to moderate ttp) Extremities: No Edema Psych/Mental Status: Mood NL Results/Procedures Lab Laboratory Tests 04/30/20 04:30: Sodium Level 138, Potassium Level 4.5, Chloride Level 110H, Carbon Dioxide Level 21, Anion Gap 7, Blood Urea Nitrogen 19H, Creatinine 1.17, Estimat Glomerular Filtration Rate 48, BUN/Creatinine Ratio 16, Glucose Level 87, Calcium Level 8.0L Microbiology 04/18/20 C. difficile GDH Antigen & Toxins - Final, Complete Assessment/Plan Assessment/Plan (1) Abdominal pain Status: Acute Assessment & Plan: - Dr Bai consulted, appreciate recommendations Qualifiers: Qualified Codes: R10.84 - Generalized abdominal pain (2) Ileus Status: Acute Assessment & Plan: Minimize opiates, encouraged activity 3/2 advance diet to soft, bland and consider Relistor if still no bm this afternoon. (3) Acute kidney injury Status: Resolved Assessment & Plan: - Improving with IVFs, continue to monitor (4) Rectal bleeding Status: Acute Assessment & Plan: Dr. Bai consulted, appreciate recommendations. (5) Hypermagnesemia Status: Resolved (6) Multiple myeloma Status: Chronic Assessment & Plan: - Following with Dr Packer, holding chemo while inpatient Qualifiers: Qualified Codes: C90.00 - Multiple myeloma not having achieved remission (7) Macrocytic anemia (8) DVT prophylaxis Status: Acute Assessment & Plan: - SCDs given rectal bleeding INEZ MOTT MD Apr 30, 2020 11:04
[2020-04-30] MEDS: NS IV 1000 ML 1,000 ML IV SCH (11:18)
[2020-04-30] MEDS: PROMETHAZINE INJ 25 MG/ML (PHENERGAN) AMP IVP PRN (11:18)
--- NOTE | 2020-04-30 11:27 | Physical Therapy Daily Note ---
PT Daily Note-Current Subjective Patient reports she hopes to go home tomorrow. Mental Status Patient Orientation: Normal For Age Transfers SCALE: Activities may be completed with or without assistive devices. 2-Pabwebbnzs-rjwhvoj completes the activity by him/herself with no assistance from a helper. 5-Set-up or Clean-up Assistance-helper sets up or cleans up; patient completes activity. [place] assists only prior to or following the activity. 4-Supervision or Touching Assistance-helper provides verbal cues and/or touching/steadying and/or contact guard assistance as patient completes activity. Assistance may be provided throughout the activity or intermittently. 3-Partial/Moderate Assistance-helper does LESS THAN HALF the effort. [place] lifts, holds or supports trunk or limbs, but provides less than half the effort. 2-Substantial/Maximal Assistance-helper does MORE THAN HALF the effort. [place] lifts or holds trunk or limbs and provides more than half the effort. 7-Fkmnddpej-lfmlfw does ALL the effort. Patient does none of the effort to complete the activity. Or, the assistance of 2 or more helpers is required for the patient to complete the activity. If activity was not attempted, code reason: 7-Patient Refused. 9-Not Applicable-not attempted and the patient did not perform the activity before the current illness, exacerbation or injury. 10-Not Attempted due to Environmental Limitations-(lack of equipment, weather restraints, etc.). 88-Not Attempted due to Medical Conditions or Safety Concerns. Sit to Stand (QC): 6 Chair/Ftz-kg-Cimph Xfer(QC): 6 Gait Training Does the Patient Walk?: Yes Distance: 300' Walk 10 feet (QC): 6 Walk 50 ft with 2 Turns(QC): 6 Walk 150 ft (QC): 6 Gait Assistive Device: FWW no deviation Assessment Patient is up in recliner with needs met. Plan dismissal this week. PT Jail Goals Bank Boss Goals PT Bank Boss Goals Time Frame: May 01, 2020 Roll Left & Right (QC): 6 Sit to Lying (QC): 6 Lying-Sitting on Side/Bed(QC): 6 Sit to Stand (QC): 6 Chair/Ogu-hd-Gxaiy Xfer(QC): 6 Walk 10 feet (QC): 6 Walk 50ft with 2 Turns (QC): 6 Walk 150 ft (QC): 6 PT Plan Treatment/Plan Treatment Plan: Continue Plan of Care Treatment Plan: Education, Functional Activity Alanna, Functional Strength, Gait, Safety, Therapeutic Exercise, Transfers Treatment Duration: May 01, 2020 Frequency: 6 times per week Estimated Hrs Per Day: .25 hour per day Patient and/or Family Agrees t: Yes Time/GCodes Time In: 1113 Time Out: 1123 Total Billed Treatment Time: 10 Total Billed Treatment 1 visit FA 10 min RUI FRANCO PT Apr 30, 2020 11:27
--- NOTE | 2020-04-30 15:14 | Diagnostic Imaging Report ---
INDICATION: Ileus. EXAMINATION: KUB at 1:03 PM. FINDINGS: The gallbladder appears to be surgically absent. There is some consolidation at the left medial lung base. There are small bilateral effusions. The bowel gas pattern is normal. There are no pathologic masses or calcifications seen. IMPRESSION: No acute abnormalities in the abdomen. Dictated by: Dictated on workstation # [id number]
[2020-04-30] MEDS: amLODIPine 5 MG (NORVASC) TAB PO SCH (21:05)
[2020-04-30] MEDS: DIAZEPAM 5 MG (VALIUM) TABLET PO PRN (21:05)
[2020-04-30] MEDS: ATENOLOL 50 MG (TENORMIN) TAB PO SCH (21:19)
[2020-05-01] MEDS: oxyCODONE/APAP 10/325MG (PERCOCET 10) TABLET PO PRN ×2 (03:27→09:43)
[2020-05-01 06:06] LABS: HEMOGLOBIN 9.5 g/dL (11.5-16.0); MEAN PLATELET VOLUME 11.3 fL (9.0-12.2)
[2020-05-01 06:17] LABS: POTASSIUM 4.5 MMOL/L (3.6-5.0)
[2020-05-01 06:19] LABS: CALCIUM 7.7 MG/DL (8.5-10.1)
[2020-05-01 06:23] LABS: CREATININE SERUM 1.19 MG/DL (0.60-1.30); PHOSPHORUS 2.9 MG/DL (2.3-4.7)
[2020-05-01] MEDS: ONDANSETRON 4 MG/2 ML (SDV) Z0FRAN IVP PRN (06:54)
[2020-05-01 07:30] VITALS: BP 150/64
[2020-05-01] MEDS: RT-ALBUTEROL SULF 2.5 MG/3 ML PRE-MIX VIAL INH SCH (07:30)
[2020-05-01] MEDS: NS IV 1000 ML 1,000 ML IV SCH (07:50)
[2020-05-01] MEDS: METOCLOPRAMIDE INJ 10 MG/2 ML (REGLAN) IVP SCH (07:51)
[2020-05-01] MEDS: IRON SUCROSE 200 MG/10 ML (VENOFER) VIAL IV SCH (07:51)
[2020-05-01] MEDS: PANTOPRAZOLE 40 MG (PROTONIX) VIAL IV SCH (07:51)
--- NOTE | 2020-05-01 09:42 | Physical Therapy Daily Note ---
PT Daily Note-Current Subjective Pt agreeable. Pt states "I hope they let me go home today." Pain rated 8/10 in her back. Pt says "It is slightly less" after therapy. Mental Status Patient Orientation: Person, Place, Situation Transfers SCALE: Activities may be completed with or without assistive devices. 2-Kxcxpzdfqk-scgjtdf completes the activity by him/herself with no assistance from a helper. 5-Set-up or Clean-up Assistance-helper sets up or cleans up; patient completes activity. [place] assists only prior to or following the activity. 4-Supervision or Touching Assistance-helper provides verbal cues and/or touching/steadying and/or contact guard assistance as patient completes activity. Assistance may be provided throughout the activity or intermittently. 3-Partial/Moderate Assistance-helper does LESS THAN HALF the effort. [place] lifts, holds or supports trunk or limbs, but provides less than half the effort. 2-Substantial/Maximal Assistance-helper does MORE THAN HALF the effort. [place] lifts or holds trunk or limbs and provides more than half the effort. 4-Pmxmlyfso-pmpotl does ALL the effort. Patient does none of the effort to complete the activity. Or, the assistance of 2 or more helpers is required for the patient to complete the activity. If activity was not attempted, code reason: 7-Patient Refused. 9-Not Applicable-not attempted and the patient did not perform the activity before the current illness, exacerbation or injury. 10-Not Attempted due to Environmental Limitations-(lack of equipment, weather restraints, etc.). 88-Not Attempted due to Medical Conditions or Safety Concerns. Gait Training Gait Assistive Device: FWW Pt amb with FWW and SBA, f/u of IV pole x 275ft. Pt shows good balance and speed throughout. Assessment Current Status: Good Progress Pt back in bedside chair post therapy. Pt resting with call light and all needs met. PT Retirement Goals [place] [employer] Professor Goals PT Retirement Goals Time Frame: May 01, 2020 Roll Left & Right (QC): 6 Sit to Lying (QC): 6 Lying-Sitting on Side/Bed(QC): 6 Sit to Stand (QC): 6 Chair/Odj-rt-Rekhb Xfer(QC): 6 Walk 10 feet (QC): 6 Walk 50ft with 2 Turns (QC): 6 Walk 150 ft (QC): 6 PT Plan Treatment/Plan Treatment Plan: Continue Plan of Care Treatment Plan: Education, Functional Activity Alanna, Functional Strength, Gait, Safety, Therapeutic Exercise, Transfers Treatment Duration: May 01, 2020 Frequency: 6 times per week Estimated Hrs Per Day: .25 hour per day Patient and/or Family Agrees t: Yes Time/GCodes Time In: 845 Time Out: 900 Total Billed Treatment Time: 15 Total Billed Treatment 1, gait 15' TREVIN HUA CPTA May 01, 2020 09:42
[2020-05-01] MEDS ORDERED: SENN-109 PO (10:27)
--- NOTE | 2020-05-01 11:12 | Discharge Summary ---
Discharge Summary Instructions for Patient Assessment/Instructions Follow up with Dr. Kam on 05/06 at 11 am. Physician to follow Patient: Eddy Discharge Diet for Home: Regular Diet Hospital Course Date of Admission: Apr 18, 2020 at 13:53 Admission Diagnosis : (1) Abdominal pain Status: Acute (2) Ileus Status: Acute (3) Acute kidney injury Status: Resolved (4) Rectal bleeding Status: Acute (5) Hypermagnesemia Status: Resolved (6) Multiple myeloma Status: Chronic Qualifiers: Qualified Codes: C90.00 - Multiple myeloma not having achieved remission (7) Macrocytic anemia Family Physician/Provider: Juan José Kam MD Date of Discharge: 05/01/20 Discharge Diagnosis: (1) Abdominal pain Status: Acute Assessment & Plan: - Dr Bai consulted, appreciate recommendations, no surgical interventions needed Qualifiers: Qualified Codes: R10.84 - Generalized abdominal pain (2) Ileus Status: Acute Assessment & Plan: Minimize opiates, encouraged activity 3/2 advanced diet to soft which was tolerated, KUB showed no significant abnormalities. Started scheduled senna s for d/c. (3) Acute kidney injury Status: Resolved Held lisinopril due to KALEY and low normal BP, did not resume on d/c (4) Rectal bleeding Status: Acute (5) Hypermagnesemia Status: Resolved (6) Multiple myeloma Status: Chronic Assessment & Plan: - Following with Dr Packer, holding chemo while inpatient Qualifiers: Qualified Codes: C90.00 - Multiple myeloma not having achieved remission (7) Macrocytic anemia Hospital Course: See discharge diagnosis Labs and Pending Lab Test: Laboratory Tests 05/01/20 05:50: White Blood Count 3.0L, Red Blood Count 2.98L, Hemoglobin 9.5L, Hematocrit 30L, Mean Corpuscular Volume 99, Mean Corpuscular Hemoglobin 32, Mean Corpuscular Hemoglobin Concent 32, Red Cell Distribution Width 14.6H, Platelet Count 193, Mean Platelet Volume 11.3, Sodium Level 140, Potassium Level 4.5, Chloride Level 112H, Carbon Dioxide Level 19L, Anion Gap 9, Blood Urea Nitrogen 15, Creatinine 1.19, Estimat Glomerular Filtration Rate 47, BUN/Creatinine Ratio 13, Glucose Level 87, Calcium Level 7.7L, Phosphorus Level 2.9, Magnesium Level 2.0, Prealbumin Pending, Triglycerides Level 168H Microbiology 04/18/20 C. difficile GDH Antigen & Toxins - Final, Complete Home Meds Active Senna-S Tablet (Sennosides/Docusate Sodium) 1 Each Tablet 1 Each PO BID Reported Dexamethasone 4 Mg Tablet 20 Mg PO UD PRN TAKES 5 (4MG) TABS ON DAYS 1,8,15 AND 22 OF A 35 DAY CHEMO CYCLE Hydroxyzine HCl 25 Mg Tablet 25 Mg PO TID PRN Esomeprazole Magnesium 40 Mg Capsule.dr 40 Mg PO DAILY Oxycodone-Acetaminophen 10-325 (Oxycodone HCl/Acetaminophen) 1 Each Tablet 1 Ea PO Q6H PRN Ondansetron HCl 8 Mg Tablet 8 Mg PO Q8H PRN Revlimid (Lenalidomide) 15 Mg Capsule 15 Mg PO DAILY PRN Iprat-Albut 0.5-3(2.5) mg/3 ml (Ipratropium/Albuterol Sulfate) 3 Ml Ampul.neb 3 Ml NEB Q6H PRN Ventolin Hfa (Albuterol Sulfate) 18 Gm Hfa.aer.ad 2 Puff INH Q6H PRN Livalo (Pitavastatin Calcium) 2 Mg Tablet 2 Mg PO 1700 [place]-3 Acid Ethyl Esters 1 Gm Capsule 4 Gm PO HS TAKES 4 (1GM) CAPS Amlodipine Besylate 5 Mg Tablet 5 Mg PO HS Atenolol 25 Mg Tablet 50 Mg PO HS Diazepam 5 Mg Tablet 5 Mg PO QID PRN Patient Allergies: Coded Allergies: ciprofloxacin (Verified Allergy, Mild, throat swells, 03/15/20) Sulfa (Sulfonamide Antibiotics) (Verified Allergy, Unknown, 03/15/20) acetaminophen (Verified Allergy, Unknown, 03/15/20) morphine (Verified Allergy, Unknown, 03/15/20) propoxyphene (Verified Allergy, Unknown, 03/15/20) Height (Feet): 5 Height (Inches): 0 Weight (Pounds): 156 Weight (Ounces): 0 Home Health Need/Face to Face Date of Face to Face: May 01, 2020 Clinical Findings: Generalized weakness and fatigue I have seen Pt [id number]: Yes Discharged To: Home Diagnosis/Conditions: See discharge diagnoses Patient is Homebound due to: Muscle weakness, Pain w/ambulation Homebound Status Due to the above stated illness, injury or surgical procedure (medical cond ition or diagnosis) and associated clinical findings, the patient is homebound because of his/her inability to leave home except with aid of a supportive device and/or person AND leaving the home requires a considerable and taxing effort or is medically contraindicated. Pt req the following assistanc: [facility] Nursing Orders Home Health Services Order: Nursing Services, Technical Solutions Director-Evaluate & Treat, Physical Therapy-Evaluate & Treat Home Health Infusion Therapy Line Start Date: Apr 24, 2020 Certify Stmt I certify that this patient is under my care and that I, a nurse practitioner or a physician; a clinic assistant working with me, had a face to face encounter that - meets the physician face to face encounter requirements with this patient as dated. Discharge Physical Exam General: Alert, No Acute Distress Lungs: Clear to Auscultation, Normal Air Movement Heart: Regular Rate, No Murmurs Abdomen: Normal Bowel Sounds, Soft, Other (mild generalized tenderness) Extremities: No Edema Neuro: Normal Speech Psych/Mental Status: Mood NL INEZ MOTT MD May 01, 2020 11:12
[2020-05-01 12:11] VITALS: BP 150/64
[2020-05-01] MEDS ORDERED: PANTOPRAZOLE 40 MG (PROTONIX) TAB PO SCH (21:00)
--- NOTE | 2020-05-02 14:12 | Physician Query Clarification ---
PQ-Further Specificity Admission/Discharge Admission Date: Apr 18, 2020 at 13:53 Discharge Date: May 01, 2020 at 12:10 Dr. Escobar, The medical record reflects the following clinical scenario: History/Risk Factors: ileus, acute renal failure, Multiple Myeloma, Melena, CKD, N/V, chemo Clinical Findings: hypoactive bowel sounds, Hyper/hypomagnesemai Treatment: IVP Zofran, Phenergan, Reglan Question: Can you further specify the etiology of the abdominal pain per the clinical indicators above? Please document a response in the Progress Notes or Discharge Summary. 1. ileus 2. PSBO 3. Melena 4. Other, with explanation of the clinical findings. 5. Clinically undetermined, no explanation for the clinical findings. PHYSICIAN RESPONSE Can you specify per above: 1 Please remember a lack of response to the above will prompt a phone page by CDI/Coding staff. In responding to this query, please exercise your independent professional judgment. The purpose of this communication is to more accurately reflect the complexity of your patients condition. The fact that a question is asked does not imply that any particular answer is desired or expected. Thank you for your timely response to this clarification. Requestors name: [email or web address] THIS PHYSICIAN QUERY FORM IS A PERMANENT PART OF THE MEDICAL RECORD JENNIFER SHEN May 02, 2020 14:12 INEZ ESCOBAR MD May 03, 2020 13:54
== END 2020-05-01 12:10 | disposition home health service (06) | DRG 389 ==
LOC: EDUNIT# 11:44 → ER 11:46 → 4TH 13:53
PROVIDERS: ADMIT Family Medicine; ATTEND Family Medicine
DX: K56.7 Ileus, unspecified (principal); N17.9 Acute kidney failure, unspecified; C90.00 Multiple myeloma not having achieved remission; K92.1 Melena; N18.4 Chronic kidney disease, stage 4 (severe); E83.41 Hypermagnesemia; E83.42 Hypomagnesemia; T45.1X5A Adverse effect of antineoplastic and immunosuppressive drugs, initial encounter; R11.2 Nausea with vomiting, unspecified; D50.8 Other iron deficiency anemias; R00.1 Bradycardia, unspecified; J43.9 Emphysema, unspecified; I12.9 Hypertensive chronic kidney disease with stage 1 through stage 4 chronic kidney disease, or unspecified chronic kidney disease; K21.9 Gastro-esophageal reflux disease without esophagitis; M19.91 Primary osteoarthritis, unspecified site; M54.9 Dorsalgia, unspecified; F41.9 Anxiety disorder, unspecified; F32.9 Major depressive disorder, single episode, unspecified; Z87.891 Personal history of nicotine dependence; Z79.891 Long term (current) use of opiate analgesic; Z88.6 Allergy status to analgesic agent; Z88.1 Allergy status to other antibiotic agents; Z88.2 Allergy status to sulfonamides
CPT/HCPCS: 36410; 36415; 71045; 74018; 74019; 74022; 74176; 76937; 80048; 80053; 80061; 82274; 82962; 83540; 83605; 83735; 83874; 84100; 84134; 84478; 84484; 84550; 85007; 85014; 85018; 85025; 85027; 85610; 85730; 86850; 86900; 86901; 86920; 87015; 87045; 87046; 87324; 87449; 87899; 93005; 94640; 94760; 96361; 96374; 96375

== ENCOUNTER 2020-05-13 07:28 | Day surgery (SDC) | payer MEDICAID ==
[~2020-05-13] VITALS: Ht 152.4 cm; Wt 60.8 kg
[2020-05-13] VITALS (13 sets, daily range): BP systolic 90–120; BP diastolic 42–96
[~2020-05-13 07:28] MED LIST changes: +DEXA4TAB PO; +ESOM40CA52 PO; +HYDR-700 PO; +ONDA8TAB15 PO; +OXYC-556 PO; +SENN-109 PO
[2020-05-13] MEDS ORDERED: NS IV 1000 ML 1,000 ML IV STA (08:03)
[2020-05-13 08:12] LABS: ABSOLUTE RETIC # 66 10e9/uL (24-90); BASOPHILS % (AUTO) 0 % (0-10); EOSINOPHILS # (AUTO) 0.1 10^3/uL (0.0-0.3); EOSINOPHILS % (AUTO) 2 % (0-10); HEMATOCRIT 37 % (35-52); HEMOGLOBIN 11.7 g/dL (11.5-16.0); LYMPHOCYTES # (AUTO) 2.5 10^3/uL (1.0-4.0); LYMPHOCYTES % (AUTO) 51 % (12-44); MEAN CORPUSCULAR HEMOGLOBIN 31 pg (25-34); MEAN CORPUSCULAR HGB CONC 32 g/dL (32-36); MEAN CORPUSCULAR VOLUME 99 fL (80-99); MEAN PLATELET VOLUME 10.1 fL (9.0-12.2); MONOCYTES # (AUTO) 0.5 10^3/uL (0.0-1.0); MONOCYTES % (AUTO) 10 % (0-12); NEUTROPHILS # (AUTO) 1.8 10^3/uL (1.8-7.8); NEUTROPHILS % (AUTO) 37 % (42-75); PLATELET COUNT 175 10^3/uL (130-400); RETICULOCYTE % 1.77 % (0.50-2.40); WHITE BLOOD COUNT 4.8 10^3/uL (4.3-11.0)
[2020-05-13] MEDS ORDERED: MULT-1136 PO (08:14)
[2020-05-13] MEDS ORDERED: LIDOCAINE 1% INJ 20 ML 20 ML VIAL INJ ONE (08:15)
[2020-05-13] MEDS ORDERED: MIDAZOLAM 2 MG/2 ML (VERSED) VIAL IVP ONE (08:15)
[2020-05-13] MEDS ORDERED: fentaNYL INJ 100 MCG/2 ML AMP IVP ONE (08:15)
[2020-05-13 08:18] LABS: PROTHROMBIN TIME PATIENT 13.4 SEC (12.2-14.7)
[2020-05-13 08:29] LABS: BAND NEUTROPHILS 4 %; BASOPHILS % (MANUAL) 1 %; EOSINOPHILS % (MANUAL) 2 %; LYMPHOCYTES % (MANUAL) 46 %; MONOCYTES % (MANUAL) 10 %; NEUTROPHILS % (MANUAL) 37 %; RBC MORPH NORMAL
[2020-05-13] MEDS ORDERED: HYDROcodone/APAP 5 MG/325 MG (LORTAB) TAB PO PRN (10:00)
--- NOTE | 2020-05-13 14:03 | Pre-Op Note & Conscious Sedat ---
Pre-Operative Progress Note H&P Reviewed The H&P was reviewed, patient examined and no changes noted. Date H&P Reviewed: May 13, 2020 Time H&P Reviewed: 08:00 Pre-Op Diagnosis: myeloma Conscious Sedation Pre-Proced Time 08:00 ASA Score 2 For ASA 3 and 4: Consider anesthesia and medical clearance. Also, for patients with a history of failed moderate sedation consider anesthesia. Airway Lungs Heart ASA score ASA 1: a normal healthy patient ASA 2: a patient with a mild systemic disease (mid diabetes, controlled hypertension, obesity ASA 3: a patient with a severe systemic disease that limits activity (angina, COPD, prior Myocardial infarction) ASA 4: a patient with an incapacitating disease that is a constant threat to life (CHF, renal failure) ASA 5: a moribund patient not expected to survive 24 hrs. (ruptured aneurysm) ASA 6: a declared brain- patient whose organs are being harvested. For emergent operations, add the letter E after the classification Mallampati Classification Grade 2 Sedation Plan Analgesia, Amnesia, Plan communicated to team members, Discussed options with patient/fam, Discussed risks with patient/fam The patient is an appropriate candidate to undergo the planned procedure, sedation, and anesthesia. The patient immediately re-assessed prior to indication. ELVIE POSADAS MD May 13, 2020 14:03
--- NOTE | 2020-05-13 15:16 | Diagnostic Imaging Report ---
INDICATION: Multiple myeloma. The patient was brought to the CT suite, placed on the table in the prone position. Axial imaging through the pelvis was performed to evaluate appropriate entry site. The skin of the low back was prepped and draped in the usual sterile fashion. A small amount of 1% lidocaine was utilized for local anesthesia. The procedure was performed utilizing radiology nursing and constant patient monitoring with conscious sedation. The patient was given 15 mcg of fentanyl intravenously and 1 mg of Versed intravenously. Total procedure time was 6 minutes. Bone marrow needle was advanced and placed with its tip along the posterior cortex of the right iliac bone. The needle was advanced through the cortex utilizing bone marrow drill. Two bone marrow aspirates were obtained. The drill was then used to obtain a core. Needle was removed and hemostasis was obtained. The patient tolerated the procedure well and left the Department in stable condition. IMPRESSION: Successful CT-guided bone marrow aspiration and core biopsy utilizing conscious sedation. Dictated by: Dictated on workstation # [id number]
== END 2020-05-13 12:20 | disposition home or self-care (01) ==
LOC: RAD 07:28 → SDC 09:50 → RAD 12:20
PROVIDERS: ATTEND Internal Medicine Hematology & Oncology
DX: C90.00 Multiple myeloma not having achieved remission (principal); E86.0 Dehydration; N18.4 Chronic kidney disease, stage 4 (severe); Z87.891 Personal history of nicotine dependence; E78.00 Pure hypercholesterolemia, unspecified; Z88.2 Allergy status to sulfonamides; Z88.1 Allergy status to other antibiotic agents; Z88.5 Allergy status to narcotic agent; Z88.8 Allergy status to other drugs, medicaments and biological substances; Z79.82 Long term (current) use of aspirin; Z79.899 Other long term (current) drug therapy; Z79.891 Long term (current) use of opiate analgesic; Z88.6 Allergy status to analgesic agent; Z82.49 Family history of ischemic heart disease and other diseases of the circulatory system
CPT/HCPCS: 36415; 38222; 77012; 85007; 85027; 85045; 85610; 85730; 88237; 88264; 99156

== ENCOUNTER 2020-05-24 10:03 | Outpatient (RCR) | payer MEDICAID ==
[2020-03-04 10:57] LABS: BASOPHILS % (AUTO) 1 % (0-10); EOSINOPHILS % (AUTO) 1 % (0-10); HEMATOCRIT 29 % (35-52); LYMPHOCYTES # (AUTO) 1.4 10^3/uL (1.0-4.0); LYMPHOCYTES % (AUTO) 39 % (12-44); MEAN CORPUSCULAR HEMOGLOBIN 31 pg (25-34); MEAN CORPUSCULAR HGB CONC 32 g/dL (32-36); MEAN CORPUSCULAR VOLUME 98 fL (80-99); MEAN PLATELET VOLUME 9.8 fL (9.0-12.2); MONOCYTES # (AUTO) 0.3 10^3/uL (0.0-1.0); MONOCYTES % (AUTO) 8 % (0-12); NEUTROPHILS # (AUTO) 1.9 10^3/uL (1.8-7.8); NEUTROPHILS % (AUTO) 51 % (42-75); PLATELET COUNT 165 10^3/uL (130-400); WHITE BLOOD COUNT 3.6 10^3/uL (4.3-11.0)
[2020-03-04 11:20] LABS: CALCIUM 8.3 MG/DL (8.5-10.1); CREATININE SERUM 1.62 MG/DL (0.60-1.30); POTASSIUM 3.9 MMOL/L (3.6-5.0)
[2020-03-11 10:50] LABS: BASOPHILS % (AUTO) 0 % (0-10); EOSINOPHILS # (AUTO) 0.3 10^3/uL (0.0-0.3); EOSINOPHILS % (AUTO) 5 % (0-10); HEMATOCRIT 32 % (35-52); HEMOGLOBIN 10.1 g/dL (11.5-16.0); LYMPHOCYTES # (AUTO) 1.3 10^3/uL (1.0-4.0); LYMPHOCYTES % (AUTO) 26 % (12-44); MEAN CORPUSCULAR HEMOGLOBIN 31 pg (25-34); MEAN CORPUSCULAR HGB CONC 31 g/dL (32-36); MEAN CORPUSCULAR VOLUME 99 fL (80-99); MONOCYTES # (AUTO) 0.2 10^3/uL (0.0-1.0); MONOCYTES % (AUTO) 4 % (0-12); NEUTROPHILS # (AUTO) 3.2 10^3/uL (1.8-7.8); NEUTROPHILS % (AUTO) 64 % (42-75); PLATELET COUNT 176 10^3/uL (130-400); WHITE BLOOD COUNT 5.1 10^3/uL (4.3-11.0)
[2020-03-11 12:08] LABS: CALCIUM 9.3 MG/DL (8.5-10.1); CREATININE SERUM 1.58 MG/DL (0.60-1.30); POTASSIUM 4.1 MMOL/L (3.6-5.0)
[2020-03-18 10:47] LABS: BASOPHILS % (AUTO) 0 % (0-10); EOSINOPHILS # (AUTO) 0.3 10^3/uL (0.0-0.3); EOSINOPHILS % (AUTO) 5 % (0-10); HEMATOCRIT 31 % (35-52); HEMOGLOBIN 9.8 g/dL (11.5-16.0); LYMPHOCYTES % (AUTO) 22 % (12-44); MEAN CORPUSCULAR HEMOGLOBIN 32 pg (25-34); MEAN CORPUSCULAR HGB CONC 32 g/dL (32-36); MEAN CORPUSCULAR VOLUME 100 fL (80-99); MEAN PLATELET VOLUME 12.1 fL (9.0-12.2); MONOCYTES # (AUTO) 0.7 10^3/uL (0.0-1.0); MONOCYTES % (AUTO) 15 % (0-12); NEUTROPHILS # (AUTO) 2.6 10^3/uL (1.8-7.8); NEUTROPHILS % (AUTO) 56 % (42-75); PLATELET COUNT 137 10^3/uL (130-400); WHITE BLOOD COUNT 4.7 10^3/uL (4.3-11.0)
[2020-03-18 11:04] LABS: CALCIUM 8.3 MG/DL (8.5-10.1); CREATININE SERUM 1.53 MG/DL (0.60-1.30); POTASSIUM 3.7 MMOL/L (3.6-5.0)
[2020-03-25 10:52] LABS: BASOPHILS % (AUTO) 1 % (0-10); EOSINOPHILS # (AUTO) 0.1 10^3/uL (0.0-0.3); EOSINOPHILS % (AUTO) 3 % (0-10); HEMATOCRIT 30 % (35-52); HEMOGLOBIN 9.6 g/dL (11.5-16.0); LYMPHOCYTES # (AUTO) 1.3 10^3/uL (1.0-4.0); LYMPHOCYTES % (AUTO) 33 % (12-44); MEAN CORPUSCULAR HEMOGLOBIN 32 pg (25-34); MEAN CORPUSCULAR HGB CONC 33 g/dL (32-36); MEAN CORPUSCULAR VOLUME 99 fL (80-99); MEAN PLATELET VOLUME 10.8 fL (9.0-12.2); MONOCYTES # (AUTO) 0.7 10^3/uL (0.0-1.0); MONOCYTES % (AUTO) 18 % (0-12); NEUTROPHILS # (AUTO) 1.8 10^3/uL (1.8-7.8); NEUTROPHILS % (AUTO) 46 % (42-75); PLATELET COUNT 179 10^3/uL (130-400); WHITE BLOOD COUNT 3.9 10^3/uL (4.3-11.0)
[2020-03-25 11:04] LABS: CALCIUM 8.9 MG/DL (8.5-10.1); CREATININE SERUM 1.69 MG/DL (0.60-1.30); POTASSIUM 4.5 MMOL/L (3.6-5.0)
[2020-04-01 10:43] LABS: BASOPHILS % (AUTO) 1 % (0-10); EOSINOPHILS # (AUTO) 0.1 10^3/uL (0.0-0.3); EOSINOPHILS % (AUTO) 1 % (0-10); HEMATOCRIT 29 % (35-52); HEMOGLOBIN 9.4 g/dL (11.5-16.0); LYMPHOCYTES # (AUTO) 1.4 10^3/uL (1.0-4.0); LYMPHOCYTES % (AUTO) 29 % (12-44); MEAN CORPUSCULAR HEMOGLOBIN 33 pg (25-34); MEAN CORPUSCULAR HGB CONC 32 g/dL (32-36); MEAN CORPUSCULAR VOLUME 101 fL (80-99); MEAN PLATELET VOLUME 9.4 fL (9.0-12.2); MONOCYTES # (AUTO) 0.6 10^3/uL (0.0-1.0); MONOCYTES % (AUTO) 13 % (0-12); NEUTROPHILS # (AUTO) 2.7 10^3/uL (1.8-7.8); NEUTROPHILS % (AUTO) 55 % (42-75); PLATELET COUNT 217 10^3/uL (130-400); WHITE BLOOD COUNT 4.8 10^3/uL (4.3-11.0)
[2020-04-01 11:02] LABS: ALBUMIN 3.9 GM/DL (3.2-4.5); BILIRUBIN,TOTAL 0.2 MG/DL (0.1-1.0); CALCIUM 9.1 MG/DL (8.5-10.1); CREATININE SERUM 1.52 MG/DL (0.60-1.30); POTASSIUM 4.7 MMOL/L (3.6-5.0); TOTAL PROTEIN 6.5 GM/DL (6.4-8.2)
[2020-04-10 11:23] LABS: BASOPHILS % (AUTO) 0 % (0-10); EOSINOPHILS # (AUTO) 0.1 10^3/uL (0.0-0.3); EOSINOPHILS % (AUTO) 3 % (0-10); HEMATOCRIT 29 % (35-52); HEMOGLOBIN 9.2 g/dL (11.5-16.0); LYMPHOCYTES # (AUTO) 0.7 10^3/uL (1.0-4.0); LYMPHOCYTES % (AUTO) 13 % (12-44); MEAN CORPUSCULAR HEMOGLOBIN 33 pg (25-34); MEAN CORPUSCULAR HGB CONC 32 g/dL (32-36); MEAN CORPUSCULAR VOLUME 102 fL (80-99); MEAN PLATELET VOLUME 11.5 fL (9.0-12.2); MONOCYTES # (AUTO) 0.2 10^3/uL (0.0-1.0); MONOCYTES % (AUTO) 3 % (0-12); NEUTROPHILS # (AUTO) 4.1 10^3/uL (1.8-7.8); NEUTROPHILS % (AUTO) 80 % (42-75); PLATELET COUNT 102 10^3/uL (130-400); WHITE BLOOD COUNT 5.1 10^3/uL (4.3-11.0)
[2020-04-10 11:30] LABS: CALCIUM 7.7 MG/DL (8.5-10.1); CREATININE SERUM 1.4 MG/DL (0.60-1.30); POTASSIUM 4.4 MMOL/L (3.6-5.0)
[2020-05-07 09:23] LABS: BASOPHILS % (AUTO) 1 % (0-10); EOSINOPHILS # (AUTO) 0.1 10^3/uL (0.0-0.3); EOSINOPHILS % (AUTO) 1 % (0-10); HEMATOCRIT 36 % (35-52); HEMOGLOBIN 11.5 g/dL (11.5-16.0); LYMPHOCYTES # (AUTO) 1.6 10^3/uL (1.0-4.0); LYMPHOCYTES % (AUTO) 39 % (12-44); MEAN CORPUSCULAR HEMOGLOBIN 32 pg (25-34); MEAN CORPUSCULAR HGB CONC 32 g/dL (32-36); MEAN CORPUSCULAR VOLUME 99 fL (80-99); MONOCYTES # (AUTO) 0.3 10^3/uL (0.0-1.0); MONOCYTES % (AUTO) 8 % (0-12); NEUTROPHILS # (AUTO) 2.1 10^3/uL (1.8-7.8); NEUTROPHILS % (AUTO) 50 % (42-75); PLATELET COUNT 233 10^3/uL (130-400); WHITE BLOOD COUNT 4.1 10^3/uL (4.3-11.0)
[2020-05-07 09:46] LABS: ALBUMIN 3.5 GM/DL (3.2-4.5); BILIRUBIN,TOTAL 0.2 MG/DL (0.1-1.0); CALCIUM 8.4 MG/DL (8.5-10.1); CREATININE SERUM 1.45 MG/DL (0.60-1.30); POTASSIUM 4.2 MMOL/L (3.6-5.0); TOTAL PROTEIN 6.5 GM/DL (6.4-8.2)
[~2020-05-24 10:03] MED LIST changes: +BORTEZOMIB 3.5 MG VELCADE SC SCH; +MULT-1136 PO; +NS IV 500 ML (CANCER CENTER) 500 ML IV SCH; +ZOLEDRONIC ACID (CANCER CTR) 3 MG in NS (IVPB) CANCER CENTER 100 ML IV SCH
== END 2020-06-02 | disposition home or self-care (01) ==
LOC: ONC 10:03
PROVIDERS: ATTEND Internal Medicine Hematology & Oncology
DX: C90.00 Multiple myeloma not having achieved remission (principal)
CPT/HCPCS: 36591; 80048; 80053; 82232; 82784; 83883; 84155; 84165; 85025; 96367; 96401; 99213

== ENCOUNTER → 2020-08-15 | Outpatient (CLI) | payer MEDICAID ==
[~2020-08-15] MED LIST changes: -BORTEZOMIB 3.5 MG VELCADE SC SCH; -NS IV 500 ML (CANCER CENTER) 500 ML IV SCH; -ZOLEDRONIC ACID (CANCER CTR) 3 MG in NS (IVPB) CANCER CENTER 100 ML IV SCH
--- NOTE | 2020-08-15 12:17 | Diagnostic Imaging Report ---
PROCEDURE: US Renal Bilateral. TECHNIQUE: Multiple real-time grayscale images were obtained over the kidneys in various projections bilaterally. INDICATION: Chronic kidney disease, stage III. FINDINGS: Right kidney measures 8.5 x 3.1 x 4.2 cm and left kidney measures 11.0 x 4.6 x 5.1 cm. Cortical thickness and echogenicity appears normal. No calculi are seen. There is no hydronephrosis. Prevoid bladder volume is 167 mL. No postvoid residual bladder volume is detected. Bilateral ureteral jets are visualized. IMPRESSION: Unremarkable renal and bladder ultrasound. Dictated by: Dictated on workstation # [id number]
== END ==
LOC: RAD 10:14
PROVIDERS: ATTEND Internal Medicine Nephrology
DX: N18.31 Chronic kidney disease, stage 3a (principal)
CPT/HCPCS: 76770

== ENCOUNTER → 2020-08-26 | Outpatient (CLI) | payer MEDICAID ==
[~2020-08-26] MED LIST changes: -OXYC-464 PO; +OXYC1TAB15 PO
--- NOTE | 2020-08-26 14:16 | Diagnostic Imaging Report ---
EXAMINATION: Chest 2 views. HISTORY: Cough. COMPARISON: 04/18/2020 FINDINGS: Heart size and pulmonary vasculature are normal. A right-sided port catheter is present. Multiple chronic appearing rib fractures. There are new opacities within the left lung measuring up to 1.3 cm and 1.4 cm in the mid and lower lung. No pleural effusion or pneumothorax. IMPRESSION: 1. New opacities in the left mid and lower lung measuring up to 1.4 cm. Consider further evaluation with a CT of the chest. 2. Multiple healing rib fractures. Dictated by: Dictated on workstation # [id number]
== END ==
LOC: RAD 11:29
PROVIDERS: ATTEND Nurse Practitioner Adult Health
DX: S22.42XA Multiple fractures of ribs, left side, initial encounter for closed fracture (principal); R91.8 Other nonspecific abnormal finding of lung field; X58.XXXA Exposure to other specified factors, initial encounter
CPT/HCPCS: 71046

== ENCOUNTER → 2020-08-30 | Outpatient (CLI) | payer MEDICAID ==
--- NOTE | 2020-08-30 10:35 | Diagnostic Imaging Report ---
EXAMINATION: CT chest without contrast. TECHNIQUE: Multiple contiguous axial images were obtained through the chest without the use of intravenous contrast. All CT scans use one or more of the following dose optimizing techniques: automated exposure control, MA and/or KvP adjustment based on patient size and exam type or iterative reconstruction. HISTORY: Lung nodules COMPARISON: Radiograph dated 08/26/2020. FINDINGS: There is no edema or pneumonia. No pleural effusion. No pneumothorax. No suspicious nodules. There is no axillary or supraclavicular lymphadenopathy. There is no mediastinal lymphadenopathy. Heart size is normal. There are mild coronary artery calcifications. No pericardial effusion. Aorta is normal in caliber. Limited views of the upper abdomen are unremarkable. The radiographic abnormality corresponds to sclerotic rib lesions which may represent healed pathologic fractures. There are scattered small lytic lesions throughout the skeleton. There is a T8 pathologic compression fracture. IMPRESSION: 1. The radiographic abnormality are healed presumed pathologic fractures of ribs. There are no lung nodules. 2. Multifocal lytic lesions throughout skeleton. Dictated by: Dictated on workstation # [id number]
== END ==
LOC: RAD FS 10:00
PROVIDERS: ATTEND Nurse Practitioner Adult Health
DX: R93.89 Abnormal findings on diagnostic imaging of other specified body structures (principal); M89.9 Disorder of bone, unspecified
CPT/HCPCS: 71250

== ENCOUNTER → 2020-09-09 | Outpatient (RCR) | payer MEDICAID ==
[2020-06-11 14:46] LABS: BASOPHILS % (AUTO) 0 % (0-10); EOSINOPHILS # (AUTO) 0.1 10^3/uL (0.0-0.3); EOSINOPHILS % (AUTO) 1 % (0-10); HEMATOCRIT 36 % (35-52); HEMOGLOBIN 11.8 g/dL (11.5-16.0); LYMPHOCYTES % (AUTO) 42 % (12-44); MEAN CORPUSCULAR HEMOGLOBIN 32 pg (25-34); MEAN CORPUSCULAR HGB CONC 33 g/dL (32-36); MEAN CORPUSCULAR VOLUME 97 fL (80-99); MEAN PLATELET VOLUME 9.2 fL (9.0-12.2); MONOCYTES # (AUTO) 0.6 10^3/uL (0.0-1.0); MONOCYTES % (AUTO) 8 % (0-12); NEUTROPHILS # (AUTO) 3.5 10^3/uL (1.8-7.8); NEUTROPHILS % (AUTO) 48 % (42-75); PLATELET COUNT 246 10^3/uL (130-400); WHITE BLOOD COUNT 7.2 10^3/uL (4.3-11.0)
[2020-06-11 15:05] LABS: BILIRUBIN,TOTAL 0.3 MG/DL (0.1-1.0); CALCIUM 9.3 MG/DL (8.5-10.1); CREATININE SERUM 1.72 MG/DL (0.60-1.30); POTASSIUM 4.2 MMOL/L (3.6-5.0); TOTAL PROTEIN 6.8 GM/DL (6.4-8.2)
[2020-06-26 15:05] LABS: BASOPHILS % (AUTO) 1 % (0-10); EOSINOPHILS # (AUTO) 0.1 10^3/uL (0.0-0.3); EOSINOPHILS % (AUTO) 2 % (0-10); HEMATOCRIT 36 % (35-52); HEMOGLOBIN 11.5 g/dL (11.5-16.0); LYMPHOCYTES # (AUTO) 1.3 10^3/uL (1.0-4.0); LYMPHOCYTES % (AUTO) 30 % (12-44); MEAN CORPUSCULAR HEMOGLOBIN 33 pg (25-34); MEAN CORPUSCULAR HGB CONC 32 g/dL (32-36); MEAN CORPUSCULAR VOLUME 101 fL (80-99); MEAN PLATELET VOLUME 9.7 fL (9.0-12.2); MONOCYTES # (AUTO) 0.3 10^3/uL (0.0-1.0); MONOCYTES % (AUTO) 8 % (0-12); NEUTROPHILS # (AUTO) 2.5 10^3/uL (1.8-7.8); NEUTROPHILS % (AUTO) 59 % (42-75); PLATELET COUNT 185 10^3/uL (130-400); WHITE BLOOD COUNT 4.2 10^3/uL (4.3-11.0)
[2020-06-26 15:35] LABS: BILIRUBIN,TOTAL 0.3 MG/DL (0.1-1.0); CALCIUM 8.7 MG/DL (8.5-10.1); CREATININE SERUM 1.54 MG/DL (0.60-1.30); POTASSIUM 4.4 MMOL/L (3.6-5.0); TOTAL PROTEIN 6.7 GM/DL (6.4-8.2)
[2020-07-03 11:05] LABS: BASOPHILS % (AUTO) 0 % (0-10); EOSINOPHILS # (AUTO) 0.1 10^3/uL (0.0-0.3); EOSINOPHILS % (AUTO) 2 % (0-10); HEMATOCRIT 37 % (35-52); LYMPHOCYTES # (AUTO) 1.4 10^3/uL (1.0-4.0); LYMPHOCYTES % (AUTO) 23 % (12-44); MEAN CORPUSCULAR HEMOGLOBIN 33 pg (25-34); MEAN CORPUSCULAR HGB CONC 32 g/dL (32-36); MEAN CORPUSCULAR VOLUME 101 fL (80-99); MEAN PLATELET VOLUME 9.2 fL (9.0-12.2); MONOCYTES # (AUTO) 0.5 10^3/uL (0.0-1.0); MONOCYTES % (AUTO) 8 % (0-12); NEUTROPHILS # (AUTO) 4.1 10^3/uL (1.8-7.8); NEUTROPHILS % (AUTO) 67 % (42-75); PLATELET COUNT 239 10^3/uL (130-400); WHITE BLOOD COUNT 6.1 10^3/uL (4.3-11.0)
[2020-07-03 11:22] LABS: POTASSIUM 4.6 MMOL/L (3.6-5.0)
[2020-07-03 11:23] LABS: CALCIUM 9.6 MG/DL (8.5-10.1)
[2020-07-03 11:27] LABS: CREATININE SERUM 1.44 MG/DL (0.60-1.30)
[2020-07-10 11:22] LABS: BASOPHILS % (AUTO) 0 % (0-10); EOSINOPHILS # (AUTO) 0.2 10^3/uL (0.0-0.3); EOSINOPHILS % (AUTO) 3 % (0-10); HEMATOCRIT 40 % (35-52); HEMOGLOBIN 12.6 g/dL (11.5-16.0); LYMPHOCYTES # (AUTO) 1.5 10^3/uL (1.0-4.0); LYMPHOCYTES % (AUTO) 29 % (12-44); MEAN CORPUSCULAR HEMOGLOBIN 32 pg (25-34); MEAN CORPUSCULAR HGB CONC 32 g/dL (32-36); MEAN CORPUSCULAR VOLUME 102 fL (80-99); MEAN PLATELET VOLUME 9.4 fL (9.0-12.2); MONOCYTES # (AUTO) 0.4 10^3/uL (0.0-1.0); MONOCYTES % (AUTO) 7 % (0-12); NEUTROPHILS # (AUTO) 3.1 10^3/uL (1.8-7.8); NEUTROPHILS % (AUTO) 61 % (42-75); PLATELET COUNT 202 10^3/uL (130-400)
[2020-07-10 11:44] LABS: CALCIUM 9.3 MG/DL (8.5-10.1); CREATININE SERUM 1.22 MG/DL (0.60-1.30); POTASSIUM 4.1 MMOL/L (3.6-5.0)
[2020-07-16 10:18] LABS: BASOPHILS % (AUTO) 0 % (0-10); EOSINOPHILS # (AUTO) 0.2 10^3/uL (0.0-0.3); EOSINOPHILS % (AUTO) 4 % (0-10); HEMATOCRIT 41 % (35-52); LYMPHOCYTES % (AUTO) 20 % (12-44); MEAN CORPUSCULAR HEMOGLOBIN 33 pg (25-34); MEAN CORPUSCULAR HGB CONC 32 g/dL (32-36); MEAN CORPUSCULAR VOLUME 103 fL (80-99); MEAN PLATELET VOLUME 9.8 fL (9.0-12.2); MONOCYTES # (AUTO) 0.3 10^3/uL (0.0-1.0); MONOCYTES % (AUTO) 6 % (0-12); NEUTROPHILS # (AUTO) 3.5 10^3/uL (1.8-7.8); NEUTROPHILS % (AUTO) 69 % (42-75); PLATELET COUNT 174 10^3/uL (130-400)
[2020-07-16 10:42] LABS: CALCIUM 8.9 MG/DL (8.5-10.1); CREATININE SERUM 1.27 MG/DL (0.60-1.30)
[2020-07-24 11:06] LABS: EOSINOPHILS # (AUTO) 0.2 10^3/uL (0.0-0.3); LYMPHOCYTES % (AUTO) 17 % (12-44); MEAN PLATELET VOLUME 10.9 fL (9.0-12.2)
[2020-07-24 11:08] LABS: BASOPHILS % (AUTO) 1 % (0-10); EOSINOPHILS % (AUTO) 4 % (0-10); HEMATOCRIT 40 % (35-52); HEMOGLOBIN 12.8 g/dL (11.5-16.0); LYMPHOCYTES # (AUTO) 0.9 10^3/uL (1.0-4.0); MEAN CORPUSCULAR HEMOGLOBIN 33 pg (25-34); MEAN CORPUSCULAR HGB CONC 32 g/dL (32-36); MEAN CORPUSCULAR VOLUME 102 fL (80-99); MONOCYTES # (AUTO) 0.6 10^3/uL (0.0-1.0); MONOCYTES % (AUTO) 12 % (0-12); NEUTROPHILS # (AUTO) 3.2 10^3/uL (1.8-7.8); NEUTROPHILS % (AUTO) 66 % (42-75); PLATELET COUNT 124 10^3/uL (130-400); WHITE BLOOD COUNT 4.9 10^3/uL (4.3-11.0)
[2020-07-24 11:35] LABS: ALBUMIN 3.8 GM/DL (3.2-4.5); BILIRUBIN,TOTAL 0.4 MG/DL (0.1-1.0); CALCIUM 8.6 MG/DL (8.5-10.1); CREATININE SERUM 1.31 MG/DL (0.60-1.30); TOTAL PROTEIN 6.3 GM/DL (6.4-8.2)
[2020-08-07 13:05] LABS: BASOPHILS # (AUTO) 0.1 10^3/uL (0.0-0.1); BASOPHILS % (AUTO) 1 % (0-10); EOSINOPHILS % (AUTO) 1 % (0-10); HEMATOCRIT 38 % (35-52); HEMOGLOBIN 12.8 g/dL (11.5-16.0); LYMPHOCYTES % (AUTO) 28 % (12-44); MEAN CORPUSCULAR HEMOGLOBIN 33 pg (25-34); MEAN CORPUSCULAR HGB CONC 34 g/dL (32-36); MEAN CORPUSCULAR VOLUME 100 fL (80-99); MEAN PLATELET VOLUME 9.7 fL (9.0-12.2); MONOCYTES # (AUTO) 0.5 10^3/uL (0.0-1.0); MONOCYTES % (AUTO) 13 % (0-12); NEUTROPHILS % (AUTO) 57 % (42-75); PLATELET COUNT 187 10^3/uL (130-400); WHITE BLOOD COUNT 3.5 10^3/uL (4.3-11.0)
[2020-08-07 13:16] LABS: CALCIUM 9.8 MG/DL (8.5-10.1); CREATININE SERUM 1.4 MG/DL (0.60-1.30); POTASSIUM 4.1 MMOL/L (3.6-5.0)
[2020-08-14 13:59] LABS: BASOPHILS # (AUTO) 0.1 10^3/uL (0.0-0.1); BASOPHILS % (AUTO) 1 % (0-10); EOSINOPHILS # (AUTO) 0.2 10^3/uL (0.0-0.3); EOSINOPHILS % (AUTO) 4 % (0-10); HEMATOCRIT 42 % (35-52); HEMOGLOBIN 13.9 g/dL (11.5-16.0); LYMPHOCYTES % (AUTO) 24 % (12-44); MEAN CORPUSCULAR HEMOGLOBIN 33 pg (25-34); MEAN CORPUSCULAR HGB CONC 33 g/dL (32-36); MEAN CORPUSCULAR VOLUME 99 fL (80-99); MEAN PLATELET VOLUME 10.7 fL (9.0-12.2); MONOCYTES # (AUTO) 0.4 10^3/uL (0.0-1.0); MONOCYTES % (AUTO) 8 % (0-12); NEUTROPHILS # (AUTO) 2.6 10^3/uL (1.8-7.8); NEUTROPHILS % (AUTO) 61 % (42-75); PLATELET COUNT 156 10^3/uL (130-400); WHITE BLOOD COUNT 4.3 10^3/uL (4.3-11.0)
[2020-08-14 14:54] LABS: CALCIUM 9.4 MG/DL (8.5-10.1); CREATININE SERUM 1.28 MG/DL (0.60-1.30); POTASSIUM 4.1 MMOL/L (3.6-5.0)
[2020-08-26 11:19] LABS: BASOPHILS % (AUTO) 1 % (0-10); EOSINOPHILS # (AUTO) 0.5 10^3/uL (0.0-0.3); HEMATOCRIT 40 % (35-52); HEMOGLOBIN 13.5 g/dL (11.5-16.0); MEAN CORPUSCULAR HEMOGLOBIN 33 pg (25-34); MEAN CORPUSCULAR HGB CONC 33 g/dL (32-36)
[2020-08-26 11:21] LABS: EOSINOPHILS % (AUTO) 11 % (0-10); LYMPHOCYTES # (AUTO) 1.1 10^3/uL (1.0-4.0); LYMPHOCYTES % (AUTO) 24 % (12-44); MEAN CORPUSCULAR VOLUME 98 fL (80-99); MEAN PLATELET VOLUME 11.2 fL (9.0-12.2); MONOCYTES # (AUTO) 0.6 10^3/uL (0.0-1.0); MONOCYTES % (AUTO) 13 % (0-12); NEUTROPHILS # (AUTO) 2.2 10^3/uL (1.8-7.8); NEUTROPHILS % (AUTO) 50 % (42-75); PLATELET COUNT 115 10^3/uL (130-400); WHITE BLOOD COUNT 4.4 10^3/uL (4.3-11.0)
[2020-08-26 11:39] LABS: ALBUMIN 3.7 GM/DL (3.2-4.5); BILIRUBIN,TOTAL 0.5 MG/DL (0.1-1.0); CALCIUM 8.6 MG/DL (8.5-10.1); CREATININE SERUM 1.02 MG/DL (0.60-1.30); POTASSIUM 3.4 MMOL/L (3.6-5.0); TOTAL PROTEIN 6.1 GM/DL (6.4-8.2)
[2020-09-03 12:03] LABS: BASOPHILS % (AUTO) 1 % (0-10); EOSINOPHILS # (AUTO) 0.1 10^3/uL (0.0-0.3); EOSINOPHILS % (AUTO) 3 % (0-10); HEMATOCRIT 38 % (35-52); HEMOGLOBIN 12.6 g/dL (11.5-16.0); LYMPHOCYTES # (AUTO) 0.7 10^3/uL (1.0-4.0); LYMPHOCYTES % (AUTO) 25 % (12-44); MEAN CORPUSCULAR HEMOGLOBIN 33 pg (25-34); MEAN CORPUSCULAR HGB CONC 33 g/dL (32-36); MEAN CORPUSCULAR VOLUME 99 fL (80-99); MEAN PLATELET VOLUME 9.6 fL (9.0-12.2); MONOCYTES # (AUTO) 0.4 10^3/uL (0.0-1.0); MONOCYTES % (AUTO) 14 % (0-12); NEUTROPHILS # (AUTO) 1.7 10^3/uL (1.8-7.8); NEUTROPHILS % (AUTO) 57 % (42-75); PLATELET COUNT 203 10^3/uL (130-400)
[2020-09-03 12:29] LABS: CALCIUM 8.9 MG/DL (8.5-10.1); CREATININE SERUM 0.98 MG/DL (0.60-1.30)
[~2020-09-09] MED LIST changes: +DENOSUMAB 120 MG/1.7 ML (XGEVA) SQ SCH
[2020-09-09 12:59] LABS: BASOPHILS % (AUTO) 1 % (0-10); EOSINOPHILS # (AUTO) 0.1 10^3/uL (0.0-0.3); EOSINOPHILS % (AUTO) 6 % (0-10); HEMATOCRIT 38 % (35-52); HEMOGLOBIN 12.6 g/dL (11.5-16.0); LYMPHOCYTES # (AUTO) 0.7 10^3/uL (1.0-4.0); LYMPHOCYTES % (AUTO) 31 % (12-44); MEAN CORPUSCULAR HEMOGLOBIN 33 pg (25-34); MEAN CORPUSCULAR HGB CONC 33 g/dL (32-36); MEAN CORPUSCULAR VOLUME 100 fL (80-99); MEAN PLATELET VOLUME 10.6 fL (9.0-12.2); MONOCYTES # (AUTO) 0.2 10^3/uL (0.0-1.0); MONOCYTES % (AUTO) 8 % (0-12); NEUTROPHILS # (AUTO) 1.1 10^3/uL (1.8-7.8); NEUTROPHILS % (AUTO) 53 % (42-75); PLATELET COUNT 139 10^3/uL (130-400); WHITE BLOOD COUNT 2.1 10^3/uL (4.3-11.0)
[2020-09-09 13:23] LABS: CALCIUM 9.2 MG/DL (8.5-10.1); CREATININE SERUM 1.44 MG/DL (0.60-1.30); POTASSIUM 3.9 MMOL/L (3.6-5.0)
== END | disposition home or self-care (01) ==
LOC: ONC 06-11 14:34
PROVIDERS: ATTEND Internal Medicine Hematology & Oncology
DX: C90.00 Multiple myeloma not having achieved remission (principal); N18.4 Chronic kidney disease, stage 4 (severe); K21.9 Gastro-esophageal reflux disease without esophagitis; E86.0 Dehydration; Z79.82 Long term (current) use of aspirin; Z79.899 Other long term (current) drug therapy; Z79.891 Long term (current) use of opiate analgesic
CPT/HCPCS: 36591; 80048; 80053; 82232; 82306; 82784; 83883; 84155; 84165; 85025; 96372; 99213

== ENCOUNTER 2020-10-02 10:25 | Inpatient (IN) | payer MEDICAID ==
[~2020-10-02] VITALS: Ht 149 cm; Wt 74.2 kg
[~2020-10-02 10:25] MED LIST changes: -DENOSUMAB 120 MG/1.7 ML (XGEVA) SQ SCH
[2020-10-02] MEDS ORDERED: LACTATED RINGERS 1,000 ML IV STA (11:18)
[2020-10-02] MEDS ORDERED: CEFEPIME INJECTION 1,000 MG in WATER (STERILE) FOR INJECTION 10 ML IV ONE (11:30)
[2020-10-02] MEDS ORDERED: NS IV 500 ML 500 ML IV ONE (11:30)
[2020-10-02] MEDS ORDERED: VANCOMYCIN INJECTION 1,250 MG in NS (IVPB) 250 ML IV ONE (11:30)
[2020-10-02 11:39] LABS: EOSINOPHILS % (AUTO) 0 % (0-10); HEMOGLOBIN 11.9 g/dL (11.5-16.0); MEAN CORPUSCULAR HEMOGLOBIN 33 pg (25-34)
[2020-10-02 11:41] LABS: BASOPHILS % (AUTO) 1 % (0-10); HEMATOCRIT 36 % (35-52); LYMPHOCYTES # (AUTO) 0.5 10^3/uL (1.0-4.0); LYMPHOCYTES % (AUTO) 33 % (12-44); MEAN CORPUSCULAR HGB CONC 33 g/dL (32-36); MEAN CORPUSCULAR VOLUME 98 fL (80-99); MEAN PLATELET VOLUME 10.6 fL (9.0-12.2); MONOCYTES # (AUTO) 0.3 10^3/uL (0.0-1.0); MONOCYTES % (AUTO) 21 % (0-12); NEUTROPHILS # (AUTO) 0.6 10^3/uL (1.8-7.8); NEUTROPHILS % (AUTO) 44 % (42-75); PLATELET COUNT 126 10^3/uL (130-400); WHITE BLOOD COUNT 1.5 10^3/uL (4.3-11.0)
[2020-10-02 11:52] LABS: ALBUMIN 3.4 GM/DL (3.2-4.5); POTASSIUM 3.5 MMOL/L (3.6-5.0)
--- NOTE | 2020-10-02 11:53 | ED General ---
General Chief Complaint: Cough/Cold/Flu Symptoms Stated Complaint: FEVER;LOW OXYGEN-85 Nursing Triage Note: Pt has cough and sore throat since 09/29 and hx of recent fever. pt afebrile in ED. O2 saturation ranging from 88-93% at rest. Pt reports o2 sat of 85% at home. Pt has hx multiple myeloma. Source of Information: Patient Exam Limitations: No Limitations History of Present Illness Date Seen by Provider: Oct 02, 2020 Time Seen by Provider: 11:51 Initial Comments 5-year-old female undergoing chemotherapy for multiple myeloma most recent chemotherapy course last week presents to ER with reports of general malaise for 1 week with shortness of breath and fevers. Unvaccinated against Covid. Oxygen saturation at home allegedly was 85%. Timing/Duration: 1-2 Days Severity: Moderate Associated Systoms: Cough, Shortness of Air Allergies and Home Medications Allergies Coded Allergies: ciprofloxacin (Verified Allergy, Mild, throat swells, 03/15/20) Sulfa (Sulfonamide Antibiotics) (Verified Allergy, Unknown, 03/15/20) acetaminophen (Verified Allergy, Unknown, 03/15/20) morphine (Verified Allergy, Unknown, 03/15/20) propoxyphene (Verified Allergy, Unknown, 03/15/20) Home Medications Albuterol Sulfate 18 Gm Hfa.aer.ad, 2 PUFF INH Q6H PRN for SHORTNESS OF BREATH, (Reported) Amlodipine Besylate 5 Mg Tablet, 5 MG PO HS, (Reported) Atenolol 25 Mg Tablet, 50 MG PO HS, (Reported) Dexamethasone 4 Mg Tablet, 20 MG PO UD PRN for CHEMO TREATMENTS, (Reported) TAKES 5 (4MG) TABS ON DAYS 1,8,15 AND 22 OF A 35 DAY CHEMO CYCLE Diazepam 5 Mg Tablet, 5 MG PO QID PRN for ANXIETY, (Reported) Esomeprazole Magnesium 40 Mg Capsule.dr, 40 MG PO DAILY, (Reported) Hydroxyzine HCl 25 Mg Tablet, 25 MG PO TID PRN for ANXIETY, (Reported) Ipratropium/Albuterol Sulfate 3 Ml Ampul.neb, 3 ML NEB Q6H PRN for SHORTNESS OF BREATH, (Reported) Multivitamin 1 Each Tablet, 1 EACH PO DAILY, (Reported) [place]-3 Acid Ethyl Esters 1 Gm Capsule, 4 GM PO HS, (Reported) TAKES 4 (1GM) CAPS Ondansetron HCl 8 Mg Tablet, 8 MG PO Q8H PRN for NAUSEA/VOMITING-1ST LINE, (Reported) Oxycodone HCl/Acetaminophen 1 Each Tablet, 1 EA PO Q6H PRN for PAIN-MODERATE (5- 7), (Reported) Pitavastatin Calcium 2 Mg Tablet, 2 MG PO 1700, (Reported) Sennosides/Docusate Sodium 1 Each Tablet, 1 EACH PO BID Prescribed by: INEZ MOTT on 05/01/20 1027 Patient Home Medication List Home Medication List Reviewed: Yes Review of Systems Review of Systems Constitutional: see HPI, chills, fever EENTM: see HPI, throat pain Respiratory: see HPI, dyspnea on exertion, short of breath Cardiovascular: no symptoms reported Genitourinary: no symptoms reported Musculoskeletal: no symptoms reported Skin: no symptoms reported Psychiatric/Neurological: No Symptoms Reported Hematologic/Lymphatic: No Symptoms Reported Past Mdicbdc-Glunok-Uepysh Hx Patient Social History Tobacco Use?: No Smoking Status: Former Smoker Substance use?: No Alcohol Use?: No Pt feels they are or have been: No Seasonal Allergies Seasonal Allergies: No Past Medical History Surgery/Hospitalization HX: sees test engine operator for monitoring, has multiple myeloma - sees Dr. House Surgeries: Yes (bladder mesh/sling, tumor removed from inner ears, ) Gallbladder, Hysterectomy Respiratory: Yes Asthma, COPD, Emphysema Currently Using CPAP: No Currently Using BIPAP: No Cardiac: Yes Angina, Hypertension Neurological: No Genitourinary: No Gastrointestinal: Yes Gastroesophageal Reflux, Diverticulosis, Polyps, Hiatal Hernia Musculoskeletal: Yes Arthritis, Chronic Back Pain Endocrine: No HEENT: No Cancer: Yes (multiple myeloma) Cervical What Type of Treatment Did You: Surgical Intervention Psychosocial: Yes Anxiety, Depression Integumentary: No Blood Disorders: No Family Medical History No Pertinent Family Hx Physical Exam Vital Signs Vital Signs - First Documented 10/02/20 11:08 Temp 36.1 Pulse 91 Resp 18 B/P (MAP) 98/53 (68) Pulse Ox 93 O2 Delivery Room Air Capillary Refill : Less Than 3 Seconds Height, Weight, BMI Height: 5'0" Weight: 156lbs. 0oz. [id number]; 28.00 BMI Method:Stated General Appearance: No Apparent Distress, WD/WN, Chronically ill (Appears older than stated age), Thin, Other (Alert and oriented mentating well. Blood pressure is soft currently at 79/53. IV fluids are infusing.) Eyes: Bilateral Eye Normal Inspection, Bilateral Eye PERRL, Bilateral Eye EOMI Neck: Full Range of Motion, Normal Inspection Respiratory: No Accessory Muscle Use, No Respiratory Distress, Other (88% on room air, up to 99% on 2 L of supplemental oxygen) Cardiovascular: Regular Rate, Rhythm, Normal Peripheral Pulses Gastrointestinal: Normal Bowel Sounds, Non Tender, Soft Extremity: Normal Capillary Refill, Normal Inspection Neurologic/Psychiatric: Alert, Oriented x3 Skin: Normal Color, Warm/Dry Focused Exam Lactate Level 10/02/20 11:25: Lactic Acid Level Laboratory Tests Test 10/02/20 11:25 Progress/Results/Core Measures Suspected Sepsis SIRS Temperature: Pulse: 91 Respiratory Rate: 18 Laboratory Tests 10/02/20 11:25: White Blood Count 1.5L Blood Pressure 98 /53 Mean: 68 10/02/20 11:25: Laboratory Tests 10/02/20 11:25: Platelet Count 126L Results/Orders Lab Results Laboratory Tests Test 10/02/20 10:54 10/02/20 11:25 Range/Units SARS-CoV-2 RNA (RT-PCR) Detected H Not Detecte White Blood Count 1.5 L 4.3-11.0 10^3/uL Red Blood Count 3.63 L 3.80-5.11 10^6/uL Hemoglobin 11.9 11.5-16.0 g/dL Hematocrit 36 35-52 % Mean Corpuscular Volume 98 80-99 fL Mean Corpuscular Hemoglobin 33 25-34 pg Mean Corpuscular Hemoglobin Concent 33 32-36 g/dL Red Cell Distribution Width 13.5 10.0-14.5 % Platelet Count 126 L 130-400 10^3/uL Mean Platelet Volume 10.6 9.0-12.2 fL Immature Granulocyte % (Auto) 1 % Neutrophils (%) (Auto) 44 42-75 % Lymphocytes (%) (Auto) 33 12-44 % Monocytes (%) (Auto) 21 H 0-12 % Eosinophils (%) (Auto) 0 0-10 % Basophils (%) (Auto) 1 0-10 % Neutrophils # (Auto) 0.6 L 1.8-7.8 10^3/uL Lymphocytes # (Auto) 0.5 L 1.0-4.0 10^3/uL Monocytes # (Auto) 0.3 0.0-1.0 10^3/uL Eosinophils # (Auto) 0.0 0.0-0.3 10^3/uL Basophils # (Auto) 0.0 0.0-0.1 10^3/uL Immature Granulocyte # (Auto) 0.0 0.0-0.1 10^3/uL Percent Immature Platelet Fraction 2.6 0.0-7.6 % Medications Given in ED Current Medications Medications Dose Ordered Sig/Latha Route Start Time Stop Time Status Last Admin Dose Admin Cefepime HCl 1000 mg/Sterile Water 10 ml @ 200 mls/hr ONCE ONCE IV 10/02/20 11:30 10/02/20 11:32 DC 10/02/20 11:41 200 MLS/HR Sodium Chloride 500 ml @ 0 mls/hr Q0M ONCE IV 10/02/20 11:30 10/02/20 11:31 DC 10/02/20 11:42 500 MLS/HR Vital Signs/I&O 10/02/20 11:08 Temp 36.1 Pulse 91 Resp 18 B/P (MAP) 98/53 (68) Pulse Ox 93 O2 Delivery Room Air Capillary Refill : Less Than 3 Seconds Blood Pressure Mean: 68 Departure Impression Primary Impression: Hypoxia Additional Impressions: Multiple myeloma COVID-19 Disposition: 09 ADMITTED INPATIENT Condition: Stable Admissions Decision to Admit Reason: Admit from ER (General) Decision to Admit/Date: Oct 02, 2020 Time/Decision to Admit Time: 11:53 Departure-Patient Inst. Referrals: AVINASH PÉREZ MD (PCP/Family) Primary Care Physician VIVIANE CAICEDO CHAIN OFFBEARER Oct 02, 2020 11:53
[2020-10-02 11:54] LABS: CALCIUM 8.8 MG/DL (8.5-10.1)
[2020-10-02 11:55] LABS: TOTAL PROTEIN 5.8 GM/DL (6.4-8.2)
[2020-10-02 11:57] LABS: BILIRUBIN,TOTAL 0.2 MG/DL (0.1-1.0)
[2020-10-02 11:59] LABS: CREATININE SERUM 1.9 MG/DL (0.60-1.30)
[2020-10-02 12:00] LABS: BURR CELLS SLIGHT; LYMPHOCYTES % (MANUAL) 28 %; MONOCYTES % (MANUAL) 27 %; NEUTROPHILS % (MANUAL) 45 %
[2020-10-02 12:01] LABS: HYPOCHROMASIA SLIGHT
[2020-10-02] MEDS ORDERED: dexAMETHasone 6 MG TAB (DECADRON) PO SCH (13:00)
--- NOTE | 2020-10-02 13:28 | Diagnostic Imaging Report ---
INDICATION: Respiratory distress, lower respiratory infection. EXAMINATION: Portable chest at 1:06 p.m. FINDINGS: Heart size and pulmonary vascularity are normal. Right subclavian central line tip projects over the SVC. There may be some patchy infiltrates in the right mid and lower lung. IMPRESSION: Questionable patchy infiltrates in the right mid and lower lung. Dictated by: Dictated on workstation # [id number]
[2020-10-02] MEDS ORDERED: LACTATED RINGERS 1,000 ML IV SCH (14:15)
[2020-10-02 14:21] LABS: BILIRUBIN,URINE NEGATIVE (NEGATIVE); CLARITY,URINE CLEAR; COLOR,URINE YELLOW; GLUCOSE, URINE (UA) NEGATIVE (NEGATIVE); KETONES,URINE NEGATIVE (NEGATIVE); LEUKOCYTE ESTERASE ,URINE NEGATIVE (NEGATIVE); NITRITE,URINE NEGATIVE (NEGATIVE); PH,URINE 6.5 (5-9); PROTEIN,URINE NEGATIVE (NEGATIVE)
[2020-10-02 14:30] LABS: BACTERIA,URINE NEGATIVE /HPF
[2020-10-02] MEDS ORDERED: VANCOMYCIN INJECTION 0.1 MG in NS (IVPB) 250 ML IV SCH (15:30)
[2020-10-02] MEDS: LACTATED RINGERS 1,000 ML IV SCH ×2 (15:59→22:56)
[2020-10-02] MEDS ORDERED: REMDESIVIR 200 MG/NS 250 ML IVPB IV NR ×2 (16:00)
--- NOTE | 2020-10-02 16:18 | Oncology Consultation ---
Visit Information Visit Information Date of Admission Oct 02, 2020 at 14:15 Attending Physician Divina Retana MD Admitting Physician Juan José Kam MD Chief Complaint fever, SOB Interval History 55-year-old female with multiple myeloma under the care of Dr. Packer. She was supposed to get her Revilimide chemotherapy past Wednesday09/30/2020 but we noticed she had fever 102. We did NOT give her any chemotherapy but told her to check to ER for the fever. However, she did not go to the ER. She presented to ER today 10/02/2020 with general malaise for 1 week, shortness of breath and fevers, hypoxia O2 sat 85-88% and hypotensive. She was found + Covid 19 at ER. Unvaccinated against Covid. I consulted the patient on: 10/02/20 16:08 Time Seen by Provider: 16:09 Review of Systems Constitutional: see HPI Health Status Allergies Coded Allergies: ciprofloxacin (Verified Allergy, Mild, throat swells, 03/15/20) Sulfa (Sulfonamide Antibiotics) (Verified Allergy, Unknown, 03/15/20) acetaminophen (Verified Allergy, Unknown, 03/15/20) morphine (Verified Allergy, Unknown, 03/15/20) propoxyphene (Verified Allergy, Unknown, 03/15/20) Home Medications Albuterol Sulfate (Ventolin Hfa) 18 Gm Hfa.aer.ad, 2 PUFF INH Q6H PRN for SHORTNESS OF BREATH, (Reported) Atenolol (Atenolol) 25 Mg Tablet, 25 MG PO BID, (Reported) Dexamethasone (Dexamethasone) 4 Mg Tablet, 20 MG PO FRI, (Reported) TAKES 5 (4MG) TABS Diazepam (Diazepam) 5 Mg Tablet, 5 MG PO Q6H PRN for ANXIETY, (Reported) Diphenhydramine HCl (Benadryl Allergy) 25 Mg Tablet, 25-50 MG PO Q8H PRN for ITCHING AND RASH, (Reported) Esomeprazole Magnesium (Esomeprazole Magnesium) 40 Mg Capsule.dr, 40 MG PO HS, (Reported) Ipratropium/Albuterol Sulfate (Iprat-Albut 0.5-3(2.5) mg/3 ml) 3 Ml Ampul.neb, 3 ML NEB Q6H PRN for SHORTNESS OF BREATH, (Reported) Lenalidomide (Revlimid) 15 Mg Capsule, 15 MG PO UD, (Reported) TAKES DAILY X 21 DAYS THEN IF OFF FOR 7 DAYS Multivitamin (Multivitamin) 1 Each Tablet, 1 EACH PO DAILY, (Reported) [place]-3 Acid Ethyl Esters ([place]-3 Acid Ethyl Esters) 1 Gm Capsule, 4 GM PO DAILY, (Reported) TAKES 4 (1GM) CAPS Ondansetron HCl (Ondansetron HCl) 8 Mg Tablet, 8 MG PO Q8H PRN for NA USEA/VOMITING-1ST LINE, (Reported) Oxycodone HCl (Oxycodone HCl) 10 Mg Tablet, 10 MG PO Q4 -6H PRN for PAIN-SEVERE (8-10), (Reported) Oxycodone HCl (Oxycontin) 20 Mg Tab.er.12h, 20 MG PO Q12H, (Reported) Pitavastatin Calcium (Livalo) 2 Mg Tablet, 2 MG PO DAILY, (Reported) NPG-Ufmpqq-Pfirld Hx Patient Social History Smoking Status: Former Smoker Type Used: Cigarettes 2nd Hand Smoke Exposure: Yes Recent Hopitalizations: No Alcohol Use?: No Have you traveled recently?: No Immunizations Up To Date Date of Pneumonia Vaccine: Nov 29, 2010 Date of Influenza Vaccine: Nov 30, 2011 Family Medical History Significant Family History: No Pertinent Family Hx Physical Exam Vital Signs Vital Signs - First Documented 10/02/20 11:08 Temp 36.1 Pulse 91 Resp 18 B/P (MAP) 98/53 (68) Pulse Ox 93 O2 Delivery Room Air Capillary Refill : Less Than 3 Seconds Height, Weight, BMI Height: 5'0" Weight: 156lbs. 0oz. [id number]; 29.68 BMI Method:Stated General Appearance: Mild Distress Neurologic/Psychiatric: Alert, Oriented x3 Data Review Labs Laboratory Tests 10/04/20 03:19 Laboratory Tests 10/02/20 10:54: SARS-CoV-2 RNA (RT-PCR) DetectedH 10/02/20 11:25: White Blood Count 1.5L, Red Blood Count 3.63L, Platelet Count 126L, Monocytes (%) (Auto) 21H, Neutrophils # (Auto) 0.6L, Lymphocytes # (Auto) 0.5L, D-Dimer 1.56H, Potassium Level 3.5L, Blood Urea Nitrogen 28H, Creatinine 1.90H, Glucose Level 123H, Aspartate Amino Transf (AST/SGOT) 70H, Alanine Aminotransferase (ALT/SGPT) 89H, Alkaline Phosphatase 236H, C-Reactive Protein High Sensitivity 4.14H, Total Protein 5.8L, Procalcitonin 1.66H 10/02/20 14:09: Urine WBC 5-10H 10/02/20 15:46: Lactic Acid Level 0.49L 10/04/20 03:19: White Blood Count 1.0*L, Red Blood Count 3.16L, Hemoglobin 10.3L, Hematocrit 31L , Platelet Count 101L, Monocytes (%) (Auto) 15H, Neutrophils # (Auto) 0.5L, Lymphocytes # (Auto) 0.3L, Chloride Level 110H, Glucose Level 111H, Calcium Level 7.6L, Total Protein 4.6L, Albumin 2.7L Impression & Plan Impression & Plan Rec: 1. MM. Hold off all treatment until recovery from Covid. Call [facility] center when she recovers from Covid to set up appointment to see Dr Packer and resume the treatment. 2. Covid 19 infection. Treat as per in-patient physician. 3. Neutropenia and mild thrombocytopenia, most likely from the virus, less likely from the chemo. 4. Acute renal insufficiency, worsen from Covid. LUIS NELSON MD Oct 02, 2020 16:18
[2020-10-02 17:33] VITALS: BP 122/67
[2020-10-02] MEDS: CEFEPIME INJECTION 1,000 MG in WATER (STERILE) FOR INJECTION 10 ML IV SCH ×2 (17:56→22:57)
[2020-10-02] MEDS: oxyCODONE/APAP 10/325MG (PERCOCET 10) TABLET PO PRN ×2 (17:56→23:58)
[2020-10-02] MEDS ORDERED: ACETAMINOPHEN 325 MG TABLET PO PRN (18:00)
[2020-10-02] MEDS ORDERED: REMDESIVIR INJ 200 MG in NS (IVPB) 210 ML IV NR (20:00)
[2020-10-02] MEDS: RT-ALBUTEROL HFA 8.5 GM INHALER IH SCH (21:48)
[2020-10-03] MEDS: RT-ALBUTEROL HFA 8.5 GM INHALER IH PRN (02:46)
[2020-10-03] MEDS: LACTATED RINGERS 1,000 ML IV SCH ×3 (05:37→18:20)
[2020-10-03] MEDS: CEFEPIME INJECTION 1,000 MG in WATER (STERILE) FOR INJECTION 10 ML IV SCH ×2 (05:37→18:20)
[2020-10-03] MEDS: oxyCODONE/APAP 10/325MG (PERCOCET 10) TABLET PO PRN ×2 (05:59→13:05)
[2020-10-03 08:00] VITALS: BP 122/71
[2020-10-03] MEDS ORDERED: REMDESIVIR INJ 200 MG in NS (IVPB) 210 ML IV ONE (08:00)
[2020-10-03] MEDS: RT-ALBUTEROL HFA 8.5 GM INHALER IH SCH ×3 (08:23→20:48)
[2020-10-03] MEDS ORDERED: OXYC10TA7 PO (11:31)
[2020-10-03] MEDS ORDERED: OXYC20TA54 PO (11:31)
[2020-10-03] MEDS ORDERED: LENA15CA PO (11:31)
[2020-10-03] MEDS ORDERED: DIPH25TA65 PO (11:31)
[2020-10-03] MEDS: dexAMETHasone 6 MG TAB (DECADRON) PO SCH (13:06)
[2020-10-03 13:08] VITALS: BP 107/70
[2020-10-03] MEDS: VANCOMYCIN 1 GM/NS 250 ML IVPB IV SCH ×2 (13:14)
--- NOTE | 2020-10-03 13:33 | History & Physical ---
HPI History of Present Illness: 55 yo F patient with multiple myeloma that presented with 1 week of increasing fatigue, cough and shortness of breath. Patient states that she came in yesterday because she was having some chills and more shortness of breath. Patient tested + for Covid in the ER. States that she does not know when she was exposed. Patient has been getting chemo but did not get dose last week because she had a fever and was told to go to ER and she did not until last night. Source: patient Exam Limitations: no limitations Date seen by provider: Oct 03, 2020 Time Seen by Provider: 10:15 Attending Physician Nora Retana MD PCP Juan José Kam MD Consult Date of Admission Oct 02, 2020 at 14:15 Home Medications Home Medications Reviewed patient Home Medication Reconciliation performed by pharmacy medication reconciliations install technician and/or nursing. Patients Allergies have been reviewed. Allergies Coded Allergies: ciprofloxacin (Verified Allergy, Mild, throat swells, 03/15/20) Sulfa (Sulfonamide Antibiotics) (Verified Allergy, Unknown, 03/15/20) acetaminophen (Verified Allergy, Unknown, 03/15/20) morphine (Verified Allergy, Unknown, 03/15/20) propoxyphene (Verified Allergy, Unknown, 03/15/20) REZ-Doamry-Qtqyca Hx Patient Social History Smoking Status: Former Smoker 2nd Hand Smoke Exposure: Yes Recent Hopitalizations: No Alcohol Use?: No Tobacco type used: Cigarettes Have you traveled recently?: No Immunizations Up To Date Date of Pneumonia Vaccine: Nov 29, 2010 Date of Influenza Vaccine: Nov 30, 2011 Past Medical History Multiple Myeloma CKD Family Medical History Significant Family History: No Pertinent Family Hx Review of Systems ([facility]) Constitutional: chills, fever, malaise, weakness EENTM: no symptoms reported; No mouth pain, No nose congestion, No nose pain Respiratory: cough, dyspnea on exertion, short of breath, wheezing Cardiovascular: no symptoms reported; No chest pain, No edema, No palpitations Gastrointestinal: no symptoms reported; No abdominal pain, No constipation, No diarrhea, No nausea, No vomiting Genitourinary: no symptoms reported; No dysuria, No frequency, No hematuria : No Musculoskeletal: no symptoms reported; No back pain, No joint pain, No muscle pain Skin: no symptoms reported; No lesions, No rash Psychiatric/Neurological: Weakness Reviewed Test Results Reviewed Test Results Lab Laboratory Tests Test 10/02/20 10:54 10/02/20 11:25 10/02/20 14:09 10/02/20 15:46 Range/Units SARS-CoV-2 RNA (RT-PCR) Detected H Not Detecte White Blood Count 1.5 L 4.3-11.0 10^3/uL Red Blood Count 3.63 L 3.80-5.11 10^6/uL Hemoglobin 11.9 11.5-16.0 g/dL Hematocrit 36 35-52 % Mean Corpuscular Volume 98 80-99 fL Mean Corpuscular Hemoglobin 33 25-34 pg Mean Corpuscular Hemoglobin Concent 33 32-36 g/dL Red Cell Distribution Width 13.5 10.0-14.5 % Platelet Count 126 L 130-400 10^3/uL Mean Platelet Volume 10.6 9.0-12.2 fL Immature Granulocyte % (Auto) 1 % Neutrophils (%) (Auto) 44 42-75 % Lymphocytes (%) (Auto) 33 12-44 % Monocytes (%) (Auto) 21 H 0-12 % Eosinophils (%) (Auto) 0 0-10 % Basophils (%) (Auto) 1 0-10 % Neutrophils # (Auto) 0.6 L 1.8-7.8 10^3/uL Lymphocytes # (Auto) 0.5 L 1.0-4.0 10^3/uL Monocytes # (Auto) 0.3 0.0-1.0 10^3/uL Eosinophils # (Auto) 0.0 0.0-0.3 10^3/uL Basophils # (Auto) 0.0 0.0-0.1 10^3/uL Immature Granulocyte # (Auto) 0.0 0.0-0.1 10^3/uL Neutrophils % (Manual) 45 % Lymphocytes % (Manual) 28 % Monocytes % (Manual) 27 % Percent Immature Platelet Fraction 2.6 0.0-7.6 % Hypochromasia SLIGHT [place] Cells SLIGHT D-Dimer 1.56 H 0.00-0.49 UG/ML Sodium Level 136 135-145 MMOL/L Potassium Level 3.5 L 3.6-5.0 MMOL/L Chloride Level 99 98-107 MMOL/L Carbon Dioxide Level 24 21-32 MMOL/L Anion Gap 13 5-14 MMOL/L Blood Urea Nitrogen 28 H 7-18 MG/DL Creatinine 1.90 H 0.60-1.30 MG/DL Estimat Glomerular Filtration Rate 28 BUN/Creatinine Ratio 15 Glucose Level 123 H 70-105 MG/DL Lactic Acid Level 0.60 0.49 L 0.50-2.00 MMOL/L Calcium Level 8.8 8.5-10.1 MG/DL Corrected Calcium 9.3 8.5-10.1 MG/DL Total Bilirubin 0.2 0.1-1.0 MG/DL Aspartate Amino Transf (AST/SGOT) 70 H 5-34 U/L Alanine Aminotransferase (ALT/SGPT) 89 H 0-55 U/L Alkaline Phosphatase 236 H 40-136 U/L C-Reactive Protein High Sensitivity 4.14 H 0.00-0.50 MG/DL B-Type Natriuretic Peptide 26.9 <100.0 PG/ML Total Protein 5.8 L 6.4-8.2 GM/DL Albumin 3.4 3.2-4.5 GM/DL Procalcitonin 1.66 H <0.10 NG/ML Urine Color YELLOW Urine Clarity CLEAR Urine pH 6.5 5-9 Urine Specific [place] <=1.005 1.016-1.022 Urine Protein NEGATIVE NEGATIVE Urine Glucose (UA) NEGATIVE NEGATIVE Urine Ketones NEGATIVE NEGATIVE Urine Nitrite NEGATIVE NEGATIVE Urine Bilirubin NEGATIVE NEGATIVE Urine Urobilinogen 0.2 < = 1.0 MG/DL Urine Leukocyte Esterase NEGATIVE NEGATIVE Urine RBC (Auto) NEGATIVE NEGATIVE Urine RBC NONE /HPF Urine WBC 5-10 H /HPF Urine Squamous Epithelial Cells NONE /HPF Urine Renal Epithelial Cells NONE /HPF Urine Crystals NONE /LPF Urine Bacteria NEGATIVE /HPF Urine Casts NONE /LPF Urine Mucus NEGATIVE /LPF Urine Culture Indicated NO Physical Exam-([facility]C) Physical Exam Vital Signs VS - Last 72 Hours, by Label 10/02/20 10/02/20 10/02/20 10/02/20 11:08 15:00 15:00 15:26 Temp 36.1 Pulse 91 57 63 Resp 18 18 B/P (MAP) 98/53 (68) 89/46 Pulse Ox 93 97 96 O2 Delivery Room Air Nasal Cannula Nasal Cannula O2 Flow Rate 1.00 2.00 10/02/20 10/02/20 10/02/20 10/02/20 16:21 16:54 17:33 18:07 Temp 37.0 37.2 37.2 37.1 Pulse 59 57 57 56 Resp 18 B/P (MAP) 122/67 (85) 122/67 (85) 121/76 (91) Pulse Ox 97 95 O2 Delivery Nasal Cannula 10/02/20 10/02/20 10/02/20 10/02/20 19:08 19:41 20:20 21:13 Temp 36.4 36.5 35.3 Pulse 62 64 50 Resp 23 15 19 B/P (MAP) 121/76 (91) 121/76 (91) 119/72 (88) Pulse Ox 92 92 93 O2 Delivery Room Air Room Air Nasal Cannula Room Air O2 Flow Rate 1.00 10/02/20 10/02/20 10/02/20 10/03/20 21:49 22:05 22:48 00:00 Temp 35.2 35.6 36.1 Pulse 59 69 53 Resp 23 19 18 B/P (MAP) 107/67 (80) 93/64 (74) 87/56 (66) Pulse Ox 98 95 92 94 O2 Delivery Nasal Cannula Nasal Cannula Nasal Cannula Nasal Cannula O2 Flow Rate 1.00 1.00 1.00 1.00 10/03/20 10/03/20 10/03/20 10/03/20 02:00 02:46 03:00 04:36 Temp 36.0 Pulse 50 39 46 Resp 14 15 15 B/P (MAP) 105/65 (78) 113/69 (84) 114/74 (87) Pulse Ox 96 97 95 97 O2 Delivery Nasal Cannula Nasal Cannula Nasal Cannula Nasal Cannula O2 Flow Rate 1.00 1.00 1.00 1.00 10/03/20 10/03/20 10/03/20 10/03/20 05:00 06:00 08:00 08:00 Temp 35.1 Pulse 44 43 50 Resp 14 14 20 B/P (MAP) 115/72 (86) 104/73 (83) 122/71 (88) Pulse Ox 95 97 97 93 O2 Delivery Nasal Cannula Nasal Cannula Room Air Room Air O2 Flow Rate 1.00 1.00 10/03/20 10/03/20 10/03/20 10/03/20 08:23 08:27 13:08 15:29 Temp 35.4 Pulse 56 Resp 20 B/P (MAP) 107/70 (82) Pulse Ox 98 97 100 98 O2 Delivery Nasal Cannula Room Air Nasal Cannula Room Air O2 Flow Rate 1.00 2.00 10/03/20 10/03/20 10/03/20 16:14 19:49 20:00 Temp 36.0 36.0 Pulse 62 60 Resp 18 14 B/P (MAP) 110/67 (81) 121/67 (85) Pulse Ox 99 100 97 O2 Delivery Room Air Nasal Cannula Nasal Cannula O2 Flow Rate 2.00 2.00 Capillary Refill : Less Than 3 Seconds General Appearance: mild distress (coughing with exam) HEENT: PERRL/EOMI Neck: non-tender, full range of motion, supple Respiratory: chest non-tender, no respiratory distress, no accessory muscle use, crackles, wheezing Cardiovascular: normal peripheral pulses, regular rate, rhythm, no edema, no murmur Gastrointestinal: normal bowel sounds, non tender, soft Back: no CVA tenderness, no vertebral tenderness Extremities: normal range of motion, non-tender, normal inspection, no pedal edema, no calf tenderness, normal capillary refill Neurologic/Psychiatric: spool cleaner hand II-XII nml as tested, no motor/sensory deficits, alert, normal mood/affect, oriented x 3 Skin: normal color, warm/dry Lymphatic: no adenopathy Assessment/Plan Assessment/Plan Admission Status: Inpatient Order (span 2 midnights) Reason for Inpatient Admission: Patient requiring close montioring, high risk of decompensation (1) Acute COVID-19 Status: Acute Assessment & Plan: - Started on Remdimsivir, discussed risks and benefits and emergency use and patient would like to proceed with medication, MAT protocol, Steroids, Antibiotics (2) Hypoxia Status: Acute (3) Multiple myeloma Status: Chronic Assessment & Plan: - Dr Garcia consulted, appreciate recommendations (4) Macrocytic anemia Status: Chronic (5) Elevated LFTs Status: Acute Assessment & Plan: - likely multifactoral chemo vs Covid (6) DVT prophylaxis Status: Acute Assessment & Plan: -NORA Mike MD Oct 03, 2020 13:32
[2020-10-03] MEDS: oxyCODONE ER 20 MG (OxyCONTIN CR) TAB PO SCH (15:04)
[2020-10-03] MEDS: guaiFENesin/DM (ROBITUSSIN DM) 10 ML UDC PO PRN (15:14)
[2020-10-03] MEDS ORDERED: REMDESIVIR 100 MG/NS 250 ML IVPB IV SCH ×2 (16:00)
[2020-10-03 16:14] VITALS: BP 110/67
[2020-10-03 19:49] VITALS: BP 121/67
[2020-10-03] MEDS ORDERED: REMDESIVIR INJ 100 MG in NS (IVPB) 230 ML IV SCH (20:00)
[2020-10-03] MEDS: DIAZEPAM 5 MG (VALIUM) TABLET PO SCH (20:50)
[2020-10-03] MEDS ORDERED: ENOXAPARIN 30 MG/0.3 ML (LOVENOX) SYR SC SCH (22:00)
[2020-10-03 23:17] VITALS: BP 103/71
[2020-10-04] MEDS: oxyCODONE ER 20 MG (OxyCONTIN CR) TAB PO SCH ×2 (00:21→13:46)
[2020-10-04] MEDS: RT-ALBUTEROL HFA 8.5 GM INHALER IH SCH ×4 (02:33→22:47)
[2020-10-04 03:11] VITALS: BP 117/74
[2020-10-04 03:26] LABS: EOSINOPHILS % (AUTO) 0 % (0-10); HEMATOCRIT 31 % (35-52); HEMOGLOBIN 10.3 g/dL (11.5-16.0); MEAN CORPUSCULAR HGB CONC 33 g/dL (32-36)
[2020-10-04] MEDS: LACTATED RINGERS 1,000 ML IV SCH ×3 (03:26→15:37)
[2020-10-04 03:28] LABS: BASOPHILS % (AUTO) 1 % (0-10); LYMPHOCYTES # (AUTO) 0.3 10^3/uL (1.0-4.0); LYMPHOCYTES % (AUTO) 31 % (12-44); MEAN CORPUSCULAR HEMOGLOBIN 33 pg (25-34); MEAN CORPUSCULAR VOLUME 99 fL (80-99); MONOCYTES # (AUTO) 0.1 10^3/uL (0.0-1.0); MONOCYTES % (AUTO) 15 % (0-12); NEUTROPHILS # (AUTO) 0.5 10^3/uL (1.8-7.8); NEUTROPHILS % (AUTO) 54 % (42-75); PLATELET COUNT 101 10^3/uL (130-400)
[2020-10-04 03:36] LABS: ALBUMIN 2.7 GM/DL (3.2-4.5); POTASSIUM 3.7 MMOL/L (3.6-5.0)
[2020-10-04 03:38] LABS: CALCIUM 7.6 MG/DL (8.5-10.1)
[2020-10-04 03:39] LABS: TOTAL PROTEIN 4.6 GM/DL (6.4-8.2)
[2020-10-04 03:41] LABS: BILIRUBIN,TOTAL 0.1 MG/DL (0.1-1.0)
[2020-10-04 03:42] LABS: CREATININE SERUM 0.82 MG/DL (0.60-1.30)
[2020-10-04] MEDS: CEFEPIME INJECTION 1,000 MG in WATER (STERILE) FOR INJECTION 10 ML IV SCH ×3 (04:56→17:41)
--- NOTE | 2020-10-04 07:21 | Progress Note - Hospitalist ---
Subjective HPI/CC On Admission Date Seen by Provider: Oct 04, 2020 Time Seen by Provider: 11:00 Subjective/Events-last exam Patient feels much better today Remains on oxygen Transferring to fourth floor if there is a bed available She received her first dose of vaccine yesterday White count noted Monitor closely Review of Systems General: Fatigue Pulmonary: Dyspnea Focused Exam Lactate Level 10/02/20 11:25: Lactic Acid Level 0.60 10/02/20 15:46: Lactic Acid Level 0.49L Objective Exam Vital Signs Vital Signs Date Time Temp Pulse Resp B/P (MAP) Pulse Ox O2 Delivery O2 Flow Rate FiO2 10/05/20 04:00 36.6 51 13 129/76 (93) 97 Room Air 10/03/20 20:48 2.00 Capillary Refill : Less Than 3 Seconds General Appearance: No Apparent Distress, WD/WN, Chronically ill Respiratory: No Accessory Muscle Use, No Respiratory Distress, Decreased Breath Sounds Cardiovascular: Regular Rate, Rhythm Neurologic/Psychiatric: Alert, Oriented x3 Results/Procedures Lab Patient resulted labs reviewed. Assessment/Plan Assessment and Plan Assess & Plan/Chief Complaint Assessment: COVID-19 pneumonia Acute hypoxic respiratory failure Multiple myeloma Elevated liver enzymes Macrocytic anemia Neutropenia Plan: Supportive care Oxygen maintenance Oncology consult NATI LEA DO Oct 04, 2020 07:21
[2020-10-04 07:42] VITALS: BP 127/80
[2020-10-04] MEDS: REMDESIVIR INJ 100 MG in NS (IVPB) 230 ML IV SCH (09:59)
[2020-10-04] MEDS: RT-ALBUTEROL HFA 8.5 GM INHALER IH PRN (10:00)
--- NOTE | 2020-10-04 10:15 | Progress Note ---
Progress Note Assessment/Plan Date Seen by Provider: Oct 04, 2020 Time Seen by Provider: 10:15 Events since last exam Elevated LFTs resolved. Renal function improved. O2 sat 92% RA. BP 127/82. Clinical stable and improved. Pt developed pancytopenia from the Covid virus infection. Laboratory Tests 10/04/20 03:19 Assessment/Plan A/P: 1. MM. Hold off all treatment until recovery from Covid. Call [facility] when she recovers from Covid to set up appointment to see Dr Packer and resume the treatment. 2. Covid 19 infection. Treat as per in-patient physician. 3. Neutropenia and mild thrombocytopenia, most likely from the virus, less likely from the chemo. 4. Acute renal insufficiency, improved. 5. Pancytopenia, most likely from Covid virus, very unlikely from the chemo. She does have underlie MM which makes her more risk for the pancytopenia from the Covid virus. I suggest treating the Covid and monitoring blood counts. I would NOT recommend GCSF stimulator/neupogen at this point because there is no data to suggest it will help the Covid virus infection. It may cause further thrombocytopenia because the GCSF may shift the marrow stem cell to differentiate into neutrophils rather than to the precursors of the platelets. According to my previous experience and observation of the Covid patients with pancytopenia, they will recover but it may take over 2 months to recover the blood counts after the Covid. Also neutropenia is NOT the indication for her to stay in the hospital if her other medical conditions are stable and improved. Dr. Alicea to decide her hospital course and treatment for the Covid. Pt can be discharged from hem/onc point of view. Repeat CBC next week and report to Dr. Packer or Dr Nelson Vitals Last set of Vitals Signs Vital Signs Date Time Temp Pulse Resp B/P (MAP) Pulse Ox O2 Delivery O2 Flow Rate FiO2 10/04/20 07:42 36.4 42 20 127/80 (96) 92 Room Air 10/03/20 20:48 2.00 I&O I&O Intake and Output 10/04/20 00:00 Intake Total 2590 ml Output Total 2600 ml Balance -10 ml Intake Oral 1080 ml IV Total 1510 ml Output Urine Total 2600 ml Labs Laboratory Tests 10/04/20 03:19: White Blood Count 1.0*L, Red Blood Count 3.16L, Hemoglobin 10.3L, Hematocrit 31L , Mean Corpuscular Volume 99, Mean Corpuscular Hemoglobin 33, Mean Corpuscular Hemoglobin Concent 33, Red Cell Distribution Width 13.6, Platelet Count 101L, Mean Platelet Volume 10.0, Immature Granulocyte % (Auto) 0, Neutrophils (%) (Auto) 54, Lymphocytes (%) (Auto) 31, Monocytes (%) (Auto) 15H, Eosinophils (%) (Auto) 0, Basophils (%) (Auto) 1, Neutrophils # (Auto) 0.5L, Lymphocytes # (Auto) 0.3L, Monocytes # (Auto) 0.1, Eosinophils # (Auto) 0.0, Basophils # (Auto) 0.0, Immature Granulocyte # (Auto) 0.0, Percent Immature Platelet Fraction 2.6, Sodium Level 145, Potassium Level 3.7, Chloride Level 110H, Carbon Dioxide Level 25, Anion Gap 10, Blood Urea Nitrogen 14, Creatinine 0.82, Estimat Glomerular Filtration Rate 73, BUN/Creatinine Ratio 17, Glucose Level 111H, Calcium Level 7.6L, Corrected Calcium 8.6, Total Bilirubin 0.1, Aspartate Amino Transf (AST/SGOT) 20, Alanine Aminotransferase (ALT/SGPT) 43, Alkaline Phosphatase 131, Total Protein 4.6L, Albumin 2.7L Microbiology 10/02/20 Urine Culture - Final, Complete NO GROWTH 10/02/20 Blood Culture - Preliminary, Resulted No growth Focused Exam Lactate Level 10/02/20 11:25: Lactic Acid Level 0.60 10/02/20 15:46: Lactic Acid Level 0.49L LUIS NELSON MD Oct 04, 2020 10:15
[2020-10-04 12:02] VITALS: BP 129/79
[2020-10-04] MEDS ORDERED: RT-ALBUTEROL/IPRATROPIUM 3 ML (DUONEB) VIAL IH PRN (13:30)
[2020-10-04] MEDS ORDERED: RT-ALBUTEROL SULF 2.5 MG/3 ML PRE-MIX VIAL INH PRN (13:30)
[2020-10-04] MEDS ORDERED: DIAZEPAM 5 MG (VALIUM) TABLET PO PRN (13:30)
[2020-10-04] MEDS ORDERED: LENALIDOMIDE 15 MG PO SCH (13:30)
[2020-10-04] MEDS ORDERED: diphenhydrAMINE 25 MG TAB (BENADRYL) PO PRN (13:30)
[2020-10-04] MEDS: dexAMETHasone 6 MG TAB (DECADRON) PO SCH (13:46)
[2020-10-04] MEDS ORDERED: ONDANSETRON 4 MG (ZOFRAN) ORAL DISSOLVE TAB PO PRN (14:00)
[2020-10-04 16:04] VITALS: BP 134/81
[2020-10-04] MEDS: VANCOMYCIN 1 GM/NS 250 ML IVPB IV SCH ×2 (16:18)
[2020-10-04] MEDS: polyethylene glycoL POWDER 17 GM (MIRALAX) PACK PO SCH ×2 (17:40→21:08)
[2020-10-04] MEDS: OMEGA 3 (FISH OIL) 1000 MG CAP PO SCH (17:41)
[2020-10-04] MEDS: SENNA W/DOCUSATE (SENOKOT S) TABLET PO SCH ×2 (17:41→21:08)
[2020-10-04] MEDS: PANTOPRAZOLE 40 MG (PROTONIX) TAB PO SCH (19:47)
[2020-10-04] MEDS: ENOXAPARIN 40 MG/0.4 ML (LOVENOX) SYR SC SCH (19:47)
[2020-10-04] MEDS: ATORVASTATIN 10 MG TABLET PO SCH (19:48)
[2020-10-04] MEDS: ATENOLOL 25 MG (TENORMIN) TAB PO SCH (19:48)
[2020-10-04] MEDS: DIAZEPAM 5 MG (VALIUM) TABLET PO SCH (19:48)
[2020-10-04 19:50] VITALS: BP 136/73
[2020-10-05] VITALS: BP 117/73
[2020-10-05] MEDS: CEFEPIME INJECTION 1,000 MG in WATER (STERILE) FOR INJECTION 10 ML IV SCH ×4 (01:00→18:03)
[2020-10-05] MEDS: oxyCODONE ER 20 MG (OxyCONTIN CR) TAB PO SCH ×2 (01:00→14:08)
[2020-10-05] MEDS: LACTATED RINGERS 1,000 ML IV SCH ×2 (01:03→18:02)
[2020-10-05] MEDS: RT-ALBUTEROL HFA 8.5 GM INHALER IH SCH ×4 (03:22→21:50)
[2020-10-05 04:00] VITALS: BP 129/76
--- OUTSIDE RECORDS SUMMARY | 2020-10-05 04:19 | XMS REPORT | Clinical Summary ---
Author Author [facility] Organization [facility] Address Unknown Phone Unavailable Care Team Providers Care Locomotive Switch Operator Name Role Phone Juan José Kam MD PCP Poncho Tong MD [id number] Eileen Packer MD [address] Vazquez MD [id number] Poncho Tong MD [address] Selin Tucker RN [phone] Unavailable Source Comments Some departments are not documenting in the electronic medical record. If you d o not see the information that you expected, contact Release of Information in [facility] Health Information Management department at [phone] for further assistan ce in locating additional records.[facility] Allergies Comments Active Allergy Reactions Severity Noted Date Ciprofloxacin RASH Medium 02/10/2012 Duloxetine RASH Medium 02/10/2012 Morphine ANAPHYLAXIS, High 02/10/2012 HIVES, EDEMA Propoxyphene HIVES, High 12/08/2007 N-Acetaminophen SWOLLEN TONGUE Sulfa (Sulfonamide RASH Medium 12/25/2019 Antibiotics) Medications End Date Status Medication Sig Dispensed Refills Start Date Active atenolol (TENORMIN) 25 mg Take 25 mg by 0 tablet mouth twice daily. Active zolpidem (AMBIEN) 10 mg Take 10 mg by 0 tablet mouth at bedtime as needed. Active Dexlansoprazole Take 1 Cap by 0 (DEXILANT) 60 mg CpDM mouth daily. Active amLODIPine (NORVASC) 5 mg Take 5 mg by 0 tablet mouth daily. Active albuterol 0.083% Inhale 2.5 mg 0 (PROVENTIL; VENTOLIN) 2.5 solution as mg /3 mL (0.083 %) directed nebulizer solution every 4 hours as needed. Active albuterol (VENTOLIN HFA, Inhale 2 0 PROAIR HFA) 90 Puffs by mcg/actuation inhaler mouth every 6 hours as needed. Active fish oil /omega-3 fatty Take 1 Cap by 0 acids (SEA-OMEGA) mouth daily. 340/1000 mg capsule Active lisinopril (PRINIVIL, Take 40 mg by 0 ZESTRIL) 40 mg tablet mouth daily. Active diazePAM (VALIUM) 5 mg Take 5 mg by 0 // 01 tablet mouth as [address] Active esomep[address]ole [address] (NEXIUM) Take 40 mg by 0 40 mg capsule mouth daily. Active oxyCODONE/acetaminophen 0 (PERCOCET) 10/325 mg 1 tablet Active sucralfate (CARAFATE) 1 sucralfate 1 0 gram tablet gram tablet Active MULTIVITAMIN PO Take by 0 mouth. 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 Right cholesteatoma resection, 2007 Surgical History Surgery Date Site/Laterality Comments HX CHOLECYSTECTOMY HX TUBAL LIGATION HX HYSTERECTOMY HX EAR TUBES EAR SURGERY TYMPANOMASTOIDECTOMY 02/11/12 Ator, cholesteato ma, cartilage graft COLONOSCOPY HERNIA REPAIR Medical History Medical History Date Comments Htn Acid reflux Arthritis knees, tailbone Anxiety disorder Hearing loss Cholesteatoma of attic right ear Smoker Asthma Dizziness Generalized headaches High cholesterol Ulcer Multiple myeloma and immunoproliferative neoplasms (HCC) Back pain Sexually transmitted disease Vision decreased Back pain Family History Medical History Relation Name Comments Cancer-Colon Father Cancer-Lung Father Coronary Artery Disease Father Diabetes Father Heart Disease Father High Cholesterol Father Cancer Maternal Aunt High Cholesterol Maternal Aunt Cancer Maternal Grandfather Cancer-Lung Maternal Grandfather Heart Disease Maternal Grandfather Depression Maternal Grandmother Cancer Maternal Uncle Cancer-Colon Maternal Uncle Stroke Maternal Uncle Arthritis-osteo Mother Cancer Mother Cancer-Lung Mother Cancer-Ovarian Mother Depression Mother Heart Disease Mother High Cholesterol Mother Thyroid Disease Mother Cancer-Breast Paternal Aunt Cancer-Lung Paternal Grandfather Heart Disease Paternal Grandfather Cancer-Breast Paternal Grandmother Cancer Paternal Uncle Cancer-Colon Paternal Uncle Cancer-Prostate Paternal Uncle Diabetes Paternal Uncle Depression Sister Migraines Sister Relation Name Status Comments Father Alive Maternal Aunt Maternal Grandfather Maternal Grandmother Maternal Uncle Mother Alive Paternal Aunt Paternal Grandfather Paternal Grandmother Paternal Uncle Sister Alive Social History Date Tobacco Use Types Packs/Day Years Used Quit: 11/2019 Former Smoker Cigarettes 1 25 Smokeless Tobacco: Never Used Tobacco Cessation: Counseling Given: No Drinks/Week oz/Week Comments Alcohol Use No Sex Assigned at Date Recorded Not on file Last Filed Vital Signs Reading Time Taken Comments Vital Sign 111/49 06/18/2020 4:09 PM CDT Blood Pressure 86 06/18/2020 4:09 PM CDT Pulse 36.9 C (98.4 F) 06/18/2020 4:09 PM CDT Temperature 14 06/16/2020 11:00 AM CDT Respiratory Rate 96% 06/18/2020 4:09 PM CDT Oxygen Saturation - - Inhaled Oxygen Concentration 66.8 kg (147 lb 4.3 oz) 06/18/2020 7:19 AM CDT Weight 149.9 cm (4' 11.02") 06/17/2020 1:23 PM CDT Height 29.73 06/17/2020 1:23 PM CDT Body Mass Index Plan of Treatment Health Maintenance Due Date Last Done Comments HIV SCREENING 1981 DTAP/TDAP VACCINES (1 - 1984 Tdap) HEPATITIS C SCREENING 1984 PHYSICAL (COMPREHENSIVE) 1984 EXAM CERVICAL CANCER SCREENING 06/11/1987 BREAST CANCER SCREENING 2006 COLORECTAL CANCER 2016 SCREENING SHINGLES RECOMBINANT 2016 VACCINE (1 of 2) INFLUENZA VACCINE 11/29/2020 12/28/2008 Goals Goal Patient Associated Recent Progress Patient-Stat Aut hor Goal Type Problems ed? GOAL General No Marium Packer, RN Note: To live Implants Device Identifier Shelf Expiration Date Model / Serial / L ot Implanted Type Area Manufactur er Port Port Implanted: Qty: 1 [id number] 11/28/2021 [id number] / . / [id number] Catheter 23cm 12fr [place]anks Left: Chest BARD Trifusion [employer] - S. ACCESS Implanted: Qty: 1 on 06/14/2020 by Elvin Deshpande MD at [place] Results Not on filefrom Last 3 Months Insurance Type Payer Benefit Subscriber ID Effective Phone Address Plan / Dates Group AETNA MEDICAID AETNA [id number] 2018-P [employer] [place] [place] AET[place] MEDICAID AETNA [id number] 2020-[place] [phone] Cecile Lemus Transplant Self 1965 [address] [facility] (Home) [place] [address] Advance Directives Patient Director Weights And Measures Explanation Type Date Recorded Advance 06/17/2020 12:00 AM Directive/DPOA Date Inactivated Comments Code Status Date Activated 06/18/2020 7:02 PM Full Code 06/16/2020 9:36 PM Provider has discussed Code Status No, more discussi on w/Patient or Family? needed
[2020-10-05 06:45] LABS: EOSINOPHILS % (AUTO) 0 % (0-10); HEMOGLOBIN 10.7 g/dL (11.5-16.0); MEAN CORPUSCULAR VOLUME 100 fL (80-99); MEAN PLATELET VOLUME 10.2 fL (9.0-12.2)
[2020-10-05 06:47] LABS: BASOPHILS % (AUTO) 1 % (0-10); HEMATOCRIT 33 % (35-52); LYMPHOCYTES # (AUTO) 0.3 10^3/uL (1.0-4.0); LYMPHOCYTES % (AUTO) 33 % (12-44); MEAN CORPUSCULAR HEMOGLOBIN 33 pg (25-34); MEAN CORPUSCULAR HGB CONC 33 g/dL (32-36); MONOCYTES # (AUTO) 0.2 10^3/uL (0.0-1.0); MONOCYTES % (AUTO) 20 % (0-12); NEUTROPHILS # (AUTO) 0.4 10^3/uL (1.8-7.8); NEUTROPHILS % (AUTO) 45 % (42-75); PLATELET COUNT 117 10^3/uL (130-400)
[2020-10-05 06:50] LABS: WHITE BLOOD COUNT 0.8 10^3/uL (4.3-11.0)
[2020-10-05 06:54] LABS: ALBUMIN 2.9 GM/DL (3.2-4.5); POTASSIUM 3.6 MMOL/L (3.6-5.0)
[2020-10-05 06:55] LABS: CALCIUM 7.6 MG/DL (8.5-10.1)
[2020-10-05 06:56] LABS: TOTAL PROTEIN 4.7 GM/DL (6.4-8.2)
[2020-10-05 06:58] LABS: BILIRUBIN,TOTAL 0.2 MG/DL (0.1-1.0)
[2020-10-05 07:00] LABS: CREATININE SERUM 0.78 MG/DL (0.60-1.30)
[2020-10-05 08:00] VITALS: BP 152/92
[2020-10-05] MEDS: REMDESIVIR INJ 100 MG in NS (IVPB) 230 ML IV SCH (08:43)
[2020-10-05] MEDS: OMEGA 3 (FISH OIL) 1000 MG CAP PO SCH ×2 (08:43→18:03)
[2020-10-05] MEDS: MULTIVIT W/MINERALS TAB (THERAGRAN M) PO SCH (08:43)
[2020-10-05] MEDS: ATENOLOL 25 MG (TENORMIN) TAB PO SCH ×2 (08:43→20:11)
[2020-10-05] MEDS: polyethylene glycoL POWDER 17 GM (MIRALAX) PACK PO SCH ×2 (08:44→21:13)
[2020-10-05] MEDS: SENNA W/DOCUSATE (SENOKOT S) TABLET PO SCH ×2 (08:44→20:13)
--- NOTE | 2020-10-05 11:11 | Progress Note - Hospitalist ---
Subjective HPI/CC On Admission Date Seen by Provider: Oct 05, 2020 Time Seen by Provider: 10:00 Subjective/Events-last exam Patient doing a lot better but now is coughing Chest x-ray reviewed Antibiotics maintained No evidence of sepsis We will monitor closely due to high risk of decompensation from neutropenia and COVID-19 Transfer to the floor Procalcitonin decreasing Review of Systems General: Fatigue, Malaise Pulmonary: Dyspnea, Cough Focused Exam Lactate Level Objective Exam Vital Signs Vital Signs Date Time Temp Pulse Resp B/P (MAP) Pulse Ox O2 Delivery O2 Flow Rate FiO2 10/06/20 04:00 36.8 75 21 140/82 (101) 100 Room Air 10/03/20 20:48 2.00 Capillary Refill : Less Than 3 Seconds General Appearance: No Apparent Distress, WD/WN, Chronically ill Respiratory: No Accessory Muscle Use, No Respiratory Distress, Crackles, Decreased Breath Sounds Cardiovascular: Regular Rate, Rhythm Neurologic/Psychiatric: Alert, Oriented x3, No Motor/Sensory Deficits, Normal Mood/Affect Results/Procedures Lab Laboratory Tests 10/05/20 06:25 10/06/20 03:00 Patient resulted labs reviewed. Assessment/Plan Assessment and Plan Assess & Plan/Chief Complaint Assessment: COVID-19 pneumonia Acute hypoxic respiratory failure Multiple myeloma Elevated liver enzymes Macrocytic anemia Neutropenia Plan: Supportive care Oxygen maintenance Oncology consult 10/05/2020: Supportive care IV antibiotics Chest x-ray reviewed High risk for decompensation Neutropenia severe NATI LEA DO Oct 05, 2020 11:11
[2020-10-05] MEDS: dexAMETHasone 6 MG TAB (DECADRON) PO SCH (14:08)
[2020-10-05 16:00] VITALS: BP 132/78
--- NOTE | 2020-10-05 16:35 | Diagnostic Imaging Report ---
INDICATION: Covid positive. EXAMINATION: Chest, 10/05/2020. COMPARISON: 10/02/2020. FINDINGS: There are stable right mid and lower lung infiltrates. There is a vague infiltrate in the left midlung. Heart is unchanged. Pulmonary vasculature within normal limits. There is a right-sided chest port which is unchanged. No pneumothorax or effusion. IMPRESSION: Scattered bilateral infiltrates. Dictated by: Dictated on workstation # [id number]
[2020-10-05 20:00] VITALS: BP 136/85
[2020-10-05] MEDS: PANTOPRAZOLE 40 MG (PROTONIX) TAB PO SCH (20:10)
[2020-10-05] MEDS: ATORVASTATIN 10 MG TABLET PO SCH (20:10)
[2020-10-05] MEDS: DIAZEPAM 5 MG (VALIUM) TABLET PO SCH (20:11)
[2020-10-05] MEDS: ENOXAPARIN 40 MG/0.4 ML (LOVENOX) SYR SC SCH (20:11)
[2020-10-06] VITALS (8 sets, daily range): BP systolic 110–153; BP diastolic 53–94
[2020-10-06] MEDS: CEFEPIME INJECTION 1,000 MG in WATER (STERILE) FOR INJECTION 10 ML IV SCH ×4 (00:13→18:00)
[2020-10-06] MEDS: RT-ALBUTEROL HFA 8.5 GM INHALER IH SCH ×3 (01:50→21:15)
[2020-10-06] MEDS: LACTATED RINGERS 1,000 ML IV SCH (01:51)
[2020-10-06] MEDS: oxyCODONE ER 20 MG (OxyCONTIN CR) TAB PO SCH ×2 (01:51→12:45)
[2020-10-06 03:34] LABS: BASOPHILS % (AUTO) 0 % (0-10); EOSINOPHILS % (AUTO) 0 % (0-10); MEAN CORPUSCULAR VOLUME 99 fL (80-99); MEAN PLATELET VOLUME 10.3 fL (9.0-12.2)
[2020-10-06 03:36] LABS: HEMATOCRIT 33 % (35-52); HEMOGLOBIN 10.7 g/dL (11.5-16.0); LYMPHOCYTES # (AUTO) 0.3 10^3/uL (1.0-4.0); LYMPHOCYTES % (AUTO) 33 % (12-44); MEAN CORPUSCULAR HEMOGLOBIN 32 pg (25-34); MEAN CORPUSCULAR HGB CONC 32 g/dL (32-36); MONOCYTES # (AUTO) 0.2 10^3/uL (0.0-1.0); MONOCYTES % (AUTO) 20 % (0-12); NEUTROPHILS # (AUTO) 0.4 10^3/uL (1.8-7.8); NEUTROPHILS % (AUTO) 45 % (42-75); PLATELET COUNT 129 10^3/uL (130-400)
[2020-10-06 03:53] LABS: ALBUMIN 2.7 GM/DL (3.2-4.5); POTASSIUM 3.6 MMOL/L (3.6-5.0)
[2020-10-06 03:54] LABS: CALCIUM 7.6 MG/DL (8.5-10.1)
[2020-10-06 03:56] LABS: TOTAL PROTEIN 4.5 GM/DL (6.4-8.2)
[2020-10-06 03:58] LABS: BILIRUBIN,TOTAL 0.2 MG/DL (0.1-1.0)
[2020-10-06 03:59] LABS: CREATININE SERUM 0.72 MG/DL (0.60-1.30)
[2020-10-06] MEDS: polyethylene glycoL POWDER 17 GM (MIRALAX) PACK PO SCH ×2 (07:22→21:13)
[2020-10-06] MEDS: REMDESIVIR INJ 100 MG in NS (IVPB) 230 ML IV SCH (09:01)
[2020-10-06] MEDS: SENNA W/DOCUSATE (SENOKOT S) TABLET PO SCH ×2 (09:03→21:14)
[2020-10-06] MEDS: MULTIVIT W/MINERALS TAB (THERAGRAN M) PO SCH (09:03)
[2020-10-06] MEDS: ATENOLOL 25 MG (TENORMIN) TAB PO SCH ×2 (09:03→21:13)
[2020-10-06] MEDS: OMEGA 3 (FISH OIL) 1000 MG CAP PO SCH ×2 (09:03→18:00)
--- NOTE | 2020-10-06 12:12 | Progress Note - Hospitalist ---
Subjective HPI/CC On Admission Date Seen by Provider: Oct 06, 2020 Time Seen by Provider: 11:00 Subjective/Events-last exam Patient doing pretty well Neutropenia and immunocompromise status makes at high risk for decompensation Maintain on oxygen Antibiotics tolerated Pro calcitonin improved Check meds and labs White blood cell count 1.0 Review of Systems General: Fatigue, Malaise Pulmonary: Dyspnea Objective Exam Vital Signs Vital Signs Date Time Temp Pulse Resp B/P (MAP) Pulse Ox O2 Delivery O2 Flow Rate FiO2 10/06/20 15:51 36.5 53 18 110/56 (74) 97 Room Air 10/06/20 14:07 21 10/03/20 20:48 2.00 Capillary Refill : Less Than 3 Seconds General Appearance: No Apparent Distress, WD/WN, Chronically ill Respiratory: No Accessory Muscle Use, Decreased Breath Sounds Cardiovascular: Regular Rate, Rhythm Neurologic/Psychiatric: Alert, Oriented x3, No Motor/Sensory Deficits, Normal Mood/Affect Results/Procedures Lab Laboratory Tests 10/06/20 03:00 Patient resulted labs reviewed. Assessment/Plan Assessment and Plan Assess & Plan/Chief Complaint Assessment: COVID-19 pneumonia Acute hypoxic respiratory failure Multiple myeloma Elevated liver enzymes Macrocytic anemia Neutropenia Plan: Supportive care Oxygen maintenance Oncology consult 10/05/2020: Supportive care IV antibiotics Chest x-ray reviewed High risk for decompensation Neutropenia severe 10/06/2020: Supportive care Continue IV antibiotics Monitor white count High risk for decompensation NATI LEA DO Oct 06, 2020 12:12
[2020-10-06] MEDS: dexAMETHasone 6 MG TAB (DECADRON) PO SCH (12:45)
[2020-10-06] MEDS: guaiFENesin/DM (ROBITUSSIN DM) 10 ML UDC PO PRN (12:55)
[2020-10-06] MEDS: ENOXAPARIN 40 MG/0.4 ML (LOVENOX) SYR SC SCH (21:11)
[2020-10-06] MEDS: DIAZEPAM 5 MG (VALIUM) TABLET PO SCH (21:12)
[2020-10-06] MEDS: MELATONIN 3 MG TABLET PO SCH (21:12)
[2020-10-06] MEDS: ATORVASTATIN 10 MG TABLET PO SCH (21:13)
[2020-10-06] MEDS: PANTOPRAZOLE 40 MG (PROTONIX) TAB PO SCH (21:13)
[2020-10-06] MEDS: MIRTAZAPINE 15 MG (REMERON) TAB PO SCH (21:13)
[2020-10-07] MEDS: CEFEPIME INJECTION 1,000 MG in WATER (STERILE) FOR INJECTION 10 ML IV SCH ×2 (00:27→06:44)
[2020-10-07] MEDS: oxyCODONE ER 20 MG (OxyCONTIN CR) TAB PO SCH ×2 (01:56→13:29)
[2020-10-07 04:00] VITALS: BP 136/63
--- NOTE | 2020-10-07 05:50 | Diagnostic Imaging Report ---
CLINICAL INDICATION: Patient pneumonia. Covid positive and history of respiratory distress. EXAM: Portable chest x-ray upright view. COMPARISONS: Chest x-ray dated 10/05/2020. FINDINGS: Again seen Port-A-Cath overlying the right chest with tip in the mid to distal superior vena cava region. There is decreased aeration of the right lung base with slight increased patchy airspace opacities in the right midlung field right lung base region. There is slight blunting of right costophrenic angle region which has developed in interim which may represent a small right pleural effusion. Stable mild cardiomegaly. Pulmonary vasculature is within normal limits. There are degenerative spurs involving the thoracic spine. There appear to be multiple old healed right rib fractures seen. IMPRESSION: 1: There is interval progression of mild patchy airspace opacities involving the right midlung field right lung base which may represent lung infiltrate. Superimposed atelectasis may also be considered. 2: There is development of possible small right pleural effusion. 3: Stable mild cardiomegaly with no significant pulmonary vascular congestion. Dictated by: Dictated on workstation # [id number]
[2020-10-07 06:55] LABS: BASOPHILS % (AUTO) 0 % (0-10); EOSINOPHILS % (AUTO) 0 % (0-10); HEMATOCRIT 37 % (35-52); HEMOGLOBIN 12.2 g/dL (11.5-16.0); LYMPHOCYTES # (AUTO) 0.6 10^3/uL (1.0-4.0); LYMPHOCYTES % (AUTO) 38 % (12-44); MEAN CORPUSCULAR HEMOGLOBIN 33 pg (25-34); MEAN CORPUSCULAR HGB CONC 33 g/dL (32-36); MEAN CORPUSCULAR VOLUME 101 fL (80-99); MEAN PLATELET VOLUME 10.1 fL (9.0-12.2); MONOCYTES # (AUTO) 0.2 10^3/uL (0.0-1.0); MONOCYTES % (AUTO) 14 % (0-12); NEUTROPHILS # (AUTO) 0.7 10^3/uL (1.8-7.8); NEUTROPHILS % (AUTO) 44 % (42-75); PLATELET COUNT 149 10^3/uL (130-400); WHITE BLOOD COUNT 1.5 10^3/uL (4.3-11.0)
[2020-10-07 07:06] LABS: POTASSIUM 3.9 MMOL/L (3.6-5.0)
[2020-10-07 07:07] LABS: CALCIUM 7.8 MG/DL (8.5-10.1)
[2020-10-07 07:08] LABS: TOTAL PROTEIN 5.1 GM/DL (6.4-8.2)
[2020-10-07 07:10] LABS: BILIRUBIN,TOTAL 0.3 MG/DL (0.1-1.0)
[2020-10-07 07:12] LABS: CREATININE SERUM 0.76 MG/DL (0.60-1.30)
[2020-10-07] MEDS: RT-ALBUTEROL HFA 8.5 GM INHALER IH SCH (07:49)
[2020-10-07 08:00] VITALS: BP 133/63
[2020-10-07] MEDS: polyethylene glycoL POWDER 17 GM (MIRALAX) PACK PO SCH ×2 (09:13→19:41)
[2020-10-07] MEDS: SENNA W/DOCUSATE (SENOKOT S) TABLET PO SCH ×2 (09:13→20:29)
[2020-10-07] MEDS: ATENOLOL 25 MG (TENORMIN) TAB PO SCH ×2 (09:13→20:29)
[2020-10-07] MEDS: MULTIVIT W/MINERALS TAB (THERAGRAN M) PO SCH (09:13)
[2020-10-07] MEDS: OMEGA 3 (FISH OIL) 1000 MG CAP PO SCH ×2 (09:13→17:31)
[2020-10-07] MEDS: REMDESIVIR INJ 100 MG in NS (IVPB) 230 ML IV SCH (09:14)
--- NOTE | 2020-10-07 10:49 | Progress Note - Hospitalist ---
Subjective HPI/CC On Admission Date Seen by Provider: Oct 07, 2020 Time Seen by Provider: 10:30 Subjective/Events-last exam Pt feels about the same Feels like she is chilling Needs more blankets WBC 1.5 High risk for decompensation with Covid-19 pneumonia Review of Systems General: Fatigue, Malaise Objective Exam Vital Signs Vital Signs Date Time Temp Pulse Resp B/P (MAP) Pulse Ox O2 Delivery O2 Flow Rate FiO2 10/08/20 03:15 36.2 55 18 121/58 (79) 97 Room Air 10/06/20 14:07 21 10/03/20 20:48 2.00 Capillary Refill : Less Than 3 Seconds General Appearance: No Apparent Distress, WD/WN, Chronically ill Respiratory: No Accessory Muscle Use, No Respiratory Distress, Decreased Breath Sounds Cardiovascular: Regular Rate, Rhythm Neurologic/Psychiatric: Alert, Oriented x3 Results/Procedures Lab Laboratory Tests 10/07/20 06:48 Patient resulted labs reviewed. Assessment/Plan Assessment and Plan Assess & Plan/Chief Complaint Assessment: COVID-19 pneumonia Acute hypoxic respiratory failure Multiple myeloma Elevated liver enzymes Macrocytic anemia Neutropenia Plan: Supportive care Oxygen maintenance Oncology consult 10/05/2020: Supportive care IV antibiotics Chest x-ray reviewed High risk for decompensation Neutropenia severe 10/06/2020: Supportive care Continue IV antibiotics Monitor white count High risk for decompensation 10/07/2020: Pulmonology reassured Monitor closely Discharge possible tomorrow NATI LEA DO Oct 07, 2020 10:49
[2020-10-07 12:00] VITALS: BP 114/56
[2020-10-07] MEDS: dexAMETHasone 6 MG TAB (DECADRON) PO SCH (13:10)
--- NOTE | 2020-10-07 14:06 | Physical Therapy Evaluation ---
PT Evaluation-General Medical Diagnosis Admission Date Oct 02, 2020 at 14:15 Medical Diagnosis: Covid/hypoxia Onset Date: Oct 02, 2020 Therapy Diagnosis Therapy Diagnosis: debility/weakness Height/Weight Height (Feet): 5 Height (Inches): 0 Weight (Pounds): 156 Weight (Ounces): 0 Precautions Precautions/Isolations: Contact Isolation, Droplet Isolation Referral Physician: Deanne Reason for Referral: Evaluation/Treatment Medical History Pertinent Medical History: COPD, HTN, Smoking Additional Medical History multiple myeloma (receiving chemo prior to admit) Current History ER secondary to covid symptoms x 1 week Reviewed History: Yes Social History Home: Single Level Current Living Status: Other Family Prior Prior Level of Function SCALE: Activities may be completed with or without assistive devices. 5-Wughkgxnam-khazbty completes the activity by him/herself with no assistance from a helper. 5-Set-up or Clean-up Assistance-helper sets up or cleans up; patient completes activity. [place] assists only prior to or following the activity. 4-Supervision or Touching Assistance-helper provides verbal cues and/or touching/steadying and/or contact guard assistance as patient completes activity. Assistance may be provided throughout the activity or intermittently. 3-Partial/Moderate Assistance-helper does LESS THAN HALF the effort. [place] lifts, holds or supports trunk or limbs, but provides less than half the effort. 2-Substantial/Maximal Assistance-helper does MORE THAN HALF the effort. [place] lifts or holds trunk or limbs and provides more than half the effort. 7-Zwfsadomt-ioekcz does ALL the effort. Patient does none of the effort to c omplete the activity. Or, the assistance of 2 or more helpers is required for the patient to complete the activity. If activity was not attempted, code reason: 7-Patient Refused. 9-Not Applicable-not attempted and the patient did not perform the activity before the current illness, exacerbation or injury. 10-Not Attempted due to Environmental Limitations-(lack of equipment, weather restraints, etc.). 88-Not Attempted due to Medical Conditions or Safety Concerns. Bed Mobility: 6 Transfers (B,C,W/C): 6 Gait: 6 Stairs: 6 Indoor Mobility (Ambulation): Independent Stairs: Independent Prior Devices Use: Walker PT Evaluation-Current Subjective Patient reports she is up independently in room. Agrees to PT. Objective Patient Orientation: Normal For Age ROM/Strength ROM Lower Extremities bilateral LE WFL Strength Lower Extremities 4-/5 grossly bilateral LE Integumentary/Posture Bowel Incontinence: No Bladder Incontinence: No Posture WFL Neuromuscular (Tone, Coordination, Reflexes) grossly intact Sensory Vision: Wears Glasses Hearing: Functional Transfers Roll Left to Right (QC): 6 Sit to Lying (QC): 6 Lying to Sitting/Side of Bed(Q: 6 Sit to Stand (QC): 6 Gait Does the Patient Walk?: Yes Mode of Locomotion: Walk Anticipated Mode of Locomotion: Walk Walk 10 feet (QC): 6 Walk 50 ft with 2 Turns(QC): 6 Walk 150 ft (QC): 6 Distance: 150' in room Gait Assistive Device: None Comments/Gait Description declined to use her FWW with in room ambulation Wheelchair Training Does the Pt Use a Wheelchair?: No Balance Sitting Static: Normal Sitting Dynamic: Normal Standing Static: Normal Standing Dynamic: Normal Picking up an Object (QC): 6 Assessment/Needs Patient is currently at independent [facility] with all gross motor skills and does not require skilled PT intervention. Rehab Potential: Fair PT Plan Treatment/Plan Treatment Plan: Discontinue PT, goals met Treatment Duration: Oct 07, 2020 Frequency: 1 time per week Estimated Hrs Per Day: .25 hour per day Patient and/or Family Agrees t: Yes Discharge Recommendations Therapy Discharge Recommendati: Home & Family Time/GCodes Time In: 1320 Time Out: 1331 Total Billed Treatment Time: 11 Total Billed Treatment 1 visit EVLowC 11 min RUI FRANCO PT Oct 07, 2020 14:06
--- NOTE | 2020-10-07 14:30 | Occ Therapy Progress Note ---
Therapy Progress Note OT order received, chart reviewed. OT ready to assess pt. PT assessed/screened pt. previously and let OT know that pt. is fully independent in room. She is ambulating independently, and donned clothing/slipper socks independently. She is taking self to bathroom, and was even able to pecan picker item off floor with no difficulty. She is eating, and demonstrates no deficits that would warrant OT skills training. Therefore, OT will not assess pt. Thank you for this referral. If anything changes, OT will be happy to re-assess pt. 1334 Discharge PHU BERTRAND OT Oct 07, 2020 14:30
[2020-10-07 15:24] VITALS: BP 115/55
--- NOTE | 2020-10-07 18:02 | Tele-ICU Consult ---
History of Present Illness History of Present Illness Date Seen by Provider: Oct 07, 2020 Time Seen by Provider: 17:00 Date of Admission Patient acknowledged, consented, and participated in this virtual visit which was conducted using real time audio/video. Thank you for asking us to see this patient for respiratory insufficiency and distress due to Covid infection. Unvacc. HPC: Recent events: Admitted 10/02. Now on RA and feeling much better PMH: M myeloma w Chemo last week, HTN, GERD, HL, COPD on Combivent, Anx., dep. SH: smoking history: previously until 1 year ago. FH: Non-contributory ROS: nil other than in HPI PE: VSS HR BP RR O2 sat on HEENT: No obvious masses, adenopathy or JVD. Chest: clear to auscultation. CV: RRR S1 S2 No murmur or added sounds. Abd: Non-tender. Bowel sounds Y. : Unremarkable. Simental N . TECHNICAL ACCOUNT EXECUTIVE/psychiatric: Alert and oriented, grossly intact. No obvious focal findings. Extremities: No edema. Capillary refill < 3 seconds. Skin: unremarkable. Results: Elevated BG . Decreased WCC 1.5 Hb . Lact 7.8 A/P: Respiratory insufficiency/distress: much better. Likely can D/C soon. Would add Breo once off Dex. Available chart/ vitals / labs / Images reviewed. CXR: minor B infilts., hyperinflated. Video assessment done using teleICU camera, rest of exam as per RN. Respiratory: Continue present management with Duonebs, Cefipime, Mireille., remdes., Dex. Monitor for increasing oxygenation needs and/or need for ICU transfer: unlikely. Discussed with RN. Asked RN to reach out to eICU if any questions or concerns later. Time spent with patientcoordination of care with other health professionals (mins): 25 Allergies and Home Medications Allergies Coded Allergies: ciprofloxacin (Verified Allergy, Mild, throat swells, 03/15/20) Sulfa (Sulfonamide Antibiotics) (Verified Allergy, Unknown, 03/15/20) acetaminophen (Verified Allergy, Unknown, 03/15/20) morphine (Verified Allergy, Unknown, 03/15/20) propoxyphene (Verified Allergy, Unknown, 03/15/20) Home Medications Albuterol Sulfate 18 Gm Hfa.aer.ad, 2 PUFF INH Q6H PRN for SHORTNESS OF BREATH, (Reported) Atenolol 25 Mg Tablet, 25 MG PO BID, (Reported) Dexamethasone 4 Mg Tablet, 20 MG PO FRI, (Reported) TAKES 5 (4MG) TABS Diazepam 5 Mg Tablet, 5 MG PO Q6H PRN for ANXIETY, (Reported) Diphenhydramine HCl 25 Mg Tablet, 25-50 MG PO Q8H PRN for ITCHING AND RASH, (Reported) Esomeprazole Magnesium 40 Mg Capsule.dr, 40 MG PO HS, (Reported) Ipratropium/Albuterol Sulfate 3 Ml Ampul.neb, 3 ML NEB Q6H PRN for SHORTNESS OF BREATH, (Reported) Lenalidomide 15 Mg Capsule, 15 MG PO UD, (Reported) TAKES DAILY X 21 DAYS THEN IF OFF FOR 7 DAYS Multivitamin 1 Each Tablet, 1 EACH PO DAILY, (Reported) Fannin-3 Acid Ethyl Esters 1 Gm Capsule, 4 GM PO DAILY, (Reported) TAKES 4 (1GM) CAPS Ondansetron HCl 8 Mg Tablet, 8 MG PO Q8H PRN for NAUSEA/VOMITING-1ST LINE, (Reported) Oxycodone HCl 10 Mg Tablet, 10 MG PO Q4 -6H PRN for PAIN-SEVERE (8-10), (Reported) Oxycodone HCl 20 Mg Tab.er.12h, 20 MG PO Q12H, (Reported) Pitavastatin Calcium 2 Mg Tablet, 2 MG PO DAILY, (Reported) Past Medical/Social/Family Hx Patient Social History Tobacco Use?: No Tobacco type used: Cigarettes Smoking Status: Former Smoker Substance use?: No Alcohol Use?: No Pt stated abuse/neglect: No Immunizations Up To Date Influenza Vaccine Up-to-Date: Yes; Up-to-Date Tetanus Booster (TDap): More Than 5 Years Hepatitis A: Yes Hepatitis B: Yes Date of Pneumonia Vaccine: Nov 29, 2010 Current Status status: No Advance Directives: Yes Advance Directive Location: Copy from prev record Communicates: Verbally Primary Language: [place] Preferred Spoken Language: [place] Is interpretation needed?: No Sensory deficits: Vision impairment, Hearing impairment Implanted or Applied Medical D: Port-a-cath Past Medical History Multiple Myeloma CKD Review of Systems Constitutional: see HPI EENTM: see HPI Respiratory: see HPI Cardiovascular: see HPI Genitourinary: see HPI Musculoskeletal: see HPI Psychiatric/Neurological: See HPI All Other Systems Reviewed Negative Unless Noted: Yes Sepsis Event Evaluation Sepsis Stage: Ruled Out Height, Weight, BMI Height: 5'0" Weight: 156lbs. 0oz. [id number]; 31.80 BMI Method:Stated Exam Exam Patient acknowledged, consented, and participated in this virtual visit which was conducted using real time audio/video Vital Signs Date Time Temp Pulse Resp B/P (MAP) Pulse Ox O2 Delivery O2 Flow Rate FiO2 10/07/20 15:24 36.6 61 16 115/55 (75) 97 Room Air 10/07/20 12:00 35.8 65 20 114/56 (75) 95 Room Air 10/07/20 08:00 36.4 56 20 133/63 (86) 97 Room Air 10/07/20 08:00 95 Room Air 10/07/20 07:49 98 Room Air 10/07/20 04:00 36.4 43 16 136/63 (87) 98 Room Air 10/06/20 23:30 36.5 55 18 110/53 (72) 97 Room Air 10/06/20 20:39 36.6 52 20 133/62 (85) 96 Room Air 10/06/20 20:00 100 Room Air I & O 10/07/20 07:00 Intake Total 3190 ml Balance 3190 ml Height & Weight Height: 5'0" Weight: 156lbs. 0oz. [id number]; 31.80 BMI Method:Stated General Appearance: No Apparent Distress, WD/WN, Chronically ill Neck: Full Range of Motion, Normal Inspection Respiratory: No Accessory Muscle Use, Decreased Breath Sounds Cardiovascular: Regular Rate, Rhythm Capillary Refill: Less Than 3 Seconds Peripheral Pulses: 1+ Left Dors-Pedis (L), 1+ Radial Pulses (R) Gastrointestinal: normal bowel sounds, non tender, soft Extremity: Normal Capillary Refill, Normal Inspection Neurologic/Psychiatric: Alert, Oriented x3, No Motor/Sensory Deficits, Normal Mood/Affect Skin: Normal Color, Warm/Dry Results Lab Laboratory Tests 10/06/20 03:00 10/07/20 06:48 Assessment/Plan Assessment/Plan Se free text. Time spent on discussion(mins): 0 Diagnosis/Problems Problems/Diagonsis (1) COVID-19 Status: Acute RAMANA GIFFORD MD Oct 07, 2020 18:02
[2020-10-07 19:34] VITALS: BP 118/56
[2020-10-07] MEDS: PANTOPRAZOLE 40 MG (PROTONIX) TAB PO SCH (20:29)
[2020-10-07] MEDS: MIRTAZAPINE 15 MG (REMERON) TAB PO SCH (20:29)
[2020-10-07] MEDS: ATORVASTATIN 10 MG TABLET PO SCH (20:29)
[2020-10-07] MEDS: DIAZEPAM 5 MG (VALIUM) TABLET PO SCH (20:29)
[2020-10-07] MEDS: MELATONIN 3 MG TABLET PO SCH (20:29)
[2020-10-07] MEDS: ENOXAPARIN 40 MG/0.4 ML (LOVENOX) SYR SC SCH (20:35)
[2020-10-08] VITALS: BP 109/54
[2020-10-08] MEDS: oxyCODONE ER 20 MG (OxyCONTIN CR) TAB PO SCH ×2 (01:19→13:14)
[2020-10-08 03:15] VITALS: BP 121/58
[2020-10-08 06:02] LABS: BASOPHILS % (AUTO) 1 % (0-10); EOSINOPHILS % (AUTO) 0 % (0-10); HEMATOCRIT 35 % (35-52); HEMOGLOBIN 11.4 g/dL (11.5-16.0); LYMPHOCYTES # (AUTO) 0.5 10^3/uL (1.0-4.0); LYMPHOCYTES % (AUTO) 25 % (12-44); MEAN CORPUSCULAR HEMOGLOBIN 33 pg (25-34); MEAN CORPUSCULAR HGB CONC 33 g/dL (32-36); MEAN CORPUSCULAR VOLUME 99 fL (80-99); MONOCYTES # (AUTO) 0.2 10^3/uL (0.0-1.0); MONOCYTES % (AUTO) 11 % (0-12); NEUTROPHILS # (AUTO) 1.2 10^3/uL (1.8-7.8); NEUTROPHILS % (AUTO) 60 % (42-75); PLATELET COUNT 173 10^3/uL (130-400)
[2020-10-08 06:11] LABS: ALBUMIN 2.7 GM/DL (3.2-4.5)
[2020-10-08 06:12] LABS: POTASSIUM 4.1 MMOL/L (3.6-5.0)
[2020-10-08 06:13] LABS: CALCIUM 7.6 MG/DL (8.5-10.1)
[2020-10-08 06:14] LABS: TOTAL PROTEIN 4.5 GM/DL (6.4-8.2)
[2020-10-08 06:18] LABS: CREATININE SERUM 0.76 MG/DL (0.60-1.30)
[2020-10-08 06:34] LABS: BILIRUBIN,TOTAL 0.3 MG/DL (0.1-1.0)
[2020-10-08] MEDS: RT-ALBUTEROL HFA 8.5 GM INHALER IH SCH (07:23)
[2020-10-08] MEDS: SENNA W/DOCUSATE (SENOKOT S) TABLET PO SCH (07:46)
[2020-10-08] MEDS: polyethylene glycoL POWDER 17 GM (MIRALAX) PACK PO SCH (07:46)
[2020-10-08] MEDS: MULTIVIT W/MINERALS TAB (THERAGRAN M) PO SCH (07:46)
[2020-10-08] MEDS: OMEGA 3 (FISH OIL) 1000 MG CAP PO SCH (07:46)
[2020-10-08] MEDS: ATENOLOL 25 MG (TENORMIN) TAB PO SCH (07:46)
[2020-10-08 08:00] VITALS: BP 121/58
--- NOTE | 2020-10-08 10:17 | Pulmonary Progress Note ---
Subjective Date Seen by a Provider: Oct 08, 2020 Time Seen by a Provider: 11:51 Subjective/Events-last exam Events over night: off o2 ready for dc Sepsis Event Evaluation Height, Weight, BMI Height: 5'0" Weight: 156lbs. 0oz. 70.830421in; 31.80 BMI Method:Stated Exam Exam Patient acknowledged, consented, and participated in this virtual visit which was conducted using real time audio/video Vital Signs Date Time Temp Pulse Resp B/P (MAP) Pulse Ox O2 Delivery O2 Flow Rate FiO2 10/08/20 08:00 36.2 55 18 121/58 (79) 97 Room Air 2.00 2.00 10/08/20 08:00 97 Room Air 10/08/20 07:22 97 Room Air 10/08/20 03:15 36.2 55 18 121/58 (79) 97 Room Air 10/08/20 00:00 36.0 65 18 109/54 (72) 98 Room Air 10/07/20 22:06 100 Room Air 10/07/20 19:34 37.0 69 16 118/56 (76) 98 Room Air 10/07/20 15:24 36.6 61 16 115/55 (75) 97 Room Air 10/07/20 12:00 35.8 65 20 114/56 (75) 95 Room Air I & O 10/08/20 07:00 Intake Total 1300 ml Balance 1300 ml Height & Weight Height: 5'0" Weight: 156lbs. 0oz. 70.611097zm; 31.80 BMI Method:Stated General Appearance: No Apparent Distress, WD/WN, Chronically ill Neck: Full Range of Motion, Normal Inspection Respiratory: No Accessory Muscle Use, No Respiratory Distress, Decreased Breath Sounds Cardiovascular: Regular Rate, Rhythm Capillary Refill: Less Than 3 Seconds Peripheral Pulses: 1+ Left Dors-Pedis (L), 1+ Radial Pulses (R) Gastrointestinal: normal bowel sounds, non tender, soft Extremity: Normal Capillary Refill, Normal Inspection Neurologic/Psychiatric: Alert, Oriented x3 Skin: Normal Color, Warm/Dry Results Lab Laboratory Tests 10/07/20 06:48 10/08/20 05:52 Assessment/Plan Assessment/Plan Acute hypoxemic resp failure in the context of COVID 19 pna -continue o2 2l -vte work up: higher risk in the context of MM and COVID 19 -xray reviewed -dexa on board -dvt prophylaxis lovenox doing better dc home JAVIER Jessica MD Oct 08, 2020 10:17
[2020-10-08] MEDS ORDERED: DEXA6TAB PO (11:15)
[2020-10-08] MEDS ORDERED: DIAZ5TAB49 PO (11:15)
[2020-10-08] MEDS ORDERED: CEFD300C3 PO (11:15)
--- NOTE | 2020-10-08 11:16 | Discharge Summary ---
Discharge Summary Hospital Course Was the Problem List Reviewed?: Yes Problems/Dx: (1) COVID-19 Status: Acute Hospital Course Date of Admission: Oct 02, 2020 at 14:15 Admission Diagnosis : Family Physician/Provider: Juan José Kam MD Date of Discharge: 10/08/20 Discharge Diagnosis: COVID-19 pneumonia, bacterial pneumonia, COPD, multiple myeloma on chemotherapy Hospital Course: Hospital course: Pt had a lengthy hospital course for seven days for Covid-19 pneumonia and being on chemotherapy for Multiple Myeloma. She did continue to have neutropenia but WBC was 2.0 on discharge. She remained afebrile, was discontinued off oxygen and overall she was ready for discharge. Pulmonology agreed and medications were sent into the pharmacy. Labs and Pending Lab Test: Laboratory Tests 10/08/20 05:52: White Blood Count 2.0L, Red Blood Count 3.49L, Hemoglobin 11.4L, Hematocrit 35, Mean Corpuscular Volume 99, Mean Corpuscular Hemoglobin 33, Mean Corpuscular Hemoglobin Concent 33, Red Cell Distribution Width 14.1, Platelet Count 173, Mean Platelet Volume 10.0, Immature Granulocyte % (Auto) 3, Neutrophils (%) (Auto) 60, Lymphocytes (%) (Auto) 25, Monocytes (%) (Auto) 11, Eosinophils (%) (Auto) 0, Basophils (%) (Auto) 1, Neutrophils # (Auto) 1.2L, Lymphocytes # (Auto) 0.5L, Monocytes # (Auto) 0.2, Eosinophils # (Auto) 0.0, Basophils # (Auto) 0.0, Immature Granulocyte # (Auto) 0.1, Sodium Level 143, Potassium Level 4.1, Chloride Level 112H, Carbon Dioxide Level 24, Anion Gap 7, Blood Urea Nitrogen 21H, Creatinine 0.76, Estimat Glomerular Filtration Rate 79, BU N/Creatinine Ratio 28, Glucose Level 81, Calcium Level 7.6L, Corrected Calcium 8.6, Total Bilirubin 0.3, Aspartate Amino Transf (AST/SGOT) 14, Alanine Aminotransferase (ALT/SGPT) 26, Alkaline Phosphatase 106, Total Protein 4.5L, Albumin 2.7L Microbiology 10/02/20 Urine Culture - Final, Complete NO GROWTH 10/02/20 Blood Culture - Final, Complete No growth Home Meds Active Cefdinir 300 Mg Capsule 300 Mg PO BID Dexamethasone 6 Mg Tablet 6 Mg PO Q24H Diazepam 5 Mg Tablet 10 Mg PO HS Reported Benadryl Allergy (Diphenhydramine HCl) 25 Mg Tablet 25-50 Mg PO Q8H PRN Oxycontin (Oxycodone HCl) 20 Mg Tab.er.12h 20 Mg PO Q12H Oxycodone HCl 10 Mg Tablet 10 Mg PO Q4 -6H PRN Revlimid (Lenalidomide) 15 Mg Capsule 15 Mg PO UD TAKES DAILY X 21 DAYS THEN IF OFF FOR 7 DAYS Multivitamin 1 Each Tablet 1 Each PO DAILY Dexamethasone 4 Mg Tablet 20 Mg PO FRI TAKES 5 (4MG) TABS Esomeprazole Magnesium 40 Mg Capsule.dr 40 Mg PO HS Ondansetron HCl 8 Mg Tablet 8 Mg PO Q8H PRN Iprat-Albut 0.5-3(2.5) mg/3 ml (Ipratropium/Albuterol Sulfate) 3 Ml Ampul.neb 3 Ml NEB Q6H PRN Ventolin Hfa (Albuterol Sulfate) 18 Gm Hfa.aer.ad 2 Puff INH Q6H PRN Livalo (Pitavastatin Calcium) 2 Mg Tablet 2 Mg PO DAILY Beverly-3 Acid Ethyl Esters 1 Gm Capsule 4 Gm PO DAILY TAKES 4 (1GM) CAPS Atenolol 25 Mg Tablet 25 Mg PO BID Diazepam 5 Mg Tablet 5 Mg PO Q6H PRN Assessment/Pt Instructions [facility] in 1 week Discharge Planning: <30 minutes discharge planning Discharge Physical Examination Vital Signs Vital Signs Date Time Temp Pulse Resp B/P (MAP) Pulse Ox O2 Delivery O2 Flow Rate FiO2 10/08/20 08:00 36.2 55 18 121/58 (79) 97 Room Air 2.00 2.00 10/06/20 14:07 21 General Appearance: No Apparent Distress, WD/WN, Chronically ill Respiratory: Lungs Clear, Normal Breath Sounds Cardiovascular: Regular Rate, Rhythm Neurologic/Psychiatric: Alert, Oriented x3 Allergies: Coded Allergies: ciprofloxacin (Verified Allergy, Mild, throat swells, 03/15/20) Sulfa (Sulfonamide Antibiotics) (Verified Allergy, Unknown, 03/15/20) acetaminophen (Verified Allergy, Unknown, 03/15/20) morphine (Verified Allergy, Unknown, 03/15/20) propoxyphene (Verified Allergy, Unknown, 03/15/20) Discharge Summary Date of Admission Oct 02, 2020 at 14:15 Date of Discharge Discharge Date: Oct 08, 2020 Comfort Measures/ Time spent on discussion (min): 0 Discharge Diagnosis Assessment: COVID-19 pneumonia Acute hypoxic respiratory failure Multiple myeloma Elevated liver enzymes Macrocytic anemia Neutropenia Plan: Supportive care Oxygen maintenance Oncology consult 10/05/2020: Supportive care IV antibiotics Chest x-ray reviewed High risk for decompensation Neutropenia severe 10/06/2020: Supportive care Continue IV antibiotics Monitor white count High risk for decompensation 10/07/2020: Pulmonology reassured Monitor closely Discharge possible tomorrow (1) COVID-19 Status: Acute NATI LEA DO Oct 08, 2020 11:16
[2020-10-08 12:00] VITALS: BP 131/59
[2020-10-08] MEDS: dexAMETHasone 6 MG TAB (DECADRON) PO SCH (13:14)
--- NOTE | 2020-10-08 14:21 | Diagnostic Imaging Report ---
INDICATION: COVID positive. TECHNIQUE: Single view chest, 12:43 p.m. CORRELATION STUDY: 10/07/2020. FINDINGS: Right subclavian Yjqoll-e-Lcin catheter tip over the SVC, stable. Heart size is borderline enlarged. Vasculature is overall within normal limits. Bibasilar opacities, likely atelectasis versus potentially pneumonia. Overall stable to slightly improved. There may be trace pleural effusions. A more focal nodular density over the left mid lung field superimposed over the anterior left third rib. Likely older left lateral rib fracture deformities. IMPRESSION: 1. Bibasilar opacities, right greater than left, may be reflective of atelectasis and/or infiltrate, overall perhaps slightly improved. There may be trace pleural effusions. 2. Nodular density in the left mid lung field. This may be associated with a rib and summation shadow given additional apparent left-sided rib fracture. Dictated by: Dictated on workstation # [id number]
--- NOTE | 2020-10-08 14:21 | Diagnostic Imaging Report ---
PROCEDURE: US Venous Lower Ext Pablo. INDICATION: Hypoxia, Covid positive TECHNIQUE: Multiple real-time grayscale images were obtained over the lower extremities in various projections, bilaterally. Additional duplex Doppler and color Doppler images were also obtained. CORRELATION STUDY: None FINDINGS: Color and grayscale sonographic images demonstrate no intraluminal defect within the visualized portion of the common femoral, superficial femoral and/or popliteal veins to suggest thrombus formation. These vessels demonstrate normal response to compression and augmentation. No soft tissue fluid collection. IMPRESSION: 1. Negative for deep venous thrombosis of either leg. Dictated by: Dictated on workstation # [id number]
== END 2020-10-08 13:40 | disposition home or self-care (01) | DRG 177 ==
LOC: EDUNIT# 10:25 → ER 10:27 → CSD 14:15 → 4TH 10-06 11:52
PROVIDERS: ADMIT Family Medicine; ATTEND Internal Medicine
PROC: XW033E5 Introduction of Remdesivir Anti-infective into Peripheral Vein, Percutaneous Approach, New Technology Group 5 (ICD-10-PCS; principal; 2020-10-03)
DX: U07.1 COVID-19 (principal); J12.82 Pneumonia due to coronavirus disease 2019; J96.01 Acute respiratory failure with hypoxia; J15.9 Unspecified bacterial pneumonia; C90.00 Multiple myeloma not having achieved remission; D61.818 Other pancytopenia; Z92.21 Personal history of antineoplastic chemotherapy; J43.9 Emphysema, unspecified; K21.9 Gastro-esophageal reflux disease without esophagitis; K57.90 Diverticulosis of intestine, part unspecified, without perforation or abscess without bleeding; M19.90 Unspecified osteoarthritis, unspecified site; G89.29 Other chronic pain; M54.9 Dorsalgia, unspecified; F41.9 Anxiety disorder, unspecified; F32.9 Major depressive disorder, single episode, unspecified; I12.9 Hypertensive chronic kidney disease with stage 1 through stage 4 chronic kidney disease, or unspecified chronic kidney disease; D70.9 Neutropenia, unspecified; D69.6 Thrombocytopenia, unspecified; N18.9 Chronic kidney disease, unspecified; D64.9 Anemia, unspecified; Z87.891 Personal history of nicotine dependence; Z88.1 Allergy status to other antibiotic agents; Z88.2 Allergy status to sulfonamides; Z88.5 Allergy status to narcotic agent
CPT/HCPCS: 36415; 71045; 80053; 81000; 83605; 83880; 84145; 85007; 85025; 85027; 85379; 86141; 87040; 87088; 87636; 93970; 94640; 94664; 94760; 96361; 96365; 96375

== ENCOUNTER 2020-12-12 13:53 | Outpatient (RCR) | payer MEDICAID ==
[2020-09-16 13:55] LABS: BASOPHILS % (AUTO) 1 % (0-10); EOSINOPHILS # (AUTO) 0.2 10^3/uL (0.0-0.3); EOSINOPHILS % (AUTO) 5 % (0-10); HEMATOCRIT 38 % (35-52); HEMOGLOBIN 12.3 g/dL (11.5-16.0); LYMPHOCYTES # (AUTO) 1.1 10^3/uL (1.0-4.0); LYMPHOCYTES % (AUTO) 28 % (12-44); MEAN CORPUSCULAR HEMOGLOBIN 32 pg (25-34); MEAN CORPUSCULAR HGB CONC 33 g/dL (32-36); MEAN CORPUSCULAR VOLUME 100 fL (80-99); MONOCYTES # (AUTO) 0.6 10^3/uL (0.0-1.0); MONOCYTES % (AUTO) 15 % (0-12); NEUTROPHILS % (AUTO) 51 % (42-75); PLATELET COUNT 149 10^3/uL (130-400); WHITE BLOOD COUNT 3.8 10^3/uL (4.3-11.0)
[2020-09-16 14:14] LABS: CALCIUM 8.9 MG/DL (8.5-10.1); CREATININE SERUM 1.68 MG/DL (0.60-1.30); POTASSIUM 3.8 MMOL/L (3.6-5.0)
[2020-09-23 10:45] LABS: BASOPHILS % (AUTO) 1 % (0-10); EOSINOPHILS # (AUTO) 0.4 10^3/uL (0.0-0.3); EOSINOPHILS % (AUTO) 11 % (0-10); HEMATOCRIT 40 % (35-52); LYMPHOCYTES # (AUTO) 0.7 10^3/uL (1.0-4.0); LYMPHOCYTES % (AUTO) 19 % (12-44); MEAN CORPUSCULAR HEMOGLOBIN 32 pg (25-34); MEAN CORPUSCULAR HGB CONC 33 g/dL (32-36); MEAN CORPUSCULAR VOLUME 100 fL (80-99); MONOCYTES # (AUTO) 0.6 10^3/uL (0.0-1.0); MONOCYTES % (AUTO) 16 % (0-12); NEUTROPHILS # (AUTO) 1.9 10^3/uL (1.8-7.8); NEUTROPHILS % (AUTO) 53 % (42-75); PLATELET COUNT 160 10^3/uL (130-400); WHITE BLOOD COUNT 3.6 10^3/uL (4.3-11.0)
[2020-09-23 11:03] LABS: ALBUMIN 3.6 GM/DL (3.2-4.5); BILIRUBIN,TOTAL 0.5 MG/DL (0.1-1.0); CREATININE SERUM 1.33 MG/DL (0.60-1.30); POTASSIUM 3.5 MMOL/L (3.6-5.0); TOTAL PROTEIN 6.1 GM/DL (6.4-8.2)
[2020-10-23 14:35] LABS: BASOPHILS % (AUTO) 0 % (0-10); MEAN CORPUSCULAR HEMOGLOBIN 33 pg (25-34); MEAN CORPUSCULAR HGB CONC 32 g/dL (32-36); MEAN CORPUSCULAR VOLUME 103 fL (80-99); MEAN PLATELET VOLUME 10.4 fL (9.0-12.2)
[2020-10-23 14:37] LABS: EOSINOPHILS # (AUTO) 0.1 10^3/uL (0.0-0.3); EOSINOPHILS % (AUTO) 2 % (0-10); HEMATOCRIT 38 % (35-52); HEMOGLOBIN 12.3 g/dL (11.5-16.0); LYMPHOCYTES % (AUTO) 35 % (12-44); MONOCYTES # (AUTO) 0.4 10^3/uL (0.0-1.0); MONOCYTES % (AUTO) 14 % (0-12); NEUTROPHILS # (AUTO) 1.4 10^3/uL (1.8-7.8); NEUTROPHILS % (AUTO) 48 % (42-75)
[2020-10-23 14:39] LABS: PLATELET COUNT 102 10^3/uL (130-400)
[2020-10-23 14:54] LABS: ALBUMIN 3.5 GM/DL (3.2-4.5); BILIRUBIN,TOTAL 0.4 MG/DL (0.1-1.0); CREATININE SERUM 1.09 MG/DL (0.60-1.30); POTASSIUM 3.9 MMOL/L (3.6-5.0); TOTAL PROTEIN 5.9 GM/DL (6.4-8.2)
[2020-11-14 09:50] LABS: BASOPHILS % (AUTO) 0 % (0-10); EOSINOPHILS % (AUTO) 1 % (0-10); HEMOGLOBIN 12.7 g/dL (11.5-16.0)
[2020-11-14 09:52] LABS: HEMATOCRIT 38 % (35-52); LYMPHOCYTES % (AUTO) 25 % (12-44); MEAN CORPUSCULAR HEMOGLOBIN 34 pg (25-34); MEAN CORPUSCULAR HGB CONC 33 g/dL (32-36); MEAN CORPUSCULAR VOLUME 101 fL (80-99); MEAN PLATELET VOLUME 9.7 fL (9.0-12.2); MONOCYTES # (AUTO) 0.4 10^3/uL (0.0-1.0); MONOCYTES % (AUTO) 10 % (0-12); NEUTROPHILS # (AUTO) 2.6 10^3/uL (1.8-7.8); NEUTROPHILS % (AUTO) 65 % (42-75); PLATELET COUNT 130 10^3/uL (130-400)
[2020-11-14 10:16] LABS: CALCIUM 9.1 MG/DL (8.5-10.1); CREATININE SERUM 1.01 MG/DL (0.60-1.30); POTASSIUM 5.3 MMOL/L (3.6-5.0)
[2020-11-20 13:47] LABS: BASOPHILS % (AUTO) 0 % (0-10); EOSINOPHILS # (AUTO) 0.1 10^3/uL (0.0-0.3); EOSINOPHILS % (AUTO) 3 % (0-10); HEMATOCRIT 38 % (35-52); HEMOGLOBIN 12.4 g/dL (11.5-16.0); LYMPHOCYTES % (AUTO) 31 % (12-44); MEAN CORPUSCULAR HEMOGLOBIN 34 pg (25-34); MEAN CORPUSCULAR HGB CONC 33 g/dL (32-36); MEAN CORPUSCULAR VOLUME 103 fL (80-99); MEAN PLATELET VOLUME 10.6 fL (9.0-12.2); MONOCYTES # (AUTO) 0.3 10^3/uL (0.0-1.0); MONOCYTES % (AUTO) 10 % (0-12); NEUTROPHILS # (AUTO) 1.8 10^3/uL (1.8-7.8); NEUTROPHILS % (AUTO) 56 % (42-75); PLATELET COUNT 140 10^3/uL (130-400); WHITE BLOOD COUNT 3.3 10^3/uL (4.3-11.0)
[2020-11-20 14:06] LABS: CALCIUM 9.5 MG/DL (8.5-10.1); CREATININE SERUM 1.24 MG/DL (0.60-1.30); POTASSIUM 4.5 MMOL/L (3.6-5.0)
[2020-11-27 09:58] LABS: BASOPHILS % (AUTO) 0 % (0-10); EOSINOPHILS # (AUTO) 0.1 10^3/uL (0.0-0.3); EOSINOPHILS % (AUTO) 2 % (0-10); HEMATOCRIT 43 % (35-52); HEMOGLOBIN 13.7 g/dL (11.5-16.0); LYMPHOCYTES # (AUTO) 0.9 10^3/uL (1.0-4.0); LYMPHOCYTES % (AUTO) 17 % (12-44); MEAN CORPUSCULAR HEMOGLOBIN 33 pg (25-34); MEAN CORPUSCULAR HGB CONC 32 g/dL (32-36); MEAN CORPUSCULAR VOLUME 105 fL (80-99); MEAN PLATELET VOLUME 10.4 fL (9.0-12.2); MONOCYTES # (AUTO) 0.4 10^3/uL (0.0-1.0); MONOCYTES % (AUTO) 8 % (0-12); NEUTROPHILS # (AUTO) 3.9 10^3/uL (1.8-7.8); NEUTROPHILS % (AUTO) 73 % (42-75); PLATELET COUNT 158 10^3/uL (130-400); WHITE BLOOD COUNT 5.3 10^3/uL (4.3-11.0)
[2020-11-27 10:15] LABS: CALCIUM 10.2 MG/DL (8.5-10.1); CREATININE SERUM 1.39 MG/DL (0.60-1.30)
[2020-12-02 11:03] LABS: BASOPHILS % (AUTO) 1 % (0-10); EOSINOPHILS # (AUTO) 0.1 10^3/uL (0.0-0.3); EOSINOPHILS % (AUTO) 3 % (0-10); HEMATOCRIT 44 % (35-52); HEMOGLOBIN 14.4 g/dL (11.5-16.0); LYMPHOCYTES % (AUTO) 28 % (12-44); MEAN CORPUSCULAR HEMOGLOBIN 34 pg (25-34); MEAN CORPUSCULAR HGB CONC 33 g/dL (32-36); MEAN CORPUSCULAR VOLUME 102 fL (80-99); MEAN PLATELET VOLUME 10.7 fL (9.0-12.2); MONOCYTES # (AUTO) 0.5 10^3/uL (0.0-1.0); MONOCYTES % (AUTO) 15 % (0-12); NEUTROPHILS # (AUTO) 1.8 10^3/uL (1.8-7.8); NEUTROPHILS % (AUTO) 52 % (42-75); PLATELET COUNT 159 10^3/uL (130-400); WHITE BLOOD COUNT 3.5 10^3/uL (4.3-11.0)
[2020-12-02 11:18] LABS: CREATININE SERUM 1.25 MG/DL (0.60-1.30); POTASSIUM 3.9 MMOL/L (3.6-5.0)
[2020-12-09 14:18] LABS: ALBUMIN 4.1 GM/DL (3.2-4.5); BILIRUBIN,TOTAL 0.5 MG/DL (0.1-1.0); CALCIUM 9.5 MG/DL (8.5-10.1); CREATININE SERUM 1.19 MG/DL (0.60-1.30); POTASSIUM 3.9 MMOL/L (3.6-5.0); TOTAL PROTEIN 6.5 GM/DL (6.4-8.2)
[2020-12-09 14:23] LABS: BASOPHILS % (AUTO) 2 % (0-10); EOSINOPHILS # (AUTO) 0.1 10^3/uL (0.0-0.3); EOSINOPHILS % (AUTO) 4 % (0-10); HEMATOCRIT 41 % (35-52); HEMOGLOBIN 13.6 g/dL (11.5-16.0); LYMPHOCYTES # (AUTO) 0.8 10^3/uL (1.0-4.0); LYMPHOCYTES % (AUTO) 31 % (12-44); MEAN CORPUSCULAR HEMOGLOBIN 33 pg (25-34); MEAN CORPUSCULAR HGB CONC 33 g/dL (32-36); MEAN CORPUSCULAR VOLUME 101 fL (80-99); MONOCYTES # (AUTO) 0.4 10^3/uL (0.0-1.0); MONOCYTES % (AUTO) 15 % (0-12); NEUTROPHILS # (AUTO) 1.3 10^3/uL (1.8-7.8); NEUTROPHILS % (AUTO) 48 % (42-75); PLATELET COUNT 187 10^3/uL (130-400); WHITE BLOOD COUNT 2.7 10^3/uL (4.3-11.0)
[~2020-12-12 13:53] MED LIST changes: +CEFD300C3 PO; +DEXA6TAB PO; +DIPH25TA65 PO; +OXYC10TA7 PO; +OXYC20TA54 PO
== END 2020-12-15 | disposition home or self-care (01) ==
LOC: ONC 13:53
PROVIDERS: ATTEND Internal Medicine Hematology & Oncology
DX: Z51.0 Encounter for antineoplastic radiation therapy (principal); C90.00 Multiple myeloma not having achieved remission; N18.4 Chronic kidney disease, stage 4 (severe); J06.9 Acute upper respiratory infection, unspecified; Z79.82 Long term (current) use of aspirin; Z79.899 Other long term (current) drug therapy; Z79.891 Long term (current) use of opiate analgesic
CPT/HCPCS: 36591; 77290; 77295; 77300; 77334; 77336; 77402; 77417; 77470; 80048; 80053; 82232; 82784; 83883; 84155; 84165; 85025; 99205; 99213; 99215

== ENCOUNTER 2021-02-25 11:08 | Outpatient (RCR) | payer MEDICAID ==
[2020-12-17 13:22] LABS: MEAN CORPUSCULAR VOLUME 101 fL (80-99)
[2020-12-17 13:24] LABS: BASOPHILS % (AUTO) 1 % (0-10); EOSINOPHILS # (AUTO) 0.1 10^3/uL (0.0-0.3); EOSINOPHILS % (AUTO) 3 % (0-10); HEMATOCRIT 41 % (35-52); HEMOGLOBIN 13.5 g/dL (11.5-16.0); LYMPHOCYTES # (AUTO) 0.9 10^3/uL (1.0-4.0); LYMPHOCYTES % (AUTO) 27 % (12-44); MEAN CORPUSCULAR HEMOGLOBIN 33 pg (25-34); MEAN CORPUSCULAR HGB CONC 33 g/dL (32-36); MEAN PLATELET VOLUME 9.6 fL (9.0-12.2); MONOCYTES # (AUTO) 0.5 10^3/uL (0.0-1.0); MONOCYTES % (AUTO) 14 % (0-12); NEUTROPHILS # (AUTO) 1.7 10^3/uL (1.8-7.8); NEUTROPHILS % (AUTO) 54 % (42-75); PLATELET COUNT 123 10^3/uL (130-400); WHITE BLOOD COUNT 3.2 10^3/uL (4.3-11.0)
[2020-12-17 13:39] LABS: CALCIUM 9.7 MG/DL (8.5-10.1); CREATININE SERUM 1.55 MG/DL (0.60-1.30); POTASSIUM 4.2 MMOL/L (3.6-5.0)
[2021-02-04 13:44] LABS: BASOPHILS % (AUTO) 0 % (0-10); EOSINOPHILS # (AUTO) 0.1 10^3/uL (0.0-0.3); EOSINOPHILS % (AUTO) 2 % (0-10); HEMATOCRIT 44 % (35-52); HEMOGLOBIN 14.6 g/dL (11.5-16.0); LYMPHOCYTES # (AUTO) 1.3 10^3/uL (1.0-4.0); LYMPHOCYTES % (AUTO) 24 % (12-44); MEAN CORPUSCULAR HEMOGLOBIN 33 pg (25-34); MEAN CORPUSCULAR HGB CONC 33 g/dL (32-36); MEAN CORPUSCULAR VOLUME 98 fL (80-99); MEAN PLATELET VOLUME 9.2 fL (9.0-12.2); MONOCYTES # (AUTO) 0.5 10^3/uL (0.0-1.0); MONOCYTES % (AUTO) 9 % (0-12); NEUTROPHILS # (AUTO) 3.5 10^3/uL (1.8-7.8); NEUTROPHILS % (AUTO) 65 % (42-75); PLATELET COUNT 133 10^3/uL (130-400); WHITE BLOOD COUNT 5.3 10^3/uL (4.3-11.0)
[2021-02-04 14:00] LABS: ALBUMIN 4.2 GM/DL (3.2-4.5); BILIRUBIN,TOTAL 0.3 MG/DL (0.1-1.0); CALCIUM 9.9 MG/DL (8.5-10.1); CREATININE SERUM 1.3 MG/DL (0.60-1.30); TOTAL PROTEIN 6.8 GM/DL (6.4-8.2)
[~2021-02-25 11:08] MED LIST changes: +ONDA-106 PO; -ONDA8TAB15 PO
[2021-02-25 11:40] LABS: BASOPHILS % (AUTO) 1 % (0-10); EOSINOPHILS # (AUTO) 0.1 10^3/uL (0.0-0.3); EOSINOPHILS % (AUTO) 4 % (0-10); HEMATOCRIT 39 % (35-52); HEMOGLOBIN 13.1 g/dL (11.5-16.0); LYMPHOCYTES # (AUTO) 0.7 10^3/uL (1.0-4.0); LYMPHOCYTES % (AUTO) 18 % (12-44); MEAN CORPUSCULAR HEMOGLOBIN 32 pg (25-34); MEAN CORPUSCULAR HGB CONC 33 g/dL (32-36); MEAN CORPUSCULAR VOLUME 95 fL (80-99); MEAN PLATELET VOLUME 10.9 fL (9.0-12.2); MONOCYTES # (AUTO) 0.5 10^3/uL (0.0-1.0); MONOCYTES % (AUTO) 13 % (0-12); NEUTROPHILS # (AUTO) 2.4 10^3/uL (1.8-7.8); NEUTROPHILS % (AUTO) 65 % (42-75); PLATELET COUNT 187 10^3/uL (130-400); WHITE BLOOD COUNT 3.6 10^3/uL (4.3-11.0)
[2021-02-25 11:53] LABS: CALCIUM 11.5 MG/DL (8.5-10.1); CREATININE SERUM 2.11 MG/DL (0.60-1.30); POTASSIUM 3.6 MMOL/L (3.6-5.0)
== END 2021-02-28 | disposition home or self-care (01) ==
LOC: ONC 11:08
PROVIDERS: ATTEND Internal Medicine Hematology & Oncology
DX: Z51.11 Encounter for antineoplastic chemotherapy (principal); C90.00 Multiple myeloma not having achieved remission; N18.4 Chronic kidney disease, stage 4 (severe); Z79.82 Long term (current) use of aspirin; Z79.899 Other long term (current) drug therapy; Z79.891 Long term (current) use of opiate analgesic
CPT/HCPCS: 80048; 80053; 82232; 82306; 82784; 83883; 84155; 84165; 85025; 99213

== ENCOUNTER 2021-03-05 13:14 | Outpatient (RCR) | payer MEDICAID ==
[2021-03-05 13:36] LABS: BASOPHILS # (AUTO) 0.1 10^3/uL (0.0-0.1); BASOPHILS % (AUTO) 1 % (0-10); EOSINOPHILS # (AUTO) 0.1 10^3/uL (0.0-0.3); EOSINOPHILS % (AUTO) 2 % (0-10); HEMATOCRIT 36 % (35-52); HEMOGLOBIN 12.2 g/dL (11.5-16.0); LYMPHOCYTES # (AUTO) 1.1 10^3/uL (1.0-4.0); LYMPHOCYTES % (AUTO) 27 % (12-44); MEAN CORPUSCULAR HEMOGLOBIN 31 pg (25-34); MEAN CORPUSCULAR HGB CONC 34 g/dL (32-36); MEAN CORPUSCULAR VOLUME 93 fL (80-99); MEAN PLATELET VOLUME 9.9 fL (9.0-12.2); MONOCYTES # (AUTO) 0.5 10^3/uL (0.0-1.0); MONOCYTES % (AUTO) 13 % (0-12); NEUTROPHILS # (AUTO) 2.2 10^3/uL (1.8-7.8); NEUTROPHILS % (AUTO) 57 % (42-75); PLATELET COUNT 250 10^3/uL (130-400); WHITE BLOOD COUNT 3.9 10^3/uL (4.3-11.0)
[2021-03-05 14:02] LABS: ALBUMIN 3.6 GM/DL (3.2-4.5); BILIRUBIN,TOTAL 0.4 MG/DL (0.1-1.0); CALCIUM 9.3 MG/DL (8.5-10.1); CREATININE SERUM 1.25 MG/DL (0.60-1.30); POTASSIUM 3.1 MMOL/L (3.6-5.0); TOTAL PROTEIN 6.9 GM/DL (6.4-8.2)
[2021-03-05] MEDS ORDERED: NS IV 1000 ML (CANCER CTR) 1,000 ML ONE (14:03)
[2021-03-05] MEDS ORDERED: POTASSIUM CHL INJ (CANCER CTR) 10 MEQ in NS (IVPB) CANCER CENTER 50 ML IV ONE (14:15)
[2021-03-05 14:19] LABS: BILIRUBIN,URINE NEGATIVE (NEGATIVE); CLARITY,URINE CLEAR; COLOR,URINE YELLOW; GLUCOSE, URINE (UA) NEGATIVE (NEGATIVE); KETONES,URINE NEGATIVE (NEGATIVE); LEUKOCYTE ESTERASE ,URINE TRACE (NEGATIVE); NITRITE,URINE NEGATIVE (NEGATIVE); PROTEIN,URINE NEGATIVE (NEGATIVE)
[2021-03-05 14:33] LABS: BACTERIA,URINE NEGATIVE /HPF; SQUAMOUS EPITHELIAL CELL,UR 0-2 /HPF
[2021-03-05 14:42] LABS: MAGNESIUM 1.9 MG/DL (1.6-2.4)
== END 2021-03-31 | disposition home or self-care (01) ==
LOC: ONC 13:14
PROVIDERS: ATTEND Internal Medicine Hematology & Oncology
DX: C90.00 Multiple myeloma not having achieved remission (principal); Z45.2 Encounter for adjustment and management of vascular access device; K21.9 Gastro-esophageal reflux disease without esophagitis; N18.30 Chronic kidney disease, stage 3 unspecified; Z79.82 Long term (current) use of aspirin; Z79.899 Other long term (current) drug therapy; Z79.891 Long term (current) use of opiate analgesic
CPT/HCPCS: 36591; 80053; 81000; 82232; 82784; 83735; 83883; 84155; 84165; 85025; 96360; 96365; 99213

== ENCOUNTER → 2021-03-24 | Outpatient (CLI) | payer MEDICAID ==
--- NOTE | 2021-03-24 14:36 | Diagnostic Imaging Report ---
PROCEDURE: CT temporal bone without contrast. TECHNIQUE: Multiple contiguous axial images were obtained through the facial bones without the use of intravenous contrast. Auto Exposure Controls were utilized during the CT exam to meet ALARA standards for radiation dose reduction. INDICATION: Bilateral ear pain and hearing loss. Dizziness. Tinnitus. Bilateral tumor removed. COMPARISON: None. FINDINGS: There are postoperative findings of bilateral canal wall up mastoidectomies. The bilateral auditory ossicles are not entirely seen, possibly due to postoperative changes. No significant fluid within the mastoids or middle ears. Small amount of cerumen in the left external auditory canal. The bilateral cochlea, vestibule, semicircular canal, vestibular aqueducts and IACs are negative. Moderate mucosal thickening in the maxillary sinuses. Mucosal thickening and frothy secretions in the left sphenoid. S-shaped bowing of the nasal septum. Normal alignment of the temporomandibular joints. IMPRESSION: 1. Bilateral canal wall up mastoidectomies. 2. The auditory ossicles are incompletely visualized bilaterally, possibly due to postoperative change. No significant fluid in the middle ears or mastoids. 3. Normal internal ear structures. 4. Paranasal sinus disease as above. Dictated by: Dictated on workstation # [id number]
== END ==
LOC: RAD 12:45
PROVIDERS: ATTEND Otolaryngology Otolaryngology/Facial Plastic Surgery
DX: C90.00 Multiple myeloma not having achieved remission (principal); H92.03 Otalgia, bilateral; H91.93 Unspecified hearing loss, bilateral; R42 Dizziness and giddiness; Z98.890 Other specified postprocedural states; Z86.69 Personal history of other diseases of the nervous system and sense organs
CPT/HCPCS: 70486

== ENCOUNTER 2022-09-05 20:36 | Emergency (ER) | payer MEDICAID ==
[~2022-09-05] VITALS: Ht 145 cm; Wt 72.6 kg
--- NOTE | 2022-09-05 20:52 | ED Fall/Injury ---
General Chief Complaint: Trauma-Non Activation Stated Complaint: RIGHT SIDE INJ Source: patient History of Present Illness Date Seen by Provider: Sep 05, 2022 Time Seen by Provider: 20:44 Initial Comments PT ARRIVES VIA POV, WALKS IN ON HER OWN WITHOUT ANY DIFFICULTY PT STATES THAT SHE WAS AT THE MOVIE THEATER AND HAD BEEN SITTING AND GOT UP TO BATHROOM AND TRIPPED OVER HER OWN FEET, AND FELL, LANDING ON HER RIGHT KNEE, AND ALSO HAVING PAIN IN HER LOWER BACK LATER STATES RIGHT ELBOW PAIN DID NOT HIT HER HEAD OR HAVE LOSS OF CONSCIOUSNESS NO PARESTHESIAS OR MOTOR DEFICITS NO LOSS OF BOWEL OR BLADDER CONTROL SHE PROCEEDED TO GO TO BATHROOM, CONCESSION STAND AND THEN WATCHED THE ENTIRE MOVIE AND ATE POPCORN, THEN CAME HERE OCCURRED AROUND 1900 TONIGHT. PT IS ON OXYCODONE AND OXYCONTIN FOR CHRONIC GENERALIZED PAIN, INCLUDING CHRONIC BACK PAIN PT IS ON 81 MG ASPIRIN, NO OTHER BLOOD THINNERS Allergies and Home Medications Allergies Coded Allergies: ciprofloxacin (Verified Allergy, Mild, throat swells, 03/15/20) Sulfa (Sulfonamide Antibiotics) (Verified Allergy, Unknown, 03/15/20) acetaminophen (Verified Allergy, Unknown, 03/15/20) morphine (Verified Allergy, Unknown, 03/15/20) propoxyphene (Verified Allergy, Unknown, 03/15/20) Patient Home Medication List Albuterol Sulfate (Ventolin Hfa) 18 Gm Hfa.aer.ad, 2 PUFF INH Q6H PRN for SHORTNESS OF BREATH, (Reported) Entered as Reported by: JAVIER STARR on 12/08/19 0949 Atenolol (Atenolol) 25 Mg Tablet, 25 MG PO BID, (Reported) Entered as Reported by: JAVIER STARR on 12/08/19 0949 Cefdinir (Cefdinir) 300 Mg Capsule, 300 MG PO BID Prescribed by: NATI LEA on 10/08/20 1115 Dexamethasone (Dexamethasone) 4 Mg Tablet, 20 MG PO WED, (Reported) Entered as Reported by: JAVIER STARR on 04/19/20 1300 Dexamethasone (Dexamethasone) 6 Mg Tablet, 6 MG PO Q24H Prescribed by: NATI LEA on 10/08/20 1115 Diazepam (Diazepam) 5 Mg Tablet, 5 MG PO Q6H PRN for ANXIETY, (Reported) Entered as Reported by: JAVIER STARR on 12/08/19 0949 Diazepam (Diazepam) 5 Mg Tablet, 10 MG PO HS Prescribed by: NATI LEA on 10/08/20 1116 Diphenhydramine HCl (Benadryl Allergy) 25 Mg Tablet, 25-50 MG PO Q8H PRN for ITCHING AND RASH, (Reported) Entered as Reported by: JAVIER STARR on 10/03/20 1131 Esomeprazole Magnesium (Esomeprazole Magnesium) 40 Mg Capsule.dr, 40 MG PO HS, (Reported) Entered as Reported by: JAVIER STARR on 04/19/20 1300 Ipratropium/Albuterol Sulfate (Iprat-Albut 0.5-3(2.5) mg/3 ml) 3 Ml Ampul.neb, 3 ML NEB Q6H PRN for SHORTNESS OF BREATH, (Reported) Entered as Reported by: JAVIER STARR on 12/08/19 0949 Lenalidomide (Revlimid) 15 Mg Capsule, 15 MG PO UD, (Reported) Entered as Reported by: JAVIER STARR on 10/03/20 1131 Multivitamin (Multivitamin) 1 Each Tablet, 1 EACH PO DAILY, (Reported) Entered as Reported by: MINGO VALENTIN on 05/13/20 0814 Hudson-3 Acid Ethyl Esters (Hudson-3 Acid Ethyl Esters) 1 Gm Capsule, 4 GM PO DAILY, (Reported) Entered as Reported by: JAVIER STARR on 12/08/19 0949 Ondansetron HCl (Ondansetron HCl) 8 Mg Tablet, 8 MG PO Q8H PRN for NAUSEA/VOMITING-1ST LINE, (Reported) Entered as Reported by: JAVIER STARR on 04/19/20 1300 Oxycodone HCl (Oxycodone HCl) 10 Mg Tablet, 10 MG PO Q4 -6H PRN for PAIN-SEVERE (8-10), (Reported) Entered as Reported by: JAVIER STARR on 10/03/20 1131 Oxycodone HCl (Oxycontin) 20 Mg Tab.er.12h, 20 MG PO Q12H, (Reported) Entered as Reported by: JAVIER STRAR on 10/03/20 1131 Pitavastatin Calcium (Livalo) 2 Mg Tablet, 2 MG PO DAILY, (Reported) Entered as Reported by: JAVIER STARR on 12/08/19 0949 Review of Systems Review of Systems Constitutional: no symptoms reported Respiratory: no symptoms reported Cardiovascular: no symptoms reported Gastrointestinal: no symptoms reported Genitourinary: no symptoms reported Musculoskeletal: see HPI, back pain, other (RIGHT KNEE PAIN ) Skin: no symptoms reported Psychiatric/Neurological: No Symptoms Reported Past Xvotxyg-Iznekn-Snjshh Hx Seasonal Allergies Seasonal Allergies: No Past Medical History Surgery/Hospitalization HX: sees qa reviewer for monitoring, has multiple myeloma - sees Dr. House Surgeries: Yes (bladder mesh/sling, tumor removed from inner ears, ) Gallbladder, Hysterectomy Respiratory: Yes Asthma, COPD, Emphysema Currently Using CPAP: No Currently Using BIPAP: No Cardiac: Yes Angina, Hypertension Neurological: No Genitourinary: No Gastrointestinal: Yes Gastroesophageal Reflux, Diverticulosis, Polyps, Hiatal Hernia Musculoskeletal: Yes (CHRONIC GENERALIZED PAIN--NARCOTIC DEPENDENT) Arthritis, Chronic Back Pain Endocrine: No HEENT: Yes (EDENTULOUS) Cancer: Yes (multiple myeloma) Cervical Did You Recieve Any Treatments: Yes What Type of Treatment Did You: Surgical Intervention Psychosocial: Yes Anxiety, Depression Integumentary: No Blood Disorders: No Family Medical History No Pertinent Family Hx Physical Exam Vital Signs Vital Signs - First Documented 09/05/22 09/05/22 20:43 20:49 Temp 36.6 Pulse 75 Resp 19 B/P (MAP) 193/102 (132) Pulse Ox 97 O2 Delivery Room Air Capillary Refill : Height, Weight, BMI Height: 5'0" Weight: 156lbs. 0oz. 70.253702sw; 31.80 BMI Method:Stated General Appearance: WD/WN, no apparent distress, other (DOES NOT APPEAR TO BE IN ANY DISCOMFORT OR DISTRESS) HEENT: PERRL/EOMI, other (EDENTULOUS) Progress/Results/Core Measures Results/Orders My Orders Orders - TERESO HOUGH DO Ct Thoracic/Lumbar Spine Wo (09/05/22 20:47) Knee, Right, 3 Views (09/05/22 20:47) Elbow, Right, 3 Views (09/05/22 20:53) Vital Signs/I&O 09/05/22 09/05/22 20:43 20:49 Temp 36.6 36.6 Pulse 75 77 Resp 19 18 B/P (MAP) 193/102 (132) 192/102 (132) Pulse Ox 97 O2 Delivery Room Air Room Air Departure Impression Primary Impression: Fall from standing Additional Impressions: Contusion of right knee, initial encounter Contusion of right elbow, initial encounter Multiple myeloma OLD T7 COMPRESSION FRACTURE Disposition: 01 HOME, SELF-CARE Condition: Stable Departure-Patient Inst. Decision time for Depature: 21:49 Referrals: AVINSAH PÉREZ MD (PCP/Family) Primary Care Physician Patient Instructions: Vertebral Compression Fracture ED, Preventing Falls ED, Minor Contusion ED, Multiple Myeloma (DC) Add. Discharge Instructions: HOME, REST ICE TO SORE AREAS AT 20 MINUTE INTERVALS FOR THE FIRST 1-2 DAYS, THEN ALTERNATE ICE AND HEAT TO SORE AREAS AT 20 MINUTE INTERVALS CONTINUE YOUR HOME MEDICATIONS PRESCRIBED FOLLOW UP WITH YOUR DR IN 1 WEEK FOR FURTHER CARE--CALL IN THE MORNING TO SCHEDULE AN APPOINTMENT All discharge instructions reviewed with patient and/or family. Voiced understanding. TERESO HOUGH DO Sep 05, 2022 20:52
--- NOTE | 2022-09-05 21:28 | Diagnostic Imaging Report ---
INDICATION: Right elbow pain AP, oblique, lateral views the right elbow are obtained. No fracture or acute bony abnormality is seen. There is no elevation of posterior fat pad. There is mild chronic changes of the radial head. IMPRESSION: No acute abnormality in the right elbow. Dictated by: Dictated on workstation # [id number]
--- NOTE | 2022-09-05 21:28 | Diagnostic Imaging Report ---
INDICATION: Right knee pain AP, oblique, lateral views of the right knee are obtained. No fracture or acute bony abnormality seen. Joint spaces are unremarkable. IMPRESSION: Negative right knee. Dictated by: Dictated on workstation # [id number]
--- NOTE | 2022-09-05 21:37 | Diagnostic Imaging Report ---
INDICATION: Fall with back pain TECHNIQUE: Multiple contiguous axial images were obtained through the thoracic and lumbar spine without the use of intravenous contrast. Sagittal and coronal reformations were then performed. All CT scans use one or more of the following dose optimizing techniques: automated exposure control, MA and/or KvP adjustment based on a patient size and exam type, or iterative reconstruction. There is no prior CT for comparison CT thoracic spine findings: There is a compression fracture of T7 of indeterminate age with greater than 50% loss of height. There is some mild posterior osteophyte formation. There is generalized demineralization throughout the thoracic levels. Remaining thoracic vertebrae appear in good alignment with normal height. CT lumbar spine findings: Lumbar vertebrae also show diffuse demineralization and inhomogeneous lucency. There are facet degenerative changes in the lower lumbar spine. The sacrum and medial portions of the iliac bones also show diffuse irregular lucency which may represent underlying metastatic disease or myeloma. There is no acute compression deformity however in the lumbar spine. There is no significant canal stenosis. IMPRESSION: CT thoracic spine demonstrates diffuse demineralization and inhomogeneous lucencies throughout the thoracic spine, the findings may represent metastatic disease or myeloma. There is a compression fracture of T7 which is of indeterminate age. Consider MRI if there is focal pain at this level. CT lumbar spine shows the lumbar vertebrae to be normal in height and alignment. There is demineralization with diffuse homogenous lucency throughout the lumbar spine which may represent metastatic disease or myeloma. There is also extensive lucency and irregularity in the sacrum and iliac bones which may represent metastatic disease or myeloma. Dictated by: Dictated on workstation # [id number]
[2022-09-05 22:01] VITALS: BP 179/89
== END 2022-09-05 22:01 | disposition home or self-care (01) ==
LOC: EDUNIT# 20:36 → ER 20:39
DX: S50.01XA Contusion of right elbow, initial encounter (principal); S80.01XA Contusion of right knee, initial encounter; S22.068A Other fracture of T7-T8 thoracic vertebra, initial encounter for closed fracture; C90.00 Multiple myeloma not having achieved remission; G89.29 Other chronic pain; M54.9 Dorsalgia, unspecified; Z79.82 Long term (current) use of aspirin; Z28.310 Unvaccinated for COVID-19; W18.30XA Fall on same level, unspecified, initial encounter; Y92.254 Theater (live) as the place of occurrence of the external cause
CPT/HCPCS: 72128; 72131; 73080; 73562

== ENCOUNTER 2023-01-15 16:20 | Emergency (ER) | payer MEDICAID ==
[~2023-01-15] VITALS: Ht 172 cm; Wt 81.6 kg
[2023-01-15 16:30] VITALS: BP 193/102
--- NOTE | 2023-01-15 16:59 | ED Lower Extremity ---
General Chief Complaint: Lower Extremity Stated Complaint: FALL FEET/RIB PAIN Nursing Triage Note: pt presents to ED with c/o left foot pain after tripping and twisting foot earlier today. pt ambulated to room 1 successfully but with apparent difficulty. pt has hx of bone cancer. Source: patient Exam Limitations: no limitations (JOSE SANTIAGO) History of Present Illness Date Seen by Provider: Jan 15, 2023 Time Seen by Provider: 16:56 Initial Comments Patient is a 57-year-old female who presents ED with left ankle pain. She state s around 1:40 PM she rolled her left ankle while she stepped on a water feature at her mother's house. She denies falling and hitting the ground but did have immediate pain. She reports some mild swelling but denies any bruising or redness. She is able to ambulate. History of multiple myeloma currently at a standstill. Not currently on any type of radiation or therapy at this time. Patient also reports right-sided rib pain but did not injure her rib while falling. She has pain around the ribs for the past week. No pain with deep inspiration, cough, chest pain abdominal pain vomiting or diarrhea. No pain with eating. History of cholecystectomy. She states she has tenderness to this location. She does have pain medication she takes at home chronically. Denies headache, dizziness, visual changes, unilateral muscle weakness or sensory changes. She denies any hip pain, back pain, chest pain or shortness of breath. (JOSE SANTIAGO) Allergies and Home Medications Allergies Coded Allergies: ciprofloxacin (Verified Allergy, Mild, throat swells, 03/15/20) Sulfa (Sulfonamide Antibiotics) (Verified Allergy, Unknown, 03/15/20) acetaminophen (Verified Allergy, Unknown, 03/15/20) morphine (Verified Allergy, Unknown, 03/15/20) propoxyphene (Verified Allergy, Unknown, 03/15/20) Patient Home Medication List Home Medication List Reviewed: Yes (JOSE SANTIAGO) Albuterol Sulfate (Ventolin Hfa) 18 Gm Hfa.aer.ad, 2 PUFF INH Q6H PRN for SHORTNESS OF BREATH, (Reported) Entered as Reported by: JAVIER STARR on 12/08/19 0949 Atenolol (Atenolol) 25 Mg Tablet, 25 MG PO BID, (Reported) Entered as Reported by: JAVIER STARR on 12/08/19 09 Cefdinir (Cefdinir) 300 Mg Capsule, 300 MG PO BID Prescribed by: NATI LEA on 10/08/20 1115 Dexamethasone (Dexamethasone) 4 Mg Tablet, 20 MG PO FRI, (Reported) Entered as Reported by: JAVIER STARR on 04/19/20 1300 Dexamethasone (Dexamethasone) 6 Mg Tablet, 6 MG PO Q24H Prescribed by: NATI LEA on 10/08/20 1115 Diazepam (Diazepam) 5 Mg Tablet, 5 MG PO Q6H PRN for ANXIETY, (Reported) Entered as Reported by: JAVIER STARR on 12/08/19948 Diazepam (Diazepam) 5 Mg Tablet, 10 MG PO HS Prescribed by: NATI LEA on 10/08/20 111 Diphenhydramine HCl (Benadryl Allergy) 25 Mg Tablet, 25-50 MG PO Q8H PRN for ITCHING AND RASH, (Reported) Entered as Reported by: JAVIER STARR on 10/03/20 113 Esomeprazole Magnesium (Esomeprazole Magnesium) 40 Mg Capsule.dr, 40 MG PO HS, (Reported) Entered as Reported by: JAVIER STARR on 04/19/20 1300 Ipratropium/Albuterol Sulfate (Iprat-Albut 0.5-3(2.5) mg/3 ml) 3 Ml Ampul.neb, 3 ML NEB Q6H PRN for SHORTNESS OF BREATH, (Reported) Entered as Reported by: JAVIER STARR on 12/08/19 09 Lenalidomide (Revlimid) 15 Mg Capsule, 15 MG PO UD, (Reported) Entered as Reported by: JAVIER STARR on 10/03/20 113 Multivitamin (Multivitamin) 1 Each Tablet, 1 EACH PO DAILY, (Reported) Entered as Reported by: MINGO VALENTIN on 05/13/20 0814 [place]-3 Acid Ethyl Esters ([place]-3 Acid Ethyl Esters) 1 Gm Capsule, 4 GM PO DAILY, (Reported) Entered as Reported by: JAVIER STARR on 12/08/19 09 Ondansetron HCl (Ondansetron HCl) 8 Mg Tablet, 8 MG PO Q8H PRN for NAUSEA/VOMITING-1ST LINE, (Reported) Entered as Reported by: JAVIER STARR on 04/19/20 1300 Oxycodone HCl (Oxycodone HCl) 10 Mg Tablet, 10 MG PO Q4 -6H PRN for PAIN-SEVERE (8-10), (Reported) Entered as Reported by: JAVIER STARR on 10/03/20 1131 Oxycodone HCl (Oxycontin) 20 Mg Tab.er.12h, 20 MG PO Q12H, (Reported) Entered as Reported by: JAVIER STARR on 10/03/20 1131 Pitavastatin Calcium (Livalo) 2 Mg Tablet, 2 MG PO DAILY, (Reported) Entered as Reported by: JAVIER STARR on 12/08/19 0949 Review of Systems Constitutional: No chills, No diaphoresis, No malaise, No weakness EENTM: No hearing loss, No ear pain, No blurred vision Respiratory: No cough Cardiovascular: No chest pain Gastrointestinal: No abdominal pain, No diarrhea, No nausea, No vomiting Genitourinary: No decreased output, No discharge, No dysuria, No frequency Musculoskeletal: No back pain; joint pain, muscle pain Skin: No change in color, No change in hair/nails (JOSE SANTIAGO) All Other Systems Reviewed Negative Unless Noted: Yes (JOSE SANTIAGO) Past Mbsrbdf-Zgfopn-Uzsylt Hx Patient Social History Tobacco Use?: No Smoking Status: Former Smoker Substance use?: No Alcohol Use?: No Pt feels they are or have been: No (JOSE SANTIAGO) Seasonal Allergies Seasonal Allergies: No (JOSE SANTIAGO) Past Medical History Surgery/Hospitalization HX: sees curriculum assistant for monitoring, has multiple myeloma - sees Dr. House Surgeries: Yes (bladder mesh/sling, tumor removed from inner ears, ) Gallbladder, Hysterectomy Respiratory: Yes Asthma, COPD, Emphysema Currently Using CPAP: No Currently Using BIPAP: No Cardiac: Yes Angina, Hypertension Neurological: No Genitourinary: No Gastrointestinal: Yes Gastroesophageal Reflux, Diverticulosis, Polyps, Hiatal Hernia Musculoskeletal: Yes (CHRONIC GENERALIZED PAIN--NARCOTIC DEPENDENT) Arthritis, Chronic Back Pain Endocrine: No HEENT: Yes (EDENTULOUS) Cancer: Yes (multiple myeloma) Cervical Did You Recieve Any Treatments: Yes What Type of Treatment Did You: Surgical Intervention Psychosocial: Yes Anxiety, Depression Integumentary: No Blood Disorders: No (JOSE SANTIAGO) Family Medical History No Pertinent Family Hx (JOSE SANTIAGO) Physical Exam Vital Signs Vital Signs - First Documented 01/15/23 16:30 Temp 36.7 Pulse 61 Resp 18 B/P (MAP) 193/102 (132) Pulse Ox 97 O2 Delivery Room Air (MAUREEN THACKER MD) Vital Signs Capillary Refill : Less Than 3 Seconds (JOSE SANTIAGO) Height, Weight, BMI Height: 5'0" Weight: 156lbs. 0oz. [id number]; 27.00 BMI Method:Stated General Appearance: WD/WN, no apparent distress HEENT: PERRL/EOMI, normal ENT inspection, TMs normal, pharynx normal Neck: non-tender, full range of motion, supple Cardiovascular: regular rate, rhythm, no edema, no gallop, no JVD Respiratory: chest non-tender, lungs clear, normal breath sounds, no respiratory distress, no accessory muscle use, other (Right sided lower rib tenderness. No swelling bruising or redness.) Gastrointestinal: normal bowel sounds, non tender, soft Back: normal inspection, no CVA tenderness, no vertebral tenderness Hips: bilateral hip non-tender, bilateral hip normal inspection, bilateral hip normal range of motion, bilateral hip no evidence of injury Knees: bilateral knee non-tender, bilateral knee normal inspection, bilateral knee normal range of motion Ankles: left ankle pain, left ankle soft tissue tenderness, left ankle swelling Feet: bilateral foot non-tender, bilateral foot normal inspection, bilateral foot normal range of motion (JOSE SANTIAGO) Progress/Results/Core Measures Results/Orders Vital Signs/I&O 01/15/23 16:30 Temp 36.7 Pulse 61 Resp 18 B/P (MAP) 193/102 (132) Pulse Ox 97 O2 Delivery Room Air (MAUREEN THACKER MD) Blood Pressure Mean: 132 Departure Communication (PCP) Patient presents ED with left ankle injury today. This was mechanical fall. Denies hitting her head or loss of conscious. Able to ambulate. History of multiple myeloma currently at standstill and not currently on any type of radiation or chemo. No obvious deformity of the left ankle. Neurovascular intact. Refusing thing for pain. Does have pain medication at home. X-ray was negative for acute fracture. She is also complaining of right-sided rib pain that hurts on palpation or movement. Did obtain an x-ray of the right ribs which did not show any acute fractures. Healing fractures with callus formation involving the lateral aspect of the right second third fourth fifth and sixth ribs. Given the linear pattern this is probably more traumatic in nature. She has no tenderness along this area. Other potential etiologies would be from her multiple myeloma. No new falls but have fallen in the past. No evidence of pneumonia or pneumothorax. She is neurovascular intact. No current chest pain or shortness of breath. No abdominal pain vomiting diarrhea or pain with eating. Continue with your pain regimen. Follow-up your PCP in 2 days for today's results. If continued pain in the next 7 to 10 days orthopedic follow- up for the left ankle. Patient agrees with plan of action. (JOSE SANTIAGO) Impression Primary Impression: Ankle sprain Disposition: 01 HOME, SELF-CARE Condition: Stable Departure-Patient Inst. Decision time for Depature: 18:03 (JOSE SANTIAGO) Referrals: AVINASH PÉREZ MD (PCP/Family) Primary Care Physician MICHAELA SANCHEZ MD Patient Instructions: Ankle Sprain ED Add. Discharge Instructions: Recommend rest, ice and anti-inflammatories for pain. If continue having pain over the next 7 to 10 days orthopedic outpatient follow-up. All discharge instructions reviewed with patient and/or family. Voiced understanding. ATTENDING PHYSICIAN NOTE: I was physically present as attending physician in the emergency department during the care of this patient, but I was not directly involved in the decision making or delivery of care for this patient. (MAUREEN THACKER MD) JOSE SANTIAGO Jan 15, 2023 16:59 MAUREEN THACKER MD Jan 15, 2023 22:11
--- NOTE | 2023-01-15 17:43 | Diagnostic Imaging Report ---
INDICATION: 57-year-old female presents with right-sided chest pain, right rib pain, history of bone cancer. COMPARISONS: None. FINDINGS: Three views of the right ribs show a Mediport in place. There are some background chronic parenchymal changes in the visualized lungs. There are what appear to be old healed rib fractures at multiple levels including second, third, fourth, fifth, and sixth ribs. IMPRESSION: 1. Healing fractures with callus formation involving the lateral aspect of the right second, third, fourth, fifth, and sixth ribs. Given the linear pattern, this is probably traumatic in nature however given the patient's history, metastatic lesions cannot be excluded. 2. There is a right IJ Mediport in place. 3. Some chronic parenchymal changes in the lungs but no confluent consolidations. Dictated by: Dictated on workstation # [id number]
--- NOTE | 2023-01-15 17:50 | Diagnostic Imaging Report ---
INDICATION: 57-year-old female presents with left foot pain after tripping and twisting her foot earlier in the day. COMPARISONS: None FINDINGS: 3 views of the left ankle show no evidence of new or healing fractures, bony destruction or remodeling. The left ankle mortise is preserved. IMPRESSION: No fracture or subluxation seen. Dictated by: Dictated on workstation # [id number]
== END 2023-01-15 18:00 | disposition home or self-care (01) ==
LOC: EDUNIT# 16:20 → ER 16:23
DX: S93.402A Sprain of unspecified ligament of left ankle, initial encounter (principal); Z87.891 Personal history of nicotine dependence; X50.1XXA Overexertion from prolonged static or awkward postures, initial encounter; W18.30XA Fall on same level, unspecified, initial encounter; W22.8XXA Striking against or struck by other objects, initial encounter
CPT/HCPCS: 71100; 73610